=== PATIENT | female | born 1930 | race Caucasian/White ===

== ENCOUNTER 2016-03-20 09:41 | Inpatient (IN) | payer MEDICARE, MEDICAID ==
[~2016-03-20] VITALS: Ht 162.6 cm; Wt 75.7 kg
[~2016-03-20 09:41] MED LIST: GUAI600T43 PO; LEVO500T2 PO
[2016-03-20] MEDS ORDERED: NS IV 1000 ML 1,000 ML IV ONE (09:54)
[2016-03-20 10:07] LABS: BASOPHILS % (AUTO) 0 % (0-10); EOSINOPHILS % (AUTO) 0 % (0-10); LYMPHOCYTES # (AUTO) 0.6 X 10^3 (1.0-4.0); LYMPHOCYTES % (AUTO) 4 % (12-44); MEAN CORPUSCULAR HEMOGLOBIN 28 PG (25-34); MEAN CORPUSCULAR HGB CONC 32 G/DL (32-36); MEAN CORPUSCULAR VOLUME 88 FL (80-99); MEAN PLATELET VOLUME 10.9 FL (7.4-10.4); MONOCYTES % (AUTO) 6 % (0-12); NEUTROPHILS # (AUTO) 14.3 X 10^3 (1.8-7.8); NEUTROPHILS % (AUTO) 90 % (42-75); PLATELET COUNT 278 10^3/uL (130-400); RED CELL DISTRIBUTION WIDTH 15.7 % (10.0-14.5); WHITE BLOOD COUNT 15.9 10^3/uL (4.3-11.0)
[2016-03-20 10:21] LABS: ALBUMIN 3.6 G/DL (3.2-4.5); BILIRUBIN,TOTAL 0.3 MG/DL (0.1-1.0); CREATININE SERUM 2.3 MG/DL (0.60-1.30); POTASSIUM 4.4 MMOL/L (3.6-5.0); TOTAL PROTEIN 6.4 G/DL (6.4-8.2)
[2016-03-20 10:29] LABS: BAND NEUTROPHILS 16 %; EOSINOPHILS % (MANUAL) 0 %; LYMPHOCYTES % (MANUAL) 5 %; NEUTROPHILS % (MANUAL) 76 %
[2016-03-20 10:30] LABS: ANISOCYTOSIS SLIGHT; BASOPHILS % (MANUAL) 0 %; TEAR DROP CELLS SLIGHT
[2016-03-20 10:39] LABS: BILIRUBIN,URINE NEGATIVE (NEGATIVE); KETONES,URINE NEGATIVE (NEGATIVE); LEUKOCYTE ESTERASE ,URINE 1+ (NEGATIVE); NITRITE,URINE NEGATIVE (NEGATIVE); PH,URINE 5 (5-9); PROTEIN,URINE 1+ (NEGATIVE); UROBILINOGEN,URINE NORMAL (NORMAL)
[2016-03-20] MEDS ORDERED: methylPREDNISolone 125 MG (Solu-MEDROL) VIAL IVP ONE (10:45)
[2016-03-20] MEDS ORDERED: RT-ALBUTEROL/IPRATROPIUM 3 ML (DUONEB) VIAL INH ONE (10:45)
[2016-03-20] MEDS ORDERED: DEXAMETHASONE 4 MG/ML SDV (DECADRON) IH ONE (10:45)
[2016-03-20 10:47] LABS: SQUAMOUS EPITHELIAL CELL,UR 0-2 /HPF; WBC,URINE 0-2 /HPF
--- NOTE | 2016-03-20 10:54 | Diagnostic Imaging Report ---
EXAM: CHEST PA/LAT (2 VIEW) INDICATION: Dyspnea. Wheezing. COMPARISON: Chest radiograph, 03/16/2016. FINDINGS: Normal heart size and pulmonary vascularity. There is new interstitial and airspace opacity in the mid and upper right lung. Stable calcified granulomas. Calcified aorta. No definite pleural effusion or pneumothorax. Degenerative changes in the spine. IMPRESSION: New interstitial and airspace opacity in the mid and upper right lung suspicious for pneumonitis. Dictated by: Dictated on workstation # [id number]
[2016-03-20] MEDS ORDERED: LEVOFLOXACIN 750 MG/150 ML IV 150 ML IV STA (11:03)
[2016-03-20 11:45] VITALS: BP 125/64
[2016-03-20] MEDS ORDERED: VANCOMYCIN 1500 MG/NS 500 ML IVPB IV NR ×2 (12:04)
[2016-03-20] MEDS ORDERED: PIPERACILLIN SODIUM/TAZOBACTAM 4.5 GM in NORMAL SALINE (BAXTER MINI) 100 ML IV ONE (12:15)
[2016-03-20] MEDS: 1/2 NS IV SOLUTION 1,000 ML IV SCH (13:05)
[2016-03-20] MEDS ORDERED: LEVO125T PO (15:42)
[2016-03-20] MEDS ORDERED: OXYC40TA46 PO (15:42)
[2016-03-20] MEDS ORDERED: COLC0.6T53 PO (15:42)
[2016-03-20] MEDS ORDERED: MAG355OR16 PO (15:42)
[2016-03-20] MEDS ORDERED: LOPE-134 PO (15:42)
[2016-03-20] MEDS ORDERED: RANI150T15 PO (15:42)
[2016-03-20] MEDS ORDERED: MAGN400O7 PO (15:42)
[2016-03-20] MEDS ORDERED: CALC500T34 PO (15:42)
[2016-03-20] MEDS ORDERED: DICL100G18 TP (15:42)
[2016-03-20] MEDS ORDERED: L.AC1CAP6 PO (15:42)
[2016-03-20] MEDS ORDERED: NIFE90TA PO (15:42)
[2016-03-20] MEDS ORDERED: DPAS20025 PO (15:42)
[2016-03-20] MEDS ORDERED: BIMA2.5D4 OU (15:42)
[2016-03-20] MEDS ORDERED: BUTA1CAP39 PO (15:42)
[2016-03-20] MEDS ORDERED: IPRA4AER IH (15:42)
[2016-03-20] MEDS ORDERED: GABA400C PO (15:42)
[2016-03-20] MEDS ORDERED: LOVA20TA2 PO (15:42)
[2016-03-20] MEDS ORDERED: ALPR0.25 PO ×2 (15:42)
[2016-03-20] MEDS ORDERED: ONDN4T PO (15:42)
[2016-03-20] MEDS ORDERED: MULT1TAB59 PO (15:42)
[2016-03-20] MEDS ORDERED: ALLO100T PO (15:42)
[2016-03-20] MEDS ORDERED: PSYL0.5238 PO (15:42)
[2016-03-20] MEDS ORDERED: MELO-170 PO (15:42)
[2016-03-20] MEDS ORDERED: ATEN25TA PO (15:42)
[2016-03-20] MEDS ORDERED: PRAM0.252 PO (15:42)
[2016-03-20] MEDS ORDERED: DEXT15DR24 OU (15:42)
[2016-03-20] MEDS ORDERED: MENT71OI TP (15:42)
[2016-03-20] MEDS ORDERED: FURO-125 PO (15:42)
[2016-03-20] MEDS ORDERED: NF-SKEL800 PO (15:42)
[2016-03-20] MEDS ORDERED: ALBU2.5V4 NEB (15:42)
[2016-03-20] MEDS ORDERED: OXYC-197 PO (15:42)
[2016-03-20 16:00] VITALS: BP 124/73
[2016-03-20] MEDS: PIPERACILLIN SODIUM/TAZOBACTAM 4.5 GM in NORMAL SALINE (BAXTER MINI) 100 ML IV SCH (18:23)
[2016-03-20] MEDS: RT-ALBUTEROL/IPRATROPIUM 3 ML (DUONEB) VIAL INH SCH ×2 (18:51→22:55)
[2016-03-20 19:20] VITALS: BP 120/64
--- NOTE | 2016-03-20 19:51 | ED Respiratory ---
General Chief Complaint: Respiratory Problems Stated Complaint: PNEUMONIA, FAILURE OF OUTPATIENT TREATMENT Nursing Triage Note: TO ED PER EMS FROM [facility] WAS SEEN ON DISCHARGED WITH LEVAQUIN WOKE UP TODAY WITH FEVER AND NOT ANY BETTER. Source: patient, EMS History of Present Illness Time seen by provider: 09:50 Initial Comments PT ARRIVES VIA EMS FROM [facility] PT HAS KNOWN PNEUMONIA AND WAS SENT HERE TO BE ADMITTED PT WAS SEEN HERE 03/12/16 AND WAS GIVEN SOLU-MEDROL, ROCEPHIN, ZITHROMAX, AND GIVEN ZITHROMAX, PREDNISONE AND DUO NEB PT CAME BACK TO ER 03/16/16 AND DX WITH PNEUMONIA AND GIVEN LEVAQUIN AND GUIAFENESIN PT HAD RECEIVED IM INJECTIONS OF ROCEPHIN IN MID FEBRUARY FOR SIMILAR PT HAD REPORTED FEVER TODAY AND INCREASED SHORTNESS OF BREATH C/O CHEST HURTS TO BREATHE PCP: DR. HERRERA Allergies and Home Medications Allergies Coded Allergies: fentanyl (Verified Adverse Reaction, Unknown, 11/02/14) penicillin (Verified Adverse Reaction, Unknown, 11/02/14) Uncoded Allergies: TETANUS (Adverse Reaction, Unknown, 11/02/14) Home Medications Albuterol Sulfate 2.5 Mg/3 Ml Vial.neb 2.5 MG IH TID PRN PRN SHORTNESS OF BREATH (Reported) Albuterol/Ipratropium 4 Gm Aero 1 PUFF IH QID (Reported) Allopurinol 100 Mg Tablet 100 MG PO DAILY (Reported) Alprazolam 0.25 Mg Tablet 0.25 MG PO HS (Reported) Alprazolam 0.25 Mg Tablet 0.25 MG PO Q8H PRN PRN ANXIETY (Reported) Atenolol 25 Mg Tablet 12.5 MG PO DAILY (Reported) Bimatoprost 2.5 Ml Drops 1 DROP OU HS (Reported) Butalb/Acetaminophen/Caffeine 1 Each Capsule 1 EACH PO BID (Reported) Calcium Carbonate 500 Mg Tablet 1 TAB PO DAILY (Reported) Colchicine 0.6 Mg Tablet 0.6 MG PO Q4H PRN PRN GOUT PAIN (Reported) Dextran 70/Hypromellose 15 Ml Drops 1 DROP OP NEEDED PRN PRN DRY EYES ( Reported) Diclofenac Sodium 100 Gm Gel..gram. 2 GM TP Q6H PRN PRN PAIN (Reported) apply to right knee four times a day as needed for pain Dipyridamole/Aspirin 1 Ea Cap 1 CAP PO BID (Reported) Furosemide 20 Mg Tablet 10 MG PO DAILY (Reported) Gabapentin 400 Mg Capsule 400 MG PO TID (Reported) Guaifenesin 600 Mg Tab.er.12h #10 600 MG PO BID Prescribed by: HEYDI MOE on 03/16/16 1313 L.acidoph & Paracasei,B.lactis 1 Each Capsule 1 EACH PO DAILY (Reported) Levofloxacin 500 Mg Tablet #7 500 MG PO every other day Prescribed by: HEYDI MOE on 03/16/16 1317 Levothyroxine Sodium 125 Mcg Tablet 125 MCG PO DAILY (Reported) Loperamide HCl 2 Mg Tablet 4 MG PO Q6H PRN PRN DIARRHEA (Reported) Lovastatin 20 Mg Tablet 20 MG PO HS (Reported) Mag Hydrox/Al Hydrox/Simeth 770 Ml Oral.susp 30 ML PO Q4H (Reported) Magnesium Hydroxide 400 Mg/5 Ml Oral.susp 30 ML PO DAILY PRN PRN CONSTIPATION ( Reported) Meloxicam 7.5 Mg Tablet 7.5 MG PO BID (Reported) Menthol/Lanolin/Calamine/Znox 71 Gm Oint 71 GM TP Q4H PRN PRN RASH (Reported) Metaxalone 800 Mg Tablet 800 MG PO TID (Reported) Multivitamin W-Minerals/Lutein 1 Each Tablet 1 EACH PO DAILY (Reported) Nifedipine 90 Mg Tab.er.24 90 MG PO DAILY (Reported) Ondansetron HCl 4 Mg Tab 4 MG PO Q6H PRN PRN NAUSEA (Reported) Oxycodone HCl 40 Mg Tab.er.12h 40 MG PO Q12H (Reported) Oxycodone HCl/Acetaminophen 1 Each Tablet 1 EACH PO Q4H PRN PRN PAIN (Reported) Pramipexole Di-HCl 0.25 Mg Tablet 0.25 MG PO HS (Reported) Psyllium Husk 0.52 Gm Capsule 2 CAP PO TID (Reported) Ranitidine HCl 150 Mg Tablet 150 MG PO DAILY (Reported) Constitutional: see HPI fever other (LIMITED) EENTM: no symptoms reported Respiratory: see HPI cough short of breath wheezing Cardiovascular: see HPI chest pain Past Nxrbhzq-Xyxuqf-Oaljrn Hx Patient Social History Alcohol Use: Regular Use Recreational Drug Use: No Smoking Status: Former Smoker Type Used: Cigarettes Recent Foreign Travel: No Contact w/Someone Who Travel: No Recent Infectious Disease Expo: No Recent Hopitalizations: No Physical Abuse Screen: No Sexual Abuse: No Immunizations Up To Date Tetanus Booster (TDap): More than 5yrs PED Vaccines UTD: No Date of Pneumonia Vaccine: Feb 16, 2014 Date of Influenza Vaccine: Dec 18, 2015 Seasonal Allergies Seasonal Allergies: Yes Surgeries HX Surgeries: Yes (COLONOSCOPY; KNEE SURGERY) Surgeries: Appendectomy, Gallbladder, Hysterectomy, Orthopedic Respiratory Hx Respiratory Disorders: Yes Respiratory Disorders: Asthma, COPD Cardiovascular Hx Cardiac Disorders: Yes Cardiac Disorders: Chronic Edema/Swelling, High Cholesterol, Hypertension Neurological Hx Neurological Disorders: Yes (Peripheral Neuropathy, chronic weakness, RLS) Neurological Disorders: Dementia, Headaches /Migraines, Neuropathy, Stroke, TIA Reproductive System Hx Reproductive Disorders: No 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 COMPRESSION FRACTURES IN BACK) Musculoskeletal Disorders: Degenerate Disk Disease, Arthritis, Chronic Back Pain, Fractures, Gout Endocrine Hx Endocrine Disorders: Yes Endocrine Disorders: Hyperthyroidism, Hypothyroidsim HEENT HX ENT Disorders: Yes HEENT Disorders: Cataract, Glaucoma Loss of Vision: Bilateral Hearing Impairment: Hard of Hearing Cancer Hx Cancer: No Psychosocial Hx Psychiatric Problems: Yes Behavioral Health Disorders: Anxiety, Depression Integumentary HX Skin/Integumentary Disorder: No Blood Transfusions Hx Blood Disorders: No Adverse Reaction to a Blood Tr: No Family Medical History Family Medial History: Congenital heart disease 19 FATHER 19 MOTHER FH: stroke 19 FATHER 19 MOTHER G8 SISTER G8 SISTER Myocardial infarction G8 SISTER Physical Exam Vital Signs Vital Sign - Last 12Hours 03/20/16 09:41 Temp 99.8 Pulse 79 Resp 18 B/P 121/87 Pulse Ox 94 O2 Delivery Nasal Cannula O2 Flow Rate 3 Capillary Refill : Less Than 3 SecondsLess Than 3 Seconds General Appearance: WD/WN mild distress other (DYSPNEIC--TALKS IN 1-3 WORD SENTENCES. AUDIBLE WHEEZING/RHONCHI. LETHARGIC. LOOKS ILL. 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 as tested no motor/sensory deficits oriented x 3 Skin: normal color warm/dry Progress/Results/Core Measures Results/Orders Lab Results Laboratory Tests Test 03/20/16 09:40 03/20/16 10:33 Range/Units Alanine Aminotransferase (ALT/SGPT) 51 0-55 U/L Albumin 3.6 3.2-4.5 G/DL Alkaline Phosphatase 141 H 40-136 U/L Anion Gap 10 5-14 MMOL/L Anisocytosis SLIGHT Aspartate Amino Transf (AST/SGOT) 58 H 5-34 U/L B-Type Natriuretic Peptide 157.8 H <100.0 PG/ML BUN/Creatinine Ratio 14 Band Neutrophils 16 % Basophils # (Auto) 0.0 0.0-0.1 10^3/uL Basophils % (Manual) 0 % Basophils (%) (Auto) 0 0-10 % Blood Urea Nitrogen 33 H 7-18 MG/DL Calcium Level 9.0 8.5-10.1 MG/DL Carbon Dioxide Level 17 L 21-32 MMOL/L Chloride Level 111 H 98-107 MMOL/L Creatinine 2.30 H 0.60-1.30 MG/DL Eosinophils # (Auto) 0.0 0.0-0.3 10^3/uL Eosinophils % (Manual) 0 % Eosinophils (%) (Auto) 0 0-10 % Estimat Glomerular Filtration Rate 20 Glucose Level 113 H 70-105 MG/DL Hematocrit 28 L 35-52 % Hemoglobin 9.0 L 11.5-16.0 G/DL Lactic Acid Level 0.9 0.5-2.0 MMOL/L Lymphocytes # (Auto) 0.6 L 1.0-4.0 X 10^3 Lymphocytes % (Manual) 5 % Lymphocytes (%) (Auto) 4 L 12-44 % Mean Corpuscular Hemoglobin 28 25-34 PG Mean Corpuscular Hemoglobin Concent 32 32-36 G/DL Mean Corpuscular Volume 88 80-99 FL Mean Platelet Volume 10.9 H 7.4-10.4 FL Monocytes # (Auto) 1.0 0.0-1.0 X 10^3 Monocytes % (Manual) 3 % Monocytes (%) (Auto) 6 0-12 % Neutrophils # (Auto) 14.3 H 1.8-7.8 X 10^3 Neutrophils % (Manual) 76 % Neutrophils (%) (Auto) 90 H 42-75 % Platelet Count 278 130-400 10^3/uL Potassium Level 4.4 3.6-5.0 MMOL/L Red Blood Count 3.20 L 4.35-5.85 10^6/uL Red Cell Distribution Width 15.7 H 10.0-14.5 % Sodium Level 138 135-145 MMOL/L Tear Drop Cells SLIGHT Total Bilirubin 0.3 0.1-1.0 MG/DL Total Protein 6.4 6.4-8.2 G/DL Troponin I < 0.30 <0.30 NG/ML White Blood Count 15.9 H 4.3-11.0 10^3/uL Urine Bacteria NEGATIVE /HPF Urine Bilirubin NEGATIVE NEGATIVE Urine Casts NONE /LPF Urine Clarity CLEAR Urine Color YELLOW Urine Crystals NONE /LPF Urine Culture Indicated NO Urine Glucose (UA) NEGATIVE NEGATIVE Urine Ketones NEGATIVE NEGATIVE Urine Leukocyte Esterase 1+ H NEGATIVE Urine Mucus NEGATIVE /LPF Urine Nitrite NEGATIVE NEGATIVE Urine Protein 1+ H NEGATIVE Urine RBC RARE /HPF Urine RBC (Auto) NEGATIVE NEGATIVE Urine Specific [place] 1.010 L 1.016-1.022 Urine Squamous Epithelial Cells 0-2 /HPF Urine Urobilinogen NORMAL NORMAL MG/DL Urine WBC 0-2 /HPF Urine pH 5 5-9 Micro Results Microbiology 03/20/16 Influenza Types A,B Antigen (SHIRIN) - Final, Complete My Orders Orders-SWEETIE SULLIVAN DO Saline Lock/Iv-Start (03/20/16 09:54) O2 (03/20/16 09:54) Monitor-Rhythm Ecg Trace Only (03/20/16 09:54) Cbc With Automated Diff (03/20/16 09:54) Comprehensive Metabolic Panel (03/20/16 09:54) Lactic Acid Analyzer (03/20/16 09:54) Ua Culture If Indicated (03/20/16 09:54) Blood Culture (03/20/16 09:54) Influenza A And B Antigens (03/20/16 09:54) Chest Pa/Lat (2 View) (03/20/16 09:54) Saline Lock/Iv-Start (03/20/16 09:54) Ns Iv 1000 Ml (Sodium Chloride 0.9%) (03/20/16 09:54) Manual Differential (03/20/16 09:40) Albuterol/Ipra Inhalation Soln (Duoneb I (03/20/16 10:45) Dexamethasone Injection (Decadron Inject (03/20/16 10:45) Rt Request For Service (03/20/16 10:37) Svn Sm Volume Nebulizer Rt-Rfs (03/20/16 10:37) Methylprednisolone Sod Succ (Solu-Medrol (03/20/16 10:45) Ekg Tracing (03/20/16 10:54) BNP (03/20/16 10:54) Troponin I (03/20/16 10:54) Levofloxacin 750 Mg/150 Ml Iv (Levaquin (03/20/16 11:03) Medications Given in ED Current Medications Medications Dose Ordered Sig/Jamey Route Start Time Stop Time Status Last Admin Dose Admin Albuterol/ Ipratropium 3 ml ONCE ONCE INH 03/20/16 10:45 03/20/16 10:46 DC 03/20/16 11:08 3 ML Dexamethasone Sodium Phosphate 20 mg ONCE ONCE IH 03/20/16 10:45 03/20/16 10:46 DC 03/20/16 11:08 20 MG Methylprednisolone Sodium Succinate 125 mg ONCE ONCE IVP 03/20/16 10:45 03/20/16 10:46 DC 03/20/16 11:23 125 MG Vital Signs/I&O Vital Sign - Last 12Hours 03/20/16 03/20/16 03/20/16 09:41 09:41 11:08 Temp 99.8 Pulse 79 Resp 18 B/P 121/87 Pulse Ox 94 98 O2 Delivery Nasal Cannula Nasal Cannula Nasal Cannula O2 Flow Rate 3 2.5 Blood Pressure Mean: 90 Progress Note : Progress Note LUNG SOUNDS IMPROVED WITH NEBULIZER TREATMENT ECG Initial ECG Impression Time: 10:59 Initial ECG Rate: 77 Initial ECG Rhythm: Normal Sinus Initial ECG Comparisson: Unchanged Diagnostic Imaging Comments CXR--INCREASED RIGHT SIDED PNEUMONIA, PER RADIOLOGIST REPORT Reviewed: Reviewed by Me Departure Communication Progress Notes 1057--ATTEMPTING TO CONTACT DR. HAMPTON, NO ANSWER. 1107--SPOKE WITH DR. HAMPTON, ACCEPTS PT FOR ADMIT. Impression Impression: Primary Impression: PNEUMONIA UNRESPONSIVE TO OUTPATIENT THERAPY Additional Impression: COPD (chronic obstructive pulmonary disease) Disposition: ADMITTED INPATIENT Condition: Improved Decision to Admit Reason: Admit from ER (General) Decision to Admit/Date: Mar 20, 2016 Time/Decision to Admit Time: 11:00 Departure-Patient Inst. Referrals: PRO HERRERA MD (PCP) Primary Care Physician SWEETIE SULLIVAN DO Mar 20, 2016 19:51
[2016-03-20] MEDS ORDERED: RT-ALBUTEROL/IPRATROPIUM 3 ML (DUONEB) VIAL INH PRN (20:00)
[2016-03-21] VITALS (8 sets, daily range): BP systolic 123–153; BP diastolic 60–78
[2016-03-21] MEDS: 1/2 NS IV SOLUTION 1,000 ML IV SCH ×2 (01:35→12:52)
[2016-03-21] MEDS: RT-ALBUTEROL/IPRATROPIUM 3 ML (DUONEB) VIAL INH SCH ×6 (02:31→22:47)
[2016-03-21 04:43] LABS: BASOPHILS % (AUTO) 0 % (0-10); EOSINOPHILS % (AUTO) 0 % (0-10); LYMPHOCYTES # (AUTO) 1.2 X 10^3 (1.0-4.0); LYMPHOCYTES % (AUTO) 7 % (12-44); MEAN CORPUSCULAR HEMOGLOBIN 28 PG (25-34); MEAN CORPUSCULAR HGB CONC 32 G/DL (32-36); MEAN CORPUSCULAR VOLUME 88 FL (80-99); MEAN PLATELET VOLUME 10.8 FL (7.4-10.4); MONOCYTES # (AUTO) 0.9 X 10^3 (0.0-1.0); MONOCYTES % (AUTO) 5 % (0-12); NEUTROPHILS # (AUTO) 15.2 X 10^3 (1.8-7.8); NEUTROPHILS % (AUTO) 87 % (42-75); PLATELET COUNT 266 10^3/uL (130-400); RED BLOOD COUNT 2.77 10^6/uL (4.35-5.85); RED CELL DISTRIBUTION WIDTH 15.6 % (10.0-14.5); WHITE BLOOD COUNT 17.4 10^3/uL (4.3-11.0)
[2016-03-21 05:12] LABS: ALBUMIN 3.2 G/DL (3.2-4.5); BILIRUBIN,TOTAL 0.3 MG/DL (0.1-1.0); CALCIUM 8.3 MG/DL (8.5-10.1); POTASSIUM 4.1 MMOL/L (3.6-5.0); TOTAL PROTEIN 5.5 G/DL (6.4-8.2)
[2016-03-21] MEDS: PIPERACILLIN SODIUM/TAZOBACTAM 4.5 GM in NORMAL SALINE (BAXTER MINI) 100 ML IV SCH ×2 (06:14→17:35)
[2016-03-21] MEDS: UMECLIDINIUM BROMIDE (INCRUSE ELLIPTA) 7'S IH SCH (07:45)
[2016-03-21] MEDS ORDERED: TROUGH ORDER-PHARMACY XX NR (11:00)
[2016-03-21] MEDS ORDERED: PRAM0.128 PO (11:23)
[2016-03-21] MEDS ORDERED: DEXT15DR24 OU (11:23)
[2016-03-21] MEDS ORDERED: LEVO500T80 PO (11:39)
[2016-03-21] MEDS ORDERED: GUAI600T43 PO (11:45)
[2016-03-21] MEDS ORDERED: VANCOMYCIN 1 GM/NS 250 ML IVPB IV SCH ×2 (12:00)
[2016-03-21] MEDS ORDERED: RT-ALBUTEROL SULF 2.5 MG/3 ML PRE-MIX VIAL IH PRN (12:15)
[2016-03-21] MEDS ORDERED: COLCHICINE 0.6 MG (COLCRYS) TABLET PO PRN (12:15)
[2016-03-21] MEDS ORDERED: ALPRAZolam 0.25 MG (XANAX) TAB PO PRN (12:15)
[2016-03-21] MEDS ORDERED: DICLOFENAC 1% GEL 100 GM (VOLTAREN) TUBE TP PRN (12:15)
[2016-03-21] MEDS ORDERED: MILK OF MAGNESIA 400 MG/5 ML 30 ML UDC PO PRN (12:15)
[2016-03-21] MEDS ORDERED: SODIUM CHLORIDE (ADD-VANTAGE) 250 ML ONE (12:30)
[2016-03-21] MEDS ORDERED: VANCOMYCIN 1 GM ADD-VANTAGE VIAL IV ONE (12:30)
[2016-03-21] MEDS ORDERED: ARTIFICAL TEARS 0.4 ML UNIT DOSE (REFRESH PLUS) OU PRN (12:45)
[2016-03-21] MEDS: GABAPENTIN 400 MG (NEURONTIN) CAP PO SCH ×2 (12:47→23:20)
[2016-03-21] MEDS: oxyCODONE/APAP 5/325MG (PERCOCET 5) TABLET PO PRN ×2 (13:31→21:43)
--- NOTE | 2016-03-21 15:15 | History & Physical-Hospitalist ---
HPI History of Present Illness: HPI/Chief Complaint Normal. The patient is an 85-year-old white female who was admitted with a chief complaint of cough and shortness of breath. She was seen in the emergency room on 03/12 with complaints of cough and shortness of breath. Evaluation showed a normal chest x-ray, normal white count, no fever. She returned on 03/16 with similar complaints. Her white count remained normal. Her chest x-ray at most suggested atelectasis in the right base. I reviewed these films and to my view there was minimum change. She returned on 03/20 with fever, her white count was elevated at 15,700, and the chest x-ray showed a rather diffuse fluffy looking infiltrate on the right and a bit on the left. Her granddaughter reports that the patient has rather chronic back pain. She been on OxyContin 20 mg twice daily for a considerable period of time. She was recently increased to 40 mg twice daily. The granddaughter reported that she was considerably less active, did not cough or eat as well; she expressed concern about resuming the OxyContin at least at that level. Date Seen 03/21/16 Attending Physician Carlos Eduardo Serrano MD PCP Carlos Eduardo Serrano MD Referring Physician Date of Admission Mar 20, 2016 at 11:19 Home Medications & Allergies Home Medications Reviewed patient Home Medication Reconciliation Form Allergies Coded Allergies: fentanyl (Verified Adverse Reaction, Unknown, 11/02/14) penicillin (Verified Adverse Reaction, Unknown, 11/02/14) Uncoded Allergies: TETANUS (Adverse Reaction, Unknown, 11/02/14) Past Gtpenkb-Qjakde-Vyexfd Hx Patient Social History Alcohol Use: Regular Use Recreational Drug Use: No Smoking Status: Former Smoker Type Used: Cigarettes Physical Abuse Screen: No Sexual Abuse: No Recent Foreign Travel: No Contact w/other who traveled: No Recent Hopitalizations: No Recent Infectious Disease Expo: No Immunizations Up To Date Tetanus Booster (TDap): More than 5yrs Date of Pneumonia Vaccine: Feb 16, 2014 Date of Influenza Vaccine: Dec 18, 2015 Seasonal Allergies Seasonal Allergies: Yes Surgeries HX Surgeries: Yes (COLONOSCOPY; KNEE SURGERY) Surgeries: Appendectomy, Gallbladder, Hysterectomy, Orthopedic Respiratory Hx Respiratory Disorders: Yes Cardiovascular Hx Cardiovascular Disorders: Yes Cardiac Disorders: Chronic Edema/Swelling, High Cholesterol, Hypertension Neurological Hx Neurological Disorders: Yes (Peripheral Neuropathy, chronic weakness, RLS) Neurological Disorders: Dementia, Headaches /Migraines, Neuropathy, Stroke, TIA Reproductive System Hx Reproductive Disorders: No Genitourinary Hx Genitourinary Disorders: Yes (CHRONIC RENAL INSUFFICIENCY) Genitourinary Disorders: Renal Failure Gastrointestinal Hx Gastrointestinal Disorders: Yes Gastrointestinal Disorders: Gastroesophageal Reflux, Diverticulosis Musculoskeletal Hx Musculoskeletal Disorders: Yes (RLS; PT IS NON-AMBULATORY AND IS WHEELCHAIR BOUND DUE TO CHRONIC PAIN AND GENERALIZED WEAKNESS. COMPRESSION FRACTURES IN BACK) Musculoskeletal Disorders: Degenerate Disk Disease, Arthritis, Chronic Back Pain, Fractures, Gout Endocrine Hx Endocrine Disorders: Yes Endocrine Disorders: Hyperthyroidism, Hypothyroidsim HEENT HX ENT Disorders: Yes HEENT Disorders: Cataract, Glaucoma Loss of Vision: Bilateral Hearing Impairment: Hard of Hearing Cancer Hx Cancer: No Psychosocial Hx Psychiatric Problems: Yes Behavioral Health Disorders: Anxiety, Depression Integumentary HX Skin/Integumentary Disorder: No Blood Transfusions Hx Blood Disorders: No Adverse Reaction to a Blood Tr: No Family Medical History Family Hx: Congenital heart disease 19 FATHER 19 MOTHER FH: stroke 19 FATHER 19 MOTHER G8 SISTER G8 SISTER Myocardial infarction G8 SISTER Review of Systems Constitutional: see HPI EENTM: no symptoms reported Respiratory: see HPI cough dyspnea on exertion phlegm short of breath wheezing Cardiovascular: no symptoms reported Gastrointestinal: no symptoms reported Genitourinary: no symptoms reported Musculoskeletal: no symptoms reported Skin: no symptoms reported Psychiatric/Neurological: No Symptoms Reported Physical Exam Physical Exam Vital Signs Capillary Refill : Less Than 3 SecondsLess Than 3 Seconds General Appearance: Mild Distress Moderate Distress Eyes: Bilateral Eye Normal Inspection HEENT: Normal ENT Inspection Neck: Normal Inspection Respiratory: Other Cardiovascular: Regular Rate, Rhythm No Edema No Gallop No JVD No Murmur Normal Peripheral Pulses Gastrointestinal: Normal Bowel Sounds No Organomegaly No Pulsatile Mass Non Tender Soft Back: Normal Inspection No CVA Tenderness No Vertebral Tenderness Extremity: Normal Capillary Refill Normal Inspection Normal Range of Motion Non Tender No Calf Tenderness No Pedal Edema Neurologic/Psychiatric: Alert Oriented x3 No Motor/Sensory Deficits Normal Mood/Affect Skin: Normal Color Warm/Dry Lymphatic: No Adenopathy Results Results/Procedures Lab Assessment/Plan Admission Diagnosis 1.pneumonia. 2.mild dementia Clinical Quality Measures DVT/VTE Risk/Contraindication: Risk Factor Score Per Nursin RFS Level Per Nursing on Admit: 4+=Very High MARY HAMPTON MD Mar 21, 2016 15:15 Non Tender No Calf Tenderness No Pedal Edema Neurologic/Psychiatric: Alert Oriented x3 No Motor/Sensory Deficits Normal Mood/Affect Skin: Normal Color Warm/Dry Lymphatic: No Adenopathy Results Results/Procedures Lab Laboratory Tests 03/20/16 09:40 03/21/16 04:15 Assessment/Plan Admission Diagnosis 1.pneumonia. 2.mild dementia Clinical Quality Measures DVT/VTE Risk/Contraindication: Risk Factor Score Per Nursin RFS Level Per Nursing on Admit: 4+=Very High MARY HAMPTON MD Mar 21, 2016 15:15
[2016-03-21] MEDS ORDERED: oxyCODONE ER 40 MG (oxyCONTIN CR) TAB PO SCH (21:00)
[2016-03-21] MEDS: ALPRAZolam 0.25 MG (XANAX) TAB PO SCH (21:44)
[2016-03-21] MEDS: ONDANSETRON 4 MG (ZOFRAN) ORAL DISSOLVE TAB PO PRN (21:46)
[2016-03-21] MEDS: MELOXICAM 7.5 MG (MOBIC) TABLET PO SCH (23:20)
[2016-03-21] MEDS: DIPYRIDAMOLE/ASA ER CAPSULE (AGGRENOX) PO SCH (23:21)
[2016-03-21] MEDS: LATANOPROST 0.005% (XALATAN) OPHTH SOLN 2.5 ML OU SCH (23:21)
[2016-03-21] MEDS: PRAMIPEXOLE 0.125 MG (MIRAPEX) TABLET PO SCH (23:21)
[2016-03-21] MEDS: guaiFENesin (MUCINEX) 600 MG TAB PO SCH (23:21)
[2016-03-22] VITALS: BP 153/69
[2016-03-22] MEDS: oxyCODONE/APAP 5/325MG (PERCOCET 5) TABLET PO PRN ×2 (01:53→17:06)
[2016-03-22] MEDS: RT-ALBUTEROL/IPRATROPIUM 3 ML (DUONEB) VIAL INH SCH ×6 (02:01→21:53)
[2016-03-22 04:00] VITALS: BP 160/70
[2016-03-22] MEDS: PIPERACILLIN SODIUM/TAZOBACTAM 4.5 GM in NORMAL SALINE (BAXTER MINI) 100 ML IV SCH ×3 (05:25→22:04)
[2016-03-22] MEDS: UMECLIDINIUM BROMIDE (INCRUSE ELLIPTA) 7'S IH SCH (06:51)
[2016-03-22 08:00] VITALS: BP 154/73
[2016-03-22] MEDS: GABAPENTIN 400 MG (NEURONTIN) CAP PO SCH ×3 (09:21→22:03)
[2016-03-22] MEDS: FAMOTIDINE 20 MG (PEPCID) TABLET PO SCH (09:21)
[2016-03-22] MEDS: DIPYRIDAMOLE/ASA ER CAPSULE (AGGRENOX) PO SCH ×2 (09:21→22:02)
[2016-03-22] MEDS: LEVOTHYROXINE 125 MCG (LEVOTHROID) TABLET PO SCH (09:21)
[2016-03-22] MEDS: MELOXICAM 7.5 MG (MOBIC) TABLET PO SCH ×2 (09:21→22:02)
[2016-03-22] MEDS: ALLOPURINOL 100 MG (ZYLOPRIM) TAB PO SCH (09:21)
[2016-03-22] MEDS: guaiFENesin (MUCINEX) 600 MG TAB PO SCH ×2 (09:22→22:02)
[2016-03-22] MEDS: ATENOLOL 25 MG (TENORMIN) TAB PO SCH (09:22)
[2016-03-22] MEDS: 1/2 NS IV SOLUTION 1,000 ML IV SCH ×3 (09:23→22:02)
[2016-03-22] MEDS: FUROSEMIDE 20 MG (LASIX) TAB PO SCH (09:23)
[2016-03-22 09:31] LABS: BASOPHILS % (AUTO) 0 % (0-10); EOSINOPHILS # (AUTO) 0.2 10^3/uL (0.0-0.3); EOSINOPHILS % (AUTO) 1 % (0-10); LYMPHOCYTES # (AUTO) 1.3 X 10^3 (1.0-4.0); LYMPHOCYTES % (AUTO) 10 % (12-44); MEAN CORPUSCULAR HEMOGLOBIN 28 PG (25-34); MEAN CORPUSCULAR HGB CONC 31 G/DL (32-36); MEAN CORPUSCULAR VOLUME 89 FL (80-99); MEAN PLATELET VOLUME 9.9 FL (7.4-10.4); MONOCYTES # (AUTO) 0.9 X 10^3 (0.0-1.0); MONOCYTES % (AUTO) 7 % (0-12); NEUTROPHILS # (AUTO) 10.1 X 10^3 (1.8-7.8); NEUTROPHILS % (AUTO) 81 % (42-75); PLATELET COUNT 296 10^3/uL (130-400); RED BLOOD COUNT 3.38 10^6/uL (4.35-5.85); RED CELL DISTRIBUTION WIDTH 16.1 % (10.0-14.5); WHITE BLOOD COUNT 12.4 10^3/uL (4.3-11.0)
[2016-03-22 09:53] LABS: ALBUMIN 3.5 G/DL (3.2-4.5); BILIRUBIN,TOTAL 0.3 MG/DL (0.1-1.0); CALCIUM 9.1 MG/DL (8.5-10.1); CREATININE SERUM 1.7 MG/DL (0.60-1.30); TOTAL PROTEIN 6.4 G/DL (6.4-8.2)
--- NOTE | 2016-03-22 10:43 | Progress Note-Hospitalist ---
Standard Progress Note Progress Notes/Assess & Plan Date Seen 03/22/16 Diagnosis 1.pneumonia. 2.mild dementia Assess & Plan/Chief Complaint The patient reports that she feels somewhat better today. The cough is better managed. Her pain is also apparently better managed and the red eyes have disappeared. She and her daughter informed me that she vomited last night. This is actually not a new thing and has been present more than a month. It is not directly related to her current respiratory situation. I informed them that the barium studies would not be prudent given her present pulmonary status. Physical exam: She exhibits a sense of humor today. Lungs show distant breath sounds on the left and minimal rhonchi. There are rough rhonchi in the right base anterior and posterior. CV is regular. Abdomen is soft. Impression: Improvement in right-sided pneumonia. 2.history of unexplained vomiting, subacute to chronic in nature Plan: Continue IV antibiotics and pulmonary toilet. After these are cleared and likely in outpatient status I would recommend endoscopy Labs Laboratory Tests 03/21/16 04:15 03/22/16 09:23 MARY HAMPTON MD Mar 22, 2016 10:43
[2016-03-22] MEDS ORDERED: LEVOFLOXACIN 750 MG TAB (LEVAQUIN) PO SCH (11:00)
[2016-03-22 12:00] VITALS: BP 149/69
[2016-03-22 16:00] VITALS: BP 171/77
[2016-03-22 20:00] VITALS: BP 126/58
[2016-03-22] MEDS: ALPRAZolam 0.25 MG (XANAX) TAB PO SCH (22:02)
[2016-03-22] MEDS: PRAMIPEXOLE 0.125 MG (MIRAPEX) TABLET PO SCH (22:02)
[2016-03-22] MEDS: LATANOPROST 0.005% (XALATAN) OPHTH SOLN 2.5 ML OU SCH (22:04)
[2016-03-22] MEDS: ONDANSETRON 4 MG (ZOFRAN) ORAL DISSOLVE TAB PO PRN (22:07)
[2016-03-23] VITALS: BP 167/73
[2016-03-23] MEDS: RT-ALBUTEROL/IPRATROPIUM 3 ML (DUONEB) VIAL INH SCH ×3 (02:06→11:03)
[2016-03-23] MEDS: PIPERACILLIN SODIUM/TAZOBACTAM 4.5 GM in NORMAL SALINE (BAXTER MINI) 100 ML IV SCH (05:38)
[2016-03-23] MEDS: oxyCODONE/APAP 5/325MG (PERCOCET 5) TABLET PO PRN (05:38)
[2016-03-23] MEDS: UMECLIDINIUM BROMIDE (INCRUSE ELLIPTA) 7'S IH SCH (06:49)
--- NOTE | 2016-03-23 07:35 | Diagnostic Imaging Report ---
INDICATION: Wheezing Portable upright view of the chest is obtained with comparison made to study of 03/20/2016. Heart size is at the upper limits of normal. There has been overall improvement in aeration of the lungs with mild residual airspace disease throughout the right lung. Calcified granuloma seen in the left midlung. No pneumothorax is identified. IMPRESSION: Improving aeration of the lungs with mild diffuse edema and/or pneumonitis involving the right lung. Dictated by: Dictated on workstation # [id number]
--- NOTE | 2016-03-23 07:49 | Progress Note-Hospitalist ---
Progress Note HPI/CC on Admission Normal. The patient is an 85-year-old white female who was admitted with a chief complaint of cough and shortness of breath. She was seen in the emergency room on 03/12 with complaints of cough and shortness of breath. Evaluation showed a normal chest x-ray, normal white count, no fever. She returned on 03/16 with similar complaints. Her white count remained normal. Her chest x-ray at best suggested atelectasis in the right base. I reviewed these films and to my view there was minimum change. She returned on 03/20 with fever, her white count was elevated at 15,700, and the chest x-ray showed a rather diffuse fluffy looking infiltrate on the right and a bit on the left. Her granddaughter reports that the patient has rather chronic back pain. She been on OxyContin 20 mg twice daily for a considerable period of time. She was recently increased to 40 mg twice daily. The granddaughter reported that she was considerably less active, did not cough or heat as well; she expressed concern about resuming the OxyContin at least at that level. Progress Notes/Assess & Plan Date Seen 03/23/16 Diagonsis/Assessment & Plan Chart Review: Max fever yesterday afternoon 100.2 director hris: Pt has not vomited recently. Pt may have been admitted for fever. Pt is not ambulating well. Patient Interview: Pt states she is doing okay this morning. Pt was told blood work has been ordered. Pt was encouraged to ambulate today. Pt states she is not eating much. Pt was encouraged to eat more food to recover. Physical exam revealed wheezing. Pt states she just received a breathing tx. family at bedside No fever vital signs stable pleasant but poor recall Regular rate and rhythm, coarse breath sounds throughout all adkins no tachypnea but wheezing is noted No edema normal range of motion Assessment: Pneumonia but not improving consulting Dr. Jaime rechecking chest x-ray Generalized debility requiring to assist for ambulation Dementia Overall poor prognosis Chronic renal insufficiency Anemia of kidney disease Plan: Swing bed eval? Consult Dr. Jaime CXR repeat Monitor labs Palliative care consultation since I doubt I can improve much in her overall status and poor prognosis Scribed by Dominik Burden under the direct supervision of Dr. Hung. AMAURI HUNG DO Mar 23, 2016 07:49
[2016-03-23 07:50] VITALS: BP 151/66
[2016-03-23 07:57] LABS: BASOPHILS % (AUTO) 0 % (0-10); EOSINOPHILS # (AUTO) 0.2 10^3/uL (0.0-0.3); EOSINOPHILS % (AUTO) 1 % (0-10); LYMPHOCYTES # (AUTO) 1.5 X 10^3 (1.0-4.0); LYMPHOCYTES % (AUTO) 12 % (12-44); MEAN CORPUSCULAR HEMOGLOBIN 28 PG (25-34); MEAN CORPUSCULAR HGB CONC 31 G/DL (32-36); MEAN CORPUSCULAR VOLUME 89 FL (80-99); MEAN PLATELET VOLUME 10.3 FL (7.4-10.4); MONOCYTES # (AUTO) 0.9 X 10^3 (0.0-1.0); MONOCYTES % (AUTO) 7 % (0-12); NEUTROPHILS # (AUTO) 10.2 X 10^3 (1.8-7.8); NEUTROPHILS % (AUTO) 80 % (42-75); PLATELET COUNT 278 10^3/uL (130-400); RED BLOOD COUNT 2.95 10^6/uL (4.35-5.85); RED CELL DISTRIBUTION WIDTH 16.1 % (10.0-14.5); WHITE BLOOD COUNT 12.7 10^3/uL (4.3-11.0)
[2016-03-23 08:00] VITALS: BP 151/66
[2016-03-23 08:16] LABS: BILIRUBIN,TOTAL 0.4 MG/DL (0.1-1.0); CALCIUM 8.5 MG/DL (8.5-10.1); CREATININE SERUM 1.54 MG/DL (0.60-1.30); POTASSIUM 4.2 MMOL/L (3.6-5.0); TOTAL PROTEIN 5.6 G/DL (6.4-8.2)
--- NOTE | 2016-03-23 09:30 | Pulmonary Consultation ---
History of Present Illness History of Present Illness Date of Consultation 03/23/16 09:25 Date of Admission History of Present Illness 85yo presented secondary to progressive SOB and coughing. she was recently seen in ED 03/12 with same symptoms and sent home. CXR shows right lung atelectasis and infiltrate. i am consulted for pulmonary management. Allergies and Home Medications Allergies Coded Allergies: fentanyl (Verified Adverse Reaction, Unknown, 11/02/14) penicillin (Verified Adverse Reaction, Unknown, 11/02/14) Uncoded Allergies: TETANUS (Adverse Reaction, Unknown, 11/02/14) Home Medications Albuterol Sulfate 2.5 Mg/3 Ml Vial.neb 2.5 MG IH TID PRN PRN SHORTNESS OF BREATH (Reported) Albuterol/Ipratropium 4 Gm Aero 1 PUFF IH QID (Reported) Allopurinol 100 Mg Tablet 100 MG PO DAILY (Reported) Alprazolam 0.25 Mg Tablet 0.25 MG PO HS (Reported) Alprazolam 0.25 Mg Tablet 0.25 MG PO Q8H PRN PRN ANXIETY (Reported) Atenolol 25 Mg Tablet 12.5 MG PO DAILY (Reported) TAKES 1/2 (25MG) TABLET Bimatoprost 2.5 Ml Drops 1 DROP OU HS (Reported) Butalb/Acetaminophen/Caffeine 1 Each Capsule 1 TAB PO BID (Reported) Calcium Carbonate 500 Mg Tablet 1 TAB PO DAILY (Reported) Colchicine 0.6 Mg Tablet 0.6 MG PO Q4H PRN PRN GOUT PAIN (Reported) Dextran 70/Hypromellose 15 Ml Drops 1 DROP OU PRN PRN PRN DRY EYES (Reported) Dextran 70/Hypromellose 15 Ml Drops 1 DROP OU BID (Reported) Diclofenac Sodium 100 Gm Gel..gram. 2 GM TP QID PRN PRN PAIN (Reported) APPLY TO RIGHT KNEE Dipyridamole/Aspirin 1 Ea Cap 1 CAP PO BID (Reported) Furosemide 20 Mg Tablet 10 MG PO DAILY (Reported) TAKES 1/2 (20MG) TABLET Gabapentin 400 Mg Capsule 400 MG PO TID (Reported) Guaifenesin 600 Mg Tab.er.12h 5Days 600 MG PO Q12H (Reported) 5 DAY THERAPY FILLED 03-16-16 L.acidoph & Paracasei,B.lactis 1 Each Capsule 1 CAP PO DAILY (Reported) Levofloxacin 500 Mg Tablet 14Days 500 MG PO Q48H (Reported) 14 DAY THERAPY FILLED 03-16-16 Levothyroxine Sodium 125 Mcg Tablet 125 MCG PO DAILY (Reported) Loperamide HCl 2 Mg Tablet 4 MG PO Q6H PRN PRN DIARRHEA (Reported) Lovastatin 20 Mg Tablet 20 MG PO HS (Reported) Mag Hydrox/Al Hydrox/Simeth 770 Ml Oral.susp 30 ML PO UD PRN PRN ACID REFLUX ( Reported) Magnesium Hydroxide 400 Mg/5 Ml Oral.susp 30 ML PO DAILY PRN PRN CONSTIPATION ( Reported) Meloxicam 7.5 Mg Tablet 7.5 MG PO BID (Reported) Menthol/Lanolin/Calamine/Znox 71 Gm Oint TP PRN PRN PRN GAULDING/REDNESS ( Reported) Metaxalone 800 Mg Tablet 800 MG PO TID (Reported) Multivitamin W-Minerals/Lutein 1 Each Tablet 1 TAB PO DAILY (Reported) Nifedipine 90 Mg Tab.er.24 90 MG PO DAILY (Reported) Ondansetron HCl 4 Mg Tab 4 MG PO Q6H PRN PRN NAUSEA (Reported) Oxycodone HCl 40 Mg Tab.er.12h 40 MG PO Q12H (Reported) Oxycodone HCl/Acetaminophen 1 Each Tablet 1 TAB PO Q4H PRN PRN PAIN (Reported) Pramipexole Di-HCl 0.125 Mg Tablet 0.125 MG PO HS (Reported) Psyllium Husk 0.52 Gm Capsule 2 CAP PO TID (Reported) Ranitidine HCl 150 Mg Tablet 150 MG PO DAILY (Reported) Past Xbdekhb-Ygddlx-Bcetsy Hx Patient Social History Alcohol Use: Regular Use Recreational Drug Use: No Smoking Status: Former Smoker Type Used: Cigarettes Recent Foreign Travel: No Contact w/Someone Who Travel: No Recent Infectious Disease Expo: No Recent Hopitalizations: No Physical Abuse Screen: No Sexual Abuse: No Immunizations Up To Date Tetanus Booster (TDap): More than 5yrs PED Vaccines UTD: No Date of Pneumonia Vaccine: Feb 16, 2014 Date of Influenza Vaccine: Dec 18, 2015 Seasonal Allergies Seasonal Allergies: Yes Surgeries HX Surgeries: Yes (COLONOSCOPY; KNEE SURGERY) Surgeries: Appendectomy, Gallbladder, Hysterectomy, Orthopedic Respiratory Hx Respiratory Disorders: Yes Respiratory Disorders: Asthma, COPD Cardiovascular Hx Cardiac Disorders: Yes Cardiac Disorders: Chronic Edema/Swelling, High Cholesterol, Hypertension Neurological Hx Neurological Disorders: Yes (Peripheral Neuropathy, chronic weakness, RLS) Neurological Disorders: Dementia, Headaches /Migraines, Neuropathy, Stroke, TIA Reproductive System Hx Reproductive Disorders: No [employer] History: Hysterectomy, 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 COMPRESSION FRACTURES IN BACK) Musculoskeletal Disorders: Degenerate Disk Disease, Arthritis, Chronic Back Pain, Fractures, Gout Endocrine Hx Endocrine Disorders: Yes Endocrine Disorders: Hyperthyroidism, Hypothyroidsim HEENT HX ENT Disorders: Yes HEENT Disorders: Cataract, Glaucoma Loss of Vision: Bilateral Hearing Impairment: Hard of Hearing Cancer Hx Cancer: No Psychosocial Hx Psychiatric Problems: Yes Behavioral Health Disorders: Anxiety, Depression Integumentary HX Skin/Integumentary Disorder: No Blood Transfusions Hx Blood Disorders: No Adverse Reaction to a Blood Tr: No Family Medical History Family Medial History: Congenital heart disease 19 FATHER 19 MOTHER FH: stroke 19 FATHER 19 MOTHER G8 SISTER G8 SISTER Myocardial infarction G8 SISTER Exam Exam Vital Signs Date Time Temp Pulse Resp B/P Pulse Ox O2 Delivery O2 Flow Rate FiO2 03/23/16 08:00 97.4 70 16 151/66 95 Nasal Cannula 2.00 03/23/16 07:50 97.4 70 16 151/66 95 Nasal Cannula 2.00 03/23/16 07:06 97 03/23/16 06:51 97 Nasal Cannula 2.00 03/23/16 06:49 97 Nasal Cannula 2.00 03/23/16 02:06 93 Nasal Cannula 2.00 03/23/16 00:00 99.1 64 22 167/73 97 Nasal Cannula 2.00 03/22/16 21:53 92 Nasal Cannula 2.00 03/22/16 21:00 Nasal Cannula 3.00 03/22/16 20:00 99.9 69 16 126/58 95 Nasal Cannula 3.00 03/22/16 18:22 96 Nasal Cannula 2.00 03/22/16 16:00 100.2 59 22 171/77 96 Nasal Cannula 3.00 03/22/16 13:29 97 Nasal Cannula 2.00 03/22/16 12:00 97.0 58 18 149/69 97 Nasal Cannula 3.00 03/22/16 10:23 98 Nasal Cannula 2.00 I & O 03/23/16 07:00 Intake Total 2070 ml Output Total 2500 ml Balance -430 ml General Appearance: Mild Distress HEENT: Normal ENT Inspection Neck: Normal Inspection Respiratory: Other Cardiovascular: Regular Rate, Rhythm No Edema No Gallop No JVD No Murmur Normal Peripheral Pulses Capillary Refill: Less Than 3 Seconds Gastrointestinal: normal bowel sounds non tender soft Extremity: Normal Capillary Refill Normal Inspection Normal Range of Motion Non Tender No Calf Tenderness No Pedal Edema Neurologic/Psychiatric: Alert Oriented x3 No Motor/Sensory Deficits Normal Mood/Affect Skin: Normal Color Warm/Dry Lymphatic: No Adenopathy Results Lab Laboratory Tests 03/22/16 09:23 03/23/16 07:30 Assessment/Plan Assessment/Plan Pneumonia - slow to respond to Abx therapy. - continue current Abx Zosyn, Levaquin await cultures Clinical Quality Measures DVT/VTE Risk/Contraindication: Risk Factor Score Per Nursin RFS Level Per Nursing on Admit: 4+=Very High KATHRIN ALMARAZ DO Mar 23, 2016 09:30
[2016-03-23] MEDS: LEVOTHYROXINE 125 MCG (LEVOTHROID) TABLET PO SCH (09:59)
[2016-03-23] MEDS: FAMOTIDINE 20 MG (PEPCID) TABLET PO SCH (09:59)
[2016-03-23] MEDS: GABAPENTIN 400 MG (NEURONTIN) CAP PO SCH (09:59)
[2016-03-23] MEDS: guaiFENesin (MUCINEX) 600 MG TAB PO SCH (10:00)
[2016-03-23] MEDS: FUROSEMIDE 20 MG (LASIX) TAB PO SCH (10:00)
[2016-03-23] MEDS: ATENOLOL 25 MG (TENORMIN) TAB PO SCH (10:00)
[2016-03-23] MEDS: DIPYRIDAMOLE/ASA ER CAPSULE (AGGRENOX) PO SCH (10:00)
[2016-03-23] MEDS: MELOXICAM 7.5 MG (MOBIC) TABLET PO SCH (10:00)
[2016-03-23] MEDS: ALLOPURINOL 100 MG (ZYLOPRIM) TAB PO SCH (10:00)
--- NOTE | 2016-03-23 10:28 | Physical Therapy Evaluation ---
PT Evaluation-General Medical Diagnosis Admission Date Mar 20, 2016 at 11:19 Medical Diagnosis: Pneumonia/bronchitis Onset Date: Mar 20, 2016 Therapy Diagnosis Therapy Diagnosis: decreased cardiopulmonary Height/Weight Height (Feet): 5 Height (Inches): 4.00 Weight (Pounds): 167 Weight (Ounces): 0.0 Precautions Precautions/Isolations: Fall Prevention, Standard Precautions, Pressure Ulcer Referral Physician: Samy Reason for Referral: Evaluation/Treatment Medical History Pertinent Medical History: Arthritis, CVA, Dementia, HTN, Renal Insufficiency Additional Medical History lives in [facility] with assistance Current History ER visits x 2 03/12/16 and 03/16/16 for cough and SOA Reviewed History: Yes Social History Home: Assisted Living Entry Into Home: Ramp, Level Entry Prior/Core FIM Prior Level of Function Functional [place] Measure 0=Not Assessed/NA 4=Minimal Assistance 1=Total Assistance 5=Supervision or Setup 2=Maximal Assistance 6=Modified [place] 3=Moderate Assistance 7=Complete [place] Bed Mobility: 5 Transfers (B,C,W/C) (FIM): 5 Gait: 2 Locomotion: 2 Wheelchair Mobility: 2 per family, patient is in w/c for mobility PT Evaluation-Current Subjective Patient agrees to PT. Pain Numeric Pain Scale: 0-No Pain Location: No Pain Reported Objective Patient Orientation: Confused Problem Solving: Poor Attachments: Oxygen (2L), Oliveira Catheter, IV ROM/Strength ROM Lower Extremities bilateral LE WFL Strenght Lower Extremities bilateral LE 3+/5 grossly; unable to formally test due to dementia Integumentary/Posture Integumentary refer to nursing notes Bowel Incontinence: No Bladder Incontinence: Oliveira Cath Posture slightly kyphotic Neuromuscular (Tone, Coordination, Reflexes) diminished due to age and dementia Sensory Vision: Functional Hearing: Impaired Sensation Right Lower Extremit: Impaired Sensation Left Lower Extremity: Impaired Transfers Functional [place] Measure 0=Not Assessed/NA 4=Minimal Assistance 1=Total Assistance 5=Supervision or Setup 2=Maximal Assistance 6=Modified [place] 3=Moderate Assistance 7=Complete [place] Transfers (B, C, W/C) (FIM): 4 Scootin Rollin Supine to/from Sit: 5 Sit to/from Stand: 4 Gait Mode of Locomotion: Both Anticipated Mode of Locomotion: Both Gait (FIM): 2 Distance (FIM): 2=029-63 ft Distance: 125' Gait Level of Assist: 4 Gait Persons Needed: 1 Gait Assistive Device: FWW Comments/Gait Description slightly unsteady, increase SOA with minimal activity Balance Sitting Static: Normal Sitting Dynamic: Normal Standing Static: Fair Standing Dynamic: Fair Assessment/Needs 85 y.o. female, will benefit from short term skilled PT to address cardiopulmonary functional due to limitations in functional mobility and strength. Per family, patient is inactive PLOF at [facility] facility. Rehab Potential: Poor PT Senior Living Goals Senior Living Goals PT Senior Living Goals Time Frame: Mar 30, 2016 Transfers (B,C,W/C) (FIM): 4 Gait (FIM): 2 Gait distance (FIM): 0=228-90 ft Distance: 145' Gait Level of Assist: 1 Gait Assistive Device: FWW PT Plan Problem List Problem List: Activity Tolerance, Functional Strength, Safety, Balance, Gait, Transfer, Bed Mobility Treatment/Plan Treatment Plan: Continue Plan of Care Treatment Plan: Bed Mobility, Education, Functional Activity Hussein, Functional Strength, Gait, Safety, Therapeutic Exercise, Transfers Treatment Duration: Mar 30, 2016 # of days/week 6 Visits Per Week: 6 Pt/Family Agrees w/Plan: Yes Safety Risks/Education Patient Education: Transfer Techniques Teaching Recipient: Patient, Family Teaching Methods: Demonstration, Discussion Response to Teaching: Verbalize Understanding, Reinforcement Needed Time/GCodes Time In: 941 Time Out: 956 Total Billed Treatment Time: 15 Total Billed Treatment 1 visit EVM 15 min G Codes Necessary: JOSY Lara PT Mar 23, 2016 10:28
--- NOTE | 2016-03-23 11:40 | Discharge Summary-Hospitalist ---
Diagnosis/Chief Complaint Date of Admission Mar 20, 2016 at 11:19 Date of Discharge Discharge Date: Mar 23, 2016 Admission Diagnosis 1.pneumonia. 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 Pt may have been admitted for fever. Pt is not ambulating well. Patient Interview: Pt states she is doing okay this morning. Pt was told blood work has been ordered. Pt was encouraged to ambulate today. Pt states she is not eating much. Pt was encouraged to eat more food to recover. Physical exam revealed wheezing. Pt states she just received a breathing tx. family at bedside No fever vital signs stable pleasant but poor recall Regular rate and rhythm, coarse breath sounds throughout all adkins no tachypnea but wheezing is noted No edema normal range of motion Assessment: Pneumonia but not improving consulting Dr. Jaime rechecking chest x-ray Generalized debility requiring to assist for ambulation Dementia Overall poor prognosis Chronic renal insufficiency Anemia of kidney disease Plan: Swing bed eval? Consult Dr. Jaime CXR repeat Monitor labs Palliative care consultation since I doubt I can improve much in her overall status and poor prognosis Scribed by Dominik Burden under the direct supervision of Dr. Hung. Reason Hospital Visit/Course Normal. The patient is an 85-year-old white female who was admitted with a chief complaint of cough and shortness of breath. She was seen in the emergency room on 03/12 with complaints of cough and shortness of breath. Evaluation showed a normal chest x-ray, normal white count, no fever. She returned on 03/16 with similar complaints. Her white count remained normal. Her chest x-ray at best suggested atelectasis in the right base. I reviewed these films and to my view there was minimum change. She returned on 03/20 with fever, her white count was elevated at 15,700, and the chest x-ray showed a rather diffuse fluffy looking infiltrate on the right and a bit on the left. Her granddaughter reports that the patient has rather chronic back pain. She been on OxyContin 20 mg twice daily for a considerable period of time. She was recently increased to 40 mg twice daily. The granddaughter reported that she was considerably less active, did not cough or heat as well; she expressed concern about resuming the OxyContin at least at that level. 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 Pt may have been admitted for fever. Pt is not ambulating well. Patient Interview: Pt states she is doing okay this morning. Pt was told blood work has been ordered. Pt was encouraged to ambulate today. Pt states she is not eating much. Pt was encouraged to eat more food to recover. Physical exam revealed wheezing. Pt states she just received a breathing tx. family at bedside No fever vital signs stable pleasant but poor recall Regular rate and rhythm, coarse breath sounds throughout all adkins no tachypnea but wheezing is noted No edema normal range of motion Assessment: Pneumonia but not improving consulting Dr. Jaime rechecking chest x-ray Generalized debility requiring to assist for ambulation Dementia Overall poor prognosis Chronic renal insufficiency Anemia of kidney disease Plan: Swing bed eval? Consult Dr. Jaime CXR repeat Monitor labs Palliative care consultation since I doubt I can improve much in her overall status and poor prognosis Scribed by Dominik Burden under the direct supervision of Dr. Hung. Hospital course: Patient had an uneventful acute care hospital course but she was placed on empiric antibiotics for pneumonia that failed outpatient antibiotic treatment. Poor prognosis precluded anything more aggressive with Dr. Jaime was consulted to try to improve lung function overall that is oxygen dependent while at [facility]. She was in need of IV antibiotics completion and further therapy for strengthening and nebulizer treatment so she was sent to swing bed to complete therapy and discharged to [facility] at the first the week. Discharge Summary Discharge Physical Examination Allergies: Coded Allergies: fentanyl (Verified Adverse Reaction, Unknown, 11/02/14) penicillin (Verified Adverse Reaction, Unknown, 11/02/14) Uncoded Allergies: TETANUS (Adverse Reaction, Unknown, 11/02/14) Vitals & I&Os Vital Signs Date Time Temp Pulse Resp B/P Pulse Ox O2 Delivery O2 Flow Rate FiO2 03/23/16 11:03 92 Nasal Cannula 2.00 03/23/16 08:00 97.4 70 16 151/66 Hospital Course Labs (last 24 hrs) Microbiology 03/20/16 Blood Culture - Preliminary, Resulted No growth 03/20/16 Influenza Types A,B Antigen (SHIRIN) - Final, Complete Pending Labs Discharge Home Medications: Active Scripts Active Reported Mucinex (Guaifenesin) 600 Mg Tab.er.12h 600 Mg PO Q12H 5 Days 5 DAY THERAPY FILLED 03-16-16 Pramipexole Dihydrochloride (Pramipexole Di-HCl) 0.125 Mg Tablet 0.125 Mg PO HS Nature's Tears Eye Drops (Dextran 70/Hypromellose) 15 Ml Drops 1 Drop OU BID Fiber Therapy (Psyllium Husk) 0.52 Gm Capsule 2 Cap PO TID Procardia Xl (Nifedipine) 90 Mg Tab.er.24 90 Mg PO DAILY [place] (Bimatoprost) 2.5 Ml Drops 1 Drop OU HS Lovastatin 20 Mg Tablet 20 Mg PO HS Synthroid (Levothyroxine Sodium) 125 Mcg Tablet 125 Mcg PO DAILY Lasix (Furosemide) 20 Mg Tablet 10 Mg PO DAILY TAKES 1/2 (20MG) TABLET Cerovite Senior Tablet (Multivitamin W-Minerals/Lutein) 1 Each Tablet 1 Tab PO DAILY Xanax (Alprazolam) 0.25 Mg Tablet 0.25 Mg PO Q8H PRN Xanax (Alprazolam) 0.25 Mg Tablet 0.25 Mg PO HS Allopurinol 100 Mg Tablet 100 Mg PO DAILY Mobic (Meloxicam) 7.5 Mg Tablet 7.5 Mg PO BID Fioricet 50-300-40 mg Capsule (Butalb/Acetaminophen/Caffeine) 1 Each Capsule 1 Tab PO BID Atenolol 25 Mg Tablet 12.5 Mg PO DAILY TAKES 1/2 (25MG) TABLET Aggrenox 25 mg-200 mg Capsule (Dipyridamole/Aspirin) 1 Ea Cap 1 Cap PO BID Zantac (Ranitidine HCl) 150 Mg Tablet 150 Mg PO DAILY Probiotic (L.acidoph & Paracasei,B.lactis) 1 Each Capsule 1 Cap PO DAILY Oyster Shell Calcium (Calcium Carbonate) 500 Mg Tablet 1 Tab PO DAILY Oxycontin (Oxycodone HCl) 40 Mg Tab.er.12h 40 Mg PO Q12H Combivent Respimat Inhal [place] (Albuterol/Ipratropium) 4 Gm Aero 1 Puff IH QID Skelaxin (Metaxalone) 800 Mg Tablet 800 Mg PO TID Neurontin (Gabapentin) 400 Mg Capsule 400 Mg PO TID Percocet 5-325 mg Tablet (Oxycodone HCl/Acetaminophen) 1 Each Tablet 1 Tab PO Q4H PRN Zofran (Ondansetron HCl) 4 Mg Tab 4 Mg PO Q6H PRN Nature's Tears Eye Drops (Dextran 70/Hypromellose) 15 Ml Drops 1 Drop OU PRN PRN Milk of Magnesia (Magnesium Hydroxide) 400 Mg/5 Ml Oral.susp 30 Ml PO DAILY PRN Colcrys (Colchicine) 0.6 Mg Tablet 0.6 Mg PO Q4H PRN Calmoseptine Ointment (Menthol/Lanolin/Calamine/Znox) 71 Gm Oint TP PRN PRN Albuterol Sulfate 2.5 Mg/3 Ml Vial.neb 2.5 Mg IH TID PRN Voltaren (Diclofenac Sodium) 100 Gm Gel..gram. 2 Gm TP QID PRN APPLY TO RIGHT KNEE Imodium A-D (Loperamide HCl) 2 Mg Tablet 4 Mg PO Q6H PRN Maalox Advanced Suspension (Mag Hydrox/Al Hydrox/Simeth) 770 Ml Oral.susp 30 Ml PO UD PRN Instructions to patient/family Please see electonic discharge instructions given to patient. Clinical Quality Measures DVT/VTE Risk/Contraindication: Risk Factor Score Per Nursin RFS Level Per Nursing on Admit: 4+=Very High AMAURI HUNG DO Mar 23, 2016 11:40 Zofran (Ondansetron HCl) 4 Mg Tab 4 Mg PO Q6H PRN Nature's Tears Eye Drops (Dextran 70/Hypromellose) 15 Ml Drops 1 Drop OU PRN PRN Milk of Magnesia (Magnesium Hydroxide) 400 Mg/5 Ml Oral.susp 30 Ml PO DAILY PRN Colcrys (Colchicine) 0.6 Mg Tablet 0.6 Mg PO Q4H PRN Calmoseptine Ointment (Menthol/Lanolin/Calamine/Znox) 71 Gm Oint TP PRN PRN Albuterol Sulfate 2.5 Mg/3 Ml Vial.neb 2.5 Mg IH TID PRN Voltaren (Diclofenac Sodium) 100 Gm Gel..gram. 2 Gm TP QID PRN APPLY TO RIGHT KNEE Imodium A-D (Loperamide HCl) 2 Mg Tablet 4 Mg PO Q6H PRN Maalox Advanced Suspension (Mag Hydrox/Al Hydrox/Simeth) 770 Ml Oral.susp 30 Ml PO UD PRN Instructions to patient/family Please see electonic discharge instructions given to patient. Clinical Quality Measures DVT/VTE Risk/Contraindication: Risk Factor Score Per Nursin RFS Level Per Nursing on Admit: 4+=Very High AMAURI HUNG DO Mar 23, 2016 11:40
[2016-06-23] MEDS ORDERED: OXYC-471 PO (10:04)
== END 2016-03-23 11:39 | disposition swing bed (61) | DRG 190 ==
LOC: EDUNIT# 09:41 → ER 09:42 → CSD 11:19 → UNDOADMIN 11:19 → 4TH 03-21 14:29
PROVIDERS: ADMIT Internal Medicine; ATTEND Internal Medicine
DX: J44.0 Chronic obstructive pulmonary disease with (acute) lower respiratory infection (principal); J18.9 Pneumonia, unspecified organism; J45.909 Unspecified asthma, uncomplicated; I12.9 Hypertensive chronic kidney disease with stage 1 through stage 4 chronic kidney disease, or unspecified chronic kidney disease; D63.1 Anemia in chronic kidney disease; N18.9 Chronic kidney disease, unspecified; E78.00 Pure hypercholesterolemia, unspecified; E03.9 Hypothyroidism, unspecified; Z66 Do not resuscitate; G25.81 Restless legs syndrome; G62.9 Polyneuropathy, unspecified; F03.90 Unspecified dementia, unspecified severity, without behavioral disturbance, psychotic disturbance, mood disturbance, and anxiety; Z86.73 Personal history of transient ischemic attack (TIA), and cerebral infarction without residual deficits; M54.9 Dorsalgia, unspecified; F41.9 Anxiety disorder, unspecified; F32.9 Major depressive disorder, single episode, unspecified; H40.9 Unspecified glaucoma; R11.10 Vomiting, unspecified; R53.81 Other malaise; Z99.3 Dependence on wheelchair; Z87.891 Personal history of nicotine dependence
CPT/HCPCS: 36415; 71010; 71020; 80053; 80202; 81000; 83605; 83880; 84484; 85007; 85025; 85027; 87040; 87804; 93005; 93041; 94640; 94664; 94760; 96374; 96375

== ENCOUNTER 2016-03-23 08:37 | Inpatient (IN) | payer MEDICARE, MEDICAID ==
[~2016-03-23] VITALS: Ht 162.6 cm; Wt 75.8 kg
[~2016-03-23 08:37] MED LIST changes: +ALBU2.5V4 NEB; +ALLO100T PO; +ALPR0.25 PO; +ATEN25TA PO; +BIMA2.5D4 OU; +BUTA1CAP39 PO; +CALC500T34 PO; +COLC0.6T53 PO; +DEXT15DR24 OU; +DICL100G18 TP; +DPAS20025 PO; +FURO-125 PO; +GABA400C PO; +IPRA4AER IH; +L.AC1CAP6 PO; +LEVO125T PO; +LEVO500T80 PO; +LOPE-134 PO; +LOVA20TA2 PO; +MAG355OR16 PO; +MAGN400O7 PO; +MELO-170 PO; +MENT71OI TP; +MULT1TAB59 PO; +NF-SKEL800 PO; +NIFE90TA PO; +ONDN4T PO; +OXYC-197 PO; +OXYC40TA46 PO; +PRAM0.128 PO; +PRAM0.252 PO; +PSYL0.5238 PO; +RANI150T15 PO
[2016-03-23] MEDS ORDERED: LEVOFLOXACIN 750 MG TAB (LEVAQUIN) PO SCH (11:45)
[2016-03-23] MEDS ORDERED: ONDANSETRON 4 MG (ZOFRAN) ORAL DISSOLVE TAB PO PRN (11:45)
[2016-03-23] MEDS ORDERED: ARTIFICAL TEARS 0.4 ML UNIT DOSE (REFRESH PLUS) OU PRN (11:45)
[2016-03-23] MEDS ORDERED: DICLOFENAC 1% GEL 100 GM (VOLTAREN) TUBE TP PRN (11:45)
[2016-03-23] MEDS ORDERED: RT-ALBUTEROL SULF 2.5 MG/3 ML PRE-MIX VIAL IH PRN (11:45)
[2016-03-23] MEDS ORDERED: MILK OF MAGNESIA 400 MG/5 ML 30 ML UDC PO PRN (11:45)
[2016-03-23] MEDS: 1/2 NS IV SOLUTION 1,000 ML IV SCH ×2 (11:45→22:46)
[2016-03-23] MEDS ORDERED: ALPRAZolam 0.25 MG (XANAX) TAB PO PRN (11:45)
[2016-03-23] MEDS ORDERED: COLCHICINE 0.6 MG (COLCRYS) TABLET PO PRN (11:45)
[2016-03-23] MEDS: RT-ALBUTEROL/IPRATROPIUM 3 ML (DUONEB) VIAL INH SCH ×3 (14:34→22:19)
[2016-03-23] MEDS ORDERED: CATHETER FLUSH 10 ML SYR IV PRN (14:45)
--- NOTE | 2016-03-23 14:47 | Occupational Therapy Eval ---
OT Evaluation-General/PLF Medical Diagnosis Admission Date Mar 23, 2016 at 11:39 Medical Diagnosis: pneumonia Onset Date: Mar 23, 2016 Therapy Diagnosis Therapy Diagnosis: decreased self care skills Height/Weight Height (Feet): 5 Height (Inches): 4.00 Weight (Pounds): 167 Weight (Ounces): 0.0 Referral Physician: Samy Medical History Pertinent Medical History: CVA, Dementia, GERD, HTN, Neuropathy, Renal Insufficiency Additional Medical History chronic edema, high cholesterol, RLS, chronic weakness, migraines, diverticulosis, compression fracture, anxiety, depression Reviewed History: Yes Social History Home: Assisted Living Entry Into Home: Level Entry Pt lives at [facility] ADL-Prior Level of Function ADL PLOF Comments Pt states she is able to dress and complete grooming by herself. Has assist for bathing and toileting as needed. Daughter states she has required more assist for last few weeks secondary to illness. Pt uses w/c for most mobility and has been inactive. OT Current Status Subjective Pt sitting in chair with daughter present, agrees to therapy. Mental Status/Objective Patient Orientation: Person, Confused Attachments: Oliveira Catheter, IV, Oxygen Current Glasses/Contacts: Yes Hearing Aids: No Dentures/Partials: Yes Hand Dominance: Right Upper Extremity ROM Grossly WFL Upper Extremity Coordination Intact Upper Extremity Strength Generalized weakness ADL-Treatment ADL-Current Pt participated in UE assessment while seated. Pt sit to stand with minimal assistance. Pt demonstrates ability to perform transfer with minimal assistance using FWW. Pt fatigues and is short of breath with activity, but recovers with rest break. Pt sitting in chair with needs met and daughter present after session. Functional [place] Measure 0=Not Assessed/NA 4=Minimal Assistance 1=Total Assistance 5=Supervision or Setup 2=Maximal Assistance 6=Modified [place] 3=Moderate Assistance 7=Complete IndependenceIRFPAI Quality Coding Scale 6 Independent with activity with or without an assistive device 5 Patient requires set up or clean up by helper. Patient completes activity by themselves 4 Supervision or touching assist (CGA). [place] provide cues , steadying assist 3 The helper provides less than half the effort to complete the activity 2 The helper provides more than half the effort to complete the activity 1 Dependent. The helper does all the effort to complete an activity 7 Patient refused to complete or attempt activity 9 The patient did not perform the activity before the current illness or injury 88 Not attempted due to Medical conditions or safety concerns Education OT Patient Education: Rehab process Teaching Recipient: Patient Teaching Methods: Discussion Response to Teaching: Reinforcement Needed OT Short Term Goals Short Term Goals 1=Demonstrate adherence to instructed precautions during ADL tasks. 2=Patient will verbalize/demonstrate understanding of assistive devices/ modifications for ADL. 3=Patient will improve strength/tolerance for activity to enable patient to perform ADL's. OT Detention Goals Detention Goals Time Frame: Apr 06, 2016 Eating (FIM): 5 Eating (QC): 5 Oral Hygiene (QC): 5 Grooming(FIM): 5 Toileting Hygiene (QC): 4 Upper Body Dressing(FIM): 5 Lower Body Dressing(FIM): 4 Toilet/Commode Transfer(FIM): 4 (CGA) Toilet/Commode Transfer (QC): 4 Additional Goals: 1-Demonstrate ADL Tasks, 2-Verbalize Understanding, 3- ImproveStrength/Hussein 1=Demonstrate adherence to instructed precautions during ADL tasks. 2=Patient will verbalize/demonstrate understanding of assistive devices/ modifications for ADL. 3=Patient will improve strength/tolerance for activity to enable patient to perform ADL's. OT Education/Plan Problem List/Assessment Assessment: Decreased Activ Tolerance, Decreased UE Strength, Dependent Transfers, Impaired Self-Care Skills Pt demonstrates decreased mobility, strength, activity tolerance and ADL functioning. Pt to benefit from skilled OT intervention for ADL training, transfers, strengthening and safety education to maximize level of function and allow safe discharge. Discharge Recommendations Plan/Recommendations: Continue POC Treatment Plan/Plan of Care Treatment,Training & Education: Yes Patient would benefit from OT for education, treatment and training to promote independence in ADL's, mobility, safety and/or upper extremity function for ADL' s. Plan of Care: ADL Retraining, Functional Mobility, UE Funct Exercise/Act Treatment Duration: Apr 06, 2016 # of days/week 5 Visits Per Week: 5 Agreement: Yes Rehab Potential: Fair Time/GCodes Start Time: 11:38 Stop Time: 11:53 Total Time Billed (hr/min): 15 Billed Treatment Time 1 visit, EVMODC(15minutes) CARLTON ABREU OT Mar 23, 2016 14:47
--- NOTE | 2016-03-23 14:52 | Physical Therapy Evaluation ---
PT Evaluation-General Medical Diagnosis Admission Date Mar 23, 2016 at 11:39 Medical Diagnosis: pneumonia Onset Date: Mar 20, 2016 Therapy Diagnosis Therapy Diagnosis: decreased cardiopulmonary function Height/Weight Height (Feet): 5 Height (Inches): 4.00 Weight (Pounds): 167 Weight (Ounces): 0.0 Precautions Precautions/Isolations: Fall Prevention Referral Physician: Samy Reason for Referral: Evaluation/Treatment Medical History Pertinent Medical History: Arthritis, CVA, Dementia, HTN, Renal Insufficiency Additional Medical History recent ER visits in past 2 weeks secondary to increase SOA and cough Current History SWB status Reviewed History: Yes Social History Home: Assisted Living Entry Into Home: Ramp, Level Entry Prior/Core FIM Prior Level of Function Functional [place] Measure 0=Not Assessed/NA 4=Minimal Assistance 1=Total Assistance 5=Supervision or Setup 2=Maximal Assistance 6=Modified [place] 3=Moderate Assistance 7=Complete [place] Bed Mobility: 5 Transfers (B,C,W/C) (FIM): 4 Gait: 2 Locomotion: 2 Wheelchair Mobility: 2 per family, patient uses FWW for short distances and w/c for extended due to increase SOA PT Current Subjective Patient reports abdominal cramping. Family present. Pain Numeric Pain Scale: 5-Moderate Pain Location: Upper Location Body Site: Abdomen Pain Description: Cramping Comment: RN notified Mental Status Patient Orientation: Confused Attachments: Oxygen (2L), Oliveira Catheter, IV Transfers Functional [place] Measure 0=Not Assessed/NA 4=Minimal Assistance 1=Total Assistance 5=Supervision or Setup 2=Maximal Assistance 6=Modified [place] 3=Moderate Assistance 7=Complete IndependenceIRFPAI Quality Coding Scale 6 Independent with activity with or without an assistive device 5 Patient requires set up or clean up by helper. Patient completes activity by themselves 4 Supervision or touching assist (CGA). [place] provide cues , steadying assist 3 The helper provides less than half the effort to complete the activity 2 The helper provides more than half the effort to complete the activity 1 Dependent. The helper does all the effort to complete an activity 7 Patient refused to complete or attempt activity 9 The patient did not perform the activity before the current illness or injury 88 Not attempted due to Medical conditions or safety concerns Transfers (B, C, W/C) (FIM): 4 Scootin Rollin Supine to/from Sit: 5 Sit to/from Stand: 4 Bed to/from Chair: 4 Sit to Lying (QC): 5 Lying-Sitting/Side of Bed(QC): 5 Sit to Stand (QC): 4 CGA for safety Gait Training Does the Patient Walk?: Yes Gait (FIM): 1 Distance (FIM): 1=up to 49 ft Distance: 10' Walk 50 ft with 2 Turns(QC): 88 Walk 150 ft (QC): 88 Gait Level of Assist: 4 Gait Persons Needed: 1 Gait Assistive Device: FWW bathroom for shower Balance Balance Sitting Static: Normal Balance Sitting Dynamic: Normal Balance-Standing Static: Fair Balance Standing Dynamic: Fair Exercises Seated Therapy Exercises: Ankle pumps, Long arc quads Seated Reps: 15 Treatments transfer training and exercises performed to increase functional strength and mobility; MMT bilateral LE 4-/5 grossly; ROM bilateral LE WFL; posture WNL Assessment 85 y.o. female, will benefit from skilled PT to address cardiopulmonary function which limits functional mobility. Patient resides at [facility] where family works. PT Short Term Goals Short Term Goals Time Frame: Mar 30, 2016 Transfers (B,C,W/C) (FIM): 5 Gait (FIM): 2 Distance (FIM): 0=696-10 ft Gait Distance Comment: 125' Gait Level of Assist: 5 Gait Assistive Device: FWW PT Front Window Cashier Goals Retirement Goals PT Retirement Goals Time Frame: Mar 30, 2016 Transfers (B,C,W/C) (FIM): 5 Sit to Lying (QC): 5 Lying-Sitting on Side/Bed(QC): 5 Sit to Stand (QC): 5 Rollin Chair/Eha-sc-Quulw Xfer(QC): 5 Does the Patient Walk: Yes Gait (FIM): 2 Gait distance (FIM): 8=538-80 ft Distance: 125' Walk 50ft with 2 Turns (QC): 5 Gait Level of Assist: 5 Gait Assistive Device: FWW Does the Pt use WC or Scooter?: No PT Plan Problem List Problem List: Activity Tolerance, Functional Strength, Safety, Balance, Gait, Transfer, Bed Mobility Treatment/Plan Treatment Plan: Continue Plan of Care Treatment Plan: Bed Mobility, Education, Functional Activity Hussein, Functional Strength, Gait, Safety, Therapeutic Exercise, Transfers Treatment Duration: Mar 30, 2016 # of days/week 5-6 Visits Per Week: 5-6 Minutes/Day (M-F): 15-30 Minutes/Day (Sat/Cardenas): PRN Pt/Family Agrees w/Plan: Yes Safety Risks/Education Patient Education: Transfer Techniques, Safety Issues Teaching Recipient: Patient, Family Teaching Methods: Demonstration, Discussion Response to Teaching: Verbalize Understanding, Reinforcement Needed Time/GCodes Time In: 1255 Time Out: 1318 Total Billed Treatment Time: 23 Total Billed Treatment 1 visit EVM 8 min FA 15 min JOSY MANN PT Mar 23, 2016 14:52
--- NOTE | 2016-03-23 15:26 | Occupational Ther Daily Note ---
OT Current Status-Daily Note Subjective Pt sitting in chair with granddaughter present, agrees to treatment. Pt states she is feeling better this afternoon, but is tired. Mental Status/Objective Functional [place] Measure 0=Not Assessed/NA 4=Minimal Assistance 1=Total Assistance 5=Supervision or Setup 2=Maximal Assistance 6=Modified [place] 3=Moderate Assistance 7=Complete [place] Attachments: Oliveira Catheter, IV, Oxygen ADL-Treatment Pt states she had a shower earlier today. Pt demonstrated ability to doff/don slip in shoes. Sit to stand with minimal assistance. Pt performed transfer chair <-> EOB with minimal assistance using FWW. Pt performed sit to stand x5 reps to increase strength needed for transfers. Pt requires minimal assistance for safety. Pt fatigues with activity and requires rest breaks to recover. Pt sitting in chair with needs met and granddaughter present after session. Functional [place] Measure 0=Not Assessed/NA 4=Minimal Assistance 1=Total Assistance 5=Supervision or Setup 2=Maximal Assistance 6=Modified [place] 3=Moderate Assistance 7=Complete IndependenceIRFPAI Quality Coding Scale 6 Independent with activity with or without an assistive device 5 Patient requires set up or clean up by helper. Patient completes activity by themselves 4 Supervision or touching assist (CGA). [place] provide cues , steadying assist 3 The helper provides less than half the effort to complete the activity 2 The helper provides more than half the effort to complete the activity 1 Dependent. The helper does all the effort to complete an activity 7 Patient refused to complete or attempt activity 9 The patient did not perform the activity before the current illness or injury 88 Not attempted due to Medical conditions or safety concerns Transfers (B, C, W/C) (FIM): 4 OT Short Term Goals Short Term Goals Transfers (B,C,W/C) (FIM): 5 1=Demonstrate adherence to instructed precautions during ADL tasks. 2=Patient will verbalize/demonstrate understanding of assistive devices/ modifications for ADL. 3=Patient will improve strength/tolerance for activity to enable patient to perform ADL's. OT Residential Goals Residential Goals Time Frame: Apr 06, 2016 Eating (FIM): 5 Eating (QC): 5 Oral Hygiene (QC): 5 Grooming(FIM): 5 Toileting Hygiene (QC): 4 Upper Body Dressing(FIM): 5 Lower Body Dressing(FIM): 4 Toilet/Commode Transfer(FIM): 4 (CGA) Toilet/Commode Transfer (QC): 4 Additional Goals: 1-Demonstrate ADL Tasks, 2-Verbalize Understanding, 3- ImproveStrength/Hussein 1=Demonstrate adherence to instructed precautions during ADL tasks. 2=Patient will verbalize/demonstrate understanding of assistive devices/ modifications for ADL. 3=Patient will improve strength/tolerance for activity to enable patient to perform ADL's. OT Education/Plan Problem List/Assessment Pt demonstrates decreased mobility, strength, activity tolerance and ADL functioning. Pt to benefit from skilled OT intervention for ADL training, transfers, strengthening and safety education to maximize level of function and allow safe discharge. Discharge Recommendations Plan/Recommendations: Continue POC Treatment Plan/Plan of Care Patient would benefit from OT for education, treatment and training to promote independence in ADL's, mobility, safety and/or upper extremity function for ADL' s. Plan of Care: ADL Retraining, Functional Mobility, UE Funct Exercise/Act Treatment Duration: Apr 06, 2016 Visits Per Week: 5 Agreement: Yes Rehab Potential: Fair Time/GCodes Start Time: 15:00 Stop Time: 15:15 Total Time Billed (hr/min): 15 Billed Treatment Time 1 visit, FA(15minutes) CARLTON ABREU OT Mar 23, 2016 15:26
[2016-03-23 16:00] VITALS: BP 140/62
[2016-03-23] MEDS: GABAPENTIN 400 MG (NEURONTIN) CAP PO SCH ×2 (16:30→20:20)
[2016-03-23] MEDS ORDERED: NORMAL SALINE (BAXTER MINI) 100 ML IV ONE (17:15)
[2016-03-23] MEDS ORDERED: PIPERACILLIN/TAZO 4.5 GM VIAL (ZOSYN) IV ONE (17:15)
[2016-03-23] MEDS: oxyCODONE/APAP 5/325MG (PERCOCET 5) TABLET PO PRN (17:30)
[2016-03-23] MEDS: PIPERACILLIN SODIUM/TAZOBACTAM 4.5 GM in NORMAL SALINE (BAXTER MINI) 100 ML IV SCH ×2 (17:31→22:46)
[2016-03-23] MEDS: ALPRAZolam 0.25 MG (XANAX) TAB PO SCH (20:20)
[2016-03-23] MEDS: guaiFENesin (MUCINEX) 600 MG TAB PO SCH (20:20)
[2016-03-23] MEDS: PRAMIPEXOLE 0.125 MG (MIRAPEX) TABLET PO SCH (20:20)
[2016-03-23] MEDS: DIPYRIDAMOLE/ASA ER CAPSULE (AGGRENOX) PO SCH (20:21)
[2016-03-23] MEDS: MELOXICAM 7.5 MG (MOBIC) TABLET PO SCH (20:21)
[2016-03-23] MEDS: LATANOPROST 0.005% (XALATAN) OPHTH SOLN 2.5 ML OU SCH (20:22)
[2016-03-24 00:34] VITALS: BP 147/66
[2016-03-24] MEDS: RT-ALBUTEROL/IPRATROPIUM 3 ML (DUONEB) VIAL INH SCH ×6 (02:42→22:04)
[2016-03-24 06:35] VITALS: BP 163/77
[2016-03-24] MEDS: LEVOTHYROXINE 125 MCG (LEVOTHROID) TABLET PO SCH (06:39)
[2016-03-24] MEDS: PIPERACILLIN SODIUM/TAZOBACTAM 4.5 GM in NORMAL SALINE (BAXTER MINI) 100 ML IV SCH ×3 (06:40→21:24)
[2016-03-24] MEDS: UMECLIDINIUM BROMIDE (INCRUSE ELLIPTA) 7'S IH SCH (07:08)
[2016-03-24] MEDS: ATENOLOL 25 MG (TENORMIN) TAB PO SCH (08:17)
[2016-03-24] MEDS: MELOXICAM 7.5 MG (MOBIC) TABLET PO SCH ×2 (08:17→20:43)
[2016-03-24] MEDS: FUROSEMIDE 20 MG (LASIX) TAB PO SCH (08:19)
[2016-03-24] MEDS: ALLOPURINOL 100 MG (ZYLOPRIM) TAB PO SCH (08:19)
[2016-03-24] MEDS: FAMOTIDINE 20 MG (PEPCID) TABLET PO SCH (08:19)
[2016-03-24] MEDS: GABAPENTIN 400 MG (NEURONTIN) CAP PO SCH ×3 (08:19→20:43)
[2016-03-24] MEDS: DIPYRIDAMOLE/ASA ER CAPSULE (AGGRENOX) PO SCH ×2 (08:19→20:43)
[2016-03-24] MEDS: guaiFENesin (MUCINEX) 600 MG TAB PO SCH ×2 (08:19→20:43)
--- NOTE | 2016-03-24 09:53 | Physical Therapy Daily Note ---
PT Daily Note-Current Subjective Patient and family both agree to therapy. Pain Numeric Pain Scale: 0-No Pain Location: No Pain Reported Mental Status Patient Orientation: Confused Attachments: Oxygen, IV Transfers Functional [place] Measure 0=Not Assessed/NA 4=Minimal Assistance 1=Total Assistance 5=Supervision or Setup 2=Maximal Assistance 6=Modified [place] 3=Moderate Assistance 7=Complete IndependenceIRFPAI Quality Coding Scale 6 Independent with activity with or without an assistive device 5 Patient requires set up or clean up by helper. Patient completes activity by themselves 4 Supervision or touching assist (CGA). [place] provide cues , steadying assist 3 The helper provides less than half the effort to complete the activity 2 The helper provides more than half the effort to complete the activity 1 Dependent. The helper does all the effort to complete an activity 7 Patient refused to complete or attempt activity 9 The patient did not perform the activity before the current illness or injury 88 Not attempted due to Medical conditions or safety concerns Transfers (B, C, W/C) (FIM): 5 Scootin Sit to/from Stand: 5 Sit to Stand (QC): 5 Gait Training Does the Patient Walk?: Yes Gait (FIM): 2 Distance (FIM): 7=067-28 ft Distance: 125' Walk 50 ft with 2 Turns(QC): 5 Gait Level of Assist: 5 Gait Assistive Device: FWW slightly unsteady with self correct Exercises Seated Therapy Exercises: Ankle pumps, Long arc quads, Hip flexion Seated Reps: 20 x 2 sets exercises Assessment Patient up in recliner with needs met. PT to increase activity as tolerated by patient. PT Short Term Goals Short Term Goals Time Frame: Mar 30, 2016 Transfers (B,C,W/C) (FIM): 5 Gait (FIM): 2 Distance (FIM): 0=734-93 ft Gait Distance Comment: 125' Gait Level of Assist: 5 Gait Assistive Device: FWW PT Needle Loom Weaver Goals Alf Goals PT Alf Goals Time Frame: Mar 30, 2016 Transfers (B,C,W/C) (FIM): 5 Sit to Lying (QC): 5 Lying-Sitting on Side/Bed(QC): 5 Sit to Stand (QC): 5 (met 03/24/16) Rollin Chair/Juc-xe-Binlo Xfer(QC): 5 Does the Patient Walk: Yes Gait (FIM): 2 Gait distance (FIM): 6=955-09 ft Distance: 125' Walk 50ft with 2 Turns (QC): 5 (met 03/24/16) Gait Level of Assist: 5 Gait Assistive Device: FWW Does the Pt use WC or Scooter?: No PT Plan Treatment/Plan Treatment Plan: Continue Plan of Care Treatment Plan: Bed Mobility, Education, Functional Activity Hussein, Functional Strength, Gait, Safety, Therapeutic Exercise, Transfers Treatment Duration: Mar 30, 2016 Visits Per Week: 5-6 Minutes/Day (M-F): 15-30 Minutes/Day (Sat/Cardenas): PRN Time/GCodes Time In: 906 Time Out: 929 Total Billed Treatment Time: 23 Total Billed Treatment 1 visit GT 15 min EX 8 min JOSY MANN PT Mar 24, 2016 09:53
--- NOTE | 2016-03-24 10:39 | Progress Note-Hospitalist ---
Progress Note Progress Notes/Assess & Plan Date Seen 03/24/16 Diagonsis/Assessment & Plan Chart Review: Reviewed Dr. Jaime consultation. house nurse: RN states that pt's lungs sound rough. Patient Interview: Pt states that she is still coughing significantly. Pt states that she uses home O2 during day and night. Pt states that she feels comfortable for DC of catheter. Pt is receiving breathing treatments. Pt states that she is having loose BMs. Physical exam reveals course lung sounds. no fever vital signs stable, pleasant, chronically ill, frail, sitting in chair Regular rate and rhythm Coarseness noted all adkins No edema Assessment: Pneumonia with hypoxia with continued bronchospasm unresolved after aggressive treatment requiring swing bed and pulmonary consultation Dementia COPD CLD Gout Osteoarthritis Hypothyroidism Generalized debility and prognosis which is poor Plan: DC catheter PT Continue antibiotics through Sunday Nebs ICS Scribed by Earnest Bah under the direct supervision of Dr. Hung. AMAURI HUNG DO Mar 24, 2016 10:39
[2016-03-24] MEDS: LEVOFLOXACIN 750 MG TAB (LEVAQUIN) PO SCH (11:07)
--- NOTE | 2016-03-24 12:23 | Occupational Ther Daily Note ---
OT Current Status-Daily Note Subjective "I don't want to do a shower, I had one yesterday, but I could wash up alittle. " Pain Numeric Pain Scale: 0-No Pain Appearance Patient seated in recliner at bedside upon OT arrival. Agreeable to ADL this am. Mental Status/Objective Patient Orientation: Person, Place, Situation Functional [place] Measure 0=Not Assessed/NA 4=Minimal Assistance 1=Total Assistance 5=Supervision or Setup 2=Maximal Assistance 6=Modified [place] 3=Moderate Assistance 7=Complete [place] ADL-Treatment Patient agreeable to sponge bath. With set up at bedside, she could bath self independently. Stood with CGA to do trace area. She was short of breath with the activity, but reports she is the same in the nursing facility. Functional [place] Measure 0=Not Assessed/NA 4=Minimal Assistance 1=Total Assistance 5=Supervision or Setup 2=Maximal Assistance 6=Modified [place] 3=Moderate Assistance 7=Complete IndependenceIRFPAI Quality Coding Scale 6 Independent with activity with or without an assistive device 5 Patient requires set up or clean up by helper. Patient completes activity by themselves 4 Supervision or touching assist (CGA). [place] provide cues , steadying assist 3 The helper provides less than half the effort to complete the activity 2 The helper provides more than half the effort to complete the activity 1 Dependent. The helper does all the effort to complete an activity 7 Patient refused to complete or attempt activity 9 The patient did not perform the activity before the current illness or injury 88 Not attempted due to Medical conditions or safety concerns OT Short Term Goals Short Term Goals Transfers (B,C,W/C) (FIM): 5 1=Demonstrate adherence to instructed precautions during ADL tasks. 2=Patient will verbalize/demonstrate understanding of assistive devices/ modifications for ADL. 3=Patient will improve strength/tolerance for activity to enable patient to perform ADL's. OT Capsule Filler Goals Capsule Filler Goals Time Frame: Apr 06, 2016 Eating (FIM): 5 Eating (QC): 5 Oral Hygiene (QC): 5 Grooming(FIM): 5 Toileting Hygiene (QC): 4 Upper Body Dressing(FIM): 5 Lower Body Dressing(FIM): 4 Toilet/Commode Transfer(FIM): 4 (CGA) Toilet/Commode Transfer (QC): 4 Additional Goals: 1-Demonstrate ADL Tasks, 2-Verbalize Understanding, 3- ImproveStrength/Hussein 1=Demonstrate adherence to instructed precautions during ADL tasks. 2=Patient will verbalize/demonstrate understanding of assistive devices/ modifications for ADL. 3=Patient will improve strength/tolerance for activity to enable patient to perform ADL's. OT Education/Plan Problem List/Assessment Pt demonstrates decreased mobility, strength, activity tolerance and ADL functioning. Pt to benefit from skilled OT intervention for ADL training, transfers, strengthening and safety education to maximize level of function and allow safe discharge. Discharge Recommendations Plan/Recommendations: Continue POC Treatment Plan/Plan of Care Patient would benefit from OT for education, treatment and training to promote independence in ADL's, mobility, safety and/or upper extremity function for ADL' s. Plan of Care: ADL Retraining, Functional Mobility, UE Funct Exercise/Act Treatment Duration: Apr 06, 2016 Visits Per Week: 5 Agreement: Yes Rehab Potential: Fair Time/GCodes Start Time: 11:40 Stop Time: 12:05 Total Time Billed (hr/min): 25 Billed Treatment Time Visit, ADL x 2 YANI UNGER OT Mar 24, 2016 12:23
--- NOTE | 2016-03-24 12:58 | Pulmonary Progress Note ---
Subjective Subjective/Events-last exam pt sitting up in chair and has been d/c to [facility]. She denies cough, she is wearing oxygen at 2L and tolerating well. Reports wearing it continuous at [facility]. Exam Exam Vital Signs Date Time Temp Pulse Resp B/P Pulse Ox O2 Delivery O2 Flow Rate FiO2 03/24/16 11:05 95 Nasal Cannula 2.00 03/24/16 09:00 96 Nasal Cannula 2.00 03/24/16 07:11 96 Nasal Cannula 2.00 03/24/16 07:08 96 Nasal Cannula 2.00 03/24/16 06:35 98.7 70 20 163/77 97 Nasal Cannula 3.00 03/24/16 02:42 94 Nasal Cannula 2.00 03/24/16 00:34 98.4 65 16 147/66 95 Nasal Cannula 3.00 03/23/16 22:19 95 Nasal Cannula 2.00 03/23/16 20:15 Nasal Cannula 2.00 03/23/16 19:36 96 Nasal Cannula 2.00 03/23/16 16:00 97.8 64 16 140/62 95 03/23/16 14:35 92 Nasal Cannula 2.00 I & O 03/24/16 07:00 Intake Total 1480 ml Output Total 2625 ml Balance -1145 ml General Appearance: No Apparent Distress WD/WN HEENT: PERRL/EOMI Normal ENT Inspection Pharynx Normal Neck: Full Range of Motion Normal Inspection Non Tender Supple Respiratory: Chest Non Tender Decreased Breath Sounds Rales Rhonci Cardiovascular: Regular Rate, Rhythm Gastrointestinal: normal bowel sounds non tender soft Extremity: Normal Capillary Refill Normal Inspection Non Tender No Calf Tenderness Neurologic/Psychiatric: Alert Skin: Normal Color Warm/Dry Assessment/Plan Assessment/Plan PNA -continue Zosyn, Levaquin -oxygen 2L -cont SVNs q4hr COPD -continuos oxygen hypoxemia Dyspnea VIVIAN SNEED APRN Mar 24, 2016 12:58
[2016-03-24] MEDS ORDERED: PIPERACILLIN/TAZO 4.5 GM VIAL (ZOSYN) IV ONE (13:10)
[2016-03-24] MEDS ORDERED: NORMAL SALINE (BAXTER MINI) 100 ML IV ONE (13:10)
[2016-03-24] MEDS: 1/2 NS IV SOLUTION 1,000 ML IV SCH (13:20)
[2016-03-24 17:21] VITALS: BP 107/61
[2016-03-24] MEDS: ALPRAZolam 0.25 MG (XANAX) TAB PO SCH (20:43)
[2016-03-24] MEDS: LATANOPROST 0.005% (XALATAN) OPHTH SOLN 2.5 ML OU SCH (20:43)
[2016-03-24] MEDS: PRAMIPEXOLE 0.125 MG (MIRAPEX) TABLET PO SCH (20:43)
[2016-03-25] MEDS: oxyCODONE/APAP 5/325MG (PERCOCET 5) TABLET PO PRN ×3 (00:55→21:05)
[2016-03-25] MEDS: 1/2 NS IV SOLUTION 1,000 ML IV SCH ×2 (01:35→15:14)
[2016-03-25] MEDS: RT-ALBUTEROL/IPRATROPIUM 3 ML (DUONEB) VIAL INH SCH ×6 (01:57→22:17)
[2016-03-25] MEDS: LEVOTHYROXINE 125 MCG (LEVOTHROID) TABLET PO SCH (05:21)
[2016-03-25] MEDS: PIPERACILLIN SODIUM/TAZOBACTAM 4.5 GM in NORMAL SALINE (BAXTER MINI) 100 ML IV SCH ×3 (05:22→21:04)
[2016-03-25 06:00] VITALS: BP 168/70
[2016-03-25] MEDS: UMECLIDINIUM BROMIDE (INCRUSE ELLIPTA) 7'S IH SCH (06:21)
[2016-03-25] MEDS: FUROSEMIDE 20 MG (LASIX) TAB PO SCH (08:46)
[2016-03-25] MEDS: FAMOTIDINE 20 MG (PEPCID) TABLET PO SCH (08:46)
[2016-03-25] MEDS: MELOXICAM 7.5 MG (MOBIC) TABLET PO SCH ×2 (08:46→21:04)
[2016-03-25] MEDS: GABAPENTIN 400 MG (NEURONTIN) CAP PO SCH ×3 (08:47→21:04)
[2016-03-25] MEDS: ATENOLOL 25 MG (TENORMIN) TAB PO SCH (08:47)
[2016-03-25] MEDS: ALLOPURINOL 100 MG (ZYLOPRIM) TAB PO SCH (08:47)
[2016-03-25] MEDS: guaiFENesin (MUCINEX) 600 MG TAB PO SCH ×2 (08:47→21:04)
[2016-03-25] MEDS: DIPYRIDAMOLE/ASA ER CAPSULE (AGGRENOX) PO SCH ×2 (08:47→21:04)
--- NOTE | 2016-03-25 11:13 | Physical Therapy Daily Note ---
PT Daily Note-Current Subjective Patient in recliner pre tx, agrees to PT, states she does have some pain but is less than earlier because she got some pain meds. Patient is unwilling to rate her pain. Appearance Patient in recliner post tx with nurse call, phone, tray, family in the room, all needs met. Mental Status Patient Orientation: Normal For Age Attachments: Oxygen, IV 2L of O2 nasal canula Transfers Functional [place] Measure 0=Not Assessed/NA 4=Minimal Assistance 1=Total Assistance 5=Supervision or Setup 2=Maximal Assistance 6=Modified [place] 3=Moderate Assistance 7=Complete IndependenceIRFPAI Quality Coding Scale 6 Independent with activity with or without an assistive device 5 Patient requires set up or clean up by helper. Patient completes activity by themselves 4 Supervision or touching assist (CGA). [place] provide cues , steadying assist 3 The helper provides less than half the effort to complete the activity 2 The helper provides more than half the effort to complete the activity 1 Dependent. The helper does all the effort to complete an activity 7 Patient refused to complete or attempt activity 9 The patient did not perform the activity before the current illness or injury 88 Not attempted due to Medical conditions or safety concerns Transfers (B, C, W/C) (FIM): 5 Sit to/from Stand: 5 Gait Training Gait (FIM): 4 Distance: 150' Gait Level of Assist: 4 (CGA) Gait Persons Needed: 1 Gait Assistive Device: FWW Patient has very poor endurance, she needed many standing rest breaks to catch her breath. Treatments transfers, ambulation Assessment Current Status: Poor Progress very poor endurance PT Short Term Goals Short Term Goals Time Frame: Mar 30, 2016 Transfers (B,C,W/C) (FIM): 5 Gait (FIM): 2 Distance (FIM): 4=600-40 ft Gait Distance Comment: 125' Gait Level of Assist: 5 Gait Assistive Device: FWW PT Longterm Goals Stock Mover Goals PT Stock Mover Goals Time Frame: Mar 30, 2016 Transfers (B,C,W/C) (FIM): 5 Sit to Lying (QC): 5 Lying-Sitting on Side/Bed(QC): 5 Sit to Stand (QC): 5 (met 03/24/16) Rollin Chair/Izu-uh-Kddhr Xfer(QC): 5 Does the Patient Walk: Yes Gait (FIM): 2 Gait distance (FIM): 2=527-70 ft Distance: 125' Walk 50ft with 2 Turns (QC): 5 (met 03/24/16) Gait Level of Assist: 5 Gait Assistive Device: FWW Does the Pt use WC or Scooter?: No PT Plan Problem List Problem List: Activity Tolerance, Functional Strength, Safety, Balance, Gait, Transfer, Bed Mobility Treatment/Plan Treatment Plan: Continue Plan of Care Treatment Plan: Bed Mobility, Education, Functional Activity Hussein, Functional Strength, Gait, Safety, Therapeutic Exercise, Transfers Treatment Duration: Mar 30, 2016 Visits Per Week: 5-6 Minutes/Day (M-F): 15-30 Minutes/Day (Sat/Cardenas): PRN Safety Risks/Education Patient Education: Gait Training, Transfer Techniques, Safety Issues Teaching Recipient: Patient Teaching Methods: Demonstration, Discussion Response to Teaching: Reinforcement Needed Time/GCodes Time In: 1055 Time Out: 1110 Total Billed Treatment Time: 15 Total Billed Treatment 1 visit GT 15 min SETH YEE PT Mar 25, 2016 11:13
[2016-03-25] MEDS ORDERED: PIPERACILLIN/TAZO 4.5 GM VIAL (ZOSYN) IV ONE (12:52)
[2016-03-25] MEDS ORDERED: NORMAL SALINE (BAXTER MINI) 100 ML IV ONE (12:52)
[2016-03-25 18:00] VITALS: BP 115/65
[2016-03-25] MEDS: PRAMIPEXOLE 0.125 MG (MIRAPEX) TABLET PO SCH (21:04)
[2016-03-25] MEDS: ALPRAZolam 0.25 MG (XANAX) TAB PO SCH (21:05)
[2016-03-25] MEDS: LATANOPROST 0.005% (XALATAN) OPHTH SOLN 2.5 ML OU SCH (21:05)
[2016-03-26] MEDS: RT-ALBUTEROL/IPRATROPIUM 3 ML (DUONEB) VIAL INH SCH ×6 (02:16→22:10)
[2016-03-26] MEDS: 1/2 NS IV SOLUTION 1,000 ML IV SCH ×2 (04:43→19:49)
[2016-03-26 05:00] VITALS: BP 138/69
[2016-03-26] MEDS: oxyCODONE/APAP 5/325MG (PERCOCET 5) TABLET PO PRN (05:42)
[2016-03-26] MEDS: LEVOTHYROXINE 125 MCG (LEVOTHROID) TABLET PO SCH (05:42)
[2016-03-26] MEDS: PIPERACILLIN SODIUM/TAZOBACTAM 4.5 GM in NORMAL SALINE (BAXTER MINI) 100 ML IV SCH ×3 (05:42→22:47)
[2016-03-26] MEDS: UMECLIDINIUM BROMIDE (INCRUSE ELLIPTA) 7'S IH SCH (06:35)
[2016-03-26] MEDS: guaiFENesin (MUCINEX) 600 MG TAB PO SCH ×2 (09:06→22:02)
[2016-03-26] MEDS: ATENOLOL 25 MG (TENORMIN) TAB PO SCH (09:07)
[2016-03-26] MEDS: GABAPENTIN 400 MG (NEURONTIN) CAP PO SCH ×3 (09:07→22:02)
[2016-03-26] MEDS: FUROSEMIDE 20 MG (LASIX) TAB PO SCH (09:08)
[2016-03-26] MEDS: MELOXICAM 7.5 MG (MOBIC) TABLET PO SCH ×2 (09:08→22:03)
[2016-03-26] MEDS: DIPYRIDAMOLE/ASA ER CAPSULE (AGGRENOX) PO SCH ×2 (09:08→22:03)
[2016-03-26] MEDS: FAMOTIDINE 20 MG (PEPCID) TABLET PO SCH (09:08)
[2016-03-26] MEDS: ALLOPURINOL 100 MG (ZYLOPRIM) TAB PO SCH (09:08)
[2016-03-26] MEDS: LEVOFLOXACIN 750 MG TAB (LEVAQUIN) PO SCH (11:15)
[2016-03-26 18:21] VITALS: BP 189/79
[2016-03-26] MEDS: LATANOPROST 0.005% (XALATAN) OPHTH SOLN 2.5 ML OU SCH (22:02)
[2016-03-26] MEDS: PRAMIPEXOLE 0.125 MG (MIRAPEX) TABLET PO SCH (22:03)
[2016-03-26] MEDS: ALPRAZolam 0.25 MG (XANAX) TAB PO SCH (22:03)
[2016-03-27] MEDS: RT-ALBUTEROL/IPRATROPIUM 3 ML (DUONEB) VIAL INH SCH ×4 (02:05→14:03)
[2016-03-27 06:00] VITALS: BP 176/76
[2016-03-27] MEDS: LEVOTHYROXINE 125 MCG (LEVOTHROID) TABLET PO SCH (06:35)
[2016-03-27] MEDS: PIPERACILLIN SODIUM/TAZOBACTAM 4.5 GM in NORMAL SALINE (BAXTER MINI) 100 ML IV SCH ×2 (06:39→13:35)
--- NOTE | 2016-03-27 07:32 | Pulmonary Progress Note ---
Subjective Subjective/Events-last exam Pt wants to go home. Exam Exam Vital Signs Date Time Temp Pulse Resp B/P Pulse Ox O2 Delivery O2 Flow Rate FiO2 03/27/16 06:26 91 Nasal Cannula 2.00 03/27/16 06:00 97.8 67 20 176/76 99 Nasal Cannula 2.00 03/27/16 02:05 95 Nasal Cannula 2.00 03/26/16 22:10 96 Nasal Cannula 2.00 03/26/16 20:00 Nasal Cannula 2.00 03/26/16 18:25 97 Nasal Cannula 2.00 03/26/16 18:21 97.0 71 20 189/79 98 Nasal Cannula 2.00 03/26/16 14:34 98 Nasal Cannula 2.00 03/26/16 10:19 97 Nasal Cannula 2.00 03/26/16 09:00 Nasal Cannula 2.00 I & O 03/27/16 07:00 Intake Total 1250 ml Balance 1250 ml General Appearance: No Apparent Distress WD/WN HEENT: PERRL/EOMI Normal ENT Inspection Pharynx Normal Neck: Full Range of Motion Normal Inspection Non Tender Supple Respiratory: Chest Non Tender Decreased Breath Sounds Rales Rhonci Cardiovascular: Regular Rate, Rhythm Gastrointestinal: normal bowel sounds non tender soft Extremity: Normal Capillary Refill Normal Inspection Non Tender No Calf Tenderness Neurologic/Psychiatric: Alert Skin: Normal Color Warm/Dry Assessment/Plan Assessment/Plan PNA -improving - Zosyn, Levaquin - culture negative -oxygen 2L -cont SVNs q4hr -CXR slowly improving - repeat as out pt COPD -continuos oxygen hypoxemia Dyspnea Repeat CBC today. IF labs look ok pt is ok to d/c from pulm standpoint without abx. will have RT do oxygen eval. I will see her as out patient in 4-6wks. KATHRIN ALMARAZ DO Mar 27, 2016 07:31
[2016-03-27] MEDS ORDERED: FUROSEMIDE 40 MG/4 ML INJ (LASIX) IVP NR (08:30)
[2016-03-27 08:33] LABS: BASOPHILS % (AUTO) 1 % (0-10); EOSINOPHILS # (AUTO) 0.3 10^3/uL (0.0-0.3); EOSINOPHILS % (AUTO) 3 % (0-10); LYMPHOCYTES # (AUTO) 1.2 X 10^3 (1.0-4.0); LYMPHOCYTES % (AUTO) 14 % (12-44); MEAN CORPUSCULAR HEMOGLOBIN 27 PG (25-34); MEAN CORPUSCULAR HGB CONC 31 G/DL (32-36); MEAN CORPUSCULAR VOLUME 87 FL (80-99); MEAN PLATELET VOLUME 9.2 FL (7.4-10.4); MONOCYTES # (AUTO) 0.6 X 10^3 (0.0-1.0); MONOCYTES % (AUTO) 7 % (0-12); NEUTROPHILS # (AUTO) 6.4 X 10^3 (1.8-7.8); NEUTROPHILS % (AUTO) 75 % (42-75); PLATELET COUNT 340 10^3/uL (130-400); RED BLOOD COUNT 3.21 10^6/uL (4.35-5.85); RED CELL DISTRIBUTION WIDTH 15.9 % (10.0-14.5); WHITE BLOOD COUNT 8.6 10^3/uL (4.3-11.0)
[2016-03-27 08:50] LABS: CREATININE SERUM 1.62 MG/DL (0.60-1.30); POTASSIUM 3.2 MMOL/L (3.6-5.0)
[2016-03-27] MEDS: FUROSEMIDE 20 MG (LASIX) TAB PO SCH (09:00)
[2016-03-27] MEDS: ALLOPURINOL 100 MG (ZYLOPRIM) TAB PO SCH (09:06)
[2016-03-27] MEDS: guaiFENesin (MUCINEX) 600 MG TAB PO SCH (09:06)
[2016-03-27] MEDS: ATENOLOL 25 MG (TENORMIN) TAB PO SCH (09:06)
[2016-03-27] MEDS: FAMOTIDINE 20 MG (PEPCID) TABLET PO SCH (09:06)
[2016-03-27] MEDS: GABAPENTIN 400 MG (NEURONTIN) CAP PO SCH ×2 (09:06→13:35)
[2016-03-27] MEDS: DIPYRIDAMOLE/ASA ER CAPSULE (AGGRENOX) PO SCH (09:06)
[2016-03-27] MEDS: MELOXICAM 7.5 MG (MOBIC) TABLET PO SCH (09:08)
--- NOTE | 2016-03-27 10:21 | Discharge Summary-Hospitalist ---
Diagnosis/Chief Complaint Date of Admission Mar 23, 2016 at 11:39 Date of Discharge Discharge Diagnosis Assessment: Pneumonia with hypoxia with continued bronchospasm unresolved after aggressive treatment requiring swing bed and pulmonary consultation Dementia COPD CLD Gout Osteoarthritis Hypothyroidism Generalized debility and prognosis which is poor Chart Review: Reviewed Dr. Jaime consultation. 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 Patient Interview: Pt states that she is still coughing significantly. Pt states that she uses home O2 during day and night. Pt states that she feels comfortable for DC of catheter. Pt is receiving breathing treatments. Pt states that she is having loose BMs. Physical exam reveals course lung sounds. no fever vital signs stable, pleasant, chronically ill, frail, sitting in chair Regular rate and rhythm Coarseness noted all adkins No edema Plan: DC catheter PT Continue antibiotics through Sunday Nebs ICS Scribed by Earnest Bah under the direct supervision of Dr. Hung. Reason Hospital Visit/Course Notes from 03/27/2015: Patient Interview: Pt states that she would like to DC. Pt states that she is having BMs. Pt states that she uses home O2 during night and day, and uses breathing treatments. Pt is still coughing. Physical exam was stable. Pt received Lasix. Up in chair, O x ~ 2, poor recall RRR, coarse breath sounds throughout all adkins No edema Plan: DC to [facility] with home health Scribed by Earnest Bah under the direct supervision of Dr. Hung. Hospital course: Patient required swing bed for IV antibiotics and close monitoring with IV steroids and diuretics. She has chronic lung disease and now is requiring oxygen continuously instead of as needed back at [facility]. Overall her prognosis is very poor there is no way to modify her risk factors are improved first severe COPD so she was discharged back to residential on home [facility] and will monitor closely to support any way possible but end-stage pulmonary disease is the final diagnosis. Discharge Summary Discharge Physical Examination Allergies: Coded Allergies: fentanyl (Verified Adverse Reaction, Unknown, 11/02/14) penicillin (Verified Adverse Reaction, Unknown, 11/02/14) Uncoded Allergies: TETANUS (Adverse Reaction, Unknown, 11/02/14) Vitals & I&Os Vital Signs Date Time Temp Pulse Resp B/P Pulse Ox O2 Delivery O2 Flow Rate FiO2 03/27/16 09:00 91 Nasal Cannula 2.00 03/27/16 06:00 97.8 67 20 176/76 Hospital Course Labs (last 24 hrs) Laboratory Tests 03/27/16 08:25: Anion Gap 13, BUN/Creatinine Ratio 7, Basophils # (Auto) 0.0, Basophils (%) ( Auto) 1, Blood Urea Nitrogen 12, Calcium Level 9.0, Carbon Dioxide Level 20L, Chloride Level 109H, Creatinine 1.62H, Eosinophils # (Auto) 0.3, Eosinophils (% ) (Auto) 3, Estimat Glomerular Filtration Rate 30, Glucose Level 86, Hematocrit 28L, Hemoglobin 8.6L, Lymphocytes # (Auto) 1.2, Lymphocytes (%) (Auto) 14, Mean Corpuscular Hemoglobin 27, Mean Corpuscular Hemoglobin Concent 31L, Mean Corpuscular Volume 87, Mean Platelet Volume 9.2, Monocytes # (Auto) 0.6, Monocytes (%) (Auto) 7, Neutrophils # (Auto) 6.4, Neutrophils (%) (Auto) 75, Platelet Count 340, Potassium Level 3.2L, Red Blood Count 3.21L, Red Cell Distribution Width 15.9H, Sodium Level 142, White Blood Count 8.6 Pending Labs Laboratory Tests 03/27/16 08:25: Anion Gap 13, BUN/Creatinine Ratio 7, Basophils # (Auto) 0.0, Basophils (%) ( Auto) 1, Blood Urea Nitrogen 12, Calcium Level 9.0, Carbon Dioxide Level 20, Chloride Level 109, Creatinine 1.62, Eosinophils # (Auto) 0.3, Eosinophils (%) ( Auto) 3, Estimat Glomerular Filtration Rate 30, Glucose Level 86, Hematocrit 28 , Hemoglobin 8.6, Lymphocytes # (Auto) 1.2, Lymphocytes (%) (Auto) 14, Mean Corpuscular Hemoglobin 27, Mean Corpuscular Hemoglobin Concent 31, Mean Corpuscular Volume 87, Mean Platelet Volume 9.2, Monocytes # (Auto) 0.6, Monocytes (%) (Auto) 7, Neutrophils # (Auto) 6.4, Neutrophils (%) (Auto) 75, Platelet Count 340, Potassium Level 3.2, Red Blood Count 3.21, Red Cell Distribution Width 15.9, Sodium Level 142, White Blood Count 8.6 Discharge Home Medications: Active Scripts Active Reported Mucinex (Guaifenesin) 600 Mg Tab.er.12h 600 Mg PO Q12H 5 Days 5 DAY THERAPY FILLED 03-16-16 Pramipexole Dihydrochloride (Pramipexole Di-HCl) 0.125 Mg Tablet 0.125 Mg PO HS Nature's Tears Eye Drops (Dextran 70/Hypromellose) 15 Ml Drops 1 Drop OU BID Fiber Therapy (Psyllium Husk) 0.52 Gm Capsule 2 Cap PO TID Procardia Xl (Nifedipine) 90 Mg Tab.er.24 90 Mg PO DAILY Lumigan (Bimatoprost) 2.5 Ml Drops 1 Drop OU HS Lovastatin 20 Mg Tablet 20 Mg PO HS Synthroid (Levothyroxine Sodium) 125 Mcg Tablet 125 Mcg PO DAILY Lasix (Furosemide) 20 Mg Tablet 10 Mg PO DAILY TAKES 1/2 (20MG) TABLET Cerovite Senior Tablet (Multivitamin W-Minerals/Lutein) 1 Each Tablet 1 Tab PO DAILY Xanax (Alprazolam) 0.25 Mg Tablet 0.25 Mg PO Q8H PRN Xanax (Alprazolam) 0.25 Mg Tablet 0.25 Mg PO HS Allopurinol 100 Mg Tablet 100 Mg PO DAILY Mobic (Meloxicam) 7.5 Mg Tablet 7.5 Mg PO BID Fioricet 50-300-40 mg Capsule (Butalb/Acetaminophen/Caffeine) 1 Each Capsule 1 Tab PO BID Atenolol 25 Mg Tablet 12.5 Mg PO DAILY TAKES 1/2 (25MG) TABLET Aggrenox 25 mg-200 mg Capsule (Dipyridamole/Aspirin) 1 Ea Cap 1 Cap PO BID Zantac (Ranitidine HCl) 150 Mg Tablet 150 Mg PO DAILY Probiotic (L.acidoph & Paracasei,B.lactis) 1 Each Capsule 1 Cap PO DAILY Oyster Shell Calcium (Calcium Carbonate) 500 Mg Tablet 1 Tab PO DAILY Oxycontin (Oxycodone HCl) 40 Mg Tab.er.12h 40 Mg PO Q12H Combivent Respimat Inhal [place] (Albuterol/Ipratropium) 4 Gm Aero 1 Puff IH QID Skelaxin (Metaxalone) 800 Mg Tablet 800 Mg PO TID Neurontin (Gabapentin) 400 Mg Capsule 400 Mg PO TID Percocet 5-325 mg Tablet (Oxycodone HCl/Acetaminophen) 1 Each Tablet 1 Tab PO Q4H PRN Zofran (Ondansetron HCl) 4 Mg Tab 4 Mg PO Q6H PRN Nature's Tears Eye Drops (Dextran 70/Hypromellose) 15 Ml Drops 1 Drop OU PRN PRN Milk of Magnesia (Magnesium Hydroxide) 400 Mg/5 Ml Oral.susp 30 Ml PO DAILY PRN Colcrys (Colchicine) 0.6 Mg Tablet 0.6 Mg PO Q4H PRN Calmoseptine Ointment (Menthol/Lanolin/Calamine/Znox) 71 Gm Oint TP PRN PRN Albuterol Sulfate 2.5 Mg/3 Ml Vial.neb 2.5 Mg IH TID PRN Voltaren (Diclofenac Sodium) 100 Gm Gel..gram. 2 Gm TP QID PRN APPLY TO RIGHT KNEE Imodium A-D (Loperamide HCl) 2 Mg Tablet 4 Mg PO Q6H PRN Maalox Advanced Suspension (Mag Hydrox/Al Hydrox/Simeth) 770 Ml Oral.susp 30 Ml PO UD PRN Instructions to patient/family Please see electonic discharge instructions given to patient. AMAURI HUNG DO Mar 27, 2016 10:21
[2016-03-27] MEDS: UMECLIDINIUM BROMIDE (INCRUSE ELLIPTA) 7'S IH SCH (10:40)
--- NOTE | 2016-03-27 10:41 | Therapy Team Discharge Summary ---
Therapy Discharge Summary Discharge Recommendations Date of Discharge Therapy D/C Recommendations: 24 hr Supervision Physical Therapy Patient declined PT intervention on this date. Per RN, patient will dismiss to [facility] with 23/ assistance. Patient continues to require CGA with all functional mobility. Patient ambulates with FWW CGA ~125' with shuffle gait sequence. This PT recommends home health PT to improve current LOF. PT Mcc Goals Principal Trainer Goals PT Mcc Goals Time Frame: Mar 30, 2016 Transfers (B,C,W/C) (FIM): 5 Sit to Lying (QC): 5 Lying-Sitting on Side/Bed(QC): 5 Sit to Stand (QC): 5 (met 03/24/16) Rollin Chair/Phu-fs-Zkmku Xfer(QC): 5 Does the Patient Walk: Yes Gait (FIM): 2 Gait distance (FIM): 4=955-05 ft Distance: 125' Walk 50ft with 2 Turns (QC): 5 (met 03/24/16) Gait Level of Assist: 5 Gait Assistive Device: FWW Does the Pt use WC or Scooter?: No OT Mcc Goals Principal Trainer Goals Time Frame: Apr 06, 2016 Eating (FIM): 5 Eating (QC): 5 Oral Hygiene (QC): 5 Grooming(FIM): 5 Toileting Hygiene (QC): 4 Upper Body Dressing(FIM): 5 Lower Body Dressing(FIM): 4 Toilet/Commode Transfer(FIM): 4 (CGA) Toilet/Commode Transfer (QC): 4 Additional Goals: 1-Demonstrate ADL Tasks, 2-Verbalize Understanding, 3- ImproveStrength/Hussein 1=Demonstrate adherence to instructed precautions during ADL tasks. 2=Patient will verbalize/demonstrate understanding of assistive devices/ modifications for ADL. 3=Patient will improve strength/tolerance for activity to enable patient to perform ADL's. JOSY MANN PT Mar 27, 2016 10:41
--- NOTE | 2016-03-27 11:13 | Discharge Inst-Home Health ---
Discharge Inst-to Home Health Patient Instructions Patient Instructions/FollowUp: Admit to [facility] under Dr Serrano's service Obtain f/u Dr Serrano in 1 week Patient Problems: Pneumonia Severe end stage COPD Dementia VIA [place], [place] DISCHARGE ORDERS Allergies: Coded Allergies: fentanyl (Verified Adverse Reaction, Unknown, 11/02/14) penicillin (Verified Adverse Reaction, Unknown, 11/02/14) Uncoded Allergies: TETANUS (Adverse Reaction, Unknown, 11/02/14) Height (Feet): 5 Height (Inches): 4.00 Weight (Pounds): 167 Weight (Ounces): 0.0 Weight (Kilograms): 68.2 Home Health Need/Face to Face Reason Pt Homebound weakness, chronic hypoxia I Have Seen Pt [id number]: Yes Date of Face to Face: Mar 27, 2016 Discharged To: Home Diagnosis/Conditions HH Order: Med administration Chronic hypoxia monitoring Consult/Follow Up/New Order *I certify that based on my findings, the following services are medically necessary Home Health Services: Services: Nursing Services, Inductor Tester-Evaluate & Treat, Physical Therapy-Evaluate & Treat, Speech Language-Evaluate & Treat My clinical findings support the need for the above services; see Diagnosis. Dicharge Diet: No Restrictions Daily Activity as Tolerated: Yes Discharge Medications: New, Converted, or Re-newed RX: Other I certify that this patient is under my care and that I, a nurse practitioner or a physician; a pharmacist assistant working with me, had a face to face encounter that - meets the physician face to face encounter requirements with this patient as dated. AMAURI HUNG DO Mar 27, 2016 11:13
[2016-03-27] MEDS ORDERED: OXYC-197 PO (11:15)
[2016-03-27] MEDS ORDERED: OXYC40TA46 PO (11:15)
[2016-03-27] MEDS ORDERED: ALPR0.25 PO (11:15)
--- NOTE | 2016-03-27 16:30 | Therapy Team Discharge Summary ---
Therapy Discharge Summary Discharge Recommendations Date of Discharge Mar 27, 2016 at 15:50 Therapy D/C Recommendations: 24 hr Supervision Occupational Therapy Pt was seen for skilled OT after hospitalization for pneumonia. On 03-23-16 she was able do doff/don shoes herself (QC 5), transfer min assist. On she needed CGA when standing to bathe with sponge bath. Eating, grooming and toileting were not addressed during OT sessions, then pt was discharged to [facility] prior to end of tx plan. Pt would benefit from continued OT. See tx plan for goals met. DC OT PT Fpc Goals Central Office Mechanic Goals PT Fpc Goals Time Frame: Mar 30, 2016 Transfers (B,C,W/C) (FIM): 5 Sit to Lying (QC): 5 Lying-Sitting on Side/Bed(QC): 5 Sit to Stand (QC): 5 (met 03/24/16) Rollin Chair/Iug-zu-Cdupp Xfer(QC): 5 Does the Patient Walk: Yes Gait (FIM): 2 Gait distance (FIM): 3=832-96 ft Distance: 125' Walk 50ft with 2 Turns (QC): 5 (met 03/24/16) Gait Level of Assist: 5 Gait Assistive Device: FWW Does the Pt use WC or Scooter?: No OT Central Office Mechanic Goals Central Office Mechanic Goals Time Frame: Apr 06, 2016 Eating (FIM): 5 (not met) Eating (QC): 5 (not met) Oral Hygiene (QC): 5 (not met) Grooming(FIM): 5 (not met) Toileting Hygiene (QC): 4 (not met) Upper Body Dressing(FIM): 5 (not met) Lower Body Dressing(FIM): 4 (not met) Toilet/Commode Transfer(FIM): 4 (CGAnot met) Toilet/Commode Transfer (QC): 4 (not met) Additional Goals: 1-Demonstrate ADL Tasks, 2-Verbalize Understanding, 3- ImproveStrength/Hussein 1=Demonstrate adherence to instructed precautions during ADL tasks. 2=Patient will verbalize/demonstrate understanding of assistive devices/ modifications for ADL. 3=Patient will improve strength/tolerance for activity to enable patient to perform ADL's. CAM AGUILAR OT Mar 27, 2016 16:30
[2016-06-23] MEDS ORDERED: OXYC-471 PO (10:04)
== END 2016-03-27 15:50 | disposition home health service (06) | DRG 190 ==
LOC: 4TH 11:39
PROVIDERS: ADMIT Internal Medicine; ATTEND Internal Medicine
DX: J44.0 Chronic obstructive pulmonary disease with (acute) lower respiratory infection (principal); J18.9 Pneumonia, unspecified organism; J45.909 Unspecified asthma, uncomplicated; I12.9 Hypertensive chronic kidney disease with stage 1 through stage 4 chronic kidney disease, or unspecified chronic kidney disease; D63.1 Anemia in chronic kidney disease; N18.9 Chronic kidney disease, unspecified; E78.00 Pure hypercholesterolemia, unspecified; E03.9 Hypothyroidism, unspecified; Z66 Do not resuscitate; G25.81 Restless legs syndrome; G62.9 Polyneuropathy, unspecified; F03.90 Unspecified dementia, unspecified severity, without behavioral disturbance, psychotic disturbance, mood disturbance, and anxiety; Z86.73 Personal history of transient ischemic attack (TIA), and cerebral infarction without residual deficits; M54.9 Dorsalgia, unspecified; F41.9 Anxiety disorder, unspecified; F32.9 Major depressive disorder, single episode, unspecified; H40.9 Unspecified glaucoma; R11.10 Vomiting, unspecified; R53.81 Other malaise; Z99.3 Dependence on wheelchair; Z87.891 Personal history of nicotine dependence
CPT/HCPCS: 36415; 80048; 85025; 94640; 94760; 94761

== ENCOUNTER 2016-06-22 00:50 | Inpatient (IN) | payer MEDICARE, MEDICAID ==
[2016-06-22] VITALS (18 sets, daily range): BP systolic 118–149; BP diastolic 55–84
[~2016-06-22] VITALS: Ht 162.6 cm; Wt 76.7 kg
[2016-06-22] MEDS ORDERED: ASPIRIN 81 MG CHEW (CHILDREN'S ASA) PO ONE (01:00)
[2016-06-22 01:15] LABS: BASOPHILS % (AUTO) 0 % (0-10); EOSINOPHILS # (AUTO) 0.3 10^3/uL (0.0-0.3); EOSINOPHILS % (AUTO) 4 % (0-10); LYMPHOCYTES # (AUTO) 2.3 X 10^3 (1.0-4.0); LYMPHOCYTES % (AUTO) 27 % (12-44); MEAN CORPUSCULAR HEMOGLOBIN 25 PG (25-34); MEAN CORPUSCULAR HGB CONC 29 G/DL (32-36); MEAN CORPUSCULAR VOLUME 86 FL (80-99); MEAN PLATELET VOLUME 10.7 FL (7.4-10.4); MONOCYTES # (AUTO) 1.1 X 10^3 (0.0-1.0); MONOCYTES % (AUTO) 13 % (0-12); NEUTROPHILS # (AUTO) 4.9 X 10^3 (1.8-7.8); NEUTROPHILS % (AUTO) 56 % (42-75); PLATELET COUNT 297 10^3/uL (130-400); RED BLOOD COUNT 2.42 10^6/uL (4.35-5.85); RED CELL DISTRIBUTION WIDTH 17.3 % (10.0-14.5); WHITE BLOOD COUNT 8.7 10^3/uL (4.3-11.0)
[2016-06-22 01:28] LABS: INR 1.1 (0.8-1.4); PROTHROMBIN TIME PATIENT 13.7 SEC (12.2-14.7)
[2016-06-22] MEDS ORDERED: NS IV 1000 ML 1,000 ML IV ONE (01:35)
[2016-06-22 01:36] LABS: ALANINE AMINOTRANSFERASE 10 U/L (0-55); ALBUMIN 3.5 G/DL (3.2-4.5); AMYLASE 154 U/L (25-125); ANION GAP 7 MMOL/L (5-14); ASPARTATE AMINO TRANSFERASE 17 U/L (5-34); BILIRUBIN,TOTAL 0.2 MG/DL (0.1-1.0); BLOOD UREA NITROGEN 43 MG/DL (7-18); BUN/CREATININE RATIO 18; CALCIUM 8.5 MG/DL (8.5-10.1); CARBON DIOXIDE 17 MMOL/L (21-32); CHLORIDE 118 MMOL/L (98-107); CREATINE KINASE 90 U/L (29-168); CREATININE SERUM 2.34 MG/DL (0.60-1.30); GFR ESTIMATED 20; GLUCOSE 93 MG/DL (70-105); LIPASE 53 U/L (8-78); POTASSIUM 4.8 MMOL/L (3.6-5.0); SODIUM 142 MMOL/L (135-145); TOTAL PROTEIN 5.9 G/DL (6.4-8.2)
[2016-06-22] MEDS ORDERED: morphine INJ 10 MG/ML 1ML (SYR OR VIAL) IVP STA (01:38)
[2016-06-22 01:43] LABS: TROPONIN I < 0.30 NG/ML (<0.30)
[2016-06-22] MEDS ORDERED: PANTOPRAZOLE 40 MG/10 ML (PROTONIX) VIAL IV ONE (01:45)
[2016-06-22] MEDS ORDERED: NS IV 500 ML 500 ML ONE (02:17)
--- NOTE | 2016-06-22 03:58 | ED Chest Pain ---
General Chief Complaint: Chest Pain Stated Complaint: CHEST PAIN,ANEMIA;RENAL INSUFFICIENCY Nursing Triage Note: PT TO ED 8 PER EMS FROM [facility] FOR C/O CHEST PAIN/SOB ONSET 1899. PER EMS, PT COMPLAINED TO STAFF OF CP/SOB, INCREASED HER O2 ET WENT TO BED. EMS REPORTS THEY WERE TOLD PT NOTIFIED STAFF AT 2300 THAT PAIN WAS NO BETTER ET RADIATING INTO LT ARM. PT SMILING, AWAKE, ALERT AT THIS TIME. 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 Screen: No Definite Risk Source: patient History of Present Illness Time seen by provider: 00:58 Initial Comments PT ARRIVES VIA EMS FROM [facility] C/O LEFT SIDED CHEST PAIN RADIATING DOWN LEFT ARM SINCE 1899 TONIGHT C/O SHORTNESS OF BREATH NO SWEATS NO NAUSEA/VOMITING NO PALPITATIONS HAS HAD A MILD COUGH, NO FEVER STATES PAIN WAS 10/10 EARLIER, NOW RATES 7/10 EMS GAVE NTG X 1 WITH SOME IMPROVEMENT OF PAIN , BUT BP DROPPED TO 90'S SYSTOLIC EMS ALSO GAVE 324 MG ASA PT STATES SHE HAS HAD SIMILAR PAIN IN THE PAST, BUT NO DX OF CARDIAC DISEASE, ACCORDING TO PT PT DOES TAKE AGGRENOX FOR DX OF TIA PCP: DR. HERRERA/COLE VASQUEZ Allergies and Home Medications Allergies Coded Allergies: fentanyl (Verified Adverse Reaction, Unknown, 11/02/14) penicillin (Verified Adverse Reaction, Unknown, 11/02/14) Uncoded Allergies: TETANUS (Adverse Reaction, Unknown, 11/02/14) Home Medications Albuterol Sulfate 2.5 Mg/3 Ml Vial.neb, 2.5 MG IH TID PRN for SHORTNESS OF BREATH, (Reported) Albuterol/Ipratropium 4 Gm Aero, 1 PUFF IH QID, (Reported) Allopurinol 100 Mg Tablet, 100 MG PO DAILY, (Reported) Alprazolam 0.25 Mg Tablet, 0.25 MG PO HS, #30 Prescribed by: AMAURI HUNG on 03/27/16 1115 Atenolol 25 Mg Tablet, 12.5 MG PO DAILY, (Reported) TAKES 1/2 (25MG) TABLET Bimatoprost 2.5 Ml Drops, 1 DROP OU HS, (Reported) Butalb/Acetaminophen/Caffeine 1 Each Capsule, 1 TAB PO BID, (Reported) Calcium Carbonate 500 Mg Tablet, 1 TAB PO DAILY, (Reported) Colchicine 0.6 Mg Tablet, 0.6 MG PO Q4H PRN for GOUT PAIN, (Reported) Dextran 70/Hypromellose 15 Ml Drops, 1 DROP OU PRN PRN for DRY EYES, (Reported) Dextran 70/Hypromellose 15 Ml Drops, 1 DROP OU BID, (Reported) Diclofenac Sodium 100 Gm Gel..gram., 2 GM TP QID PRN for PAIN, (Reported) APPLY TO RIGHT KNEE Dipyridamole/Aspirin 1 Ea Cap, 1 CAP PO BID, (Reported) Furosemide 20 Mg Tablet, 10 MG PO DAILY, (Reported) TAKES 1/2 (20MG) TABLET Gabapentin 400 Mg Capsule, 400 MG PO TID, (Reported) Guaifenesin 600 Mg Tab.er.12h, 600 MG PO Q12H for 5 Days, (Reported) 5 DAY THERAPY FILLED 03-16-16 L.acidoph & Paracasei,B.lactis 1 Each Capsule, 1 CAP PO DAILY, (Reported) Levothyroxine Sodium 125 Mcg Tablet, 125 MCG PO DAILY, (Reported) Loperamide HCl 2 Mg Tablet, 4 MG PO Q6H PRN for DIARRHEA, (Reported) Lovastatin 20 Mg Tablet, 20 MG PO HS, (Reported) Mag Hydrox/Al Hydrox/Simeth 770 Ml Oral.susp, 30 ML PO UD PRN for ACID REFLUX, ( Reported) Magnesium Hydroxide 400 Mg/5 Ml Oral.susp, 30 ML PO DAILY PRN for CONSTIPATION, (Reported) Meloxicam 7.5 Mg Tablet, 7.5 MG PO BID, (Reported) Menthol/Lanolin/Calamine/Znox 71 Gm Oint, TP PRN PRN for GAULDING/REDNESS, ( Reported) Metaxalone 800 Mg Tablet, 800 MG PO TID, (Reported) Multivitamin W-Minerals/Lutein 1 Each Tablet, 1 TAB PO DAILY, (Reported) Nifedipine 90 Mg Tab.er.24, 90 MG PO DAILY, (Reported) Ondansetron HCl 4 Mg Tab, 4 MG PO Q6H PRN for NAUSEA, (Reported) Oxycodone HCl 40 Mg Tab.er.12h, 40 MG PO Q12H, #60 Prescribed by: AMAURI HUNG on 03/27/16 1115 Oxycodone HCl/Acetaminophen 1 Each Tablet, 1 TAB PO Q4H PRN for PAIN, #30 Prescribed by: AMAURI HUNG on 03/27/16 1115 Pramipexole Di-HCl 0.125 Mg Tablet, 0.125 MG PO HS, (Reported) Psyllium Husk 0.52 Gm Capsule, 2 CAP PO TID, (Reported) Ranitidine HCl 150 Mg Tablet, 150 MG PO DAILY, (Reported) Review of Systems Constitutional: no symptoms reported Respiratory: See HPI, Cough, Shortness of Air Cardiovascular: See HPI, Chest Pain, Denies Edema, Denies Lightheadedness, Denies Palpitations, Denies Syncope Gastrointestinal: No Symptoms Reported Genitourinary: No Symptoms Reported Musculoskeletal: see HPI (PAIN RADIATES DOWN LEFT ARM) Skin: no symptoms reported Psychiatric/Neurological: No Symptoms Reported Endocrine: No Symptoms Reported Hematologic/Lymphatic: No Symptoms Reported Past Txsixvk-Xmxaay-Nzfvvn Hx Patient Social History Alcohol Use: Denies Use Recreational Drug Use: No Smoking Status: Former Smoker Type Used: Cigarettes Recent Foreign Travel: No Contact w/Someone Who Travel: No Recent Infectious Disease Expo: No Recent Hopitalizations: No Immunizations Up To Date Tetanus Booster (TDap): More than 5yrs PED Vaccines UTD: No Date of Pneumonia Vaccine: Feb 16, 2014 Date of Influenza Vaccine: Dec 18, 2015 Seasonal Allergies Seasonal Allergies: Yes Surgeries HX Surgeries: Yes (COLONOSCOPY; KNEE SURGERY) Surgeries: Appendectomy, Gallbladder, Hysterectomy, Orthopedic Respiratory Hx Respiratory Disorders: Yes Respiratory Disorders: Asthma, COPD Cardiovascular Hx Cardiac Disorders: Yes Cardiac Disorders: Chronic Edema/Swelling, High Cholesterol, Hypertension Neurological Hx Neurological Disorders: Yes (Peripheral Neuropathy, chronic weakness, RLS) Neurological Disorders: Dementia, Headaches /Migraines, Neuropathy, Stroke, TIA Reproductive System Hx 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, 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 Genitourinary Hx Genitourinary Disorders: Yes (CHRONIC RENAL INSUFFICIENCY) Genitourinary Disorders: Renal Failure Gastrointestinal Hx Gastrointestinal Disorders: Yes Gastrointestinal Disorders: Gastroesophageal Reflux, Diverticulosis Musculoskeletal Hx Musculoskeletal Disorders: Yes (CHRONIC PAIN ) Musculoskeletal Disorders: Degenerate Disk Disease, Arthritis, Chronic Back Pain, Fractures, Gout Endocrine Hx Endocrine Disorders: Yes Endocrine Disorders: Hyperthyroidism, Hypothyroidsim HEENT HX ENT Disorders: Yes HEENT Disorders: Cataract, Glaucoma Loss of Vision: Bilateral Hearing Impairment: Hard of Hearing Cancer Hx Cancer: No Psychosocial Hx Psychiatric Problems: Yes Behavioral Health Disorders: Anxiety, Depression Integumentary HX Skin/Integumentary Disorder: No Blood Transfusions Hx Blood Disorders: Yes Adverse Reaction to a Blood Tr: No Family Medical History Family Medial History: Congenital heart disease 19 FATHER 19 MOTHER FH: stroke 19 FATHER 19 MOTHER G8 SISTER G8 SISTER Myocardial infarction G8 SISTER Physical Exam Vital Signs Vital Sign - Last 12Hours 06/22/16 00:59 Temp 98.1 Pulse 69 Resp 20 B/P (MAP) 96/52 Pulse Ox 98 O2 Delivery Nasal Cannula O2 Flow Rate 4.0 Capillary Refill : Less Than 3 Seconds General Appearance: No Apparent Distress, WD/WN HEENT: PERRL/EOMI, Pale Conjunctivae (L), Pale Conjunctivae (R) Neck: Full Range of Motion, Normal Inspection, Non Tender, Supple Respiratory: Normal Breath Sounds, No Accessory Muscle Use, No Respiratory Distress, Other (DIFFUSE CHEST WALL TENDERNESS) Cardiovascular: Regular Rate, Rhythm, No Edema, No JVD, Systolic Murmur (2/6), Other (PULSES FAINT IN FEET) Gastrointestinal: Non Tender, Soft Extremity: Normal Range of Motion, Non Tender, No Calf Tenderness, No Pedal Edema, Slow Capillary Refill Neurologic/Psychiatric: Alert, Oriented x3, No Motor/Sensory Deficits, Normal 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, 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 as 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 Skin: Warm/Dry, Pallor Progress/Results/Core Measures Results/Orders Lab Results Laboratory Tests Test 06/22/16 00:56 Range/Units White Blood Count 8.7 4.3-11.0 10^3/uL Red Blood Count 2.42 L 4.35-5.85 10^6/uL Hemoglobin 6.0 *L 11.5-16.0 G/DL Hematocrit 21 L 35-52 % Mean Corpuscular Volume 86 80-99 FL Mean Corpuscular Hemoglobin 25 25-34 PG Mean Corpuscular Hemoglobin Concent 29 L 32-36 G/DL Red Cell Distribution Width 17.3 H 10.0-14.5 % Platelet Count 297 130-400 10^3/uL Mean Platelet Volume 10.7 H 7.4-10.4 FL Neutrophils (%) (Auto) 56 42-75 % Lymphocytes (%) (Auto) 27 12-44 % Monocytes (%) (Auto) 13 H 0-12 % Eosinophils (%) (Auto) 4 0-10 % Basophils (%) (Auto) 0 0-10 % Neutrophils # (Auto) 4.9 1.8-7.8 X 10^3 Lymphocytes # (Auto) 2.3 1.0-4.0 X 10^3 Monocytes # (Auto) 1.1 H 0.0-1.0 X 10^3 Eosinophils # (Auto) 0.3 0.0-0.3 10^3/uL Basophils # (Auto) 0.0 0.0-0.1 10^3/uL Prothrombin Time 13.7 12.2-14.7 SEC INR Comment 1.1 0.8-1.4 Activated Partial Thromboplast Time 23 L 24-35 SEC Sodium Level 142 135-145 MMOL/L Potassium Level 4.8 3.6-5.0 MMOL/L Chloride Level 118 H 98-107 MMOL/L Carbon Dioxide Level 17 L 21-32 MMOL/L Anion Gap 7 5-14 MMOL/L Blood Urea Nitrogen 43 H 7-18 MG/DL Creatinine 2.34 H 0.60-1.30 MG/DL Estimat Glomerular Filtration Rate 20 BUN/Creatinine Ratio 18 Glucose Level 93 70-105 MG/DL Calcium Level 8.5 8.5-10.1 MG/DL Total Bilirubin 0.2 0.1-1.0 MG/DL Aspartate Amino Transf (AST/SGOT) 17 5-34 U/L Alanine Aminotransferase (ALT/SGPT) 10 0-55 U/L Alkaline Phosphatase 84 40-136 U/L Total Creatine Kinase 90 29-168 U/L Creatine Kinase MB 2.6 <6.6 NG/ML Troponin I < 0.30 <0.30 NG/ML B-Type Natriuretic Peptide 208.0 H <100.0 PG/ML Total Protein 5.9 L 6.4-8.2 G/DL Albumin 3.5 3.2-4.5 G/DL Amylase Level 154 H 25-125 U/L Lipase 53 8-78 U/L My Orders Orders - SWEETIE SULLIVAN DO Amylase (06/22/16 00:57) Cbc With Automated Diff (06/22/16 00:57) Comprehensive Metabolic Panel (06/22/16 00:57) Creatine Kinase (06/22/16 00:57) Creatine Kinase Mb (06/22/16 00:57) Lipase (06/22/16 00:57) Partial Thromboplastin Time (06/22/16 00:57) Protime With Inr (06/22/16 00:57) Troponin I (06/22/16 00:57) Chest 1 View, Ap/Pa Only (06/22/16 00:57) O2 (06/22/16 00:57) Ekg Tracing (06/22/16 00:57) Aspirin Chewable Tablet (Baby Aspirin Ch (06/22/16 01:00) BNP (06/22/16 00:57) Monitor-Rhythm Ecg Trace Only (06/22/16 00:57) Red Cells Leukocytes Reduced (06/22/16 01:34) Saline Lock/Iv-Start (06/22/16 01:35) Ns Iv 1000 Ml (Sodium Chloride 0.9%) (06/22/16 01:35) Type And Screen (06/22/16 01:34) Pantoprazole Injection (Protonix Injecti (06/22/16 01:45) Morphine Injection (Morphine Injection (06/22/16 01:38) Medications Given in ED Current Medications Medications Dose Ordered Sig/Jamey Route Start Time Stop Time Status Last Admin Dose Admin Pantoprazole 40 mg ONCE ONCE IV 06/22/16 01:45 06/22/16 01:46 DC 06/22/16 01:48 40 MG Sodium Chloride 1,000 ml @ 0 mls/hr Q0M ONCE IV 06/22/16 01:35 06/22/16 01:36 DC 06/22/16 01:48 1,000 MLS/HR Vital Signs/I&O Vital Sign - Last 12Hours 06/22/16 06/22/16 00:59 00:59 Temp 98.1 Pulse 69 Resp 20 B/P (MAP) 96/52 Pulse Ox 98 O2 Delivery Nasal Cannula Nasal Cannula O2 Flow Rate 4.0 Blood Pressure Mean: 67 Progress Note : Progress Note SOME RELIEF OF PAIN WITH MORPHINE. NO DETERIORATION IN PT'S CONDITION DURING ER STAY ECG Initial ECG Impression Time: 01:06 Initial ECG Rate: 60 Initial ECG Rhythm: Normal Sinus Initial ECG Comparisson: No Previous ECG Available Diagnostic Imaging Comments CXR--NO ACUTE PROCESS, CHRONIC CHANGES, PENDING RADIOLOGIST REVIEW Reviewed: Reviewed by Me Departure Communication Progress Notes 2244--CALLED DR. HUNG, ACCEPTS PT FOR ADMIT Impression Impression: Primary Impression: Chest pain Additional Impressions: Anemia Chronic renal insufficiency Disposition: 09 ADMITTED INPATIENT Condition: Improved Decision to Admit Reason: Admit from ER (General) Decision to Admit/Date: Jun 22, 2016 Time/Decision to Admit Time: 02:00 Departure-Patient Inst. Referrals: PRO HERRERA MD (PCP) Primary Care Physician Patient Instructions: Chest Pain SWEETIE SULLIVAN DO Jun 22, 2016 03:57
[2016-06-22] MEDS ORDERED: morphine INJ 4 MG/ML 1 ML (VIAL/SYRINGE) ONE (06:56)
[2016-06-22] MEDS ORDERED: morphine INJ 4 MG/ML 1 ML (VIAL/SYRINGE) IV PRN (07:00)
[2016-06-22] MEDS: NS IV 1000 ML 1,000 ML IV SCH ×2 (07:06→20:14)
--- NOTE | 2016-06-22 07:07 | Diagnostic Imaging Report ---
CLINICAL INDICATION: Evaluate chest. EXAM: Portable chest x-ray upright view. COMPARISONS: Chest x-ray dated 03/23/2016. FINDINGS: There is interval improved aeration of both lungs with minimal bilateral lung atelectasis versus infiltrate. Stable elevation of the right hemidiaphragm. There is no pleural effusion or pneumothorax. Cardiac silhouette is within normal limits for portable projection. There is no significant pulmonary vascular congestion. IMPRESSION: 1: Interval improved aeration of both lungs with residual mild bilateral lung atelectasis versus infiltrate. 2: Stable elevation of the right hemidiaphragm. Dictated by: Dictated on workstation # [id number]
[2016-06-22 07:22] LABS: BASOPHILS % (AUTO) 0 % (0-10); EOSINOPHILS # (AUTO) 0.3 10^3/uL (0.0-0.3); EOSINOPHILS % (AUTO) 4 % (0-10); LYMPHOCYTES % (AUTO) 29 % (12-44); MEAN CORPUSCULAR HEMOGLOBIN 26 PG (25-34); MEAN CORPUSCULAR HGB CONC 30 G/DL (32-36); MEAN CORPUSCULAR VOLUME 86 FL (80-99); MEAN PLATELET VOLUME 10.2 FL (7.4-10.4); MONOCYTES # (AUTO) 0.7 X 10^3 (0.0-1.0); MONOCYTES % (AUTO) 10 % (0-12); NEUTROPHILS # (AUTO) 3.9 X 10^3 (1.8-7.8); NEUTROPHILS % (AUTO) 56 % (42-75); PLATELET COUNT 285 10^3/uL (130-400); RED BLOOD COUNT 2.91 10^6/uL (4.35-5.85); RED CELL DISTRIBUTION WIDTH 16.8 % (10.0-14.5); WHITE BLOOD COUNT 6.9 10^3/uL (4.3-11.0)
[2016-06-22 07:37] LABS: ALBUMIN 3.5 G/DL (3.2-4.5); BILIRUBIN,TOTAL 0.4 MG/DL (0.1-1.0); CALCIUM 8.2 MG/DL (8.5-10.1); CREATININE SERUM 2.11 MG/DL (0.60-1.30); POTASSIUM 5.5 MMOL/L (3.6-5.0); TOTAL PROTEIN 5.9 G/DL (6.4-8.2)
[2016-06-22 07:43] LABS: MYOGLOBIN SERUM 111.3 NG/ML (10.0-92.0)
[2016-06-22] MEDS ORDERED: ALPR0.254 PO (08:46)
[2016-06-22] MEDS ORDERED: FLUT1DIS26 INH (08:46)
[2016-06-22] MEDS ORDERED: OXYC-471 PO (08:46)
--- NOTE | 2016-06-22 10:18 | History & Physical-Hospitalist ---
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 Duenas and Oncology/Hematology have been consulted. Pt has not had a stool to check for blood. Pt PCP is Dr. Serrano. Pt is alert and oriented. Pt Hgb has increased to 7.5 after one unit of blood. Patient Interview: Pt states she is doing so-so currently. Pt was told about her low Hgb and causing chest pain. Pt states she has never required blood before. Pt denies pain currently. Pt denies having a colonoscopy in the past. Pt states her PCP is Dr. Serrano. Physical exam was stable. Pt was informed that Hematology will visit pt soon. Scribed by Dominik Burden under the direct supervision of Dr. Hung. Source: patient Exam Limitations: other (dementia and ANIAK) Date Seen 06/22/16 Attending Physician Carlos Eduardo Serrano MD PCP Carlos Eduardo Serrano MD Referring Physician Date of Admission Jun 22, 2016 at 02:00 Home Medications & Allergies Home Medications Reviewed patient Home Medication Reconciliation Form Allergies Allergies Coded Allergies fentanyl (Verified Adverse Reaction, Unknown, 11/02/14) penicillin (Verified Adverse Reaction, Unknown, 11/02/14) Uncoded Allergies TETANUS ( Adverse Reaction, Unknown, 11/02/14) Past Lgzhybv-Zloeyh-Ftoijo Hx Patient Social History Marrital Status: Employed/Student: retired Alcohol Use: Denies Use Recreational Drug Use: No Smoking Status: Former Smoker Type Used: Cigarettes Physical Abuse Screen: No Sexual Abuse: No Recent Foreign Travel: No Contact w/other who traveled: No Recent Hopitalizations: No Recent Infectious Disease Expo: No Immunizations Up To Date Tetanus Booster (TDap): More than 5yrs Date of Pneumonia Vaccine: Feb 16, 2014 Date of Influenza Vaccine: Dec 18, 2015 Seasonal Allergies Seasonal Allergies: Yes Surgeries HX Surgeries: Yes (COLONOSCOPY; KNEE SURGERY) Surgeries: Appendectomy, Gallbladder, Hysterectomy, Orthopedic Respiratory Hx Respiratory Disorders: Yes Respiratory Disorders: COPD Cardiovascular Hx Cardiovascular Disorders: Yes Cardiac Disorders: Chronic Edema/Swelling, High Cholesterol, Hypertension Neurological Hx Neurological Disorders: Yes (Peripheral Neuropathy, chronic weakness, RLS) Neurological Disorders: Dementia, Headaches /Migraines, Neuropathy, Stroke, TIA Reproductive System Hx Reproductive Disorders: No Genitourinary Hx Genitourinary Disorders: Yes (CHRONIC RENAL INSUFFICIENCY) Genitourinary Disorders: Renal Failure Gastrointestinal Hx Gastrointestinal Disorders: Yes Gastrointestinal Disorders: Gastroesophageal Reflux, Diverticulosis Musculoskeletal Hx Musculoskeletal Disorders: Yes (CHRONIC PAIN ) Musculoskeletal Disorders: Degenerate Disk Disease, Arthritis, Chronic Back Pain, Fractures, Gout Endocrine Hx Endocrine Disorders: Yes Endocrine Disorders: Hyperthyroidism, Hypothyroidsim HEENT HX ENT Disorders: Yes HEENT Disorders: Cataract, Glaucoma Loss of Vision: Bilateral Hearing Impairment: Hard of Hearing Cancer Hx Cancer: No Psychosocial Hx Psychiatric Problems: Yes Behavioral Health Disorders: Anxiety, Depression Integumentary HX Skin/Integumentary Disorder: No Blood Transfusions Hx Blood Disorders: Yes Adverse Reaction to a Blood Tr: No Family Medical History Family Hx: Congenital heart disease 19 FATHER 19 MOTHER FH: stroke 19 FATHER 19 MOTHER G8 SISTER G8 SISTER Myocardial infarction G8 SISTER Review of Systems Constitutional: see HPI, dizziness, malaise, weakness EENTM: no symptoms reported Respiratory: dyspnea on exertion Cardiovascular: chest pain Gastrointestinal: no symptoms reported Genitourinary: no symptoms reported Musculoskeletal: back pain Skin: no symptoms reported Psychiatric/Neurological: Depressed All Other Systems Reviewed Negative Unless Noted: Yes Physical Exam Physical Exam Vital Signs Vital Sign - Last 12Hours 06/22/16 00:59 Temp 98.1 Pulse 69 Resp 20 B/P (MAP) 96/52 Pulse Ox 98 O2 Delivery Nasal Cannula O2 Flow Rate 4.0 Capillary Refill : Less Than 3 Seconds General Appearance: No Apparent Distress, WD/WN, Chronically ill, Obese, Other (pale) Eyes: Bilateral Eye Normal Inspection, Bilateral Eye PERRL HEENT: PERRL/EOMI, Normal ENT Inspection, Pharynx Normal Neck: Full Range of Motion, Normal Inspection, Non Tender, Supple Respiratory: Chest Non Tender, Lungs Clear, Normal Breath Sounds, No Accessory Muscle Use, No Respiratory Distress Cardiovascular: Regular Rate, Rhythm, No Edema, No Gallop, No JVD, Normal Peripheral Pulses, Systolic Murmur Gastrointestinal: Normal Bowel Sounds, No Organomegaly, No Pulsatile Mass, Non Tender, Soft Back: Normal Inspection, No CVA Tenderness, No Vertebral Tenderness Extremity: Normal Capillary Refill, Normal Inspection, Normal Range of Motion, Non Tender, No Calf Tenderness, No Pedal Edema Neurologic/Psychiatric: Alert, Oriented x3, No Motor/Sensory Deficits, Depressed Affect, Other (poor recall) Skin: Normal Color, Warm/Dry Lymphatic: No Adenopathy Results Results/Procedures Lab Laboratory Tests 06/22/16 00:56 06/22/16 07:10 Assessment/Plan Admission Diagnosis Assessment: Chest pain likely due to severe anemia with hemoglobin of 6.0 status post 2 units of packed red blood cells without evidence of sores loss Chronic renal insufficiency usual creatinine is 2.2 Congestive heart failure history with elevated BNP Hypertension Dementia Hyperlipidemia UTIs Assessment and Plan Plan: Appreciate cardiology input Transfuse 2 units of blood and will confer with hematology but likely anemia of chronic kidney disease and illness is much of the source of the anemia Reconcile all home meds Oxygen Out of bed Clinical Quality Measures AMI/AHF: ASA po Prior to arrival: Yes (PER EMS) DVT/VTE Risk/Contraindication: Risk Factor Score Per Nursin RFS Level Per Nursing on Admit: 4+=Very High AMAURI HUNG DO Jun 22, 2016 10:17
[2016-06-22] MEDS ORDERED: RT-ALBUTEROL SULF 2.5 MG/3 ML PRE-MIX VIAL IH PRN (10:56)
[2016-06-22] MEDS ORDERED: MENTHOL/ZINC OXIDE (CALMOSEPTINE) 113 GM TUBE TP PRN (11:00)
[2016-06-22] MEDS ORDERED: [UNRECOGNIZED DRUG - OTHER] OU PRN (11:00)
[2016-06-22] MEDS ORDERED: DICLOFENAC 1% GEL 100 GM (VOLTAREN) TUBE TP PRN (11:00)
[2016-06-22] MEDS ORDERED: LOPERAMIDE 2 MG (IMODIUM) CAP PO PRN (11:00)
[2016-06-22] MEDS ORDERED: COLCHICINE 0.6 MG (COLCRYS) TABLET PO PRN (11:00)
[2016-06-22] MEDS ORDERED: MILK OF MAGNESIA 400 MG/5 ML 30 ML UDC PO PRN (11:00)
[2016-06-22] MEDS ORDERED: HYPROMELLOSE OU PRN (11:00)
[2016-06-22] MEDS ORDERED: DEXTRAN 70 OU PRN (11:00)
[2016-06-22] MEDS ORDERED: oxyCODONE/APAP 5/325MG (PERCOCET 5) TABLET PO PRN (11:00)
[2016-06-22] MEDS ORDERED: ONDANSETRON 4 MG (ZOFRAN) ORAL DISSOLVE TAB PO PRN (11:30)
--- NOTE | 2016-06-22 11:48 | Consultation ---
History of Present Illness History of Present Illness Patient Consulted On(yesenia/time) 06/22/16 11:42 Date of Admission 06/22/16 History of Present Illness This is a 85-year-old female who was admitted via the emergency department with complaints of chest pain 1 day. Patient has known history of hypertension, arthritis, previous CVA, on home oxygen by patient report. In the emergency room patient found to have hemoglobin of 6.0. She denies having recent bloody stools, denies black stools, denies hematemesis, hematuria, hemoptysis, or epistaxis. She reports having previous transfusion 3 years ago, requiring 6 units when she was admitted at [facility]. Those records are not available at the time of evaluation. Allergies and Home Medications Allergies Coded Allergies: fentanyl (Verified Adverse Reaction, Unknown, 11/02/14) penicillin (Verified Adverse Reaction, Unknown, 11/02/14) Uncoded Allergies: TETANUS (Adverse Reaction, Unknown, 11/02/14) Home Medications Albuterol Sulfate 2.5 Mg/3 Ml Vial.neb, 2.5 MG NEB TID PRN for SHORTNESS OF BREATH, (Reported) Albuterol/Ipratropium 4 Gm Aero, 1 PUFF IH QID, (Reported) Allopurinol 100 Mg Tablet, 100 MG PO DAILY, (Reported) Alprazolam 0.25 Mg Tablet, 0.25 MG PO HS, (Reported) Atenolol 25 Mg Tablet, 12.5 MG PO DAILY, (Reported) TAKES 1/2 (25MG) TABLET Bimatoprost 2.5 Ml Drops, 1 DROP OU HS, (Reported) Butalb/Acetaminophen/Caffeine 1 Each Capsule, 1 TAB PO BID, (Reported) Calcium Carbonate 500 Mg Tablet, 1 TAB PO DAILY, (Reported) Colchicine 0.6 Mg Tablet, 0.6 MG PO Q4H PRN for GOUT PAIN, (Reported) Dextran 70/Hypromellose 15 Ml Drops, 1 DROP OU PRN PRN for DRY EYES, (Reported) Dextran 70/Hypromellose 15 Ml Drops, 1 DROP OU BID, (Reported) Diclofenac Sodium 100 Gm Gel..gram., 2 GM TP TID PRN for PAIN, (Reported) APPLY TO RIGHT KNEE Dipyridamole/Aspirin 1 Ea Cap, 1 CAP PO BID, (Reported) Fluticasone/Salmeterol 1 Each Blst.w.dev, 1 PUFF INH BID, (Reported) Furosemide 20 Mg Tablet, 10 MG PO DAILY, (Reported) TAKES 1/2 (20MG) TABLET Gabapentin 400 Mg Capsule, 400 MG PO TID, (Reported) Guaifenesin 600 Mg Tab.er.12h, 600 MG PO BID, (Reported) L.acidoph & Paracasei,B.lactis 1 Each Capsule, 1 CAP PO DAILY, (Reported) Levothyroxine Sodium 125 Mcg Tablet, 125 MCG PO DAILY, (Reported) Loperamide HCl 2 Mg Tablet, 4 MG PO Q6H PRN for DIARRHEA, (Reported) Lovastatin 20 Mg Tablet, 20 MG PO HS, (Reported) Mag Hydrox/Al Hydrox/Simeth 770 Ml Oral.susp, 30 ML PO UD PRN for ACID REFLUX, ( Reported) Magnesium Hydroxide 400 Mg/5 Ml Oral.susp, 30 ML PO DAILY PRN for CONSTIPATION, (Reported) Meloxicam 7.5 Mg Tablet, 7.5 MG PO BID, (Reported) Menthol/Lanolin/Calamine/Znox 71 Gm Oint, TP PRN PRN for GAULDING/REDNESS, ( Reported) Metaxalone 800 Mg Tablet, 800 MG PO TID, (Reported) Multivitamin W-Minerals/Lutein 1 Each Tablet, 1 TAB PO DAILY, (Reported) Nifedipine 90 Mg Tab.er.24, 90 MG PO DAILY, (Reported) Ondansetron HCl 4 Mg Tab, 4 MG PO Q6H PRN for NAUSEA, (Reported) Oxycodone HCl/Acetaminophen 1 Each Tablet, 1 TAB PO Q4H PRN for PAIN, (Reported) Pramipexole Di-HCl 0.125 Mg Tablet, 0.125 MG PO HS, (Reported) Psyllium Husk 0.52 Gm Capsule, 2 CAP PO TID, (Reported) Ranitidine HCl 150 Mg Tablet, 150 MG PO DAILY, (Reported) Past [id number] Hx Patient Social History Alcohol Use: Denies Use Recreational Drug Use: No Smoking Status: Former Smoker Type Used: Cigarettes Recent Foreign Travel: No Contact w/Someone Who Travel: No Recent Infectious Disease Expo: No Recent Hopitalizations: No Physical Abuse Screen: No Sexual Abuse: No Immunizations Up To Date Tetanus Booster (TDap): More than 5yrs PED Vaccines UTD: No Date of Pneumonia Vaccine: Feb 16, 2014 Date of Influenza Vaccine: Dec 18, 2015 Seasonal Allergies Seasonal Allergies: Yes Surgeries HX Surgeries: Yes (COLONOSCOPY; KNEE SURGERY) Surgeries: Appendectomy, Gallbladder, Hysterectomy, Orthopedic Respiratory Hx Respiratory Disorders: Yes Respiratory Disorders: Asthma, COPD Cardiovascular Hx Cardiac Disorders: Yes Cardiac Disorders: Chronic Edema/Swelling, High Cholesterol, Hypertension Neurological Hx Neurological Disorders: Yes (Peripheral Neuropathy, chronic weakness, RLS) Neurological Disorders: Dementia, Headaches /Migraines, Neuropathy, Stroke, TIA Reproductive System Hx Reproductive Disorders: 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, 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 Genitourinary Hx Genitourinary Disorders: Yes (CHRONIC RENAL INSUFFICIENCY) Genitourinary Disorders: Renal Failure Gastrointestinal Hx Gastrointestinal Disorders: Yes Gastrointestinal Disorders: Gastroesophageal Reflux, Diverticulosis Musculoskeletal Hx Musculoskeletal Disorders: Yes (CHRONIC PAIN ) Musculoskeletal Disorders: Degenerate Disk Disease, Arthritis, Chronic Back Pain, Fractures, Gout Endocrine Hx Endocrine Disorders: Yes Endocrine Disorders: Hyperthyroidism, Hypothyroidsim HEENT HX ENT Disorders: Yes HEENT Disorders: Cataract, Glaucoma Loss of Vision: Bilateral Hearing Impairment: Hard of Hearing Cancer Hx Cancer: No Psychosocial Hx Psychiatric Problems: Yes Behavioral Health Disorders: Anxiety, Depression Integumentary HX Skin/Integumentary Disorder: No Blood Transfusions Hx Blood Disorders: Yes Adverse Reaction to a Blood Tr: No Family Medical History Family Medial History: Congenital heart disease 19 FATHER 19 MOTHER FH: stroke 19 FATHER 19 MOTHER G8 SISTER G8 SISTER Myocardial infarction G8 SISTER Review of Systems-General Constitutional: see HPI Cardiovascular: see HPI, chest pain Gastrointestinal: No constipation, No hematemesis, No melena Genitourinary: No hematuria Musculoskeletal: back pain, joint pain Physical Exam-General Problems Physical Exam Vital Signs Vital Sign - Last 12Hours 06/22/16 00:59 Temp 98.1 Pulse 69 Resp 20 B/P (MAP) 96/52 Pulse Ox 98 O2 Delivery Nasal Cannula O2 Flow Rate 4.0 Capillary Refill : Less Than 3 Seconds General Appearance: WD/WN, no apparent distress HEENT: PERRL/EOMI, normal ENT inspection, TMs normal, pharynx normal Neck: non-tender, full range of motion Respiratory: lungs clear, no respiratory distress, no accessory muscle use Cardiovascular: regular rate, rhythm, no edema, no gallop, no JVD Gastrointestinal: normal bowel sounds, non tender, soft, no organomegaly Rectal: deferred Back: normal inspection, no CVA tenderness, no vertebral tenderness Extremities: no pedal edema, no calf tenderness Neurologic/Psychiatric: mechanical technologist II-XII nml as tested, no motor/sensory deficits, alert Comments Laboratory Tests 06/22/16 00:56: Red Blood Count 2.42L, Hemoglobin 6.0*L, Hematocrit 21L, Mean Corpuscular Hemoglobin Concent 29L, Red Cell Distribution Width 17.3H, Mean Platelet Volume 10.7H, Monocytes (%) (Auto) 13H, Monocytes # (Auto) 1.1H, Activated Partial Thromboplast Time 23L, Chloride Level 118H, Carbon Dioxide Level 17L, Blood Urea Nitrogen 43H, Creatinine 2.34H, B-Type Natriuretic Peptide 208.0H, Total Protein 5.9L, Amylase Level 154H 06/22/16 07:10: Red Blood Count 2.91L, Hemoglobin 7.5#L, Hematocrit 25L, Mean Corpuscular Hemoglobin Concent 30L, Red Cell Distribution Width 16.8H, Chloride Level 118H, Carbon Dioxide Level 16L, Blood Urea Nitrogen 39H, Creatinine 2.11H, Total Protein 5.9L, Potassium Level 5.5H, Calcium Level 8.2L, Myoglobin 111.3H Laboratory Tests 06/22/16 00:56 06/22/16 07:10 Assessment/Plan Assessment/Plan Admission Diagnosis/Plan 1.Symptomatic anemia likely arising from multifactorial processes. Patient has widened RDW with normal MCV. a. Obtain iron studies, vitamin B-12 and folate levels. b. We will review peripheral smear, noting patient has already been transfused. c. Stool for occult blood; patient has been on meloxicam which is known to be a frequent cause of GI bleeding. d. General surgery consult for GI evaluation if iron studies are consistent with iron deficiency; can be obtained after cardiac evaluation; e. Patient gives history of having received multiple transfusions 3 years ago at [facility]--obtain old records; 2. Chronic renal failure--creatinine noted to be 2.2 in February 2016. 3. History of prior CVA 4. Hypertension 5. History of CHF, now with elevated BNP 6. Hypothyroid on levothyroxine; 7. Hyperlipidemia 8. Mild dementia Clinical Quality Measures AMI/AHF: ASA po Prior to arrival: Yes (PER EMS) DVT/VTE Risk/Contraindication: Risk Factor Score Per Nursin RFS Level Per Nursing on Admit: 4+=Very High YARELY GREENBERG MD Jun 22, 2016 11:48
[2016-06-22 12:01] LABS: RED BLOOD COUNT 2.91 10^6/uL (4.35-5.85); RETICULOCYTE % 2.01 % (0.50-2.40)
[2016-06-22] MEDS: PANTOPRAZOLE 40 MG/10 ML (PROTONIX) VIAL IV SCH (12:22)
[2016-06-22] MEDS: GABAPENTIN 400 MG (NEURONTIN) CAP PO SCH ×2 (12:23→21:07)
[2016-06-22] MEDS: RT-ALBUTEROL/IPRATROPIUM 3 ML (DUONEB) VIAL IH SCH ×3 (13:40→18:39)
--- NOTE | 2016-06-22 14:24 | Consultation-Cardiology ---
HPI-Cardiology Cardiology Consultation Date of Consultation 06/22/16 Date of Admission Indication: Chest pain HPI Patient is a very pleasant 85 year old female who presented to the ER with complaints of CP and left arm pain. Associated SOB over the past week. Workup in the ER revealed no acute ST changes on EKG, cardiac enzymes negative. Was found to be severely anemic with Hgb 6.0. She is currently s/p blood transfusion with improvement of hgb to 8.7. Complaining of some mild chest discomfort at this time, rated 2/10. Denies any dizziness, lightheadedness or syncope. Denies any history of CAD. Mrs. Cohn is an 85-year-old lady with history of hypertension, arthritis, multiple strokes in the past. Patient started having chest pain described it as dull in nature left sided not radiating associated with shortness of breath. Admitted for severe anemia, workup is in progress. Reporting improvement in her chest pain at this point. Denied any palpitation, syncope or near syncopal episodes. Home Medications & Allergies Allergies: Coded Allergies: fentanyl (Verified Adverse Reaction, Unknown, 11/02/14) penicillin (Verified Adverse Reaction, Unknown, 11/02/14) Uncoded Allergies: TETANUS (Adverse Reaction, Unknown, 11/02/14) Home Medication List Reviewed: Yes [id number] Hx Patient Social History Marital Status: Employed/Student: retired Alcohol Use: Denies Use Recreational Drug Use: No Smoking Status: Former Smoker Type Used: Cigarettes Recent Foreign Travel: No Recent Infectious Disease Expo: No Recent Hopitalizations: No Physical Abuse Screen: No Sexual Abuse: No Immunizations Up To Date Tetanus Booster (TDap): More than 5yrs Date of Pneumonia Vaccine: Feb 16, 2014 Date of Influenza Vaccine: Dec 18, 2015 Past Medical History COPD, HTN, HLP, CRI, Hyopthyroidism, Chronic back pain CVA Family Medical History Family History: Congenital heart disease 19 FATHER 19 MOTHER FH: stroke 19 FATHER 19 MOTHER G8 SISTER G8 SISTER Myocardial infarction G8 SISTER Constitutional: No diaphoresis, No dizziness, No fever, malaise, weakness EENTM: No blurred vision, No double vision, No vision loss Respiratory: No cough, dyspnea on exertion, short of breath Cardiovascular: chest pain, No edema, No Hx of Intervention, No palpitations Gastrointestinal: No abdominal pain, heartburn Genitourinary: No dysuria, No frequency, No hematuria Musculoskeletal: back pain, No joint pain Skin: No lesions, No rash Psychiatric/Neurological: Denies Anxiety, Denies Depressed Reviewed Test Results Reviewed Test Results Lab Laboratory Tests 06/22/16 00:56: White Blood Count 8.7, Red Blood Count 2.42L, Hemoglobin 6.0*L, Hematocrit 21L, Mean Corpuscular Volume 86, Mean Corpuscular Hemoglobin 25, Mean Corpuscular Hemoglobin Concent 29L, Red Cell Distribution Width 17.3H, Platelet Count 297, Mean Platelet Volume 10.7H, Neutrophils (%) (Auto) 56, Lymphocytes (%) (Auto) 27 , Monocytes (%) (Auto) 13H, Eosinophils (%) (Auto) 4, Basophils (%) (Auto) 0, Neutrophils # (Auto) 4.9, Lymphocytes # (Auto) 2.3, Monocytes # (Auto) 1.1H, Eosinophils # (Auto) 0.3, Basophils # (Auto) 0.0, Prothrombin Time 13.7, INR Comment 1.1, Activated Partial Thromboplast Time 23L, Sodium Level 142, Potassium Level 4.8, Chloride Level 118H, Carbon Dioxide Level 17L, Anion Gap 7 , Blood Urea Nitrogen 43H, Creatinine 2.34H, Estimat Glomerular Filtration Rate 20, BUN/Creatinine Ratio 18, Glucose Level 93, Calcium Level 8.5, Total Bilirubin 0.2, Aspartate Amino Transf (AST/SGOT) 17, Alanine Aminotransferase ( ALT/SGPT) 10, Alkaline Phosphatase 84, Total Creatine Kinase 90, Creatine Kinase MB 2.6, Troponin I < 0.30, B-Type Natriuretic Peptide 208.0H, Total Protein 5.9L, Albumin 3.5, Amylase Level 154H, Lipase 53 06/22/16 07:10: White Blood Count 6.9, Red Blood Count 2.91L, Hemoglobin 7.5#L, Hematocrit 25L, Mean Corpuscular Volume 86, Mean Corpuscular Hemoglobin 26, Mean Corpuscular Hemoglobin Concent 30L, Red Cell Distribution Width 16.8H, Platelet Count 285, Mean Platelet Volume 10.2, Neutrophils (%) (Auto) 56, Lymphocytes (%) (Auto) 29 , Monocytes (%) (Auto) 10, Eosinophils (%) (Auto) 4, Basophils (%) (Auto) 0, Neutrophils # (Auto) 3.9, Lymphocytes # (Auto) 2.0, Monocytes # (Auto) 0.7, Eosinophils # (Auto) 0.3, Basophils # (Auto) 0.0, Sodium Level 142, Potassium Level 5.5H, Chloride Level 118H, Carbon Dioxide Level 16L, Anion Gap 8, Blood Urea Nitrogen 39H, Creatinine 2.11H, Estimat Glomerular Filtration Rate 22, BUN/ Creatinine Ratio 18, Glucose Level 77, Calcium Level 8.2L, Total Bilirubin 0.4, Aspartate Amino Transf (AST/SGOT) 18, Alanine Aminotransferase (ALT/SGPT) 10, Alkaline Phosphatase 86, Troponin I < 0.30, Total Protein 5.9L, Albumin 3.5, Absolute Reticulocyte Count 59, Percent Reticulocyte Count 2.01, Myoglobin 111.3H 06/22/16 13:27: Hemoglobin 8.7L, Hematocrit 29L ECG Impression ECG Initial ECG Rhythm: Normal Sinus Physical Exam Vital Signs Vital Sign - Last 12Hours 06/22/16 00:59 Temp 98.1 Pulse 69 Resp 20 B/P (MAP) 96/52 Pulse Ox 98 O2 Delivery Nasal Cannula O2 Flow Rate 4.0 Capillary Refill : Less Than 3 Seconds General Appearance: No Apparent Distress, WD/WN HEENT: PERRL/EOMI, TMs Normal Neck: Full Range of Motion, Normal Inspection, Non Tender, Supple Respiratory: Chest Non Tender, Lungs Clear, Normal Breath Sounds, No Accessory Muscle Use, No Respiratory Distress Cardiovascular: Regular Rate, Rhythm, No Edema, No JVD, No Murmur, Normal Peripheral Pulses, Gallop/S3 Gastrointestinal: Non Tender, Soft Rectal: Deferred Back: No CVA Tenderness Neurologic/Psychiatric: Alert, Oriented x3, objects conservator II-XII Norm as Tested A/P-Cardiology Admission Diagnosis CP Anemia HTN HLP Assessment/Plan Chest pain, nonspecific etiology, EKG reveals no acute ST changes. Cardiac enzymes negative. Patient was found to be severely anemic upon admission which could be a cause for her symptoms. She does, however, have multiple risk factors for underlying CAD. Continue to complain of some chest discomfort. I will further evaluate with 2D Echo. continue to monitor cardiac enzymes, planning to evaluate stress test. Anemia- Hgb 6.0 upon admission. S/p blood transfusion with improvement of Hgb to 8.7. Continue to monitor H/H closely. Hold ASA, Aggrenox, Mobic. HTN-resume home blood pressure medications and continue to monitor. HLP- maintained on statin therapy. Continue to monitor. Acute on chronic renal insufficiency- continue to monitor renal function Elevated BNP- denies previous history of CHF. Further evaluation with 2D Echo Hyperkalemia- continue to monitor K+ Hypothyroidism- managed by PCP Hx of TIA, multiple CVA in the past- had been maintained on Aggrenox as outpatient. Chronic back pain Thank you for allowing us to participate in the management of Ms. Cohn. This is Shania Stinson PA-C as a scribe for Dr. Duenas. This is Dr. Duenas, I have seen and evaluated the patient with Shania, I agree with the current scribe, interviewed the patient and perform physical examination. She is an 85-year-old lady with history of multiple CVA in the past. Admitted with chest pain noted to be severely anemic. Workup is in progress, receiving blood transfusion, I am planning to proceed with stress test if her cardiac enzymes continue to be negative. On examination lungs were clear to auscultation bilaterally, heart is regular rate and rhythm, I reviewed the current note and agree with the current scribe, I made a few modification using Italic Font Clinical Quality Measures AMI/AHF: ASA po Prior to arrival: Yes (PER EMS) DVT/VTE Risk/Contraindication: Risk Factor Score Per Nursin RFS Level Per Nursing on Admit: 4+=Very High SHANIA DIEGO Jun 22, 2016 14:23 KRUNAL DUENAS MD Jun 22, 2016 15:30
[2016-06-22 14:25] LABS: %SAT TOTAL IRON BINDING CAPIC 14 % (15-50); TIBC 418 ug/dL (280-380)
[2016-06-22] MEDS ORDERED: ANTACID SUSP 30 ML UDC (MYLANTA) PO PRN (15:15)
[2016-06-22] MEDS: RT-ADVAIR HFA 115/21 MCG PER PUFF IH SCH (18:39)
[2016-06-22] MEDS ORDERED: SOD POLYSTERENE 15 GM/60 ML (KAYEXALATE) UNIT DOSE PO NR (19:30)
--- NOTE | 2016-06-22 19:53 | Consultation ---
History of Present Illness History of Present Illness Patient Consulted On(yesenia/time) 06/22/16 19:48 Date of Admission Reason for Visit: Chest pain History of Present Illness Surgery is asked to consult regarding profound anemia. Unknown source. HPI: Patient is a very pleasant 85 year old female who presented to the ER with complaints of CP and left arm pain. Associated SOB over the past week. Workup in the ER revealed no acute ST changes on EKG, cardiac enzymes negative. Was found to be severely anemic with Hgb 6.0. She received blood transfusion with improvement of hgb to 8.7. Pt still complaining of some mild chest discomfort at this time, rated 2/10. Denies any dizziness, lightheadedness or syncope. Denies any history of CAD. Pt does have history of multiple strokes in the past and possibly some dementia. Pt denies any hematochezia or melena, no hematemesis. According to family she had colonoscopy "years ago"; with supposed findings of Diverticula, which may have caused "problems before, maybe even bleeding". Pt states "my blood has never been this low before". Allergies and Home Medications Allergies Coded Allergies: fentanyl (Verified Adverse Reaction, Unknown, 11/02/14) penicillin (Verified Adverse Reaction, Unknown, 11/02/14) Uncoded Allergies: TETANUS (Adverse Reaction, Unknown, 11/02/14) Home Medications Albuterol Sulfate 2.5 Mg/3 Ml Vial.neb, 2.5 MG NEB TID PRN for SHORTNESS OF BREATH, (Reported) Albuterol/Ipratropium 4 Gm Aero, 1 PUFF IH QID, (Reported) Allopurinol 100 Mg Tablet, 100 MG PO DAILY, (Reported) Alprazolam 0.25 Mg Tablet, 0.25 MG PO HS, (Reported) Atenolol 25 Mg Tablet, 12.5 MG PO DAILY, (Reported) TAKES 1/2 (25MG) TABLET Bimatoprost 2.5 Ml Drops, 1 DROP OU HS, (Reported) Butalb/Acetaminophen/Caffeine 1 Each Capsule, 1 TAB PO BID, (Reported) Calcium Carbonate 500 Mg Tablet, 1 TAB PO DAILY, (Reported) Colchicine 0.6 Mg Tablet, 0.6 MG PO Q4H PRN for GOUT PAIN, (Reported) Dextran 70/Hypromellose 15 Ml Drops, 1 DROP OU PRN PRN for DRY EYES, (Reported) Dextran 70/Hypromellose 15 Ml Drops, 1 DROP OU BID, (Reported) Diclofenac Sodium 100 Gm Gel..gram., 2 GM TP TID PRN for PAIN, (Reported) APPLY TO RIGHT KNEE Dipyridamole/Aspirin 1 Ea Cap, 1 CAP PO BID, (Reported) Fluticasone/Salmeterol 1 Each Blst.w.dev, 1 PUFF INH BID, (Reported) Furosemide 20 Mg Tablet, 10 MG PO DAILY, (Reported) TAKES 1/2 (20MG) TABLET Gabapentin 400 Mg Capsule, 400 MG PO TID, (Reported) Guaifenesin 600 Mg Tab.er.12h, 600 MG PO BID, (Reported) L.acidoph & Paracasei,B.lactis 1 Each Capsule, 1 CAP PO DAILY, (Reported) Levothyroxine Sodium 125 Mcg Tablet, 125 MCG PO DAILY, (Reported) Loperamide HCl 2 Mg Tablet, 4 MG PO Q6H PRN for DIARRHEA, (Reported) Lovastatin 20 Mg Tablet, 20 MG PO HS, (Reported) Mag Hydrox/Al Hydrox/Simeth 770 Ml Oral.susp, 30 ML PO UD PRN for ACID REFLUX, ( Reported) Magnesium Hydroxide 400 Mg/5 Ml Oral.susp, 30 ML PO DAILY PRN for CONSTIPATION, (Reported) Meloxicam 7.5 Mg Tablet, 7.5 MG PO BID, (Reported) Menthol/Lanolin/Calamine/Znox 71 Gm Oint, TP PRN PRN for GAULDING/REDNESS, ( Reported) Metaxalone 800 Mg Tablet, 800 MG PO TID, (Reported) Multivitamin W-Minerals/Lutein 1 Each Tablet, 1 TAB PO DAILY, (Reported) Nifedipine 90 Mg Tab.er.24, 90 MG PO DAILY, (Reported) Ondansetron HCl 4 Mg Tab, 4 MG PO Q6H PRN for NAUSEA, (Reported) Oxycodone HCl/Acetaminophen 1 Each Tablet, 1 TAB PO Q4H PRN for PAIN, (Reported) Pramipexole Di-HCl 0.125 Mg Tablet, 0.125 MG PO HS, (Reported) Psyllium Husk 0.52 Gm Capsule, 2 CAP PO TID, (Reported) Ranitidine HCl 150 Mg Tablet, 150 MG PO DAILY, (Reported) Past Grwuuea-Zveijh-Pjvjmt Hx Patient Social History Alcohol Use: Denies Use Recreational Drug Use: No Smoking Status: Former Smoker Type Used: Cigarettes Recent Foreign Travel: No Contact w/Someone Who Travel: No Recent Infectious Disease Expo: No Recent Hopitalizations: No Physical Abuse Screen: No Sexual Abuse: No Immunizations Up To Date Tetanus Booster (TDap): More than 5yrs PED Vaccines UTD: No Date of Pneumonia Vaccine: Feb 16, 2014 Date of Influenza Vaccine: Dec 18, 2015 Seasonal Allergies Seasonal Allergies: Yes Surgeries HX Surgeries: Yes (COLONOSCOPY; KNEE SURGERY) Surgeries: Appendectomy, Gallbladder, Hysterectomy, Orthopedic Respiratory Hx Respiratory Disorders: Yes Respiratory Disorders: Asthma, COPD Cardiovascular Hx Cardiac Disorders: Yes Cardiac Disorders: Chronic Edema/Swelling, High Cholesterol, Hypertension Neurological Hx Neurological Disorders: Yes (Peripheral Neuropathy, chronic weakness, RLS) Neurological Disorders: Dementia, Headaches /Migraines, Neuropathy, Stroke, TIA Reproductive System Hx Reproductive Disorders: No 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, Menopausal Genitourinary Hx Genitourinary Disorders: Yes (CHRONIC RENAL INSUFFICIENCY) Genitourinary Disorders: Renal Failure Gastrointestinal Hx Gastrointestinal Disorders: Yes Gastrointestinal Disorders: Gastroesophageal Reflux, Diverticulosis Musculoskeletal Hx Musculoskeletal Disorders: Yes (CHRONIC PAIN ) Musculoskeletal Disorders: Degenerate Disk Disease, Arthritis, Chronic Back Pain, Fractures, Gout Endocrine Hx Endocrine Disorders: Yes Endocrine Disorders: Hyperthyroidism, Hypothyroidsim HEENT HX ENT Disorders: Yes HEENT Disorders: Cataract, Glaucoma Loss of Vision: Bilateral Hearing Impairment: Hard of Hearing Cancer Hx Cancer: No Psychosocial Hx Psychiatric Problems: Yes Behavioral Health Disorders: Anxiety, Depression Integumentary HX Skin/Integumentary Disorder: No Blood Transfusions Hx Blood Disorders: Yes Adverse Reaction to a Blood Tr: No Family Medical History Significant Family History: Stroke (mother, sister, father) Family Medial History: Congenital heart disease 19 FATHER 19 MOTHER FH: stroke 19 FATHER 19 MOTHER G8 SISTER G8 SISTER Myocardial infarction G8 SISTER Review of Systems-General Constitutional: No chills, No diaphoresis, No dizziness EENTM: No blurred vision, No double vision, No epistaxis, No throat swelling Respiratory: No cough, No dyspnea on exertion, No hemoptysis Cardiovascular: see HPI, chest pain Gastrointestinal: No abdominal pain, No constipation, No diarrhea, No dysphagia , No hematemesis Musculoskeletal: back pain, joint pain, muscle stiffness, muscle cramps, muscle weakness Physical Exam-General Problems Physical Exam Vital Signs Vital Sign - Last 12Hours 06/22/16 00:59 Temp 98.1 Pulse 69 Resp 20 B/P (MAP) 96/52 Pulse Ox 98 O2 Delivery Nasal Cannula O2 Flow Rate 4.0 Capillary Refill : Less Than 3 Seconds General Appearance: WD/WN, no apparent distress, other (pt does appear pale) Eyes: Bilateral Eye EOMI, Bilateral Eye PERRL HEENT: PERRL/EOMI, pharynx normal, pale conjunctivae (R), pale conjunctivae (L) Neck: non-tender, supple Respiratory: lungs clear, normal breath sounds, no respiratory distress, no accessory muscle use Cardiovascular: regular rate, rhythm, no edema, no murmur Gastrointestinal: non tender, soft, no organomegaly, no pulsatile mass Rectal: deferred Extremities: no pedal edema, no calf tenderness Neurologic/Psychiatric: alert, oriented x 3 Lymphatic: no adenopathy (neck, supraclavicular or axilla) Data Review Labs Laboratory Tests 06/22/16 00:56: White Blood Count 8.7, Red Blood Count 2.42L, Hemoglobin 6.0*L, Hematocrit 21L, Mean Corpuscular Volume 86, Mean Corpuscular Hemoglobin 25, Mean Corpuscular Hemoglobin Concent 29L, Red Cell Distribution Width 17.3H, Platelet Count 297, Mean Platelet Volume 10.7H, Neutrophils (%) (Auto) 56, Lymphocytes (%) (Auto) 27 , Monocytes (%) (Auto) 13H, Eosinophils (%) (Auto) 4, Basophils (%) (Auto) 0, Neutrophils # (Auto) 4.9, Lymphocytes # (Auto) 2.3, Monocytes # (Auto) 1.1H, Eosinophils # (Auto) 0.3, Basophils # (Auto) 0.0, Prothrombin Time 13.7, INR Comment 1.1, Activated Partial Thromboplast Time 23L, Sodium Level 142, Potassium Level 4.8, Chloride Level 118H, Carbon Dioxide Level 17L, Anion Gap 7 , Blood Urea Nitrogen 43H, Creatinine 2.34H, Estimat Glomerular Filtration Rate 20, BUN/Creatinine Ratio 18, Glucose Level 93, Calcium Level 8.5, Total Bilirubin 0.2, Aspartate Amino Transf (AST/SGOT) 17, Alanine Aminotransferase ( ALT/SGPT) 10, Alkaline Phosphatase 84, Total Creatine Kinase 90, Creatine Kinase MB 2.6, Troponin I < 0.30, B-Type Natriuretic Peptide 208.0H, Total Protein 5.9L, Albumin 3.5, Amylase Level 154H, Lipase 53 06/22/16 07:10: White Blood Count 6.9, Red Blood Count 2.91L, Hemoglobin 7.5#L, Hematocrit 25L, Mean Corpuscular Volume 86, Mean Corpuscular Hemoglobin 26, Mean Corpuscular Hemoglobin Concent 30L, Red Cell Distribution Width 16.8H, Platelet Count 285, Mean Platelet Volume 10.2, Neutrophils (%) (Auto) 56, Lymphocytes (%) (Auto) 29 , Monocytes (%) (Auto) 10, Eosinophils (%) (Auto) 4, Basophils (%) (Auto) 0, Neutrophils # (Auto) 3.9, Lymphocytes # (Auto) 2.0, Monocytes # (Auto) 0.7, Eosinophils # (Auto) 0.3, Basophils # (Auto) 0.0, Sodium Level 142, Potassium Level 5.5H, Chloride Level 118H, Carbon Dioxide Level 16L, Anion Gap 8, Blood Urea Nitrogen 39H, Creatinine 2.11H, Estimat Glomerular Filtration Rate 22, BUN/ Creatinine Ratio 18, Glucose Level 77, Calcium Level 8.2L, Total Bilirubin 0.4, Aspartate Amino Transf (AST/SGOT) 18, Alanine Aminotransferase (ALT/SGPT) 10, Alkaline Phosphatase 86, Troponin I < 0.30, Total Protein 5.9L, Albumin 3.5, Absolute Reticulocyte Count 59, Percent Reticulocyte Count 2.01, Myoglobin 111.3H 06/22/16 13:27: Hemoglobin 8.7L, Hematocrit 29L 06/22/16 15:09: Potassium Level 5.8H Assessment/Plan Assessment/Plan Assessment/Plan 1. Anemia probably arising from multifactorial processes. a. Hematolgy consulted and is obtaining iron studies, vitamin B-12 and folate levels. b. Patient has already been transfused. c. Stool for occult blood; patient has been on NSAIDS which are a frequent cause of GI bleeding. d. Patient gives history of having received multiple transfusions 3 years ago at [facility]--obtain old records; 2. Chronic renal failure--creatinine noted to be 2.2 in February 2016. 3. History of prior CVA 4. Hypertension 5. History of CHF, now with elevated BNP 6. Hypothyroid on levothyroxine; 7. Hyperlipidemia 8. Mild dementia Max medical management. I asked the patient about major surgery; if we did an EGD or colonoscopy and found something. She said she thinks she would have it done, but is not sure how well she would bounce back after surgery; wants to talk with her children about surgery. I had a long discussion with her; because she is right she probably would not bounce back as quickly from a major surgery and it even has the possibility of . At this time I believe we need to wait; all of these procedures could be done as an outpatient. I do not want to do anything at this time that may cause her to have a heart attack. I believe she needs all of her systems; cardiac, pulmonary etc to be at their maximum and best, before we proceed with any procedures. Even the minor procedures like EGD and colonoscopy have their own morbidity and mortality which are increased in an 86-year-old patient. Clinical Quality Measures AMI/AHF: ASA po Prior to arrival: Yes (PER EMS) DVT/VTE Risk/Contraindication: Risk Factor Score Per Nursin RFS Level Per Nursing on Admit: 4+=Very High JACOBO REESE DO Jun 22, 2016 19:53
[2016-06-22] MEDS: guaiFENesin (MUCINEX) 600 MG TAB PO SCH (20:13)
[2016-06-22] MEDS: ARTIFICAL TEARS 0.4 ML UNIT DOSE (REFRESH PLUS) OU SCH (20:13)
[2016-06-22] MEDS ORDERED: MELOXICAM 7.5 MG (MOBIC) TABLET PO SCH (21:00)
[2016-06-22] MEDS ORDERED: LATANOPROST 0.005% (XALATAN) OPHTH SOLN 2.5 ML OU SCH (21:00)
[2016-06-22] MEDS ORDERED: ALPRAZolam 0.25 MG (XANAX) TAB PO SCH (21:00)
[2016-06-22] MEDS ORDERED: SIMvastatin 10 MG (ZOCOR) TAB PO SCH (21:00)
[2016-06-22] MEDS ORDERED: PRAMIPEXOLE 0.125 MG (MIRAPEX) TABLET PO SCH (21:00)
[2016-06-22] MEDS ORDERED: DIPYRIDAMOLE/ASA ER CAPSULE (AGGRENOX) PO SCH (21:00)
[2016-06-22] MEDS: ACET/BUTAL/CAFF (FIORICET) TAB PO SCH (21:07)
[2016-06-23 00:25] VITALS: BP 132/66
[2016-06-23 01:44] LABS: CALCIUM 8.3 MG/DL (8.5-10.1); CREATININE SERUM 1.81 MG/DL (0.60-1.30); POTASSIUM 5.3 MMOL/L (3.6-5.0)
[2016-06-23 04:05] VITALS: BP 123/58
[2016-06-23 05:57] LABS: MEAN PLATELET VOLUME 10.8 FL (7.4-10.4); RED BLOOD COUNT 3.2 10^6/uL (4.35-5.85); RED CELL DISTRIBUTION WIDTH 16.9 % (10.0-14.5); WHITE BLOOD COUNT 6.5 10^3/uL (4.3-11.0)
[2016-06-23] MEDS: NS IV 1000 ML 1,000 ML IV SCH (05:58)
[2016-06-23 06:17] LABS: ANION GAP 8 MMOL/L (5-14); BLOOD UREA NITROGEN 32 MG/DL (7-18); BUN/CREATININE RATIO 18; CALCIUM 8.3 MG/DL (8.5-10.1); CARBON DIOXIDE 17 MMOL/L (21-32); CHLORIDE 117 MMOL/L (98-107); CREATININE SERUM 1.77 MG/DL (0.60-1.30); GFR ESTIMATED 27; GLUCOSE 83 MG/DL (70-105); POTASSIUM 5.3 MMOL/L (3.6-5.0); SODIUM 142 MMOL/L (135-145)
[2016-06-23 06:20] LABS: CHOLESTEROL 146 MG/DL (< 200); DIRECT LDL 75 MG/DL (1-129); TRIGLYCERIDES 91 MG/DL (<150); VLDL CHOLESTEROL 18 MG/DL (5-40)
[2016-06-23 06:26] LABS: TROPONIN I < 0.30 NG/ML (<0.30)
[2016-06-23] MEDS ORDERED: LEVOTHYROXINE 125 MCG (LEVOTHROID) TABLET PO SCH (06:30)
[2016-06-23] MEDS ORDERED: MULTIVIT W/MINERALS TAB (THERAGRAN M) PO SCH (07:00)
[2016-06-23] MEDS: RT-ADVAIR HFA 115/21 MCG PER PUFF IH SCH (07:08)
[2016-06-23] MEDS: RT-ALBUTEROL/IPRATROPIUM 3 ML (DUONEB) VIAL IH SCH ×2 (07:08→10:56)
--- NOTE | 2016-06-23 07:34 | ECHOCARDIOGRAPHY REPORT ---
PROCEDURE PHYSICIAN: KRUNAL BUENROSTRO DATE OF PROCEDURE: 06/22/2016 TWO DIMENSIONAL ECHOCARDIOGRAM REPORT PRIMARY PHYSICIAN: OTHER PHYSICIAN: REFERRING PHYSICIAN: Dr. Serrano and Dr. Tamar Pablo ORDERING PHYSICIAN: INDICATION FOR THE PROCEDURE: Chest pain MEASUREMENTS DERIVED VALUES LV DIAMETER (LAX) NORMALS NORMALS Diastolic 4.8 (3.6-5.2) Eject. Fract. 50% (60%+/-6%) Systolic (2.3-3.9) Diastolic Vol. % Shortening (0.22-0.42) Systolic Vol. Aortic Root IVS THICKNESS Diastolic 1.2 (0.6-1.1) LVPW THICKNESS Diastolic 1.2 (0.6-1.1) LA DIAMETER Systolic 3. (2.1-3.7) FINDINGS: 1. Technical quality is good. 2. The left ventricle is normal in size with mild left ventricular hypertrophy noted diffusely. Systolic function appeared to be preserved. Estimated ejection fraction 50%. Diastolic dysfunction is suggested by Doppler. 3. The left atrium is normal in size. No clot or thrombus were seen within the left atrium. 4. The right atrium and right ventricle are normal in size. No clot or thrombus were seen within the right side. 5. Mitral valve is normal in morphology with mild mitral regurgitation noted by color Doppler flow. No mitral valve prolapse. No mitral valve stenosis. Doppler across the mitral valve showed equalization of E:A. 6. Aortic valve is calcified trileaflet with normal opening and closing pattern. No significant aortic stenosis or regurgitation was seen. 7. Tricuspid valve is normal in morphology with mild tricuspid regurgitation noted by color Doppler flow. Doppler across tricuspid valve estimated pulmonary artery pressure of 31+ right atrial pressure. 8. Pulmonic valve is functioning normally. 9. No pericardial effusion. CONCLUSION: 1. Mild left ventricular hypertrophy. Systolic function is preserved. Estimated ejection fraction 50%. Diastolic dysfunction is suggested by Doppler. 2. Aortic valve sclerosis. No aortic stenosis. 3. Mild mitral and tricuspid regurgitation. 4. Estimated pulmonary artery pressure of 40 mmHg. Job ID: [id number] Dictated Date: 06/22/2016 16:24:51 Insurance Verify Rep Date: 06/23/2016 07:30:42 / jeferson
[2016-06-23 08:00] VITALS: BP 131/63
[2016-06-23 08:20] LABS: FOLIC ACID >24.0 ng/mL (1.5-24.0); UIBC 360 ug/dL (55-450)
--- NOTE | 2016-06-23 08:27 | Progress Note ---
Subjective Subjective/Events-last exam Pt seen and examined, ambulating to bathroom. Pt states she still has a "light chest pain". Tolerating diet, had BM last night (according to nurse looked green). Pt denies abd pain. Review of Systems General: No Chills, No Night Sweats HEENT: No Head Aches Pulmonary: No Cough, No Pleuritic Chest Pain Cardiovascular: Chest Pain, No: Palpitations Gastrointestinal: No: Abdominal Pain, Nausea, Vomiting Objective Exam Vital Signs Date Time Temp Pulse Resp B/P (MAP) Pulse Ox O2 Delivery O2 Flow Rate FiO2 06/23/16 07:17 2.00 06/23/16 07:08 99 4.00 06/23/16 04:28 2.00 06/23/16 04:05 97.5 65 20 123/58 100 Nasal Cannula 4.00 06/23/16 01:00 61 06/23/16 00:25 96.9 63 20 132/66 100 Nasal Cannula 4.00 06/23/16 00:24 2.00 06/22/16 20:15 2.00 06/22/16 20:15 Nasal Cannula 2.00 06/22/16 19:55 97.5 70 19 146/71 99 Nasal Cannula 4.00 06/22/16 19:00 73 06/22/16 18:45 2.00 06/22/16 18:39 99 2.00 06/22/16 16:25 97.3 66 20 132/66 99 Nasal Cannula 4.00 06/22/16 16:00 100 2.00 06/22/16 14:02 99 2.00 06/22/16 13:00 56 06/22/16 12:00 100 2.00 06/22/16 12:00 97.4 70 18 127/61 97 Nasal Cannula 4.00 06/22/16 10:00 97.1 66 18 142/84 100 2.00 06/22/16 09:00 99 Nasal Cannula 2.00 06/22/16 08:51 97.0 59 16 146/83 100 Nasal Cannula 4.00 I & O 06/23/16 07:00 Intake Total 2500 ml Output Total 1126 ml Balance 1374 ml Capillary Refill : Less Than 3 Seconds General Appearance: No Apparent Distress, WD/WN, Other (pt is slightly pale) HEENT: PERRL/EOMI, Pharynx Normal, Pale Conjunctivae (L), Pale Conjunctivae (R) Respiratory: Chest Non Tender, Lungs Clear, Normal Breath Sounds, No Accessory Muscle Use, No Respiratory Distress Cardiovascular: Regular Rate, Rhythm, No Edema, No JVD, No Murmur, Normal Peripheral Pulses, Gallop/S3 Gastrointestinal: non tender, soft, no organomegaly, no pulsatile mass Extremity: Normal Capillary Refill, No Calf Tenderness, No Pedal Edema Neurologic/Psychiatric: Alert, Oriented x3, 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 Norm as Tested Skin: Normal Color, Warm/Dry Lymphatic: No Adenopathy Results Lab Laboratory Tests 06/22/16 13:27: Hemoglobin 8.7L, Hematocrit 29L 06/22/16 15:09: Potassium Level 5.8H 06/23/16 01:15: Potassium Level 5.3H, Sodium Level 141, Chloride Level 117H, Carbon Dioxide Level 17L, Anion Gap 7, Blood Urea Nitrogen 34H, Creatinine 1.81H, Estimat Glomerular Filtration Rate 26, BUN/Creatinine Ratio 19, Glucose Level 89, Calcium Level 8.3L 06/23/16 02:00: Stool Occult Blood Immunoassay NEGATIVE 06/23/16 03:25: Stool Occult Blood Immunoassay NEGATIVE 06/23/16 05:15: White Blood Count 6.5, Red Blood Count 3.20L, Hemoglobin 8.3L, Hematocrit 28L, Mean Corpuscular Volume 86, Mean Corpuscular Hemoglobin 26, Mean Corpuscular Hemoglobin Concent 30L, Red Cell Distribution Width 16.9H, Platelet Count 274, Mean Platelet Volume 10.8H, Sodium Level 142, Potassium Level 5.3H, Chloride Level 117H, Carbon Dioxide Level 17L, Anion Gap 8, Blood Urea Nitrogen 32H, Creatinine 1.77H, Estimat Glomerular Filtration Rate 27, BUN/Creatinine Ratio 18 , Glucose Level 83, Calcium Level 8.3L, Troponin I < 0.30, Triglycerides Level 91, Cholesterol Level 146, LDL Cholesterol Direct 75, VLDL Cholesterol 18, HDL Cholesterol 45 Assessment/Plan Assessment/Plan Assessment/Plan 1. Anemia probably arising from multifactorial processes. a. Hematolgy consulted and is obtaining iron studies, vitamin B-12 and folate levels. b. Patient has already been transfused. Hemoglobin 8.3 today was 8.7 after 2 units yesterday c. Stool for occult blood; patient has been on NSAIDS which are a frequent cause of GI bleeding. Stop ASA d. Patient gives history of having received multiple transfusions 3 years ago at [facility]--obtain old records; 2. Chronic renal failure--creatinine noted to be 2.2 in February 2016. 3. History of prior CVA 4. Hypertension 5. History of CHF, now with elevated BNP 6. Hypothyroid on levothyroxine; 7. Hyperlipidemia 8. Mild dementia Max medical management. I asked the patient about major surgery; if we did an EGD or colonoscopy and found something. She said she thinks she would have it done, but is not sure how well she would bounce back after surgery; wants to talk with her children about surgery. I had a long discussion with her; because she is right she probably would not bounce back as quickly from a major surgery and it even has the possibility of . At this time I believe we need to wait; all of these procedures could be done as an outpatient. I do not want to do anything at this time that may cause her to have a heart attack. I believe she needs all of her systems; cardiac, pulmonary etc to be at their maximum and best, before we proceed with any procedures. Even the minor procedures like EGD and colonoscopy have their own morbidity and mortality which are increased in an 86-year-old patient. Will sign out to Dr. Connor, who can do EGD once all labs are back. Will feed pt this am. Clinical Quality Measures AMI/AHF: ASA po Prior to arrival: Yes (PER EMS) DVT/VTE Risk/Contraindication: Risk Factor Score Per Nursin RFS Level Per Nursing on Admit: 4+=Very High JACOBO REESE DO Jun 23, 2016 08:27
[2016-06-23] MEDS ORDERED: NIFEdipine ER 60 MG (PROCARDIA XL) TAB PO SCH (09:00)
[2016-06-23] MEDS ORDERED: FUROSEMIDE 20 MG (LASIX) TAB PO SCH (09:00)
[2016-06-23] MEDS ORDERED: FAMOTIDINE 20 MG (PEPCID) TABLET PO SCH (09:00)
[2016-06-23] MEDS ORDERED: ALLOPURINOL 100 MG (ZYLOPRIM) TAB PO SCH (09:00)
[2016-06-23] MEDS ORDERED: PSYLLIUM POWDER (METAMUCIL) 5.8 GM PACKET PO SCH (09:00)
[2016-06-23] MEDS ORDERED: LACTOBACILLUS Acidoph/Bulgar (LACTINEX/FLORANEX) TAB PO SCH (09:00)
[2016-06-23] MEDS ORDERED: NIFEdipine ER 30 MG (PROCARDIA XL) TAB PO SCH (09:00)
[2016-06-23] MEDS ORDERED: ATENOLOL 25 MG (TENORMIN) TAB PO SCH (09:00)
[2016-06-23] MEDS ORDERED: ASPIRIN E.C. 325 MG (ECOTRIN) TABLET PO SCH (09:00)
[2016-06-23] MEDS ORDERED: CALCIUM CARBONATE 600 MG (CALCARB) TAB PO SCH (09:00)
[2016-06-23] MEDS: guaiFENesin (MUCINEX) 600 MG TAB PO SCH (09:00)
[2016-06-23] MEDS: PANTOPRAZOLE 40 MG/10 ML (PROTONIX) VIAL IV SCH (09:06)
[2016-06-23] MEDS: GABAPENTIN 400 MG (NEURONTIN) CAP PO SCH (09:07)
[2016-06-23] MEDS: ARTIFICAL TEARS 0.4 ML UNIT DOSE (REFRESH PLUS) OU SCH (09:07)
[2016-06-23] MEDS: ACET/BUTAL/CAFF (FIORICET) TAB PO SCH (09:09)
--- NOTE | 2016-06-23 10:01 | Cardiology Progress Note ---
Subjective Subjective/Events-last exam patient is sitting up in a chair, feeling better, no new complaint. Review of Systems General: No Chills, No Night Sweats, No Fatigue, No Malaise, No Appetite, No Other HEENT: No Head Aches, No Visual Changes, No Eye Pain, No Ear Pain, No Dysphasia , No Sinus Congestion, No Post Nasal Drip, No Sore Throat, No Other Pulmonary: No Dyspnea, No Cough, No Pleuritic Chest Pain, No Other Cardiovascular: No: Chest Pain, Edema, Lt Headedness, Orthopnea, Other, Palpitations, Paroxysmal Noc. Dyspnea Objective-Cardiology Exam Last Set of Vital Signs Vital Signs 06/23/16 06/23/16 08:00 08:08 Temp 97.7 Pulse 71 Resp 16 B/P (MAP) 131/63 Pulse Ox 100 O2 Delivery Nasal Cannula O2 Flow Rate 1.00 Capillary Refill : Less Than 3 Seconds I&O Bad tableGeneral: Alert, Oriented X3, Cooperative HEENT: Atraumatic, PERRLA Neck: Supple, No JVD, No Thyromegaly Lungs: Clear to Auscultation, Normal Air Movement Heart: Regular Rate, Normal S1, Normal S2, No Murmurs Abdomen: Normal Bowel Sounds, Soft, No Tenderness, No Hepatosplenomegaly, No Masses Extremities: No Clubbing, No Cyanosis, No Edema, Normal Pulses, No Tenderness/ Swelling Skin: No Rashes, No Breakdown, No Significant Lesion Neuro: Normal Gait, Normal Speech, Normal Tone, Sensation Intact Psych/Mental Status: Mental Status NL, Mood NL Results Lab Laboratory Tests 06/22/16 13:27 06/22/16 15:09 06/23/16 01:15 06/23/16 05:15 A/P-Cardiology Admission Diagnosis CP Anemia HTN HLP Assessment/Plan Chest pain, nonspecific etiology, EKG reveals no acute ST changes. Cardiac enzymes negative. Patient was found to be severely anemic upon admission which could be a cause for her symptoms. She does, however, have multiple risk factors for underlying CAD, reporting improvement today continue to monitor cardiac enzymes, planning to evaluate stress test once clinically stable as an outpatient Anemia- Hgb 6.0 upon admission. S/p blood transfusion with improvement of Hgb to 8.7managed by Dr. Keke Espinosa and Dr. Sanches HTN-resume home blood pressure medications and continue to monitor. HLP- maintained on statin therapy. Continue to monitor. Acute on chronic renal insufficiency- continue to monitor renal function Elevated BNP- denies previous history of CHF. echo showed normal LV systolic function with ejection fraction 50 percent, mild diastolic dysfunction, no signs of congestive heart failure. Patient does not have heart failure, her elevated BNP probably due to her age and renal function. Hypothyroidism- managed by PCP Hx of TIA, multiple CVA in the past- had been maintained on Aggrenox as outpatient. Chronic back pain Clinical Quality Measures AMI/AHF: ASA po Prior to arrival: Yes (PER EMS) DVT/VTE Risk/Contraindication: Risk Factor Score Per Nursin RFS Level Per Nursing on Admit: 4+=Very High KRUNAL BUENROSTRO MD Jun 23, 2016 10:01
[2016-06-23] MEDS ORDERED: OXYC-471 PO (10:04)
--- NOTE | 2016-06-23 10:05 | Discharge Instructions ---
Discharge Instructions Discharge Medications New, Converted or Re-Newed RX: Transmitted to Pharmacy Continued Medications: Albuterol Sulfate (Albuterol Sulfate) 2.5 Mg/3 Ml Vial.neb 2.5 MG NEB TID PRN for SHORTNESS OF BREATH, EA Albuterol/Ipratropium (Combivent Respimat Inhal Barry) 4 Gm Aero 1 PUFF IH QID, INH Allopurinol (Allopurinol) 100 Mg Tablet 100 MG PO DAILY, TAB Alprazolam (Alprazolam) 0.25 Mg Tablet 0.25 MG PO HS, TAB Atenolol (Atenolol) 25 Mg Tablet 12.5 MG PO DAILY, TAB TAKES 1/2 (25MG) TABLET Bimatoprost (Lumigan) 2.5 Ml Drops 1 DROP OU HS, DROPS Butalb/Acetaminophen/Caffeine (Fioricet 50-300-40 mg Capsule) 1 Each Capsule 1 TAB PO BID, CAP Calcium Carbonate (Oyster Shell Calcium) 500 Mg Tablet 1 TAB PO DAILY, TAB Colchicine (Colcrys) 0.6 Mg Tablet 0.6 MG PO Q4H PRN for GOUT PAIN, TAB Dextran 70/Hypromellose (Nature's Tears Eye Drops) 15 Ml Drops 1 DROP OU PRN PRN for DRY EYES, DROPS Dextran 70/Hypromellose (Nature's Tears Eye Drops) 15 Ml Drops 1 DROP OU BID, DROPS Diclofenac Sodium (Voltaren) 100 Gm Gel..gram. 2 GM TP TID PRN for PAIN, TUBE APPLY TO RIGHT KNEE Dipyridamole/Aspirin (Aggrenox 25 mg-200 mg Capsule) 1 Ea Cap 1 CAP PO BID, CAP Fluticasone/Salmeterol (Advair 250-50 Diskus) 1 Each Blst.w.dev 1 PUFF INH BID, EA Furosemide (Lasix) 20 Mg Tablet 10 MG PO DAILY, TAB TAKES 1/2 (20MG) TABLET Gabapentin (Neurontin) 400 Mg Capsule 400 MG PO TID, CAP Guaifenesin (Mucinex) 600 Mg Tab.er.12h 600 MG PO BID, TAB L.acidoph & Paracasei,B.lactis (Probiotic) 1 Each Capsule 1 CAP PO DAILY, CAP Levothyroxine Sodium (Synthroid) 125 Mcg Tablet 125 MCG PO DAILY, TAB Loperamide HCl (Imodium A-D) 2 Mg Tablet 4 MG PO Q6H PRN for DIARRHEA, TAB Lovastatin (Lovastatin) 20 Mg Tablet 20 MG PO HS, TAB Mag Hydrox/Al Hydrox/Simeth (Maalox Advanced Suspension) 770 Ml Oral.susp 30 ML PO UD PRN for ACID REFLUX, EA Magnesium Hydroxide (Milk of Magnesia) 400 Mg/5 Ml Oral.susp 30 ML PO DAILY PRN for CONSTIPATION, ML Menthol/Lanolin/Calamine/Znox (Calmoseptine Ointment) 71 Gm Oint TP PRN PRN for GAULDING/REDNESS, TUBE Metaxalone (Skelaxin) 800 Mg Tablet 800 MG PO TID, TAB Multivitamin W-Minerals/Lutein (Cerovite Senior Tablet) 1 Each Tablet 1 TAB PO DAILY, TAB Nifedipine (Procardia Xl) 90 Mg Tab.er.24 90 MG PO DAILY, TAB Ondansetron HCl (Zofran) 4 Mg Tab 4 MG PO Q6H PRN for NAUSEA, TAB Oxycodone HCl/Acetaminophen (Oxycodone-Acetaminophen 5-325) 1 Each Tablet 1 TAB PO Q4H PRN for PAIN, #10 TAB (This prescription has been renewed) Pramipexole Di-HCl (Pramipexole Dihydrochloride) 0.125 Mg Tablet 0.125 MG PO HS Psyllium Husk (Fiber Therapy) 0.52 Gm Capsule 2 CAP PO TID, CAP Ranitidine HCl (Zantac) 150 Mg Tablet 150 MG PO DAILY, TAB Discontinued Medications: Meloxicam (Mobic) 7.5 Mg Tablet 7.5 MG PO BID, TAB Patient Instructions Goal/Follow Up Appt: Dr Serrano in [address] Espinosa [facility] in 2 weeks Patient Instructions: Stop Mobic Activity & Diet Discharge Diet: No Restrictions Activity as Tolerated: Yes AMAURI HUNG DO Jun 23, 2016 10:05
--- NOTE | 2016-06-23 10:11 | Discharge Summary-Hospitalist ---
Diagnosis/Chief Complaint Date of Admission Jun 22, 2016 at 02:00 Date of Discharge Discharge Date: Jun 23, 2016 Admission Diagnosis Assessment: Chest pain likely due to severe anemia with hemoglobin of 6.0 status post 2 units of packed red blood cells without evidence of sores loss Chronic renal insufficiency usual creatinine is 2.2 Congestive heart failure history with elevated BNP Hypertension Dementia Hyperlipidemia UTIs Discharge Diagnosis Assessment: Chest pain likely due to severe anemia with hemoglobin of 6.0 status post 2 units of packed red blood cells without evidence of sores loss Chronic renal insufficiency usual creatinine is 2.2 Congestive heart failure history with elevated BNP Hypertension Dementia Hyperlipidemia UTIs Plan: Appreciate cardiology input Transfuse 2 units of blood and will confer with hematology but likely anemia of chronic kidney disease and illness is much of the source of the anemia Reconcile all home meds Oxygen Out of bed Reason Hospital Visit/Course CC: Chest pain and Hgb of 6 Chart Review: CXR was negative except ATX, WBC 8.7, Hgb 6, CMP normal except Creat 2.1 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 Duenas and Oncology/Hematology have been consulted. Pt has not had a stool to check for blood. Pt PCP is Dr. Serrano. Pt is alert and oriented. Pt Hgb has increased to 7.5 after one unit of blood. Patient Interview: Pt states she is doing so-so currently. Pt was told about her low Hgb and causing chest pain. Pt states she has never required blood before. Pt denies pain currently. Pt denies having a colonoscopy in the past. Pt states her PCP is Dr. Serrano. Physical exam was stable. Pt was informed that Hematology will visit pt soon. Scribed by Dominik Burden under the direct supervision of Dr. Hung. Note from 06/23/2016 Chart Review: Hgb 8.3 after 2 units of blood, CMP improved K+ still 5.3, Hemoccult negative, Dr. Sanches consolation, Appreciate Dr. Lundberg input, Consolation from Dr. 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 Will shut off IVF. Review: Will go home today with outpatient follow up. Patient Interview: Pt states she is ready to be DC today. Pt will eat breakfast soon and see if she will be able to be DC. Physical exam was stable. AFVSS, Pleasant, chronically ill, O x 3 poor recall RRR, CTAB no edema Plan: Hep-lock IVF Scribed by Dominik Burden under the direct supervision of Dr. Hung. Hospital course: Patient had an uneventful hospital course. She was admitted due to CP and hgb 6.0. Pt was given 2 units of blood in an uncomplicated fashion and cardiology was consulted to assess stability. Dr. Espinosa saw patient for hematology purposes and studies were ordered but pending results at time of discharge but likely this is a gastrointestinal source of loss even though Hemoccults were negative I did go ahead and stop the motivate to possibly help with the renal insufficiency but anemia of chronic disease and kidney disease and possibly myelodysplastic process causing the severe anemia and will have close follow-up with Dr. Serrano and I did speak with Patience Cobian the day of discharge and she will see her in close follow-up. Discharge Summary Discharge Physical Examination Allergies: Coded Allergies: fentanyl (Verified Adverse Reaction, Unknown, 11/02/14) penicillin (Verified Adverse Reaction, Unknown, 11/02/14) Uncoded Allergies: TETANUS (Adverse Reaction, Unknown, 11/02/14) Vitals & I&Os Vital Signs Date Time Temp Pulse Resp B/P (MAP) Pulse Ox O2 Delivery O2 Flow Rate FiO2 06/23/16 08:08 Nasal Cannula 1.00 06/23/16 08:00 97.7 71 16 131/63 100 Hospital Course Labs (last 24 hrs) Laboratory Tests 06/22/16 13:27: Hemoglobin 8.7L, Hematocrit 29L 06/22/16 15:09: Potassium Level 5.8H 06/23/16 01:15: Potassium Level 5.3H, Sodium Level 141, Chloride Level 117H, Carbon Dioxide Level 17L, Anion Gap 7, Blood Urea Nitrogen 34H, Creatinine 1.81H, Estimat Glomerular Filtration Rate 26, BUN/Creatinine Ratio 19, Glucose Level 89, Calcium Level 8.3L 06/23/16 02:00: Stool Occult Blood Immunoassay NEGATIVE 06/23/16 03:25: Stool Occult Blood Immunoassay NEGATIVE 06/23/16 05:15: White Blood Count 6.5, Red Blood Count 3.20L, Hemoglobin 8.3L, Hematocrit 28L, Mean Corpuscular Volume 86, Mean Corpuscular Hemoglobin 26, Mean Corpuscular Hemoglobin Concent 30L, Red Cell Distribution Width 16.9H, Platelet Count 274, Mean Platelet Volume 10.8H, Sodium Level 142, Potassium Level 5.3H, Chloride Level 117H, Carbon Dioxide Level 17L, Anion Gap 8, Blood Urea Nitrogen 32H, Creatinine 1.77H, Estimat Glomerular Filtration Rate 27, BUN/Creatinine Ratio 18 , Glucose Level 83, Calcium Level 8.3L, Troponin I < 0.30, Triglycerides Level 91, Cholesterol Level 146, LDL Cholesterol Direct 75, VLDL Cholesterol 18, HDL Cholesterol 45 Pending Labs Laboratory Tests 06/23/16 03:25: Stool Occult Blood Immunoassay NEGATIVE 06/23/16 05:15: White Blood Count 6.5, Red Blood Count 3.20, Hemoglobin 8.3, Hematocrit 28, Mean Corpuscular Volume 86, Mean Corpuscular Hemoglobin 26, Mean Corpuscular Hemoglobin Concent 30, Red Cell Distribution Width 16.9, Platelet Count 274, Mean Platelet Volume 10.8, Sodium Level 142, Potassium Level 5.3, Chloride Level 117, Carbon Dioxide Level 17, Anion Gap 8, Blood Urea Nitrogen 32, Creatinine 1.77, Estimat Glomerular Filtration Rate 27, BUN/Creatinine Ratio 18 , Glucose Level 83, Calcium Level 8.3, Troponin I < 0.30, Triglycerides Level 91 , Cholesterol Level 146, LDL Cholesterol Direct 75, VLDL Cholesterol 18, HDL Cholesterol 45 Discharge Home Medications: Active Scripts Active Oxycodone-Acetaminophen 5-325 (Oxycodone HCl/Acetaminophen) 1 Each Tablet 1 Tab PO Q4H PRN Reported Advair 250-50 Diskus (Fluticasone/Salmeterol) 1 Each Blst.w.dev 1 Puff INH BID Mucinex (Guaifenesin) 600 Mg Tab.er.12h 600 Mg PO BID Pramipexole Dihydrochloride (Pramipexole Di-HCl) 0.125 Mg Tablet 0.125 Mg PO HS Nature's Tears Eye Drops (Dextran 70/Hypromellose) 15 Ml Drops 1 Drop OU BID Fiber Therapy (Psyllium Husk) 0.52 Gm Capsule 2 Cap PO TID Procardia Xl (Nifedipine) 90 Mg Tab.er.24 90 Mg PO DAILY Lumigan (Bimatoprost) 2.5 Ml Drops 1 Drop OU HS Lovastatin 20 Mg Tablet 20 Mg PO HS Synthroid (Levothyroxine Sodium) 125 Mcg Tablet 125 Mcg PO DAILY Lasix (Furosemide) 20 Mg Tablet 10 Mg PO DAILY TAKES 1/2 (20MG) TABLET Cerovite Senior Tablet (Multivitamin W-Minerals/Lutein) 1 Each Tablet 1 Tab PO DAILY Allopurinol 100 Mg Tablet 100 Mg PO DAILY Fioricet 50-300-40 mg Capsule (Butalb/Acetaminophen/Caffeine) 1 Each Capsule 1 Tab PO BID Atenolol 25 Mg Tablet 12.5 Mg PO DAILY TAKES 1/2 (25MG) TABLET Aggrenox 25 mg-200 mg Capsule (Dipyridamole/Aspirin) 1 Ea Cap 1 Cap PO BID Zantac (Ranitidine HCl) 150 Mg Tablet 150 Mg PO DAILY Probiotic (L.acidoph & Paracasei,B.lactis) 1 Each Capsule 1 Cap PO DAILY Oyster Shell Calcium (Calcium Carbonate) 500 Mg Tablet 1 Tab PO DAILY Combivent Respimat Inhal [place] (Albuterol/Ipratropium) 4 Gm Aero 1 Puff IH QID Skelaxin (Metaxalone) 800 Mg Tablet 800 Mg PO TID Neurontin (Gabapentin) 400 Mg Capsule 400 Mg PO TID Zofran (Ondansetron HCl) 4 Mg Tab 4 Mg PO Q6H PRN Nature's Tears Eye Drops (Dextran 70/Hypromellose) 15 Ml Drops 1 Drop OU PRN PRN Milk of Magnesia (Magnesium Hydroxide) 400 Mg/5 Ml Oral.susp 30 Ml PO DAILY PRN Colcrys (Colchicine) 0.6 Mg Tablet 0.6 Mg PO Q4H PRN Calmoseptine Ointment (Menthol/Lanolin/Calamine/Znox) 71 Gm Oint TP PRN PRN Albuterol Sulfate 2.5 Mg/3 Ml Vial.neb 2.5 Mg NEB TID PRN Voltaren (Diclofenac Sodium) 100 Gm Gel..gram. 2 Gm TP TID PRN APPLY TO RIGHT KNEE Imodium A-D (Loperamide HCl) 2 Mg Tablet 4 Mg PO Q6H PRN Maalox Advanced Suspension (Mag Hydrox/Al Hydrox/Simeth) 770 Ml Oral.susp 30 Ml PO UD PRN Instructions to patient/family Please see electonic discharge instructions given to patient. Clinical Quality Measures AMI/AHF: ASA po Prior to arrival: Yes (PER EMS) DVT/VTE Risk/Contraindication: Risk Factor Score Per Nursin RFS Level Per Nursing on Admit: 4+=Very High AMAURI HUNG DO Jun 23, 2016 10:11
--- NOTE | 2016-06-23 10:17 | Progress Note (SOAP) ---
Subjective Subjective/Events-last exam No current complaints of pain. She will be returning to the long-term today and will complete her evaluation as an outpatient. Objective Exam Vital Signs Date Time Temp Pulse Resp B/P (MAP) Pulse Ox O2 Delivery O2 Flow Rate FiO2 06/23/16 08:08 Nasal Cannula 1.00 06/23/16 08:00 97.7 71 16 131/63 100 Nasal Cannula 4.00 06/23/16 07:17 2.00 06/23/16 07:08 99 4.00 06/23/16 06:59 59 06/23/16 04:28 2.00 06/23/16 04:05 97.5 65 20 123/58 100 Nasal Cannula 4.00 06/23/16 01:00 61 06/23/16 00:25 96.9 63 20 132/66 100 Nasal Cannula 4.00 06/23/16 00:24 2.00 06/22/16 20:15 2.00 06/22/16 20:15 Nasal Cannula 2.00 06/22/16 19:55 97.5 70 19 146/71 99 Nasal Cannula 4.00 06/22/16 19:00 73 06/22/16 18:45 2.00 06/22/16 18:39 99 2.00 06/22/16 16:25 97.3 66 20 132/66 99 Nasal Cannula 4.00 06/22/16 16:00 100 2.00 06/22/16 14:02 99 2.00 06/22/16 13:00 56 06/22/16 12:00 100 2.00 06/22/16 12:00 97.4 70 18 127/61 97 Nasal Cannula 4.00 I & O 06/23/16 07:00 Intake Total 2500 ml Output Total 1126 ml Balance 1374 ml Capillary Refill : Less Than 3 Seconds General Appearance: No Apparent Distress HEENT: PERRL/EOMI Neck: Full Range of Motion, Non Tender, Supple Respiratory: Other (Few basilar crackles;) Cardiovascular: Regular Rate, Rhythm, No Edema, No Gallop, No JVD Gastrointestinal: normal bowel sounds, non tender, soft Extremity: Non Tender, No Calf Tenderness Neurologic/Psychiatric: Alert, Oriented x3, No Motor/Sensory Deficits Results Lab Laboratory Tests 06/22/16 00:56 06/22/16 07:10 06/22/16 13:27 06/22/16 15:09 06/23/16 01:15 06/23/16 05:15 Laboratory Tests 06/22/16 13:27: Hemoglobin 8.7L, Hematocrit 29L 06/22/16 15:09: Potassium Level 5.8H 06/23/16 01:15: Potassium Level 5.3H, Sodium Level 141, Chloride Level 117H, Carbon Dioxide Level 17L, Anion Gap 7, Blood Urea Nitrogen 34H, Creatinine 1.81H, Estimat Glomerular Filtration Rate 26, BUN/Creatinine Ratio 19, Glucose Level 89, Calcium Level 8.3L 06/23/16 02:00: Stool Occult Blood Immunoassay NEGATIVE 06/23/16 03:25: Stool Occult Blood Immunoassay NEGATIVE 06/23/16 05:15: White Blood Count 6.5, Red Blood Count 3.20L, Hemoglobin 8.3L, Hematocrit 28L, Mean Corpuscular Volume 86, Mean Corpuscular Hemoglobin 26, Mean Corpuscular Hemoglobin Concent 30L, Red Cell Distribution Width 16.9H, Platelet Count 274, Mean Platelet Volume 10.8H, Sodium Level 142, Potassium Level 5.3H, Chloride Level 117H, Carbon Dioxide Level 17L, Anion Gap 8, Blood Urea Nitrogen 32H, Creatinine 1.77H, Estimat Glomerular Filtration Rate 27, BUN/Creatinine Ratio 18 , Glucose Level 83, Calcium Level 8.3L, Troponin I < 0.30, Triglycerides Level 91, Cholesterol Level 146, LDL Cholesterol Direct 75, VLDL Cholesterol 18, HDL Cholesterol 45 Assessment/Plan Assessment/Plan Assess & Plan/Chief Complaint 1. Iron Deficiency Anemia--Symptomatic anemi aarising from multifactorial processes. Patient has widened RDW with normal MCV. a. iron studies are diagnostic of iron deficiency anemia; she will therefore need a EGD and colonoscopy which may be done as an outpatient. b. Vitamin B-12 and folate levels are both normal. c. Patient gives history of having received multiple transfusions 3 years ago at [facility]--obtain old records; 2. Chronic renal failure--creatinine noted to be 2.2 in February 2016. It is currently improved and is down to 1.7. 3. History of prior CVA 4. Hypertension 5. History of CHF, now with elevated BNP 6. Hypothyroid on levothyroxine; 7. Hyperlipidemia 8. Mild dementia 9. Give Follow-up appointment with general surgery for scheduling of EGD and colonoscopy 10. Give follow-up appointment with Dr. Espinosa since GI evaluation is still pending and iron replacement has not been provided. Clinical Quality Measures AMI/AHF: ASA po Prior to arrival: Yes (PER EMS) DVT/VTE Risk/Contraindication: Risk Factor Score Per Nursin RFS Level Per Nursing on Admit: 4+=Very High YARELY ESPINOSA MD Jun 23, 2016 10:17
[2016-06-23] MEDS: CATHETER FLUSH 10 ML SYR IV PRN ×2 (11:07→11:36)
[2016-06-23] MEDS ORDERED: CATHETER FLUSH 10 ML SYR IV PRN (11:15)
[2016-06-23] MEDS ORDERED: REGADENOSON 0.4 MG/5 ML SYR (LEXISCAN) IV ONE ×2 (11:19→11:30)
[2016-06-23 11:38] VITALS: BP 119/56
[2016-06-23 12:00] VITALS: BP 112/50
--- NOTE | 2016-06-23 13:52 | STRESS TEST ---
PROCEDURE PHYSICIAN: KRUNAL BUENROSTRO DATE OF PROCEDURE: 06/23/2016 LEXISCAN MYOVIEW STRESS TEST REPORT: REFERRING PHYSICIAN: Dr. Carlos Eduardo Serrano BASELINE HEART RATE: 59 BASELINE BLOOD PRESSURE: 117/51 BASELINE EKG: Sinus rhythm with no ischemic changes. IN SUMMARY: The patient was injected with 10.92 mCi of technetium 99 Myoview and the resting images were obtained. Then the patient received 0.4 mg of Lexiscan followed by 32.4 mCi of technetium 99 Myoview. Throughout the test, there were no EKG changes. The resting and stress images were reviewed and compared in the short axis, horizontal long axis, and vertical long axis views. Review of the images showed good radiotracer uptake with no significant ischemia or infarction. SSS is 0. TID value 1.11. On the gated images, the left ventricle appeared to be normal size with normal contractility. Calculated ejection fraction 66%. IN CONCLUSION: 1. The patient tolerated Lexiscan well. 2. No ischemia or infarction on SPECT images. 3. Normal left ventricular size with normal contractility. Calculated ejection fraction 66%. Job ID: [id number] Dictated Date: 06/23/2016 12:37:13 Psychology Professor Date: 06/23/2016 13:49:42 / maurice
--- OUTSIDE RECORDS SUMMARY | 2016-07-23 18:43 | XMS REPORT ---
Author Author [facility] Medical Staff Organization [facility] Address [address] [place], [place] [id number] Phone [phone] Care Team Providers Care Quality Assurance Supervisor Trim Name Role Phone ROMAN VALDIVIA DO PP [phone] Summary purpose TRANSITION OF CARE AUTO GENERATION Chief Complaint and Reason for Visit No authorized Reason for Visit (Admitting Diagnosis) is available for this visit. Problem list No authorized problems tracked for continuity of care are available for this visit. Encounters No authorized problems tracked for encounter diagnoses are available for this visit. Medications No home medications recorded for this patient visit Allergies, adverse reactions, alerts Allergen Category Ingredient Status Reaction Severity Onset Codeine Drug Allergy Codeine Confirmed or Verified Tetanus Toxoid,Adsorbed Drug Allergy Tetanus Toxoid,Adsorbed Confirmed or Verified Fentanyl Drug Allergy Fentanyl Confirmed or Verified Penicillins Drug Allergy Penicillins Confirmed or Verified Rash wheat Drug Allergy wheat Confirmed or Verified egg Food Allergy EGG Confirmed or Verified egg Drug Allergy egg Confirmed or Verified milk Food Allergy MILK Confirmed or Verified Nausea milk Drug Allergy milk Confirmed or Verified Nausea Immunizations No immunizations recorded for this patient visit Relevant diagnostic tests and/or laboratory data RESULTS Radiology Results [id number] CAROTID DUPLEX PACs Image DATE OF EXAM: Apr 16 2014 [id number] CAROTID DUPLEX SONO : RADIOLOGY REPORT DATE OF SERVICE: 04/16/14 HISTORY: CVA CAROTID AND VERTEBRAL ARTERY DOPPLER 1110 HOURS The carotid and vertebral arteries were evaluated with high resolution real time imaging, pulsed and color flow Doppler. The right carotid artery shows mild intimal-medial thickening without significant plaque. Normal flow speed and spectral analysis is present on the right with ICA/CCA ratio of 0.83 and peak right ICA speed of 69 cm/sec. There is minimal plaque in the left carotid bulb with normal flow speed. Left-sided ICA/CCA ratio of 0.91 with peak left internal carotid artery flow speed of 69 cm/sec. There is antegrade vertebral artery flow bilaterally. IMPRESSION: Minimal left carotid bulb plaque with less than 40% stenosis. Negative right carotid evaluation. Antegrade vertebral artery flow bilaterally. MD DENNIS Torres/ma04/16/2014 11:49:00 / 04/16/2014 11:52:54 cc:Dr. Roman Valdivia This document has been electronically Signed by: On: DATE OF EXAM: Apr 16 2014 [id number] CAROTID DUPLEX SONO : RADIOLOGY REPORT DATE OF SERVICE: 04/16/14 HISTORY: CVA CAROTID AND VERTEBRAL ARTERY DOPPLER 1110 HOURS The carotid and vertebral arteries were evaluated with high resolution real time imaging, pulsed and color flow Doppler. The right carotid artery shows mild intimal-medial thickening without significant plaque. Normal flow speed and spectral analysis is present on the right with ICA/CCA ratio of 0.83 and peak right ICA speed of 69 cm/sec. There is minimal plaque in the left carotid bulb with normal flow speed. Left-sided ICA/CCA ratio of 0.91 with peak left internal carotid artery flow speed of 69 cm/sec. There is antegrade vertebral artery flow bilaterally. IMPRESSION: Minimal left carotid bulb plaque with less than 40% stenosis. Negative right carotid evaluation. Antegrade vertebral artery flow bilaterally. MD DENNIS Torres/ma04/16/2014 11:49:00 / 04/16/2014 11:52:54 cc:Dr. Roman Valdivia This document has been electronically Signed by: HUBER CHAVEZ On: Apr 16 20141:[id number] Result Amended on 2014-04-16 at 13:16:22. Previous status was GA. History of procedures No procedures recorded for this patient visit. Functional status No functional or cognitive status observations are available for this visit. Vital signs No authorized vital signs are available for this visit. Social history No Social History or smoking status observations were recorded for this visit. ( Unknown if ever smoked.) Treatment Plan No treatment plan text is available for this visit. Hospital discharge instructions No discharge instruction text is available for this visit.
--- OUTSIDE RECORDS SUMMARY | 2016-07-23 18:46 | XMS REPORT ---
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 Encounters The following conditions tracked for encounter diagnoses were recorded for this visit: Finding or Diagnosis Status Certainty Chronicity Onset *DIARRHEA Active *NAUSEA AND VOMITING Active Medications Home Medications Medication Directions Started Status Source levothyroxine 125 mcg tablet 1 tablet oral 1 Daily Current Doctor's office hydrocodone 7.5 mg-acetaminophen 325 mg tablet 1 tablet oral PRN 4 Times A Day for pain Current Doctor's office Mirapex 0.125 mg tablet 1 tablet oral At Bed Time Current Doctor's office Daliresp 500 mcg tablet 1 tablet oral 1 Daily Discont Doctor's office allopurinol 100 mg tablet 1 tablet oral 1 Daily Current Doctor's office Imodium A-D 2 mg tablet 2 tablet oral PRN Every 6 Hours Up to 4 per day Current Doctor's office Fioricet 50 mg-325 mg-40 mg tablet 1 tablet oral PRN 2 Times A Day Current Doctor's office omeprazole 20 mg capsule,delayed release 1 tablet oral At Bed Time Current Doctor's office lovastatin 20 mg tablet 1 tablet oral At Bed Time Current Doctor's office spironolactone 25 mg tablet .5 tablet oral Sunday, Sunday, Sunday Discont Doctor's office Combivent 18 mcg-103 mcg/actuation aerosol inhaler 1 puff inhl 4 Times Daily Current Doctor's office Reglan 10 mg tablet 1 tablet oral 2 Times Daily Discont Doctor's office Aggrenox 200 mg-25 mg capsule, extended release 1 tablet oral 2 Times Daily Current Doctor's office furosemide 20 mg tablet .5 tablet oral 1 Daily Current Doctor's office methyldopa 500 mg tablet .5 tablet oral 2 Times Daily [facility] nifedipine ER 90 mg tablet,extended release 24 hr 1 tablet oral 1 Daily Current Doctor's office atenolol 25 mg tablet .5 tablet oral 1 Daily Current Doctor's office tramadol 50 mg tablet .5 tablet oral PRN Every 6 Hours Current Doctor' s office Colcrys 0.6 mg tablet 1 tablet oral PRN Every 4 Hours Current Doctor's office Maalox oral 30 ml oral As Needed Current Patient medication list Milk of Magnesia 400 mg/5 mL oral suspension 30 ml oral As Needed Current Patient medication list acetaminophen 325 mg tablet 2 tablet oral PRN Every 4 Hours Current Patient medication list Zofran ODT 4 mg disintegrating tablet 1 tablet oral PRN Every 6 Hours Current Patient medication list Phenergan 25 mg rectal suppository 1 tablet rect PRN Every 6 Hours Current Patient medication list Allergies, adverse reactions, alerts Allergen Category Ingredient [...] Relevant diagnostic tests and/or laboratory data RESULTS [id number]:31:00 Discharge Summary DISCHARGE SUMMARY ADMISSION DIAGNOSIS: 1. Nausea, vomiting, and diarrhea, possibly due to food allergen. 2. Mild renal insufficiency. DISCHARGE DIAGNOSIS: 1. Diverticulitis. 2. Persistent nausea, vomiting, and diarrhea. 3. Allergy to eggs, wheat, and milk. 4. Mild renal insufficiency. CONSULTATIONS: None. PROCEDURES: None. HISTORY OF CHIEF COMPLAINT:Gail Guadalupe is an 83-year-old female who presents for evaluation of the above. Onset of symptoms three days ago, believed after some eggs.The patient does have some food allergies and eggs thought to be one of them. The patient did have multiple diarrhea stools subsequent. She has also had some vomiting to include especially yesterday. Attempt at placement of IV for hydration at [facility] was not successful. She was noted to be persistently weak and unable to maintain weight.In view of concern of dehydration and further compromise, transfer to the Emergency Department was deemed appropriate. She was seen in the Emergency Department, where the patient was noted to be in some minimal distress. Her vital signs were stable, and her examination suggested some lower abdominal discomfort. Her laboratory was fairly unremarkable, though her BUN and creatinine were elevated at 28 and 1.83.She did have a couple of loose stools in the Emergency Department.In view of some dehydration with acute renal insufficiency, placement in observation for some hydration was deemed appropriate. HOSPITAL COURSE:The patient was admitted to hospital. She was started on intravenous hydration. She had a very slow hospital course recovering with persistent symptoms. Her white count was normal while in the hospital. She did have some persistent mild renal failure with her creatinine being between 1.4 and 1.8 while here, which did improve some with IV hydration. Her stool cultures were positive for leukocytes, negative for C. Difficile. She was put on Cipro as well as intravenous steroids. This slowly began to improve her symptoms. Shortly before discharge she was transition from IV medication to oral medication, which she continued to do well. On the day of her discharge her labs were all back to normal. She had gone 2 days without any symptoms. She was feeling good and stable and physical exam was normal, and she was ready for discharge back to [facility]. DISPOSITION: The patient is being discharged to [place], which is where she lives. DISCHARGE MEDICATIONS: Cipro 250 mg orally 2 times daily for 10 days. Prednisone 20 mg 1 tablet twice a day for 3 days, then 1 tablet once a day for 3 days, 1/2 tablet daily for 3 days. Tylenol 325 mg every 4 hours as needed. Aggrenox 1 tablet twice a day. Allopurinol 100 mg daily. Atenolol 25 mg 1/2 tablet daily. Colcrys 0.6 mg every 4 hours as needed. Combivent 1 puff 4 times daily. Fioricet 1 tablet twice a day. Lasix 20 mg 1/2 tablet daily. Hydrocodone 7.5/325 mg 4 times daily as needed for pain. Imodium 2 tablets every 6 hours as needed. Synthroid 125 mcg daily. Lovastatin 20 mg at night. Milk of magnesia 30 mL as needed for constipation. Mirapex 0.125 mg at night. Nifedipine ER 90 mg daily. Omeprazole 20 mg daily. Phenergan 25 mg rectal suppository as needed every 6 hours. Tramadol 50 mg 1/2 tablet every 6 hours as needed. Zofran 4 mg ODT every 6 hours as needed. DISCHARGE INSTRUCTIONS: 1. The patient have monthly weights and routine vitals. 2. Activity will be as tolerated. 3. The patient will be on a gluten-free diet. 4. Have her follow up with Dr. Valdivia in 1 to 2 weeks in the office. TIME SPENT ON DISCHARGE: 35 minutes. MD MEGHAN Dean/gc 12/07/2013 10:31:18/12/07/2013 16:10:26 Clinic Code: cc: [facility] [address] [place] [address] <END HEADER> Routine Urinalysis [id number]:30:00 Result Normal Range Units Color YELLOW Clarity Clear Specific [place] 1.010 1.003-1.035 pH 5.5 4.5-8.0 Glucose NEGATIVE Bilirubin NEGATIVE Ketones NEGATIVE Protein NEGATIVE Urobilinogen 0.2 0-0.2 E.U./dL Nitrites NEGATIVE Blood NEGATIVE Leukocytes NEGATIVE WBCs 5-10 WBC'S IN CLUMP RBCs 0-5 Squamous Epithelial Few Chemistry [id number]:55:00 Result Normal Range Units Sodium 143 134-145 mEq/l Potassium 4.2 3.5-5.1 mEq/l Chloride H 112 98-107 mEq/l CO2 L 18.7 22-28 mEq/l Glucose 97 70-105 mg/dl BUN H 23 7-18 mg/dl Creatinine H 1.36 0.6-1.0 mg/dl Calcium 8.8 8.4-10.2 mg/dl TP - Total Protein 6.0 6.0-8.3 g/dl Albumin L 2.8 3.5-5 g/dl Bilirubin - Total 0.3 0.1-1.0 mg/dl AST 24 10-42 IU/L ALT 33 12-65 IU/L ALP H 104 25-72 IU/L Osmolality 288.6 280-300 mOsm/L Albumin/Globulin Ratio 0.9 0-8 Anion GAP 12.3 8-16 BUN/Creatinine Ratio 16.9 10-20 Estimated GFR L 37 >=60 mL/min/1.7 86-07-901824:15:00 Result Normal Range Units Sodium 140 134-145 mEq/l Potassium 5.0 3.5-5.1 mEq/l Chloride H 109 98-107 mEq/l CO2 L 18.5 22-28 mEq/l Glucose H 132 70-105 mg/dl BUN 14 7-18 mg/dl Creatinine H 1.54 0.6-1.0 mg/dl Calcium 9.0 8.4-10.2 mg/dl Osmolality 281.7 280-300 mOsm/L Anion GAP 12.5 8-16 BUN/Creatinine Ratio L 9.1 10-20 Estimated GFR L 32 >=60 mL/min/1.7 [id number]:00:00 Result Normal Range Units Sodium 140 134-145 mEq/l Potassium H 5.7 3.5-5.1 mEq/l Chloride H 110 98-107 mEq/l CO2 L 18.0 22-28 mEq/l Glucose 100 70-105 mg/dl BUN 11 7-18 mg/dl Creatinine H 1.67 0.6-1.0 mg/dl Calcium 9.0 8.4-10.2 mg/dl Osmolality L 278.9 280-300 mOsm/L Anion GAP 12.0 8-16 BUN/Creatinine Ratio L 6.6 10-20 Estimated GFR L 29 >=60 mL/min/1.7 [id number]:58:00 Result Normal Range Units Sodium 140 134-145 mEq/l Potassium H 5.5 3.5-5.1 mEq/l Chloride H 111 98-107 mEq/l CO2 L 19.9 22-28 mEq/l Glucose 87 70-105 mg/dl BUN L 6 7-18 mg/dl Creatinine H 1.49 0.6-1.0 mg/dl Calcium 9.3 8.4-10.2 mg/dl Osmolality L 276.4 280-300 mOsm/L Anion GAP 9.1 8-16 BUN/Creatinine Ratio L 4.0 10-20 Estimated GFR L 33 >=60 mL/min/1.7 [id number]:32:00 Result Normal Range Units Sodium 142 134-145 mEq/l Potassium 5.1 3.5-5.1 mEq/l Chloride H 112 98-107 mEq/l CO2 24.6 22-28 mEq/l Glucose 95 70-105 mg/dl BUN 9 7-18 mg/dl Creatinine H 1.44 0.6-1.0 mg/dl Calcium 8.9 8.4-10.2 mg/dl Osmolality 281.6 280-300 mOsm/L Anion GAP L 5.4 8-16 BUN/Creatinine Ratio L 6.2 10-20 Estimated GFR L 35 >=60 mL/min/1.7 [id number]:18:00 Result Normal Range Units Sodium 143 134-145 mEq/l Potassium 5.1 3.5-5.1 mEq/l Chloride H 112 98-107 mEq/l CO2 22.7 22-28 mEq/l Glucose H 113 70-105 mg/dl BUN 12 7-18 mg/dl Creatinine H 1.43 0.6-1.0 mg/dl Calcium 9.1 8.4-10.2 mg/dl Osmolality 285.5 280-300 mOsm/L Anion GAP 8.3 8-16 BUN/Creatinine Ratio L 8.4 10-20 Estimated GFR L 35 >=60 mL/min/1.7 [id number]:45:00 Result Normal Range Units Sodium 143 134-145 mEq/l Potassium 4.5 3.5-5.1 mEq/l Chloride H 109 98-107 mEq/l CO2 25.4 22-28 mEq/l Glucose H 108 70-105 mg/dl BUN H 21 7-18 mg/dl Creatinine H 1.73 0.6-1.0 mg/dl Calcium 8.9 8.4-10.2 mg/dl Osmolality 288.5 280-300 mOsm/L Anion GAP 8.6 8-16 BUN/Creatinine Ratio 12.1 10-20 Estimated GFR L 28 >=60 mL/min/1.7 [id number]:05:00 Result Normal Range Units Sodium 135 134-145 mEq/l Potassium 4.6 3.5-5.1 mEq/l Chloride 103 98-107 mEq/l CO2 25.0 22-28 mEq/l Glucose 91 70-105 mg/dl BUN H 28 7-18 mg/dl Creatinine H 1.83 0.6-1.0 mg/dl Calcium 9.0 8.4-10.2 mg/dl TP - Total Protein 7.5 6.0-8.3 g/dl Albumin 3.7 3.5-5 g/dl Bilirubin - Total 0.4 0.1-1.0 mg/dl AST 16 10-42 IU/L ALT 14 12-65 IU/L ALP H 124 25-72 IU/L Osmolality L 275.2 280-300 mOsm/L Albumin/Globulin Ratio 1.0 0-8 Anion GAP L 7.0 8-16 BUN/Creatinine Ratio 15.3 10-20 Estimated GFR L 26 >=60 mL/min/1.7 Hematology [id number]:55:00 Result Normal Range Units WBC 8.6 4.8-10.8 103/uL RBC L 3.2 4.2-5.4 106/uL HGB L 10.2 12.0-16.0 g/dl HCT L 32.3 36.9-47.0 % MCV H 100.3 81-99 FL MCH H 31.7 27-31 pg MCHC L 31.6 33-37 g/dl RDW 14.9 11.5-15.5 % PLT 232 130-400 103/uL MPV H 11.0 7.3-10.4 FL Segs H 75.0 40-70 % Lymphs L 17.0 20-40 % [place] 7.0 0-10 % Atypical Lymphs 1.0 0-5 % [id number]:15:00 Result Normal Range Units WBC 8.4 4.8-10.8 103/uL RBC L 3.3 4.2-5.4 106/uL HGB L 10.5 12.0-16.0 g/dl HCT L 32.5 36.9-47.0 % MCV 97.3 81-99 FL MCH H 31.4 27-31 pg MCHC L 32.3 33-37 g/dl RDW 14.4 11.5-15.5 % PLT 215 130-400 103/uL MPV H 10.6 7.3-10.4 FL Segs H 86.0 40-70 % Lymphs L 12.0 20-40 % [place] 2.0 0-10 % :00:00 Result Normal Range Units HGB L 11.0 12.0-16.0 g/dl HCT L 34.5 36.9-47.0 % :58:00 Result Normal Range Units WBC 6.8 4.8-10.8 103/uL RBC L 3.7 4.2-5.4 106/uL HGB L 11.4 12.0-16.0 g/dl HCT 37.4 36.9-47.0 % MCV H 101.6 81-99 FL MCH 31.0 27-31 pg MCHC L 30.5 33-37 g/dl RDW 15.0 11.5-15.5 % PLT 219 130-400 103/uL MPV H 11.1 7.3-10.4 FL Neutro % 62.2 40-70 % Lymph % 21.8 20-40 % [place] % H 11.3 0-10.0 % Eos % 4.6 0-7.0 % Baso % 0.1 0-2 % Neutro # 4.2 1.5-7.5 103/uL Lymph # 1.5 0.9-4.0 103/uL [place] # 0.8 0-0.8 103/uL Eos # 0.3 0-0.6 103/uL Baso # 0.0 0-0.1 103/uL [id number]:32:00 Result Normal Range Units WBC 5.9 4.8-10.8 103/uL RBC L 3.3 4.2-5.4 106/uL HGB L 10.4 12.0-16.0 g/dl HCT L 33.6 36.9-47.0 % MCV H 101.2 81-99 FL MCH H 31.3 27-31 pg MCHC L 31.0 33-37 g/dl RDW 15.1 11.5-15.5 % PLT 201 130-400 103/uL MPV H 10.7 7.3-10.4 FL [id number]:18:00 Result Normal Range Units HGB L 10.4 12.0-16.0 g/dl HCT L 33.5 36.9-47.0 % [id number]:45:00 Result Normal Range Units WBC 5.4 4.8-10.8 103/uL RBC L 3.4 4.2-5.4 106/uL HGB L 10.7 12.0-16.0 g/dl HCT L 33.8 36.9-47.0 % MCV 98.5 81-99 FL MCH H 31.2 27-31 pg MCHC L 31.7 33-37 g/dl RDW 14.6 11.5-15.5 % PLT 204 130-400 103/uL MPV H 10.8 7.3-10.4 FL Neutro % 56.4 40-70 % Lymph % 28.0 20-40 % [place] % H 11.7 0-10.0 % Eos % 3.7 0-7.0 % Baso % 0.2 0-2 % Neutro # 3.0 1.5-7.5 103/uL Lymph # 1.5 0.9-4.0 103/uL [place] # 0.6 0-0.8 103/uL Eos # 0.2 0-0.6 103/uL Baso # 0.0 0-0.1 103/uL [id number]:05:00 Result Normal Range Units WBC 7.1 4.8-10.8 103/uL RBC L 3.9 4.2-5.4 106/uL HGB 12.2 12.0-16.0 g/dl HCT 37.4 36.9-47.0 % MCV 96.6 81-99 FL MCH H 31.5 27-31 pg MCHC L 32.6 33-37 g/dl RDW 14.5 11.5-15.5 % PLT 258 130-400 103/uL MPV 10.4 7.3-10.4 FL Neutro % 60.3 40-70 % Lymph % 27.9 20-40 % [place] % 9.2 0-10.0 % Eos % 2.3 0-7.0 % Baso % 0.3 0-2 % Neutro # 4.3 1.5-7.5 103/uL Lymph # 2.0 0.9-4.0 103/uL [place] # 0.7 0-0.8 103/uL Eos # 0.2 0-0.6 103/uL Baso # 0.0 0-0.1 103/uL Microbiology [id number]:46:00 C. Dificile Toxin Negative for C. diff toxin A and/or B Stool for Leukocytes AB Positive Negative [id number]:00:00 Result Normal Range Units MRSA Screen See Comments Plate Date and Time 11/29/2013 12:59 Source[facility]SE CULTURE REPORT Negative - No MRSA Colonization Day 1 Release Date/Time: 11/30/2013 07:12 CULTURE REPORT Negative - No MRSA Colonization Day 2 Release Date/Time: 12/01/2013 07:38 Reference Lab (Sendout) [id number]:46:00 Result Normal Range Units Trichrome SEE NOTE OVA AND PARASITES, STOOL CONC AND PERM SMEAR MICRO NUMBER:[id number] TEST STATUS: FINAL SPECIMEN SOURCE: STOOL SPECIMEN QUALITY:ADEQUATE CONCENTRATION 1: No ova or parasites seen TRICHROME 1: No ova or parasites seen One negative sample does not necessarily rule out the presence of a parasitic infection. Routine Ova and Parasite exam may not detect some parasites that occasionally cause diarrheal illness. Test code(s) 54712Y (Cryptosporidium Ag., DFA) and/or 64989A (Cyclospora and Isospora Exam) may be ordered to detect these parasites. TEST PERFORMED AT: [facility] [address] SHARRON THOMAS MD Body Fluid [id number]:30:00 Result Normal Range Units pH 5.5 4.5-8.0 Radiology Results [id number]:55:00 Result Normal Range Units MPV H 11.0 7.3-10.4 FL [id number]:30:00 CT ABD/PELV WO CON PACs Image DATE OF EXAM: Dec 04 2013 [id number] ABD/PELV WO CONTRAST : RADIOLOGY REPORT DATE OF SERVICE: 12/04/13 HISTORY: Patient has persistent lower abdominal and pelvic pain with diarrhea. CT ABDOMEN AND PELVIS WITHOUT CONTRAST 1040 HOURS Images were obtained from diaphragms to symphysis pubis. No intravenous contrast could be utilized due to decreased renal function. Dilute oral Gastrografin was given to opacify bowel. There is normal liver. Gallbladder has been removed. No biliary ductal dilatation is seen. The spleen is unremarkable. Moderate hiatal hernia is seen. Pancreas is normal. Accessory spleen is seen medial to the spleen. This is unchanged from 05/08/2011. Adrenal glands are normal. Tortuosity of aorta is prominent, but there is no aneurysm. There is atherosclerotic calcification. Both kidneys fail to show any calculi or hydronephrosis. Benign cyst is seen in mid right kidney. Bowel appears unremarkable with diverticulosis of the sigmoid colon. No evidence of diverticulitis is seen. There is no mesenteric mass or ascites. Hysterectomy has been performed as well as appendectomy. There is no hernia evident. IMPRESSION: Diverticulosis. No evidence of diverticulitis. Benign right renal cyst. Hiatal hernia. Atherosclerotic tortuosity of the aorta. Celestino Garza DO /wy 12/04/2013 10:57:00 / 12/04/2013 12:42:05 cc:Dr. Roman Valdivia This document has been electronically Signed by: On: DATE OF EXAM: Dec 04 2013 [id number] ABD/PELV WO CONTRAST : RADIOLOGY REPORT DATE OF SERVICE: 12/04/13 HISTORY: Patient has persistent lower abdominal and pelvic pain with diarrhea. CT ABDOMEN AND PELVIS WITHOUT CONTRAST 1040 HOURS Images were obtained from diaphragms to symphysis pubis. No intravenous contrast could be utilized due to decreased renal function. Dilute oral Gastrografin was given to opacify bowel. There is normal liver. Gallbladder has been removed. No biliary ductal dilatation is seen. The spleen is unremarkable. Moderate hiatal hernia is seen. Pancreas is normal. Accessory spleen is seen medial to the spleen. This is unchanged from 05/08/2011. Adrenal glands are normal. Tortuosity of aorta is prominent, but there is no aneurysm. There is atherosclerotic calcification. Both kidneys fail to show any calculi or hydronephrosis. Benign cyst is seen in mid right kidney. Bowel appears unremarkable with diverticulosis of the sigmoid colon. No evidence of diverticulitis is seen. There is no mesenteric mass or ascites. Hysterectomy has been performed as well as appendectomy. There is no hernia evident. IMPRESSION: Diverticulosis. No evidence of diverticulitis. Benign right renal cyst. Hiatal hernia. Atherosclerotic tortuosity of the aorta. DO EH Gutierres/wy 12/04/2013 10:57:00 / 12/04/2013 12:42:05 cc:Dr. Roman Valdivia This document has been electronically Signed by: On: DATE OF EXAM: Dec 04 2013 [id number] ABD/PELV WO CONTRAST : RADIOLOGY REPORT DATE OF SERVICE: 12/04/13 HISTORY: Patient has persistent lower abdominal and pelvic pain with diarrhea. CT ABDOMEN AND PELVIS WITHOUT CONTRAST 1040 HOURS Images were obtained from diaphragms to symphysis pubis. No intravenous contrast could be utilized due to decreased renal function. Dilute oral Gastrografin was given to opacify bowel. There is normal liver. Gallbladder has been removed. No biliary ductal dilatation is seen. The spleen is unremarkable. Moderate hiatal hernia is seen. Pancreas is normal. Accessory spleen is seen medial to the spleen. This is unchanged from 05/08/2011. Adrenal glands are normal. Tortuosity of aorta is prominent, but there is no aneurysm. There is atherosclerotic calcification. Both kidneys fail to show any calculi or hydronephrosis. Benign cyst is seen in mid right kidney. Bowel appears unremarkable with diverticulosis of the sigmoid colon. No evidence of diverticulitis is seen. There is no mesenteric mass or ascites. Hysterectomy has been performed as well as appendectomy. There is no hernia evident. IMPRESSION: Diverticulosis. No evidence of diverticulitis. Benign right renal cyst. Hiatal hernia. Atherosclerotic tortuosity of the aorta. DO EH Gutierres/silvia 12/04/2013 10:57:00 / 12/04/2013 12:42:05 cc:Dr. Roman Valdivia This document has been electronically Signed by: CELESTINO GARZA DO On: Dec 05 20131:30P GASTROENTERITIS DEHYDRATION IN NAUSEA AND VOMITING Result Amended on 2013-12-04 at 15:32:42. Previous status was NE. GASTROENTERITIS DEHYDRATION IN NAUSEA AND VOMITING Result Amended on 2013-12-05 at 13:30:46. Previous status was NE. GASTROENTERITIS DEHYDRATION IN NAUSEA AND VOMITING [id number]:15:00 Result Normal Range Units MPV H 10.6 7.3-10.4 FL [id number]:58:00 Result Normal Range Units MPV H 11.1 7.3-10.4 FL [id number]:32:00 Result Normal Range Units MPV H 10.7 7.3-10.4 FL [id number]:53:00 Abdomen 2 View PACs Image DATE OF EXAM: Nov 28 2013 RAD 0037-ABDOMEN 2 VIEW : RADIOLOGY REPORT DATE OF SERVICE:11/28/13 HISTORY:Nausea, vomiting, diarrhea. ABDOMEN 2 VIEWS 1517 HOURS Comparison is made with 09/10/13. The bowel gas pattern is nonspecific. There is no definite obstruction. Mild gaseous prominence of the colon and mid abdominal bowel loops is noted. There is no free air. Surgical clips are noted in the right upper quadrant. IMPRESSION:Nonspecific bowel pattern. MD DENNIS Torres/candelaria11/28/2013 15:20:00 / 11/28/2013 18:10:58 cc:Dr. Roman Valdivia This document has been electronically Signed by: On: DATE OF EXAM: Nov 28 2013 RAD 0037-ABDOMEN 2 VIEW : RADIOLOGY REPORT DATE OF SERVICE:11/28/13 HISTORY:Nausea, vomiting, diarrhea. ABDOMEN 2 VIEWS 1517 HOURS Comparison is made with 09/10/13. The bowel gas pattern is nonspecific. There is no definite obstruction. Mild gaseous prominence of the colon and mid abdominal bowel loops is noted. There is no free air. Surgical clips are noted in the right upper quadrant. IMPRESSION:Nonspecific bowel pattern. MD DENNIS Torres/11/28/2013 15:20:00 / 11/28/2013 18:10:58 cc:Dr. Roman Valdivia This document has been electronically Signed by: On: DATE OF EXAM: Nov 28 2013 RAD 0037-ABDOMEN 2 VIEW : RADIOLOGY REPORT DATE OF SERVICE:11/28/13 HISTORY:Nausea, vomiting, diarrhea. ABDOMEN 2 VIEWS 1517 HOURS Comparison is made with 09/10/13. The bowel gas pattern is nonspecific. There is no definite obstruction. Mild gaseous prominence of the colon and mid abdominal bowel loops is noted. There is no free air. Surgical clips are noted in the right upper quadrant. IMPRESSION:Nonspecific bowel pattern. MD DENNIS Torres/11/28/2013 15:20: / 11/28/2013 18:10:58 cc:Dr. Roman Valdivia This document has been electronically Signed by: HUBER CHAVEZ On: Nov 30 04315:53A DIAHREA/REGULO Result Amended on 2013-11-29 at 08:30:33. Previous status was NE. DIAHREA/REGULO Result Amended on 2013-11-30 at 07:53:24. Previous status was NE. GASTROENTERITIS DEHYDRATION IN NAUSEA AND VOMITING [id number]:45:00 Result Normal Range Units MPV H 10.8 7.3-10.4 FL 12-67-875400:05:00 Result Normal Range Units MPV 10.4 7.3-10.4 FL Reference Lab (Sendout) [id number]:46:00 Result Normal Range Units Campylobacter Culture SEE NOTE CAMPYLOBACTER, CULTURE MICRO NUMBER:[id number] TEST STATUS: FINAL SPECIMEN SOURCE: STOOL SPECIMEN QUALITY:ADEQUATE RESULT:No enteric Campylobacter isolated TEST PERFORMED AT: [address] [address] SHARRON THOMAS MD Stool Culture SEE NOTE SALMONELLA AND SHIGELLA, CULTURE MICRO NUMBER:[id number] TEST STATUS: FINAL SPECIMEN SOURCE: STOOL SPECIMEN QUALITY:ADEQUATE RESULT:No Salmonella or Shigella isolated TEST PERFORMED AT: [address] [address] SHARRON THOMAS MD Shigatoxins SEE NOTE SHIGA TOXINS, EIA W/RFL TO E.COLI O157 CULTURE MICRO NUMBER:[id number] TEST STATUS: FINAL SPECIMEN SOURCE: STOOL SPECIMEN QUALITY:ADEQUATE RESULT:Not Detected TEST PERFORMED AT: [address] [address] SHARRON THOMAS MD History of procedures Procedure Code Code Type Description Date Performed Performing Physician [id number] CPT-4 COMPLETE CBC W/AUTO DIFF WBC 11-28-2013 ROMAN VALDIVIA 74540 CPT-4 COMPREHEN METABOLIC PANEL 11-28-2013 ROMAN VALDIVIA 75477 CPT-4 URINALYSIS, AUTO W/SCOPE 11-28-2013 ROMAN VALDIVIA 32779 CPT-4 X-RAY EXAM OF ABDOMEN 11-28-2013 ROMAN VALDIVIA A9270 CPT-4 NON-COVERED ITEM OR SERVICE 11-28-2013 ROMAN VALDIVIA A9270 CPT-4 NON-COVERED ITEM OR SERVICE 11-28-2013 ROMAN VALDIVIA A9270 CPT-4 NON-COVERED ITEM OR SERVICE 11-28-2013 ROMAN VALDIVIA A9270 CPT-4 NON-COVERED ITEM OR SERVICE 11-28-2013 ROMAN VALDIVIA J7030 CPT-4 NORMAL SALINE SOLUTION INFUS 11-28-2013 ROMAN VALDIVIA J2405 CPT-4 ONDANSETRON HCL INJECTION 11-28-2013 ROMAN VALDIVIA Functional status Functional Status Finding Observation Time Hearing Prob Loc bilateral 44-61-721132:23 Vision Problems yes 17-70-660138:23 Vision Correct Dev glasses 84-60-306862:23 Ambulation Asst Dev walker 88-21-770953:23 Range of Motion full :40 Muscle Strength RUE 5 ROM full resist 44-12-414725:40 Muscle Strength RLE 5 ROM full resist 28-68-842339:40 Muscle Strength LUE 5 ROM full resist 67-93-753188:40 Muscle Strength LLE 5 ROM full resist 97-15-726464:40 Transfers assist x 1 70-46-444413:40 Ambulation in room 34-88-713527:40 Balance unsteady 77-43-243241:40 Bathing Assistance none 45-97-454026:23 Eating Assistance minimal :47 Dressing Assistance none :23 Toileting Assistance none :23 Transfer Assistance none :23 Decline Slf Care/Mob yes (consult PT) 50-80-031440:23 Phys Cond Stable yes :23 Cognitive Status Finding Observation Time Oriented To Date 5 Yes 20-99-826023: Oriented To Place 5 Yes :23 Name 3 Objects 3 Yes : Name Object in Rm 2 Yes : Recall 3 Objects 3 Yes :23 Repeats a Phrase 1 Yes : Follows Verbal Direc 3 Yes : Follows Written Dire 1 Yes : Write a Sentance 1 Yes : Draw an Object 1 Yes 59-77-872582:23 Mini Mental Total 25 points 85-00-138109:23 Less than 20 Phys not applicable 80-62-514866:23 Learning Ability comprehends well : Neurological no :00 Psychological no :00 Physical no :00 Hearing yes :00 Underwear Hemmer Needed no :00 Sign Language no :00 Emotional no :00 Vision yes :00 [place]uage no :00 Financial no :00 Vital signs Type Value Date Respiration Rate 18breaths per minute :49 Pulse 46beats per minute :49 Oxygen Saturation 98% :49 BP Systolic 138mmHg :49 BP Diastolic 61mmHg :49 Temperature 98.0F :49 Height 63inches 65-72-994302:12 Weight 147.1LB 17-33-081264:22 Social history Type Value Smoking Status FORMER SMOKER Treatment Plan No treatment plan text is available for this visit. Hospital discharge instructions Discharge Date/Time 12-07-13 1400 Accompanied By [facility] staff Relationship other (explain) Comment: [facility] staff Dismissal Condition good Disposition on [place] detention Valuables no Diet Explained yes Follow up appt other (specify) Comment: Dr. Valdivia in 1-2 weeks
--- OUTSIDE RECORDS SUMMARY | 2016-07-23 18:52 | XMS REPORT ---
Author Author [facility] Medical Staff Organization [facility] Address [address], [place] [address] Phone [phone] Care Team Providers Care Neuro Urologist Name Role Phone ROMAN VALDIVIA DO PP [phone] Summary purpose TRANSITION OF CARE AUTO GENERATION Chief Complaint and Reason for Visit Admit Diagnosis 1 MUSCSKEL SYMPT LIMB NEC Problem list No authorized problems tracked for [...] Relevant diagnostic tests and/or laboratory data RESULTS Routine Urinalysis 73-57-191022:25:00 Result Normal Range Units Color YELLOW Clarity Clear Specific [place] 1.004 pH 6.0 4.5-8.0 Glucose NEGATIVE Bilirubin NEGATIVE Ketones NEGATIVE Protein NEGATIVE Urobilinogen 0.2 0-0.2 E.U./dL Nitrites NEGATIVE Blood NEGATIVE Leukocytes NEGATIVE WBCs No WBC's Seen RBCs No RBC's Seen. Squamous Epithelial Few Coagulation 64-15-620116:15:00 Result Normal Range Units PT 9.9 9.1-12.0 Seconds INR 1.0 0.8-1.2 Chemistry 00-14-353240:15:00 Result Normal Range Units Sodium 144 134-145 mEq/l Potassium 3.8 3.5-5.1 mEq/l Chloride 106 98-107 mEq/l CO2 26.5 22-28 mEq/l Glucose H 107 70-105 mg/dl BUN 16 7-18 mg/dl Creatinine H 1.57 0.6-1.0 mg/dl Calcium 9.8 8.4-10.2 mg/dl TP - Total Protein 7.2 6.0-8.3 g/dl Albumin 3.5 3.5-5 g/dl Bilirubin - Total 0.2 0.1-1.0 mg/dl AST 15 10-42 IU/L ALT 19 12-65 IU/L ALP H 102 25-72 IU/L Osmolality 288.5 280-300 mOsm/L Albumin/Globulin Ratio 0.9 0-8 Anion GAP 11.5 8-16 BUN/Creatinine Ratio 10.2 10-20 Estimated GFR L 31 >=60 mL/min/1.7 Hematology 49-79-805885:15:00 Result Normal Range Units WBC 7.8 4.8-10.8 103/uL RBC L 4.1 4.2-5.4 106/uL HGB 12.3 12.0-16.0 g/dl HCT 37.6 36.9-47.0 % MCV 92.8 81-99 FL MCH 30.4 27-31 pg MCHC L 32.7 33-37 g/dl RDW H 17.2 11.5-15.5 % PLT 218 130-400 103/uL MPV H 10.8 7.3-10.4 FL Neutro % 59.6 40-70 % Lymph % 26.3 20-40 % [place] % H 10.7 0-10.0 % Eos % 3.0 0-7.0 % Baso % 0.4 0-2 % Neutro # 4.6 1.5-7.5 103/uL Lymph # 2.1 0.9-4.0 103/uL [place] # 0.8 0-0.8 103/uL Eos # 0.2 0-0.6 103/uL Baso # 0.0 0-0.1 103/uL Body Fluid 27-71-459658:25:00 Result Normal Range Units pH 6.0 4.5-8.0 Radiology Results 12-40-044302:55:00 CT HEAD W/O CONT PACs Image DATE OF EXAM: Apr 09 2014 [id number] HEAD WO CONTRAST : RADIOLOGY REPORT DATE OF SERVICE: 04/09/14 HISTORY: Patient has left side weakness since one day earlier. CT HEAD WITHOUT CONTRAST 0830 HOURS Axial images were obtained from base of skull to vertex. There are chronic infarcts in the right basal ganglia unchanged from 03/05/2012. No cortical infarct is appreciated. There is some generalized atrophy and there is decreased density scattered in white matter about the lateral ventricles consistent with chronic small vessel ischemia. No hemorrhage is seen. The visualized sinuses, orbits, and bony structures are normal. IMPRESSION: Chronic infarcts in right basal ganglia. Atrophy. No acute process compared to 03/05/2012. Celestino Garza DO /pr 04/09/2014 09:43:00 / 04/09/2014 11:00:04 cc:Dr. Roman Valdivia This document has been electronically Signed by: On: DATE OF EXAM: Apr 09 2014 [id number] HEAD WO CONTRAST : RADIOLOGY REPORT DATE OF SERVICE: 04/09/14 HISTORY: Patient has left side weakness since one day earlier. CT HEAD WITHOUT CONTRAST 0830 HOURS Axial images were obtained from base of skull to vertex. There are chronic infarcts in the right basal ganglia unchanged from 03/05/2012. No cortical infarct is appreciated. There is some generalized atrophy and there is decreased density scattered in white matter about the lateral ventricles consistent with chronic small vessel ischemia. No hemorrhage is seen. The visualized sinuses, orbits, and bony structures are normal. IMPRESSION: Chronic infarcts in right basal ganglia. Atrophy. No acute process compared to 03/05/2012. Celestino Garza DO /pr 04/09/2014 09:43:00 / 04/09/2014 11:00:04 cc:Dr. Roman Valdivia This document has been electronically Signed by: CELESTINO GARZA DO On: Apr 09 20142:55P Result Amended on 2014-04-09 at 14:55:58. Previous status was [place]. 06-22-944879:15:00 Result Normal Range Units MPV H 10.8 7.3-10.4 FL History of procedures Procedure Code Code Type Description Date Performed Performing Physician 08237 CPT-4 CT HEAD/BRAIN W/O DYE 04-09-2014 GIRISH COLÓN 67443 CPT-4 COMPLETE CBC W/AUTO DIFF WBC 04-09-2014 GIRISH COLÓN 23652 CPT-4 COMPREHEN METABOLIC PANEL 04-09-2014 GIRISH COLÓN 47120 CPT-4 PROTHROMBIN TIME 04-09-2014 GIRISH COLÓN 62501 CPT-4 URINALYSIS, AUTO W/SCOPE 04-09-2014 GIRISH COLÓN 55155 CPT-4 ELECTROCARDIOGRAM, TRACING 04-09-2014 GIRISH COLÓN 43868 CPT-4 ROUTINE VENIPUNCTURE 04-09-2014 GIRISH COLÓN 75223 CPT-4 ELECTROCARDIOGRAM REPORT 04-09-2014 GIRISH COLÓN 27134 CPT-4 EMERGENCY DEPT VISIT 04-09-2014 GIRISH COLÓN 06549 CPT-4 EMERGENCY DEPT VISIT 04-09-2014 GIRISH COLÓN Functional status Functional Status Finding Observation Time Abdomen Appearance round 82-73-790124:15 Abdomen non-tender 13-76-188195:15 Oliveira no 23-82-665759:15 Urination normal 36-15-198315:15 Quality sym/unlabored 98-76-342736:15 Cough non-productive 72-23-384364:15 Secretions no 97-77-372700:15 Breath Sounds RUL clear 09-53-370091:15 Breath Sounds RML clear 97-09-371469:15 Breath Sounds RLL clear 06-63-659997:15 Breath Sounds KAMALJIT clear 07-07-362432:15 Breath Sounds LLL clear 03-27-268670:15 Airway natural 36-18-510388:15 Chest Tube no :15 Oxygen no 20-32-110066:30 Temp >100.4 no :15 Temp <96.8 no :15 Chills with rigors no :15 HR > 90bpm no 55-10-093389:15 Respirations > 20 no 47-58-331104:15 Systolic <90 no 59-71-077205:15 headache stiff neck no :15 Rapid Resp no 02-28-966396:15 IV Site Location Left FA 37-21-969542:30 IV Type peripheral :30 IV Site Information discontinued 16-45-671765:30 IV Site Start Attmpt 2 times 43-47-343316:10 IV Site Javi 20 41-46-912284:10 IV Site Appearance WNL 40-95-424379:10 IV Site Color clear 17-28-479545:10 IV Site Patent yes :10 Dressing Type occlusive :10 Nursing Note Saline lock removed with catheter intact. Vs obtained. Pt denies pain. Pt discharged at this time, but will continue to monitor until [place] staff arrive. :30 Vital signs Type Value Date Respiration Rate 20breaths per minute :30 Pulse 60beats per minute :30 Oxygen Saturation 98% :30 BP Systolic 104mmHg :30 BP Diastolic 58mmHg :30 Temperature 97.9F :30 Social history Type Value Smoking Status FORMER SMOKER Treatment Plan No treatment plan text is available for this visit. Hospital discharge instructions Dismissal Condition fair Disposition on CT half-way Comment: [facility], Report given to Loretta DIAZ. CT Inst/Educ Give yes Med/Side Effects Rev yes
--- OUTSIDE RECORDS SUMMARY | 2016-07-23 18:52 | XMS REPORT ---
Author Author SERGE CASEY Organization [employer] Address Unknown Phone Unavailable Care Team Providers Care Supervisor Customer Complaint Service Name Role Phone SERGE CASEY CP Unavailable Allergies No Known Allergies Problems Problem Type Condition Code Onset Dates Condition Status Assessment Encounter for dental examination Z01.20 Active Medications No Known Medications Procedures Procedure Coding System Code Date Dental no charge CPT-4 D0099 Jan 04, 2016 Results No Known Results Summary Purpose [employer] Submission
--- OUTSIDE RECORDS SUMMARY | 2016-07-23 18:53 | XMS REPORT ---
Author Author [facility] Medical Staff Organization [facility] Address [address], [place] [address] Phone [phone] Care Team Providers Care Waterworks Chief Engineer Name Role Phone ROMAN VALDIVIA DO PP [phone] Summary purpose TRANSITION OF CARE AUTO GENERATION [...] tests and/or laboratory data RESULTS Routine Urinalysis 67-97-043438:25:00 Result Normal Range Units Color YELLOW Clarity Clear Specific [place] 1.004 pH 6.0 4.5-8.0 Glucose NEGATIVE Bilirubin NEGATIVE Ketones NEGATIVE Protein NEGATIVE Urobilinogen 0.2 0-0.2 E.U./dL Nitrites NEGATIVE Blood NEGATIVE Leukocytes NEGATIVE WBCs No WBC's Seen RBCs No RBC's Seen. Squamous Epithelial Few Coagulation 69-91-784211:15:00 Result Normal Range Units PT 9.9 9.1-12.0 Seconds INR 1.0 0.8-1.2 Chemistry 55-25-786401:15:00 Result Normal Range Units Sodium 144 134-145 [...] Estimated GFR L 31 >=60 mL/min/1.7 Hematology 51-45-958004:15:00 Result Normal Range Units WBC 7.8 4.8-10.8 103/uL RBC L 4.1 4.2-5.4 106/uL HGB 12.3 12.0-16.0 g/dl HCT 37.6 36.9-47.0 % MCV 92.8 81-99 FL MCH 30.4 27-31 pg MCHC L 32.7 33-37 g/dl RDW H 17.2 11.5-15.5 % PLT 218 130-400 103/uL MPV H 10.8 7.3-10.4 FL Neutro % 59.6 40-70 % Lymph % 26.3 20-40 % [place] % H 10.7 0-10.0 % Eos % 3.0 0-7.0 % Baso % 0.4 0-2 % Neutro # 4.6 1.5-7.5 103/uL Lymph # 2.1 0.9-4.0 103/uL [place] # 0.8 0-0.8 103/uL Eos # 0.2 0-0.6 103/uL Baso # 0.0 0-0.1 103/uL Body Fluid 04-00-070579:25:00 Result Normal Range Units pH 6.0 4.5-8.0 Radiology Results 44-45-999217:55:00 CT HEAD W/O CONT PACs Image DATE OF EXAM: Apr 09 2014 [id number] HEAD WO CONTRAST : RADIOLOGY REPORT DATE [...] process compared to 03/05/2012. Celestino Garza DO /nc 04/09/2014 09:43:00 / 04/09/2014 11:00:04 cc:Dr. Roman Valdivia This document has been electronically Signed by: On: DATE OF EXAM: Apr 09 2014 [id number] HEAD WO CONTRAST : RADIOLOGY REPORT DATE [...] process compared to 03/05/2012. Celestino Garza DO /nc 04/09/2014 09:43:00 / 04/09/2014 11:00:04 cc:Dr. Roman Valdivia This document has been electronically Signed by: CELESTINO GARZA DO On: Apr 09 20142:55P Result Amended on 2014-04-09 at 14:55:58. Previous status was [place]. :15:00 Result Normal Range Units MPV H 10.8 7.3-10.4 FL History of procedures No procedures recorded for this patient visit. Functional status Functional Status Finding Observation Time Abdomen Appearance round 65-26-835859:15 Abdomen non-tender 55-42-218506:15 Oliveira no 58-71-621831:15 Urination normal 63-91-283144:15 Quality sym/unlabored :15 Cough non-productive 53-25-956643:15 Secretions no :15 Breath Sounds RUL clear :15 Breath Sounds RML clear :15 Breath Sounds RLL clear : Breath Sounds KAMALJIT clear :15 Breath Sounds LLL clear :15 Airway natural : Chest Tube no : Oxygen no : Temp >100.4 no : Temp <96.8 no : Chills with rigors no : HR > 90bpm no : Respirations > 20 no : Systolic <90 no : headache stiff neck no : Rapid Resp no :15 IV Site Location Left FA 91-11-009889:30 IV Type peripheral :30 IV Site Information discontinued : IV Site Start Attmpt 2 times 83-68-414334:10 IV Site Javi 20 :10 IV Site Appearance WNL :10 IV Site Color clear :10 IV Site Patent yes :10 Dressing Type occlusive :10 Nursing Note Saline lock removed with catheter intact. Vs obtained. Pt denies pain. Pt discharged at this time, but will continue to monitor until [place] staff arrive. :30 Vital signs Type Value Date Respiration Rate 20breaths per minute :30 Pulse 60beats per minute :30 Oxygen Saturation 98% :30 BP Systolic 104mmHg : BP Diastolic 58mmHg :30 Temperature 97.9F :30 Social history Type Value Smoking Status FORMER SMOKER Treatment Plan No treatment plan text is available for this visit. Hospital discharge instructions Dismissal Condition fair Disposition on [place] group home Comment: [facility], Report given to Loretta DIAZ. [place] Inst/Educ Give yes Med/Side Effects Rev yes
--- OUTSIDE RECORDS SUMMARY | 2016-07-23 19:10 | XMS REPORT | Continuity of Care Document ---
Author Author [facility] Address Unknown Phone Unavailable Allergies Active Description Code Type Severity Reaction Onset Reported/Identified Relationship to Patient Clinical Status Yes Codeine 1550 Drug Allergy N/A N/A Yes egg EGG Food Allergy N/A N/A Confirmed or Verified Yes Fentanyl 3571 Drug Allergy N/A N/A Yes milk MILK Food Allergy N/A N/A Confirmed or Verified Yes milk MILK Food Allergy N/A Nausea Yes Penicillins 476 Drug Allergy N/A Rash Yes Tetanus Toxoid,Adsorbed 3073 Drug Allergy N/A N/A Yes wheat 92658 Drug Allergy N/A N/A Yes fentanyl [id number] Drug Allergy Unknown N/A 11/02/2014 Yes penicillin [id number] Drug Allergy Unknown N/A 11/02/2014 Yes TETANUS TETANUS Unknown N/A 11/02/2014 Medications Problems Date Dx Coded Attending Type Code Diagnosis Diagnosed By 08/11/2014 OLIVIA VASQUEZ APRN Ot 724.02 08/11/2014 OLIVIA VASQUEZ APRN Ot 733.13 09/08/2014 OLIVIA VASQUEZ APRN Ot 724.02 09/08/2014 LOIVIA VASQUEZ APRN Ot 733.13 09/10/2014 OLIVIA VASQUEZ APRN Ot 724.02 09/10/2014 OLIVIA VASQUEZ APRN Ot 733.13 09/11/2014 CATA CHAN MD Ot 719.45 09/15/2014 CATA CHAN MD Ot 719.45 11/02/2014 OLIVIA VASQUEZ APRN Ot 724.02 11/02/2014 OLIVIA VASQUEZ APRN Ot 733.13 11/02/2014 CATA CHAN MD Ot 719.45 11/02/2014 Ot 244.9 HYPOTHYROIDISM NOS 11/02/2014 Ot 496 CHR AIRWAY OBSTRUCT NEC 11/02/2014 Ot 530.81 ESOPHAGEAL REFLUX 11/02/2014 Ot 847.0 SPRAIN OF NECK 11/02/2014 Ot 920 CONTUSION FACE/SCALP/NCK 11/02/2014 Ot 923.00 CONTUSION SHOULDER REG 11/02/2014 Ot 923.10 CONTUSION OF FOREARM 11/02/2014 Ot 924.01 CONTUSION OF HIP 11/02/2014 Ot E000.8 OTHER EXTERNAL CAUSE STATUS 11/02/2014 Ot E849.0 ACCIDENT IN HOME 11/02/2014 Ot E888.9 FALL NOS 11/02/2014 Ot V12.54 PERSONAL HX OF TIA, CEREBRAL INFARCTION 11/02/2014 Ot V15.82 HISTORY OF TOBACCO USE 02/15/2015 CATA CHAN MD Ot M47.816 SPONDYLOSIS W/O MYELOPATHY OR RADICULOPA 02/15/2015 CATA CHAN MD, Ot M51.16 INTERVERTEBRAL DISC DISORDERS W RADICULO 03/26/2015 CATA CHAN MD, Ot M47.816 SPONDYLOSIS W/O MYELOPATHY OR RADICULOPA 03/26/2015 CATA CHAN MD Ot Z79.899 OTHER [facility]DC (CURRENT) DRUG THERAPY 04/23/2015 CATA CHAN MD, Ot M47.816 SPONDYLOSIS W/O MYELOPATHY OR RADICULOPA 04/23/2015 CATA CHAN MD, Ot M51.16 INTERVERTEBRAL DISC DISORDERS W RADICULO 04/23/2015 CATA CHAN MD Ot Z79.899 OTHER [facility]DC (CURRENT) DRUG THERAPY 06/07/2015 CATA CHAN MD, Ot M47.816 SPONDYLOSIS W/O MYELOPATHY OR RADICULOPA 06/07/2015 CATA CHAN MD Ot M51.16 INTERVERTEBRAL DISC DISORDERS W RADICULO 06/07/2015 CATA CHAN MD Ot Z79.899 OTHER [facility] (CURRENT) DRUG THERAPY 06/14/2015 CATA CHAN MD, Ot M47.816 06/14/2015 CATA CHAN MD, Ot M51.16 06/14/2015 CATA CHAN MD, Ot Z79.899 06/14/2015 CATA CHAN MD, Ot M47.816 SPONDYLOSIS W/O MYELOPATHY OR RADICULOPA 06/14/2015 CATA CHAN MD, Ot M51.16 INTERVERTEBRAL DISC DISORDERS W RADICULO 06/14/2015 CATA CHAN MD Ot Z79.899 OTHER PIT SUPERVISOR (CURRENT) DRUG THERAPY 06/22/2015 CATA CHAN MD Ot M47.816 06/22/2015 CATA CHAN MD Ot M51.16 06/22/2015 CATA CHAN MD, Ot Z79.899 02/22/2016 OLIVIA VASQUEZ BACKPACKERS MANAGER Ot 724.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, LUMBAR REG, W/OUT NEURO 02/22/2016 OLIVIA VASQUEZ BACKPACKERS MANAGER Ot 733.13 PATHOLOGIC FRACTURE, VERTEBRAE 02/22/2016 CATA CHAN MD Ot 719.45 JOINT PAIN-PELVIS 03/07/2016 OLIVIA VASQUEZ BACKPACKERS MANAGER Ot E87.1 HYPO-OSMOLALITY AND HYPONATREMIA 03/07/2016 OLIVIA VASQUEZ BACKPACKERS MANAGER Ot E87.1 HYPO-OSMOLALITY AND HYPONATREMIA 03/09/2016 OLIVIA VASQUEZ BACKPACKERS MANAGER Ot E87.1 HYPO-OSMOLALITY AND HYPONATREMIA 03/12/2016 CELESTINO VELAZCO MD Ot E03.9 HYPOTHYROIDISM, UNSPECIFIED 03/12/2016 CELESTINO VELAZCO MD Ot I10 ESSENTIAL (PRIMARY) HYPERTENSION 03/12/2016 CELESTINO VELAZCO MD Ot J40 BRONCHITIS, NOT SPECIFIED ACUTE OR CH 03/12/2016 CELESTINO VELAZCO MD Ot J44.9 CHRONIC OBSTRUCTIVE PULMONARY DISEASE, U 03/12/2016 CELESTINO VELAZCO MD Ot K21.9 GASTRO-ESOPHAGEAL REFLUX DISEASE WITHOUT 03/12/2016 CELESTINO VELAZCO MD Ot R07.9 CHEST PAIN, UNSPECIFIED 03/12/2016 CELESTINO VELAZCO MD Ot Z79.899 OTHER PIT SUPERVISOR (CURRENT) DRUG THERAPY 03/14/2016 CELESTINO VELAZCO MD Ot E03.9 HYPOTHYROIDISM, UNSPECIFIED 03/14/2016 CELESTINO VELAZCO MD Ot I10 ESSENTIAL (PRIMARY) HYPERTENSION 03/14/2016 CELESTINO VELAZCO MD Ot J40 BRONCHITIS, NOT SPECIFIED ACUTE OR CH 03/14/2016 CELESTINO VELAZCO MD Ot J44.9 CHRONIC OBSTRUCTIVE PULMONARY DISEASE, U 03/14/2016 CELESTINO VELAZCO MD Ot K21.9 GASTRO-ESOPHAGEAL REFLUX DISEASE WITHOUT 03/14/2016 CELESTINO VELAZCO MD Ot R07.9 CHEST PAIN, UNSPECIFIED 03/14/2016 CELESTINO VELAZCO MD, Ot Z79.899 OTHER PIT SUPERVISOR (CURRENT) DRUG THERAPY 03/16/2016 PAYALHEYDI SUMMER CAMP COUNSELOR Ot J18.9 PNEUMONIA, UNSPECIFIED ORGANISM 03/16/2016 PAYAL, HEYDI SUMMER CAMP COUNSELOR Ot J44.9 CHRONIC OBSTRUCTIVE PULMONARY DISEASE, U 03/16/2016 PAYAL, HEYDI SUMMER CAMP COUNSELOR Ot R05 COUGH 03/16/2016 PAYAL, HEYDI SUMMER CAMP COUNSELOR Ot Z87.891 PERSONAL HISTORY OF NICOTINE DEPENDENCE 03/17/2016 CELESTINO VELAZCO MD Ot E03.9 HYPOTHYROIDISM, UNSPECIFIED 03/17/2016 CELESTINO VELAZCO MD Ot I10 ESSENTIAL (PRIMARY) HYPERTENSION 03/17/2016 CELESTINO VELAZCO MD Ot J40 BRONCHITIS, NOT SPECIFIED ACUTE OR CH 03/17/2016 CELESTINO VELAZCO MD Ot J44.9 CHRONIC OBSTRUCTIVE PULMONARY DISEASE, U 03/17/2016 CELESTINO VELAZCO MD Ot K21.9 GASTRO-ESOPHAGEAL REFLUX DISEASE WITHOUT 03/17/2016 CELESTINO VELAZCO MD Ot R07.9 CHEST PAIN, UNSPECIFIED 03/17/2016 CELESTINO VELAZCO MD Ot Z79.899 OTHER PIT SUPERVISOR (CURRENT) DRUG THERAPY 03/17/2016 PAYAL HEYDI SUMMER CAMP COUNSELOR Ot J18.9 PNEUMONIA, UNSPECIFIED ORGANISM 03/17/2016 PAYAL, HEYDI SUMMER CAMP COUNSELOR Ot J44.9 CHRONIC OBSTRUCTIVE PULMONARY DISEASE, U 03/17/2016 PAYAL, HEYDI SUMMER CAMP COUNSELOR Ot R05 COUGH 03/17/2016 HEYDI MOE SUMMER CAMP COUNSELOR Ot Z87.891 PERSONAL HISTORY OF NICOTINE DEPENDENCE 03/18/2016 CELESTINO VELAZCO MD Ot E03.9 HYPOTHYROIDISM, UNSPECIFIED 03/18/2016 CELESTINO VELAZCO MD Ot I10 ESSENTIAL (PRIMARY) HYPERTENSION 03/18/2016 CELESTINO VELAZCO MD Ot J40 BRONCHITIS, NOT SPECIFIED ACUTE OR CH 03/18/2016 CELESTINO VELAZCO MD Ot J44.9 CHRONIC OBSTRUCTIVE PULMONARY DISEASE, U 03/18/2016 CELESTINO VELAZCO MD Ot K21.9 GASTRO-ESOPHAGEAL REFLUX DISEASE WITHOUT 03/18/2016 CELESTINO VELAZCO MD Ot R07.9 CHEST PAIN, UNSPECIFIED 03/18/2016 CELESTINO VELAZCO MD Ot Z79.899 OTHER PIT SUPERVISOR (CURRENT) DRUG THERAPY 03/23/2016 PRO HERRERA MD, Ot E03.9 HYPOTHYROIDISM, UNSPECIFIED 03/23/2016 PRO HERRERA MD, Ot E78.00 PURE HYPERCHOLESTEROLEMIA, UNSPECIFIED 03/23/2016 PRO HERRERA MD, Ot F03.90 UNSPECIFIED DEMENTIA WITHOUT BEHAVIORAL 03/23/2016 PRO HERRERA MD, Ot F32.9 MAJOR DEPRESSIVE DISORDER, SINGLE EPISOD 03/23/2016 PRO HERRERA MD, Ot F41.9 ANXIETY DISORDER, UNSPECIFIED 03/23/2016 PRO HERRERA MD, Ot G25.81 RESTLESS LEGS SYNDROME 03/23/2016 PRO HERRERA MD, Ot G62.9 POLYNEUROPATHY, UNSPECIFIED 03/23/2016 PRO HERRERA MD, Ot H40.9 UNSPECIFIED GLAUCOMA 03/23/2016 PRO HERRERA MD, Ot I12.9 HYPERTENSIVE CHRONIC KIDNEY DISEASE W ST 03/23/2016 PRO HERRERA MD, Ot J18.9 PNEUMONIA, UNSPECIFIED ORGANISM 03/23/2016 PRO HERRERA MD, Ot J44.0 CHRONIC OBSTRUCTIVE PULMON DISEASE W ACU 03/23/2016 PRO HERRERA MD, Ot J45.909 UNSPECIFIED ASTHMA, UNCOMPLICATED 03/23/2016 PRO HERRERA MD, Ot M54.9 DORSALGIA, UNSPECIFIED 03/23/2016 PRO HERRERA MD, Ot N18.9 CHRONIC KIDNEY DISEASE, UNSPECIFIED 03/23/2016 PRO HERRERA MD, Ot R11.10 VOMITING, UNSPECIFIED 03/23/2016 PRO HERRERA MD Ot Z66 DO NOT RESUSCITATE 03/23/2016 PRO HERRERA MD, Ot Z86.73 PRSNL HX OF TIA (TIA), AND CEREB INFRC W 03/23/2016 PRO HERRERA MD, Ot Z87.891 PERSONAL HISTORY OF NICOTINE DEPENDENCE 03/23/2016 PRO HERRERA MD Ot Z99.3 DEPENDENCE ON WHEELCHAIR 03/23/2016 PRO HERRERA MD, Ot D63.1 ANEMIA IN CHRONIC KIDNEY DISEASE 03/23/2016 PRO HERRERA MD, Ot E03.9 HYPOTHYROIDISM, UNSPECIFIED 03/23/2016 PRO HERRERA MD, Ot E78.00 PURE HYPERCHOLESTEROLEMIA, UNSPECIFIED 03/23/2016 PRO HERRERA MD, Ot F03.90 UNSPECIFIED DEMENTIA WITHOUT BEHAVIORAL 03/23/2016 PRO HERRERA MD, Ot F32.9 MAJOR DEPRESSIVE DISORDER, SINGLE EPISOD 03/23/2016 PRO HERRERA MD, Ot F41.9 ANXIETY DISORDER, UNSPECIFIED 03/23/2016 PRO HERRERA MD Ot G25.81 RESTLESS LEGS SYNDROME 03/23/2016 PRO HERRERA MD, Ot G62.9 POLYNEUROPATHY, UNSPECIFIED 03/23/2016 PRO HERRERA MD, Ot H40.9 UNSPECIFIED GLAUCOMA 03/23/2016 PRO HERRERA MD Ot I12.9 HYPERTENSIVE CHRONIC KIDNEY DISEASE W ST 03/23/2016 PRO HERRERA MD Ot J18.9 PNEUMONIA, UNSPECIFIED ORGANISM 03/23/2016 PRO HERRERA MD Ot J44.0 CHRONIC OBSTRUCTIVE PULMON DISEASE W ACU 03/23/2016 PRO HERRERA MD, Ot J45.909 UNSPECIFIED ASTHMA, UNCOMPLICATED 03/23/2016 PRO HERRERA MD, Ot M54.9 DORSALGIA, UNSPECIFIED 03/23/2016 PRO HERRERA MD, Ot N18.9 CHRONIC KIDNEY DISEASE, UNSPECIFIED 03/23/2016 PRO HERRERA MD Ot R11.10 VOMITING, UNSPECIFIED 03/23/2016 PRO HERRERA MD Ot R53.81 OTHER MALAISE 03/23/2016 PRO HERRERA MD Ot Z66 DO NOT RESUSCITATE 03/23/2016 PRO HERRERA MD Ot Z86.73 PRSNL HX OF TIA (TIA), AND CEREB INFRC W 03/23/2016 PRO HERRERA MD Ot Z87.891 PERSONAL HISTORY OF NICOTINE DEPENDENCE 03/23/2016 PRO HERRERA MD Ot Z99.3 DEPENDENCE ON WHEELCHAIR 03/27/2016 ANABELL MANN AMAURI Ot D63.1 ANEMIA IN CHRONIC KIDNEY DISEASE 03/27/2016 ANABELL MANN AMAURI Ot E03.9 HYPOTHYROIDISM, UNSPECIFIED 03/27/2016 ANABELL MANN AMAURI Ot E78.00 PURE HYPERCHOLESTEROLEMIA, UNSPECIFIED 03/27/2016 HUNGDARIUS MANN AMAURI Ot F03.90 UNSPECIFIED DEMENTIA WITHOUT BEHAVIORAL 03/27/2016 ANABELL MANN AMAURI Ot F32.9 MAJOR DEPRESSIVE DISORDER, SINGLE EPISOD 03/27/2016 ANABELL MANN AMAURI Ot F41.9 ANXIETY DISORDER, UNSPECIFIED 03/27/2016 ANABELL MANN AMAURI Ot G25.81 RESTLESS LEGS SYNDROME 03/27/2016 ANABELL MANN AMAURI Ot G62.9 POLYNEUROPATHY, UNSPECIFIED 03/27/2016 ANABELL MANN AMAURI Ot H40.9 UNSPECIFIED GLAUCOMA 03/27/2016 PAVEL HUNG DOI Ot I12.9 HYPERTENSIVE CHRONIC KIDNEY DISEASE W ST 03/27/2016 PAVEL HUNG DOI Ot J18.9 PNEUMONIA, UNSPECIFIED ORGANISM 03/27/2016 PAVEL HUNG DOI Ot J44.0 CHRONIC OBSTRUCTIVE PULMON DISEASE W ACU 03/27/2016 PAVEL HUNG DOI Ot J45.909 UNSPECIFIED ASTHMA, UNCOMPLICATED 03/27/2016 PAVEL HUNG DOI Ot M54.9 DORSALGIA, UNSPECIFIED 03/27/2016 ANABELL MANN AMAURI Ot N18.9 CHRONIC KIDNEY DISEASE, UNSPECIFIED 03/27/2016 PAVEL HUNG DOI Ot R11.10 VOMITING, UNSPECIFIED 03/27/2016 PAVEL HUNG DOI Ot R53.81 OTHER MALAISE 03/27/2016 ANABELL MANN AMAURI Ot Z66 DO NOT RESUSCITATE 03/27/2016 PAVEL HUNG DOI Ot Z86.73 PRSNL HX OF TIA (TIA), AND CEREB INFRC W 03/27/2016 PAVEL HUNG DOI Ot Z87.891 PERSONAL HISTORY OF NICOTINE DEPENDENCE 03/27/2016 ANABELL MANN AMAURI Ot Z99.3 DEPENDENCE ON WHEELCHAIR 03/31/2016 OLIVIA VASQUEZ BACKPACKERS MANAGER Ot E87.1 HYPO-OSMOLALITY AND HYPONATREMIA 04/05/2016 OLIVIA VASQUEZ APRN Ot E87.1 HYPO-OSMOLALITY AND HYPONATREMIA 06/22/2016 PRO HERRERA MD Ot D64.9 ANEMIA, UNSPECIFIED 06/22/2016 PRO HERRERA MD Ot E03.9 HYPOTHYROIDISM, UNSPECIFIED 06/22/2016 PRO HERRERA MD Ot E78.00 PURE HYPERCHOLESTEROLEMIA, UNSPECIFIED 06/22/2016 PRO HERRERA MD Ot F03.90 UNSPECIFIED DEMENTIA WITHOUT BEHAVIORAL 06/22/2016 PRO HERRERA MD Ot F32.9 MAJOR DEPRESSIVE DISORDER, SINGLE EPISOD 06/22/2016 PRO HERRERA MD, Ot F41.9 ANXIETY DISORDER, UNSPECIFIED 06/22/2016 PRO HERRERA MD, Ot G25.81 RESTLESS LEGS SYNDROME 06/22/2016 PRO HERRERA MD, Ot G43.909 MIGRAINE, UNSP, NOT INTRACTABLE, WITHOUT 06/22/2016 PRO HERRERA MD, Ot G62.9 POLYNEUROPATHY, UNSPECIFIED 06/22/2016 PRO HERRERA MD, Ot H40.9 UNSPECIFIED GLAUCOMA 06/22/2016 PRO HERRERA MD, Ot H91.90 UNSPECIFIED HEARING LOSS, UNSPECIFIED EA 06/22/2016 PRO HERRERA MD, Ot I12.9 HYPERTENSIVE CHRONIC KIDNEY DISEASE W ST 06/22/2016 PRO HERRERA MD, Ot J44.9 CHRONIC OBSTRUCTIVE PULMONARY DISEASE, U 06/22/2016 PRO HERRERA MD, Ot J45.909 UNSPECIFIED ASTHMA, UNCOMPLICATED 06/22/2016 PRO HERRERA MD, Ot K21.9 GASTRO-ESOPHAGEAL REFLUX DISEASE WITHOUT 06/22/2016 PRO HERRERA MD, Ot K57.90 DVRTCLOS OF INTEST, PART UNSP, W/O PERF 06/22/2016 PRO HERRERA MD, Ot M10.9 GOUT, UNSPECIFIED 06/22/2016 PRO HERRERA MD, Ot M19.91 PRIMARY OSTEOARTHRITIS, UNSPECIFIED SITE 06/22/2016 PRO HERRERA MD, Ot M54.9 DORSALGIA, UNSPECIFIED 06/22/2016 PRO HERRERA MD, Ot N18.9 CHRONIC KIDNEY DISEASE, UNSPECIFIED 06/22/2016 PRO HERRERA MD, Ot R07.9 CHEST PAIN, UNSPECIFIED 06/22/2016 PRO HERRERA MD Ot Z66 DO NOT RESUSCITATE 06/22/2016 PRO HERRERA MD, Ot Z86.73 PRSNL HX OF TIA (TIA), AND CEREB INFRC W 06/22/2016 PRO HERRERA MD, Ot Z87.891 PERSONAL HISTORY OF NICOTINE DEPENDENCE 06/22/2016 PRO HERRERA MD, Ot D64.9 ANEMIA, UNSPECIFIED 06/22/2016 PRO HERRERA MD, Ot E03.9 HYPOTHYROIDISM, UNSPECIFIED 06/22/2016 PRO HERRERA MD, Ot E78.00 PURE HYPERCHOLESTEROLEMIA, UNSPECIFIED 06/22/2016 PRO HERRERA MD, Ot F03.90 UNSPECIFIED DEMENTIA WITHOUT BEHAVIORAL 06/22/2016 PRO HERRERA MD, Ot F32.9 MAJOR DEPRESSIVE DISORDER, SINGLE EPISOD 06/22/2016 PRO HERRERA MD, Ot F41.9 ANXIETY DISORDER, UNSPECIFIED 06/22/2016 PRO HERRERA MD, Ot G25.81 RESTLESS LEGS SYNDROME 06/22/2016 PRO HERRERA MD, Ot G43.909 MIGRAINE, UNSP, NOT INTRACTABLE, WITHOUT 06/22/2016 PRO HERRERA MD, Ot G62.9 POLYNEUROPATHY, UNSPECIFIED 06/22/2016 PRO HERRERA MD, Ot H40.9 UNSPECIFIED GLAUCOMA 06/22/2016 PRO HERRERA MD, Ot H91.90 UNSPECIFIED HEARING LOSS, UNSPECIFIED EA 06/22/2016 PRO HERRERA MD, Ot I12.9 HYPERTENSIVE CHRONIC KIDNEY DISEASE W ST 06/22/2016 PRO HERRERA MD, Ot J44.9 CHRONIC OBSTRUCTIVE PULMONARY DISEASE, U 06/22/2016 PRO HERRERA MD, Ot J45.909 UNSPECIFIED ASTHMA, UNCOMPLICATED 06/22/2016 PRO HERRERA MD, Ot K21.9 GASTRO-ESOPHAGEAL REFLUX DISEASE WITHOUT 06/22/2016 PRO HERRERA MD, Ot K57.90 DVRTCLOS OF INTEST, PART UNSP, W/O PERF 06/22/2016 PRO HERRERA MD, Ot M10.9 GOUT, UNSPECIFIED 06/22/2016 PRO HERRERA MD, Ot M19.91 PRIMARY OSTEOARTHRITIS, UNSPECIFIED SITE 06/22/2016 PRO HERRERA MD, Ot M54.9 DORSALGIA, UNSPECIFIED 06/22/2016 PRO HERRERA MD, Ot N18.9 CHRONIC KIDNEY DISEASE, UNSPECIFIED 06/22/2016 PRO HERRERA MD, Ot R07.9 CHEST PAIN, UNSPECIFIED 06/22/2016 PRO HERRERA MD Ot Z66 DO NOT RESUSCITATE 06/22/2016 PRO HERRERA MD, Ot Z86.73 PRSNL HX OF TIA (TIA), AND CEREB INFRC W 06/22/2016 PRO HERRERA MD, Ot Z87.891 PERSONAL HISTORY OF NICOTINE DEPENDENCE 06/23/2016 PRO HERRERA MD, Ot D64.9 ANEMIA, UNSPECIFIED 06/23/2016 PRO HERRERA MD, Ot E03.9 HYPOTHYROIDISM, UNSPECIFIED 06/23/2016 PRO HERRERA MD, Ot E78.00 PURE HYPERCHOLESTEROLEMIA, UNSPECIFIED 06/23/2016 PRO HERRERA MD Ot F03.90 UNSPECIFIED DEMENTIA WITHOUT BEHAVIORAL 06/23/2016 PRO HERRERA MD, Ot F32.9 MAJOR DEPRESSIVE DISORDER, SINGLE EPISOD 06/23/2016 PRO HERRERA MD, Ot F41.9 ANXIETY DISORDER, UNSPECIFIED 06/23/2016 PRO HERRERA MD, Ot G25.81 RESTLESS LEGS SYNDROME 06/23/2016 PRO HERRERA MD, Ot G43.909 MIGRAINE, UNSP, NOT INTRACTABLE, WITHOUT 06/23/2016 PRO HERRERA MD, Ot G62.9 POLYNEUROPATHY, UNSPECIFIED 06/23/2016 PRO HERRERA MD, Ot H40.9 UNSPECIFIED GLAUCOMA 06/23/2016 PRO HERRERA MD, Ot H91.90 UNSPECIFIED HEARING LOSS, UNSPECIFIED EA 06/23/2016 PRO HERRERA MD, Ot I12.9 HYPERTENSIVE CHRONIC KIDNEY DISEASE W ST 06/23/2016 PRO HERRERA MD, Ot J44.9 CHRONIC OBSTRUCTIVE PULMONARY DISEASE, U 06/23/2016 PRO HERRERA MD, Ot J45.909 UNSPECIFIED ASTHMA, UNCOMPLICATED 06/23/2016 PRO HERRERA MD, Ot K21.9 GASTRO-ESOPHAGEAL REFLUX DISEASE WITHOUT 06/23/2016 PRO HERRERA MD, Ot K57.90 DVRTCLOS OF INTEST, PART UNSP, W/O PERF 06/23/2016 PRO HERRERA MD, Ot M10.9 GOUT, UNSPECIFIED 06/23/2016 PRO HERRERA MD, Ot M19.91 PRIMARY OSTEOARTHRITIS, UNSPECIFIED SITE 06/23/2016 PRO HERRERA MD, Ot M54.9 DORSALGIA, UNSPECIFIED 06/23/2016 PRO HERRERA MD, Ot N18.9 CHRONIC KIDNEY DISEASE, UNSPECIFIED 06/23/2016 PRO HERRERA MD, Ot R07.9 CHEST PAIN, UNSPECIFIED 06/23/2016 PRO HERRERA MD Ot Z66 DO NOT RESUSCITATE 06/23/2016 PRO HERRERA MD, Ot Z86.73 PRSNL HX OF TIA (TIA), AND CEREB INFRC W 06/23/2016 POR HERRERA MD, Ot Z87.891 PERSONAL HISTORY OF NICOTINE DEPENDENCE 06/23/2016 PRO HERRERA MD, Ot D64.9 ANEMIA, UNSPECIFIED 06/23/2016 PRO HERRERA MD, Ot E03.9 HYPOTHYROIDISM, UNSPECIFIED 06/23/2016 PRO HERRERA MD, Ot E78.00 PURE HYPERCHOLESTEROLEMIA, UNSPECIFIED 06/23/2016 PRO HERRERA MD, Ot F03.90 UNSPECIFIED DEMENTIA WITHOUT BEHAVIORAL 06/23/2016 PRO HERRERA MD, Ot F32.9 MAJOR DEPRESSIVE DISORDER, SINGLE EPISOD 06/23/2016 PRO HERRERA MD, Ot F41.9 ANXIETY DISORDER, UNSPECIFIED 06/23/2016 PRO HERRERA MD, Ot G25.81 RESTLESS LEGS SYNDROME 06/23/2016 PRO HERRERA MD, Ot G43.909 MIGRAINE, UNSP, NOT INTRACTABLE, WITHOUT 06/23/2016 PRO HERRERA MD, Ot G62.9 POLYNEUROPATHY, UNSPECIFIED 06/23/2016 PRO HERRERA MD, Ot H40.9 UNSPECIFIED GLAUCOMA 06/23/2016 PRO HERRERA MD, Ot H91.90 UNSPECIFIED HEARING LOSS, UNSPECIFIED EA 06/23/2016 PRO HERRERA MD, Ot I12.9 HYPERTENSIVE CHRONIC KIDNEY DISEASE W ST 06/23/2016 PRO HERRERA MD, Ot J44.9 CHRONIC OBSTRUCTIVE PULMONARY DISEASE, U 06/23/2016 PRO HERRERA MD, Ot J45.909 UNSPECIFIED ASTHMA, UNCOMPLICATED 06/23/2016 PRO HERRERA MD, Ot K21.9 GASTRO-ESOPHAGEAL REFLUX DISEASE WITHOUT 06/23/2016 PRO HERRERA MD, Ot K57.90 DVRTCLOS OF INTEST, PART UNSP, W/O PERF 06/23/2016 PRO HERRERA MD, Ot M10.9 GOUT, UNSPECIFIED 06/23/2016 PRO HERRERA MD, Ot M19.91 PRIMARY OSTEOARTHRITIS, UNSPECIFIED SITE 06/23/2016 PRO HERRERA MD, Ot M54.9 DORSALGIA, UNSPECIFIED 06/23/2016 PRO HERRERA MD, Ot N18.9 CHRONIC KIDNEY DISEASE, UNSPECIFIED 06/23/2016 PRO HERRERA MD, Ot R07.9 CHEST PAIN, UNSPECIFIED 06/23/2016 PRO HERRERA MD, Ot Z66 DO NOT RESUSCITATE 06/23/2016 PRO HERRERA MD, Ot Z86.73 PRSNL HX OF TIA (TIA), AND CEREB INFRC W 06/23/2016 PRO HERRERA MD, Ot Z87.891 PERSONAL HISTORY OF NICOTINE DEPENDENCE 06/23/2016 PRO HERRERA MD, Ot D50.9 IRON DEFICIENCY ANEMIA, UNSPECIFIED 06/23/2016 PRO HERRERA MD, Ot D63.1 ANEMIA IN CHRONIC KIDNEY DISEASE 06/23/2016 PRO HERRERA MD, Ot E03.9 HYPOTHYROIDISM, UNSPECIFIED 06/23/2016 PRO HERRERA MD, Ot E78.5 HYPERLIPIDEMIA, UNSPECIFIED 06/23/2016 PRO HERRERA MD, Ot E87.5 HYPERKALEMIA 06/23/2016 POR HERRERA MD, Ot F03.90 UNSPECIFIED DEMENTIA WITHOUT BEHAVIORAL 06/23/2016 PRO HERRERA MD, Ot F32.9 MAJOR DEPRESSIVE DISORDER, SINGLE EPISOD 06/23/2016 PRO HERRERA MD, Ot F41.9 ANXIETY DISORDER, UNSPECIFIED 06/23/2016 PRO HERRERA MD, Ot G25.81 RESTLESS LEGS SYNDROME 06/23/2016 PRO HERRERA MD, Ot G43.909 MIGRAINE, UNSP, NOT INTRACTABLE, WITHOUT 06/23/2016 PRO HERRERA MD, Ot G62.9 POLYNEUROPATHY, UNSPECIFIED 06/23/2016 PRO HERRERA MD, Ot H40.9 UNSPECIFIED GLAUCOMA 06/23/2016 PRO HERRERA MD, Ot H91.90 UNSPECIFIED HEARING LOSS, UNSPECIFIED EA 06/23/2016 PRO HERRERA MD, Ot I13.0 HYP HRT CHR KDNY DIS W HRT FAIL AND ST 06/23/2016 PRO HERRERA MD, Ot I50.9 HEART FAILURE, UNSPECIFIED 06/23/2016 PRO HERRERA MD, Ot J44.9 CHRONIC OBSTRUCTIVE PULMONARY DISEASE, U 06/23/2016 PRO HERRERA MD, Ot J45.909 UNSPECIFIED ASTHMA, UNCOMPLICATED 06/23/2016 PRO HERRERA MD, Ot K21.9 GASTRO-ESOPHAGEAL REFLUX DISEASE WITHOUT 06/23/2016 PRO HERRERA MD, Ot K57.90 DVRTCLOS OF INTEST, PART UNSP, W/O PERF 06/23/2016 PRO HERRERA MD, Ot M10.9 GOUT, UNSPECIFIED 06/23/2016 PRO HERRERA MD, Ot M19.91 PRIMARY OSTEOARTHRITIS, UNSPECIFIED SITE 06/23/2016 PRO HERRERA MD, Ot M54.9 DORSALGIA, UNSPECIFIED 06/23/2016 PRO HERRERA MD, Ot N18.9 CHRONIC KIDNEY DISEASE, UNSPECIFIED 06/23/2016 PRO HERRERA MD, Ot R07.9 CHEST PAIN, UNSPECIFIED 06/23/2016 PRO HERRERA MD Ot Z66 DO NOT RESUSCITATE 06/23/2016 PRO HERRERA MD, Ot Z86.73 PRSNL HX OF TIA (TIA), AND CEREB INFRC W 06/23/2016 PRO HERRERA MD, Ot Z87.440 PERSONAL HISTORY OF URINARY (TRACT) INFE 06/23/2016 PRO HERRERA MD, Ot Z87.891 PERSONAL HISTORY OF NICOTINE DEPENDENCE 06/23/2016 PRO HERRERA MD, Ot Z99.81 DEPENDENCE ON SUPPLEMENTAL OXYGEN Procedures Encounters ACCT No. Visit Date/Time Discharge Status Pt. Type Provider Facility Loc./Unit Complaint [id number] 02/26/2014 11:44:00 02/26/2014 23: 59:59 CLS Outpatient PHILIPPE GRAYSON MD [id number] 01/29/2014 09:30:00 01/29/2014 23: 59:59 CLS Outpatient PHILIPPE GRAYSON MD
--- OUTSIDE RECORDS SUMMARY | 2016-07-23 19:18 | XMS REPORT ---
Author Author [facility] Medical Staff Organization [facility] Address [address] [id number] Phone [phone] Care Team Providers Care Biomass Plant Technician Name Role Phone KAELA MANN LANCE PP [phone] LANCE SHERWOOD DO, PP [phone] Summary purpose TRANSITION OF CARE AUTO GENERATION [...] visit Relevant diagnostic tests and/or laboratory data No authorized results are available for this patient visit History of procedures No procedures recorded for [...]
--- OUTSIDE RECORDS SUMMARY | 2016-07-23 19:20 | XMS REPORT ---
Author Author [facility] Medical Staff Organization [facility] Address [address] [id number] Phone [phone] Care Team Providers Care Ip Architect Name Role Phone KAELA MANN LANCE PP [phone] LANCE SHERWOOD DO, PP [phone] Summary purpose TRANSITION OF CARE AUTO GENERATION [...]
--- OUTSIDE RECORDS SUMMARY | 2016-07-23 19:23 | XMS REPORT ---
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 MD DENNIS Torres/id04/16/2014 11:49:00 / 04/16/2014 11:52:54 cc:Dr. Roman Valdivia This document has been electronically Signed by: On: DATE OF EXAM: Apr 16 2014 [id number] CAROTID DUPLEX SONO : RADIOLOGY REPORT DATE [...] Antegrade vertebral artery flow bilaterally. MD DENNIS Torres/id04/16/2014 11:49:00 / 04/16/2014 11:52:54 cc:Dr. Roman Valdivia This document has been electronically Signed by: HUBER CHAVEZ On: Apr 16 20141:16P Result Amended on 2014-04-16 at 13:16:22. Previous status was CA. History of procedures Procedure Code Code Type Description Date Performed Performing Physician 20118 CPT-4 TTE W/DOPPLER, COMPLETE 04-16-2014 ROMAN VALDIVIA [id number] CPT-4 EXTRACRANIAL STUDY 04-16-2014 ROMAN VALDIVIA Functional status No functional or cognitive status [...]
--- OUTSIDE RECORDS SUMMARY | 2016-07-23 19:51 | XMS REPORT | Continuity of Care Document ---
Author Author Count Includes [facility] of [facility] Address Unknown Phone Unavailable Allergies Active Description [...] 3073 Drug Allergy N/A N/A Yes wheat 43188 Drug Allergy N/A N/A Yes fentanyl [id number] Drug Allergy Unknown N/A 11/02/2014 Yes penicillin [id number] Drug Allergy Unknown N/A 11/02/2014 Yes TETANUS TETANUS Unknown N/A 11/02/2014 Medications Problems Date Dx Coded Attending Type Code Diagnosis Diagnosed By 08/11/2014 OLIVIA VASQUEZ APRN Ot 724.02 08/11/2014 OLIVIA VASQUEZ APRN Ot 733.13 09/08/2014 OLIVIA VASQUEZ APRN Ot 724.02 09/08/2014 OLIVIA VASQUEZ APRN Ot 733.13 09/10/2014 OLIVIA VASQUEZ [...] 03/26/2015 CATA CHAN MD Ot Z79.899 OTHER NURSING HOME (CURRENT) DRUG THERAPY 04/23/2015 CATA CHAN MD, Ot M47.816 SPONDYLOSIS W/O MYELOPATHY OR RADICULOPA 04/23/2015 CATA CHAN MD, Ot M51.16 INTERVERTEBRAL DISC DISORDERS W RADICULO 04/23/2015 CATA CHAN MD Ot Z79.899 OTHER NURSING HOME (CURRENT) DRUG THERAPY 06/07/2015 CATA CHAN MD, Ot M47.816 SPONDYLOSIS W/O MYELOPATHY OR RADICULOPA 06/07/2015 CATA CHAN MD Ot M51.16 INTERVERTEBRAL DISC DISORDERS W RADICULO 06/07/2015 CATA CHAN MD Ot Z79.899 OTHER NURSING HOME (CURRENT) DRUG THERAPY 06/14/2015 CATA CHAN MD, Ot M47.816 06/14/2015 CATA CHAN MD, Ot M51.16 06/14/2015 CATA CHAN MD, Ot Z79.899 06/14/2015 CATA CHAN MD, Ot M47.816 SPONDYLOSIS W/O MYELOPATHY OR RADICULOPA 06/14/2015 CATA CHAN MD, Ot M51.16 INTERVERTEBRAL DISC DISORDERS W RADICULO 06/14/2015 CATA CHAN MD Ot 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 06/22/2015 CATA CHAN MD Ot M47.816 06/22/2015 CATA CHAN MD Ot M51.16 06/22/2015 CATA CHAN MD, Ot Z79.899 02/22/2016 OLIVIA VASQUEZ MECHANIC WELDER TRUCK DRIVER Ot 724.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, LUMBAR REG, W/OUT NEURO 02/22/2016 OLIVIA VASQUEZ MECHANIC WELDER TRUCK DRIVER Ot 733.13 PATHOLOGIC FRACTURE, VERTEBRAE 02/22/2016 CATA CHAN MD Ot 719.45 JOINT PAIN-PELVIS 03/07/2016 OLIVIA VASQUEZ MECHANIC WELDER TRUCK DRIVER Ot E87.1 HYPO-OSMOLALITY AND HYPONATREMIA 03/07/2016 OLIVIA VASQUEZ MECHANIC WELDER TRUCK DRIVER Ot E87.1 HYPO-OSMOLALITY AND HYPONATREMIA 03/09/2016 OLIVIA VASQUEZ MECHANIC WELDER TRUCK DRIVER Ot E87.1 HYPO-OSMOLALITY AND HYPONATREMIA 03/12/2016 CELESTINO [...] 03/12/2016 CELESTINO VELAZCO MD Ot 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 03/14/2016 CELESTINO VELAZCO MD [...] 03/14/2016 CELESTINO VELAZCO MD, Ot 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 03/16/2016 PAYALHEYDI RADIOLOGY RN Ot J18.9 PNEUMONIA, UNSPECIFIED ORGANISM 03/16/2016 PAYAL, HEYDI RADIOLOGY RN Ot J44.9 CHRONIC OBSTRUCTIVE PULMONARY DISEASE, U 03/16/2016 PAYAL, HEYDI RADIOLOGY RN Ot R05 COUGH 03/16/2016 PAYAL, HEYDI RADIOLOGY RN Ot Z87.891 PERSONAL HISTORY OF NICOTINE DEPENDENCE [...] 03/17/2016 CELESTINO VELAZCO MD Ot 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 03/17/2016 PAYAL HEYDI RADIOLOGY RN Ot J18.9 PNEUMONIA, UNSPECIFIED ORGANISM 03/17/2016 PAYAL, HEYDI RADIOLOGY RN Ot J44.9 CHRONIC OBSTRUCTIVE PULMONARY DISEASE, U 03/17/2016 PAYAL, HEYDI RADIOLOGY RN Ot R05 COUGH 03/17/2016 HEYDI MOE RADIOLOGY RN Ot Z87.891 PERSONAL HISTORY OF NICOTINE DEPENDENCE [...] 03/18/2016 CELESTINO VELAZCO MD Ot 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 03/23/2016 PRO HERRERA MD, [...] Z99.3 DEPENDENCE ON WHEELCHAIR 03/31/2016 OLIVIA VASQUEZ MECHANIC WELDER TRUCK DRIVER Ot E87.1 HYPO-OSMOLALITY AND HYPONATREMIA 04/05/2016 OLIVIA VASQUEZ APRN Ot E87.1 HYPO-OSMOLALITY AND HYPONATREMIA 06/22/2016 PRO HERRERA MD Ot D64.9 ANEMIA, UNSPECIFIED 06/22/2016 PRO HERRERA MD Ot E03.9 HYPOTHYROIDISM, UNSPECIFIED 06/22/2016 PRO HERRERA MD Ot E78.00 PURE HYPERCHOLESTEROLEMIA, UNSPECIFIED 06/22/2016 PRO HERRERA MD Ot F03.90 UNSPECIFIED DEMENTIA WITHOUT BEHAVIORAL 06/22/2016 PRO HERRREA MD Ot F32.9 MAJOR DEPRESSIVE DISORDER, SINGLE [...] OF INTEST, PART UNSP, W/O PERF 06/22/2016 RPO HERRERA MD, Ot M10.9 GOUT, UNSPECIFIED 06/22/2016 [...] Ot N18.9 CHRONIC KIDNEY DISEASE, UNSPECIFIED 06/22/2016 RPO HERRERA MD, Ot R07.9 CHEST PAIN, UNSPECIFIED [...] PRO HERRERA MD, Ot E87.5 HYPERKALEMIA 06/23/2016 PRO HERRERA MD, Ot F03.90 UNSPECIFIED [...] Status Pt. Type Provider Facility Loc./Unit Complaint [id number] 02/26/2014 11:44:00 02/26/2014 23: 59:59 CLS Outpatient PHILIPPE GRAYSON MD [id number] 01/29/2014 09:30:00 01/29/2014 23: 59:59 CLS Outpatient PHILIPPE GRAYSON MD
== END 2016-06-23 13:25 | DRG 812 ==
LOC: EDUNIT# 00:50 → ER 00:51 → CSD 02:00 → 4TH 11:30
PROVIDERS: ADMIT Internal Medicine; ATTEND Internal Medicine
DX: D50.9 Iron deficiency anemia, unspecified (principal); D63.1 Anemia in chronic kidney disease; I13.0 Hypertensive heart and chronic kidney disease with heart failure and stage 1 through stage 4 chronic kidney disease, or unspecified chronic kidney disease; N18.9 Chronic kidney disease, unspecified; I50.9 Heart failure, unspecified; J44.9 Chronic obstructive pulmonary disease, unspecified; R07.9 Chest pain, unspecified; J45.909 Unspecified asthma, uncomplicated; Z66 Do not resuscitate; G62.9 Polyneuropathy, unspecified; G25.81 Restless legs syndrome; M10.9 Gout, unspecified; K21.9 Gastro-esophageal reflux disease without esophagitis; M54.9 Dorsalgia, unspecified; E03.9 Hypothyroidism, unspecified; H40.9 Unspecified glaucoma; F41.9 Anxiety disorder, unspecified; F32.9 Major depressive disorder, single episode, unspecified; M19.91 Primary osteoarthritis, unspecified site; E78.5 Hyperlipidemia, unspecified; E87.5 Hyperkalemia; K57.90 Diverticulosis of intestine, part unspecified, without perforation or abscess without bleeding; F03.90 Unspecified dementia, unspecified severity, without behavioral disturbance, psychotic disturbance, mood disturbance, and anxiety; G43.909 Migraine, unspecified, not intractable, without status migrainosus; Z87.891 Personal history of nicotine dependence; Z86.73 Personal history of transient ischemic attack (TIA), and cerebral infarction without residual deficits; Z99.81 Dependence on supplemental oxygen; Z87.440 Personal history of urinary (tract) infections
CPT/HCPCS: 36415; 71010; 78452; 80048; 80053; 80061; 82150; 82274; 82550; 82553; 82607; 82728; 82746; 83540; 83690; 83874; 83880; 84132; 84484; 85014; 85018; 85025; 85027; 85045; 85610; 85730; 86850; 86900; 86901; 86920; 93005; 93017; 93306; 94640; 94760; 96361; 96374; 96375

== ENCOUNTER 2016-06-29 14:07 | Outpatient (RCR) | payer MEDICARE, MEDICAID ==
[~2016-06-29 14:07] MED LIST changes: +ALPR0.254 PO; +FLUT1DIS26 INH; +OXYC-471 PO
[2016-06-29 15:34] LABS: MEAN CORPUSCULAR HEMOGLOBIN 26 PG (25-34); MEAN CORPUSCULAR HGB CONC 30 G/DL (32-36); MEAN CORPUSCULAR VOLUME 87 FL (80-99); MEAN PLATELET VOLUME 10.2 FL (7.4-10.4); NEUTROPHILS % (AUTO) 56 % (42-75); PLATELET COUNT 265 10^3/uL (130-400); RED BLOOD COUNT 3.48 10^6/uL (4.35-5.85); RED CELL DISTRIBUTION WIDTH 17.4 % (10.0-14.5); WHITE BLOOD COUNT 6.6 10^3/uL (4.3-11.0)
[2016-06-29 15:35] LABS: BASOPHILS % (AUTO) 1 % (0-10); EOSINOPHILS # (AUTO) 0.4 10^3/uL (0.0-0.3); EOSINOPHILS % (AUTO) 6 % (0-10); LYMPHOCYTES # (AUTO) 1.7 X 10^3 (1.0-4.0); LYMPHOCYTES % (AUTO) 26 % (12-44); MONOCYTES # (AUTO) 0.7 X 10^3 (0.0-1.0); MONOCYTES % (AUTO) 11 % (0-12); NEUTROPHILS # (AUTO) 3.7 X 10^3 (1.8-7.8)
[2016-06-29 15:55] LABS: BILIRUBIN,TOTAL 0.2 MG/DL (0.1-1.0); CALCIUM 9.9 MG/DL (8.5-10.1); CREATININE SERUM 2.24 MG/DL (0.60-1.30); POTASSIUM 4.8 MMOL/L (3.6-5.0); TOTAL PROTEIN 6.7 G/DL (6.4-8.2)
[2016-08-10] MEDS ORDERED: MORP20SY PO (12:01)
[2016-08-10] MEDS ORDERED: OXYC-197 PO (12:01)
[2016-08-10] MEDS ORDERED: ALPR0.25 PO (12:01)
[2016-08-10] MEDS ORDERED: FERR-74 PO (12:01)
[2016-08-10] MEDS ORDERED: LEVO750T9 PO (12:01)
[2016-08-13] MEDS ORDERED: PRD20T PO (11:47)
[2016-08-13] MEDS ORDERED: LEVO500T80 PO (11:53)
[2016-08-13] MEDS ORDERED: CEFD300C3 PO (11:53)
== END 2016-09-27 | disposition home or self-care (01) ==
LOC: ONC 14:07
PROVIDERS: ATTEND Internal Medicine Hematology & Oncology
DX: D50.9 Iron deficiency anemia, unspecified (principal); D63.1 Anemia in chronic kidney disease; I13.0 Hypertensive heart and chronic kidney disease with heart failure and stage 1 through stage 4 chronic kidney disease, or unspecified chronic kidney disease; N18.9 Chronic kidney disease, unspecified; I50.9 Heart failure, unspecified; J44.9 Chronic obstructive pulmonary disease, unspecified; E03.9 Hypothyroidism, unspecified; E78.5 Hyperlipidemia, unspecified; Z79.899 Other long term (current) drug therapy
CPT/HCPCS: 36415; 80053; 85025; 99213

== ENCOUNTER 2016-08-10 10:37 | Inpatient (IN) | payer MEDICARE, MEDICAID ==
[~2016-08-10] VITALS: Ht 165.1 cm; Wt 78.0 kg
[2016-08-10] MEDS ORDERED: ALPRAZolam 0.25 MG (XANAX) TAB PO PRN (10:45)
[2016-08-10] MEDS ORDERED: ACETAMINOPHEN 500 MG TAB (TYLENOL) PO PRN (10:45)
[2016-08-10] MEDS ORDERED: ONDANSETRON 4 MG/2 ML (SDV) Z0FRAN IVP PRN (10:45)
[2016-08-10] MEDS ORDERED: morphine INJ 4 MG/ML 1 ML (VIAL/SYRINGE) IVP PRN (10:45)
[2016-08-10] MEDS ORDERED: guaiFENesin/CODEINE (ROBITUSSIN AC) 10ML UDC PO PRN (10:45)
[2016-08-10 11:10] VITALS: BP 103/62
--- NOTE | 2016-08-10 11:30 | History & Physical-Hospitalist ---
HPI History of Present Illness: HPI/Chief Complaint CC: Shortness of breath HPI: This is an 86yoWF NH at [facility] of [facility] that is known to the Hospitalist Service from recent hospital stay that has been managed by Jonathan CALDWELL for the past 6 days on Levaquin 750mg PO every other day to treat presumed pneumonia but she had become worse with fever of 102.4 and requiring more O2 supplementation so I accepted the patient as a direct admit for presumed pneumonia and acute on chronic renal failure. Patient is very acutely ill from wheezing the shortness of breath and appears to be at the end stage of her life. I have asked Dr Jaime to join us for pulmonary consultation while maintaining the DNR order along with Palliative Care consultation. Source: patient Exam Limitations: clinical condition (severe dyspnea and wheezing) Date Seen 08/10/16 1120 Attending Physician Tamar Hung DO PCP Carlos Eduardo Serrano MD Referring Physician Date of Admission Home Medications & Allergies Home Medications Reviewed patient Home Medication Reconciliation Form Allergies Allergies Coded Allergies fentanyl (Verified Adverse Reaction, Unknown, 11/02/14) penicillin (Verified Adverse Reaction, Unknown, 11/02/14) Uncoded Allergies TETANUS ( Adverse Reaction, Unknown, 11/02/14) Past Qbdtbcu-Wharsv-Fmazsm Hx Patient Social History Marrital Status: Employed/Student: retired Smoking Status: Unknown if Ever Smoked Type Used: Cigarettes Recent Hopitalizations: No Immunizations Up To Date Tetanus Booster (TDap): More than 5yrs Date of Pneumonia Vaccine: Feb 16, 2014 Date of Influenza Vaccine: Dec 18, 2015 Seasonal Allergies Seasonal Allergies: Yes Surgeries HX Surgeries: Yes (COLONOSCOPY; KNEE SURGERY) Surgeries: Appendectomy, Gallbladder, Hysterectomy, Orthopedic Respiratory Hx Respiratory Disorders: Yes Respiratory Disorders: COPD Cardiovascular Hx Cardiovascular Disorders: Yes Cardiac Disorders: Chronic Edema/Swelling, High Cholesterol, Hypertension Neurological Hx Neurological Disorders: Yes (Peripheral Neuropathy, chronic weakness, RLS) Neurological Disorders: Dementia, Headaches /Migraines, Neuropathy, Stroke, TIA Reproductive System Hx Reproductive Disorders: No Genitourinary Hx Genitourinary Disorders: Yes (CHRONIC RENAL INSUFFICIENCY) Genitourinary Disorders: Renal Failure Gastrointestinal Hx Gastrointestinal Disorders: Yes Gastrointestinal Disorders: Gastroesophageal Reflux, Diverticulosis Musculoskeletal Hx Musculoskeletal Disorders: Yes (CHRONIC PAIN ) Musculoskeletal Disorders: Degenerate Disk Disease, Arthritis, Chronic Back Pain, Fractures, Gout Endocrine Hx Endocrine Disorders: Yes Endocrine Disorders: Hyperthyroidism, Hypothyroidsim HEENT HX ENT Disorders: Yes HEENT Disorders: Cataract, Glaucoma Loss of Vision: Bilateral Hearing Impairment: Hard of Hearing Cancer Hx Cancer: No Psychosocial Hx Psychiatric Problems: Yes Behavioral Health Disorders: Anxiety, Depression Integumentary HX Skin/Integumentary Disorder: No Blood Transfusions Hx Blood Disorders: Yes Adverse Reaction to a Blood Tr: No Family Medical History Significant Family History: Stroke Family Hx: Congenital heart disease 19 FATHER 19 MOTHER FH: stroke 19 FATHER 19 MOTHER G8 SISTER G8 SISTER Myocardial infarction G8 SISTER Review of Systems Constitutional: see HPI, malaise, weakness EENTM: no symptoms reported Respiratory: dyspnea on exertion, short of breath, wheezing Gastrointestinal: no symptoms reported Genitourinary: no symptoms reported Musculoskeletal: no symptoms reported Skin: no symptoms reported Psychiatric/Neurological: No Symptoms Reported All Other Systems Reviewed Negative Unless Noted: Yes Physical Exam Physical Exam Vital Signs Vital Sign - Last 12Hours 08/10/16 11:10 Temp 99.2 Pulse 75 Resp 28 B/P (MAP) 103/62 Pulse Ox 94 O2 Flow Rate 4.50 Capillary Refill : General Appearance: No Apparent Distress, WD/WN, Chronically ill, Moderate Distress, Obese Eyes: Bilateral Eye Normal Inspection, Bilateral Eye PERRL HEENT: PERRL/EOMI, Normal ENT Inspection, Pharynx Normal Neck: Full Range of Motion, Normal Inspection, Non Tender, Supple, Carotid Bruit Respiratory: Chest Non Tender, No Accessory Muscle Use, No Respiratory Distress , Decreased Breath Sounds, Rales, Wheezing Cardiovascular: Regular Rate, Rhythm, No Edema, No Gallop, No JVD, No Murmur, Normal Peripheral Pulses Gastrointestinal: Normal Bowel Sounds, No Organomegaly, No Pulsatile Mass, Non Tender, Soft Back: Normal Inspection, No CVA Tenderness, No Vertebral Tenderness Extremity: Normal Capillary Refill, Normal Inspection, Normal Range of Motion, Non Tender, No Calf Tenderness, No Pedal Edema Neurologic/Psychiatric: Alert, No Motor/Sensory Deficits, Depressed Affect, Disoriented x3 Skin: Normal Color, Warm/Dry Lymphatic: No Adenopathy Results Results/Procedures Lab Laboratory Tests 08/10/16 11:25 Assessment/Plan Admission Diagnosis Assessment: Respiratory insufficiency presumed recurrent pneumonia failed Levaquin for 6 days Acute renal failure Dementia HTN HLP Assessment and Plan Plan: Pulmonary consultation DNR Palliative Care consultation Very poor prognosis TAMAR HUNG DO August 10, 2016 11:30
[2016-08-10] MEDS ORDERED: RT-ALBUTEROL/IPRATROPIUM 3 ML (DUONEB) VIAL INH PRN (11:45)
[2016-08-10 11:49] LABS: BASOPHILS % (AUTO) 0 % (0-10); EOSINOPHILS % (AUTO) 0 % (0-10); LYMPHOCYTES # (AUTO) 0.7 X 10^3 (1.0-4.0); LYMPHOCYTES % (AUTO) 4 % (12-44); MEAN CORPUSCULAR HEMOGLOBIN 30 PG (25-34); MEAN CORPUSCULAR HGB CONC 32 G/DL (32-36); MEAN CORPUSCULAR VOLUME 94 FL (80-99); MEAN PLATELET VOLUME 10.6 FL (7.4-10.4); MONOCYTES # (AUTO) 1.1 X 10^3 (0.0-1.0); MONOCYTES % (AUTO) 7 % (0-12); NEUTROPHILS # (AUTO) 13.9 X 10^3 (1.8-7.8); NEUTROPHILS % (AUTO) 88 % (42-75); PLATELET COUNT 231 10^3/uL (130-400); RED BLOOD COUNT 3.44 10^6/uL (4.35-5.85); RED CELL DISTRIBUTION WIDTH 22.1 % (10.0-14.5); WHITE BLOOD COUNT 15.8 10^3/uL (4.3-11.0)
[2016-08-10] MEDS ORDERED: FERR-74 PO (12:01)
[2016-08-10] MEDS ORDERED: MORP20SY PO (12:01)
[2016-08-10] MEDS ORDERED: LEVO750T9 PO (12:01)
[2016-08-10] MEDS ORDERED: ALPR0.25 PO (12:01)
[2016-08-10] MEDS ORDERED: OXYC-197 PO (12:01)
[2016-08-10 12:04] LABS: CALCIUM 9.3 MG/DL (8.5-10.1); CREATININE SERUM 2.6 MG/DL (0.60-1.30); POTASSIUM 4.7 MMOL/L (3.6-5.0)
[2016-08-10 12:27] LABS: ANISOCYTOSIS MODERATE; BAND NEUTROPHILS 11 %; BASOPHILS % (MANUAL) 1 %; LYMPHOCYTES % (MANUAL) 8 %; MICROCYTOSIS SLIGHT; NEUTROPHILS % (MANUAL) 75 %; POIKILOCYTOSIS SLIGHT; TEAR DROP CELLS SLIGHT
[2016-08-10] MEDS ORDERED: LEVOFLOXACIN 750 MG/150 ML IV 150 ML IV SCH (12:30)
[2016-08-10] MEDS: CEFEPIME INJECTION 2,000 MG in NS (IVPB) 50 ML IV SCH (13:28)
--- NOTE | 2016-08-10 13:34 | Diagnostic Imaging Report ---
EXAMINATION: PA and lateral views of the chest. INDICATION: Shortness of breath. FINDINGS: A prominent right perihilar infiltrate is seen, likely related to pneumonia. The heart size is mildly enlarged. There is minimal prominence of the interstitial markings, similar to 06/22/2016. Calcified granulomas in the left perihilar region are seen. There is suggestion of a moderate hiatal hernia. Background COPD changes are noted. There is a compression fracture of the L1 vertebral body, probably old. IMPRESSION: Right perihilar pneumonia. Dictated by: Dictated on workstation # [id number]
[2016-08-10] MEDS: HYDROcodone/APAP 5 MG/325 MG (LORTAB) TAB PO PRN ×2 (13:37→17:40)
--- NOTE | 2016-08-10 15:16 | Pulmonary Consultation ---
History of Present Illness History of Present Illness Date of Consultation 08/10/16 15:14 Date of Admission History of Present Illness 86yo directly admitted from [facility] had rencent hospital stay. Pt was recently treated with Levaquin x 6 days for pneumonia. However pneumonia and symptoms ( fever, wheezing, SOB) continued to worsen. Pt is requiring supplemental oxygen. Pt is a DNR and hospice has been consulted for education. I am consulted for pulmonary management. Allergies and Home Medications Allergies Coded Allergies: fentanyl (Verified Adverse Reaction, Unknown, 11/02/14) penicillin (Verified Adverse Reaction, Unknown, 11/02/14) Uncoded Allergies: TETANUS (Adverse Reaction, Unknown, 11/02/14) Home Medications Albuterol Sulfate 2.5 Mg/3 Ml Vial.neb, 2.5 MG NEB TID, (Reported) Albuterol/Ipratropium 4 Gm Aero, 1 PUFF IH QID, (Reported) Allopurinol 100 Mg Tablet, 100 MG PO DAILY, (Reported) Alprazolam 0.25 Mg Tablet, 0.25 MG PO HS, (Reported) Alprazolam 0.25 Mg Tablet, 0.25 MG PO PRN PRN for ANXIETY, (Reported) Atenolol 25 Mg Tablet, 12.5 MG PO DAILY, (Reported) TAKES 1/2 (25MG) TABLET Bimatoprost 2.5 Ml Drops, 1 DROP OU HS, (Reported) Butalb/Acetaminophen/Caffeine 1 Each Capsule, 1 TAB PO BID, (Reported) Calcium Carbonate 500 Mg Tablet, 1 TAB PO DAILY, (Reported) Colchicine 0.6 Mg Tablet, 0.6 MG PO Q4H PRN for GOUT PAIN, (Reported) Dextran 70/Hypromellose 15 Ml Drops, 1 DROP OU PRN PRN for DRY EYES, (Reported) Dextran 70/Hypromellose 15 Ml Drops, 1 DROP OU BID, (Reported) Diclofenac Sodium 100 Gm Gel..gram., 2 GM TP TID, (Reported) APPLY TO RIGHT KNEE Dipyridamole/Aspirin 1 Ea Cap, 1 CAP PO BID, (Reported) Ferrous Sulfate 325 Mg Tablet, 325 MG PO BID, (Reported) Fluticasone/Salmeterol 1 Each Blst.w.dev, 1 PUFF INH BID, (Reported) Furosemide 20 Mg Tablet, 10 MG PO DAILY, (Reported) TAKES 1/2 (20MG) TABLET Gabapentin 400 Mg Capsule, 400 MG PO TID, (Reported) Guaifenesin 600 Mg Tab.er.12h, 600 MG PO BID, (Reported) L.acidoph & Paracasei,B.lactis 1 Each Capsule, 1 CAP PO DAILY, (Reported) Levofloxacin 750 Mg Tablet, 750 MG PO Q48H, (Reported) STARTED 08/04/16 FOR A 14 DAY THERAPY Levothyroxine Sodium 125 Mcg Tablet, 125 MCG PO DAILY@0700, (Reported) Loperamide HCl 2 Mg Tablet, 4 MG PO Q6H PRN for DIARRHEA, (Reported) Lovastatin 20 Mg Tablet, 20 MG PO HS, (Reported) Mag Hydrox/Al Hydrox/Simeth 770 Ml Oral.susp, 30 ML PO UD PRN for ACID REFLUX, ( Reported) Magnesium Hydroxide 400 Mg/5 Ml Oral.susp, 30 ML PO DAILY PRN for CONSTIPATION, (Reported) Menthol/Lanolin/Calamine/Znox 71 Gm Oint, TP PRN PRN for GAULDING/REDNESS, ( Reported) Metaxalone 800 Mg Tablet, 800 MG PO TID, (Reported) Morphine Sulfate 20 Mg/1 Ml Syringe, 0.25 ML PO Q4H PRN for AIR HUNGER, ( Reported) Multivitamin W-Minerals/Lutein 1 Each Tablet, 1 TAB PO DAILY, (Reported) Nifedipine 90 Mg Tab.er.24, 90 MG PO DAILY, (Reported) Oxycodone HCl/Acetaminophen 1 Each Tablet, 1 TAB PO Q4H PRN for PAIN-MODERATE, ( Reported) Pramipexole Di-HCl 0.125 Mg Tablet, 0.125 MG PO HS, (Reported) Psyllium Husk 0.52 Gm Capsule, 2 CAP PO TID, (Reported) Ranitidine HCl 150 Mg Tablet, 150 MG PO DAILY, (Reported) Past Miikmge-Vijezz-Gaklxo Hx Patient Social History Smoking Status: Former Smoker Type Used: Cigarettes Recent Foreign Travel: No Contact w/Someone Who Travel: No Recent Infectious Disease Expo: No Recent Hopitalizations: No Immunizations Up To Date Tetanus Booster (TDap): More than 5yrs PED Vaccines UTD: No Date of Pneumonia Vaccine: Feb 16, 2014 Date of Influenza Vaccine: Dec 18, 2015 Seasonal Allergies Seasonal Allergies: Yes Surgeries HX Surgeries: Yes (COLONOSCOPY; KNEE SURGERY) Surgeries: Appendectomy, Gallbladder, Hysterectomy, Orthopedic Respiratory Hx Respiratory Disorders: Yes Respiratory Disorders: Asthma, COPD Cardiovascular Hx Cardiac Disorders: Yes Cardiac Disorders: Chronic Edema/Swelling, High Cholesterol, Hypertension Neurological Hx Neurological Disorders: Yes (Peripheral Neuropathy, chronic weakness, RLS) Neurological Disorders: Dementia, Headaches /Migraines, Neuropathy, Stroke, TIA Reproductive System Hx Reproductive Disorders: 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, 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 Genitourinary Hx Genitourinary Disorders: Yes (CHRONIC RENAL INSUFFICIENCY) Genitourinary Disorders: Renal Failure Gastrointestinal Hx Gastrointestinal Disorders: Yes Gastrointestinal Disorders: Gastroesophageal Reflux, Diverticulosis Musculoskeletal Hx Musculoskeletal Disorders: Yes (CHRONIC PAIN ) Musculoskeletal Disorders: Degenerate Disk Disease, Arthritis, Chronic Back Pain, Fractures, Gout Endocrine Hx Endocrine Disorders: Yes Endocrine Disorders: Hyperthyroidism, Hypothyroidsim HEENT HX ENT Disorders: Yes HEENT Disorders: Cataract, Glaucoma Loss of Vision: Bilateral Hearing Impairment: Hard of Hearing Cancer Hx Cancer: No Psychosocial Hx Psychiatric Problems: Yes Behavioral Health Disorders: Anxiety, Depression Integumentary HX Skin/Integumentary Disorder: No Blood Transfusions Hx Blood Disorders: Yes Adverse Reaction to a Blood Tr: No Family Medical History Significant Family History: Stroke Family Medial History: Congenital heart disease 19 FATHER 19 MOTHER FH: stroke 19 FATHER 19 MOTHER G8 SISTER G8 SISTER Myocardial infarction G8 SISTER Review of Systems Constitutional: Chills, Fever, Malaise, Sweats, Weakness Eyes: No: Conjunctivae inflammation, Eyelid inflammation, Other, Pain, Redness , Vision change ENT: Nose congestion, Nose discharge, No: Ear discharge, Ear pain, Mouth pain, Mouth swelling, Nose pain, Other, Throat pain, Throat swelling Respiratory: Cough, SOB with excertion, Shortness of breath, Sputum, Wheezing Cardiovascular: Paroxysmal Noc. Dyspnea, No: Chest Pain, Edema, Lt Headedness, Orthopnea, Other, Palpitations Gastrointestinal: No: Abdominal Pain, Constipation, Diarrhea, Hematochezia, Melena, Nausea, Other, Vomiting Genitourinary: No Dysuria, No Frequency, No Incontinence, No Hematuria, No Retention, No Other Neurological: Confusion, Weakness Exam Exam Vital Signs Date Time Temp Pulse Resp B/P (MAP) Pulse Ox O2 Delivery O2 Flow Rate FiO2 08/10/16 11:46 94 4.00 08/10/16 11:42 94 08/10/16 11:10 99.2 75 28 103/62 94 4.50 General Appearance: No Apparent Distress, Chronically ill HEENT: PERRL/EOMI Respiratory: Chest Non Tender, No Accessory Muscle Use, No Respiratory Distress , Decreased Breath Sounds, Rales Cardiovascular: Regular Rate, Rhythm, No Gallop, No Murmur, Normal Peripheral Pulses Peripheral Pulses: 2+ Carotid (R), 2+ Carotid (L), 2+ Radial Pulses (R), 2+ Radial Pulses (L) Gastrointestinal: normal bowel sounds, non tender, soft, no organomegaly Extremity: Normal Capillary Refill, Normal Inspection Neurologic/Psychiatric: Alert, Oriented x3 Skin: Normal Color, Warm/Dry Lymphatic: No Adenopathy Results Lab Laboratory Tests 08/10/16 11:25 Assessment/Plan Assessment/Plan -Pneumonia -continue Levaquin and cefepime -check cultures Hypoxia with hx of COPD -SVNS, start steroids - oxygen 254 Clinical Quality Measures DVT/VTE Risk/Contraindication: Risk Factor Score Per Nursin RFS Level Per Nursing on Admit: 2=Moderate KATHRIN ALMARAZ DO August 10, 2016 15:16
[2016-08-10] MEDS: RT-ALBUTEROL/IPRATROPIUM 3 ML (DUONEB) VIAL INH SCH ×3 (15:18→21:42)
[2016-08-10 15:33] VITALS: BP 94/56
[2016-08-10] MEDS: methylPREDNISolone 40 MG/ML (Solu-MEDROL) VIAL IV SCH ×2 (17:41→23:05)
[2016-08-10 19:30] VITALS: BP 100/64
[2016-08-11 00:40] VITALS: BP_SYST 110; BP_SYST 128; BP_DIAS 56; BP_DIAS 73
[2016-08-11] MEDS: RT-ALBUTEROL/IPRATROPIUM 3 ML (DUONEB) VIAL INH SCH ×3 (02:21→10:13)
[2016-08-11 04:10] VITALS: BP 121/58
[2016-08-11] MEDS: HYDROcodone/APAP 5 MG/325 MG (LORTAB) TAB PO PRN (04:15)
[2016-08-11] MEDS: methylPREDNISolone 40 MG/ML (Solu-MEDROL) VIAL IV SCH ×4 (04:15→20:47)
--- NOTE | 2016-08-11 07:09 | Pulmonary Progress Note ---
Subjective Subjective/Events-last exam Pt feels improved. Strong loose nonproductive cough. Exam Exam Vital Signs Date Time Temp Pulse Resp B/P (MAP) Pulse Ox O2 Delivery O2 Flow Rate FiO2 08/11/16 06:30 94 4.50 08/11/16 04:10 97.3 79 24 121/58 92 4.00 08/11/16 02:21 93 4.50 08/11/16 00:40 96.5 60 24 110/56 97 4.00 08/10/16 21:42 90 4.50 08/10/16 19:30 4.00 08/10/16 19:30 99.2 77 30 100/64 90 4.50 08/10/16 19:02 90 4.00 08/10/16 15:33 98.5 70 32 94/56 92 4.50 08/10/16 15:19 95 4.00 08/10/16 11:46 94 4.00 08/10/16 11:42 94 08/10/16 11:10 99.2 75 28 103/62 94 4.50 I & O 08/11/16 07:00 Intake Total 950 ml Output Total 1075 ml Balance -125 ml General Appearance: No Apparent Distress, Chronically ill HEENT: PERRL/EOMI Neck: Full Range of Motion, Normal Inspection, Non Tender, Supple, Carotid Bruit Respiratory: Chest Non Tender, No Accessory Muscle Use, No Respiratory Distress , Decreased Breath Sounds, Rales Cardiovascular: Regular Rate, Rhythm, No Gallop, No Murmur, Normal Peripheral Pulses Peripheral Pulses: 2+ Carotid (R), 2+ Carotid (L), 2+ Radial Pulses (R), 2+ Radial Pulses (L) Gastrointestinal: normal bowel sounds, non tender, soft, no organomegaly Extremity: Normal Capillary Refill, Normal Inspection Neurologic/Psychiatric: Alert, Oriented x3 Skin: Normal Color, Warm/Dry Lymphatic: No Adenopathy Results Lab Laboratory Tests 08/10/16 11:25 Assessment/Plan Assessment/Plan Pneumonia - continued cefepime add vanco pt has had at least 7 days of Levaquin now - - will D/C Levaquin -- pt is allergic to PCN -bello cultures pending Hypoxia with hx of COPD -SVNS, start steroids - oxygen Acute on chronic renal failure with dehydration -start IVF NS at 100 cc/hr - will order daily labs Anemia monitor 233 Clinical Quality Measures DVT/VTE Risk/Contraindication: Risk Factor Score Per Nursin RFS Level Per Nursing on Admit: 2=Moderate KATHRIN ALMARAZ DO August 11, 2016 07:09
[2016-08-11] MEDS ORDERED: PHARMACY TO DOSE IV SCH (07:15)
[2016-08-11] MEDS ORDERED: VANCOMYCIN 1250 MG/NS 250 ML IVPB IV NR ×2 (07:24)
[2016-08-11 08:09] VITALS: BP 127/60
[2016-08-11] MEDS: NS IV 1000 ML 1,000 ML IV SCH ×2 (08:26→20:34)
[2016-08-11] MEDS: CEFEPIME INJECTION 2,000 MG in NS (IVPB) 50 ML IV SCH (10:03)
[2016-08-11] MEDS ORDERED: COLCHICINE 0.6 MG (COLCRYS) TABLET PO PRN (11:15)
[2016-08-11] MEDS ORDERED: ALPRAZolam 0.25 MG (XANAX) TAB PO PRN (11:15)
[2016-08-11] MEDS ORDERED: MILK OF MAGNESIA 400 MG/5 ML 30 ML UDC PO PRN (11:15)
[2016-08-11] MEDS ORDERED: MENTHOL/ZINC OXIDE (CALMOSEPTINE) 113 GM TUBE TP PRN (11:15)
--- NOTE | 2016-08-11 11:16 | Progress Note-Hospitalist ---
Progress Note HPI/CC on Admission CC: Shortness of breath HPI: This is an 86yoWF NH at [facility] of [facility] that is known to the Hospitalist Service from recent hospital stay that has been managed by Jonathan CALDWELL for the past 6 days on Levaquin 750mg PO every other day to treat presumed pneumonia but she had become worse with fever of 102.4 and requiring more O2 supplementation so I accepted the patient as a direct admit for presumed pneumonia and acute on chronic renal failure. Patient is very acutely ill from wheezing the shortness of breath and appears to be at the end stage of her life. I have asked Dr Jaime to join us for pulmonary consultation while maintaining the DNR order along with Palliative Care consultation. Progress Notes/Assess & Plan Date Seen 08/11/16 Admission Dx/Process Assessment: Respiratory insufficiency presumed recurrent pneumonia failed Levaquin for 6 days Acute renal failure Dementia HTN HLP Diagonsis/Assessment & Plan Patient feels better and overall breathing better but still having difficulty Dr. Jaime started gentle IV fluids for the patient to help with renal failure She denies pain except for sometimes in the back so I did reconcile all of her home meds and restarted pain medicine Patient is very end-stage and is hospitalized about every month for the same recurrent type and pneumonia certainly need to evaluate hospice and end-of-life care AFVSS, pleasant, O x ~ 2, poor recall, improved status overall wheezing noted all adkins, no tachypnea which is improved No edema Laboratory Tests 08/10/16 11:25 Assessment: Respiratory insufficiency Recurrent pneumonia failed Levaquin for 6 days now on broad spectrum Acute renal failure Dementia HTN HLP Plan: Pulmonary consultation DNR Palliative Care consultation Very poor prognosis Check labs in am AMAURI HUNG DO August 11, 2016 11:16
[2016-08-11 12:00] VITALS: BP 127/55
[2016-08-11] MEDS ORDERED: LOPERAMIDE 2 MG (IMODIUM) CAP PO PRN (12:00)
[2016-08-11] MEDS ORDERED: morphine (ROXINOL) 10 MG/0.5 ML oral conc 0.5 ML PO PRN (12:00)
[2016-08-11] MEDS ORDERED: ANTACID SUSP 30 ML UDC (MYLANTA) PO PRN (12:00)
[2016-08-11] MEDS ORDERED: ARTIFICAL TEARS 0.4 ML UNIT DOSE (REFRESH PLUS) OU PRN (12:00)
[2016-08-11] MEDS: LACTOBACILLUS Acidoph/Bulgar (LACTINEX/FLORANEX) TAB PO SCH (12:51)
[2016-08-11] MEDS: GABAPENTIN 400 MG (NEURONTIN) CAP PO SCH ×2 (12:51→20:43)
[2016-08-11] MEDS: BRIMONIDINE 0.2% (ALPHAGAN) OPHTH SOLN 5 ML BTL OU SCH ×2 (12:51→20:49)
[2016-08-11] MEDS: DICLOFENAC 1% GEL 100 GM (VOLTAREN) TUBE TP SCH ×2 (12:52→20:47)
[2016-08-11] MEDS: oxyCODONE/APAP 5/325MG (PERCOCET 5) TABLET PO PRN (12:54)
[2016-08-11] MEDS: RT-ALBUTEROL SULF 2.5 MG/3 ML PRE-MIX VIAL INH SCH ×2 (14:21→18:39)
[2016-08-11] MEDS ORDERED: RT-ALBUTEROL/IPRATROPIUM 3 ML (DUONEB) VIAL IH SCH (15:00)
[2016-08-11 16:37] VITALS: BP 106/61
[2016-08-11] MEDS: RT-ADVAIR HFA 115/21 MCG PER PUFF IH SCH (18:39)
[2016-08-11 20:00] VITALS: BP 136/60
[2016-08-11] MEDS: DIPYRIDAMOLE/ASA ER CAPSULE (AGGRENOX) PO SCH (20:45)
[2016-08-11] MEDS: ALPRAZolam 0.25 MG (XANAX) TAB PO SCH (20:45)
[2016-08-11] MEDS: SIMvastatin 10 MG (ZOCOR) TAB PO SCH (20:45)
[2016-08-11] MEDS: PRAMIPEXOLE 0.125 MG (MIRAPEX) TABLET PO SCH (20:46)
[2016-08-11] MEDS: FERROUS SULF 325 MG (IRON) TAB PO SCH (20:46)
[2016-08-11] MEDS: ARTIFICAL TEARS 0.4 ML UNIT DOSE (REFRESH PLUS) OU SCH (20:48)
[2016-08-11] MEDS: ACET/BUTAL/CAFF (FIORICET) TAB PO SCH (20:49)
[2016-08-11] MEDS: guaiFENesin (MUCINEX) 600 MG TAB PO SCH (20:51)
[2016-08-12] VITALS (7 sets, daily range): BP systolic 120–134; BP diastolic 58–92
[2016-08-12] MEDS: methylPREDNISolone 40 MG/ML (Solu-MEDROL) VIAL IV SCH ×4 (02:28→20:53)
[2016-08-12 04:51] LABS: BASOPHILS % (AUTO) 0 % (0-10); EOSINOPHILS % (AUTO) 0 % (0-10); LYMPHOCYTES # (AUTO) 0.7 X 10^3 (1.0-4.0); LYMPHOCYTES % (AUTO) 6 % (12-44); MEAN CORPUSCULAR HEMOGLOBIN 30 PG (25-34); MEAN CORPUSCULAR HGB CONC 32 G/DL (32-36); MEAN CORPUSCULAR VOLUME 94 FL (80-99); MEAN PLATELET VOLUME 10.5 FL (7.4-10.4); MONOCYTES # (AUTO) 0.4 X 10^3 (0.0-1.0); MONOCYTES % (AUTO) 3 % (0-12); NEUTROPHILS # (AUTO) 10.9 X 10^3 (1.8-7.8); NEUTROPHILS % (AUTO) 90 % (42-75); PLATELET COUNT 235 10^3/uL (130-400); RED BLOOD COUNT 3.22 10^6/uL (4.35-5.85); RED CELL DISTRIBUTION WIDTH 21.3 % (10.0-14.5); WHITE BLOOD COUNT 12.1 10^3/uL (4.3-11.0)
[2016-08-12 05:23] LABS: CALCIUM 9.3 MG/DL (8.5-10.1); CREATININE SERUM 1.88 MG/DL (0.60-1.30); MAGNESIUM 2.3 MG/DL (1.8-2.4); POTASSIUM 4.4 MMOL/L (3.6-5.0)
[2016-08-12] MEDS: LEVOTHYROXINE 125 MCG (LEVOTHROID) TABLET PO SCH (06:47)
[2016-08-12] MEDS: MULTIVIT W/MINERALS TAB (THERAGRAN M) PO SCH (06:47)
[2016-08-12] MEDS: NS IV 1000 ML 1,000 ML IV SCH (06:47)
[2016-08-12] MEDS: oxyCODONE/APAP 5/325MG (PERCOCET 5) TABLET PO PRN ×2 (06:52→13:53)
[2016-08-12] MEDS ORDERED: TROUGH ORDER-PHARMACY XX NR (07:00)
[2016-08-12] MEDS: RT-ADVAIR HFA 115/21 MCG PER PUFF IH SCH ×2 (07:34→19:35)
[2016-08-12] MEDS: RT-ALBUTEROL SULF 2.5 MG/3 ML PRE-MIX VIAL INH SCH ×3 (07:34→19:35)
[2016-08-12] MEDS: CEFEPIME INJECTION 2,000 MG in NS (IVPB) 50 ML IV SCH (09:16)
[2016-08-12] MEDS: NIFEdipine ER 30 MG (PROCARDIA XL) TAB PO SCH (09:18)
[2016-08-12] MEDS: guaiFENesin (MUCINEX) 600 MG TAB PO SCH ×2 (09:18→20:52)
[2016-08-12] MEDS: FAMOTIDINE 20 MG (PEPCID) TABLET PO SCH (09:19)
[2016-08-12] MEDS: ATENOLOL 25 MG (TENORMIN) TAB PO SCH (09:19)
[2016-08-12] MEDS: GABAPENTIN 400 MG (NEURONTIN) CAP PO SCH ×2 (09:19→20:52)
[2016-08-12] MEDS: FERROUS SULF 325 MG (IRON) TAB PO SCH ×2 (09:19→20:52)
[2016-08-12] MEDS: ALLOPURINOL 100 MG (ZYLOPRIM) TAB PO SCH (09:19)
[2016-08-12] MEDS: LACTOBACILLUS Acidoph/Bulgar (LACTINEX/FLORANEX) TAB PO SCH (09:19)
[2016-08-12] MEDS: PSYLLIUM POWDER (METAMUCIL) 5.8 GM PACKET PO SCH ×3 (09:20→20:54)
[2016-08-12] MEDS: BRIMONIDINE 0.2% (ALPHAGAN) OPHTH SOLN 5 ML BTL OU SCH ×3 (09:20→20:55)
[2016-08-12] MEDS: ARTIFICAL TEARS 0.4 ML UNIT DOSE (REFRESH PLUS) OU SCH ×2 (09:20→21:06)
[2016-08-12] MEDS: DICLOFENAC 1% GEL 100 GM (VOLTAREN) TUBE TP SCH ×3 (09:20→20:54)
[2016-08-12] MEDS: FUROSEMIDE 20 MG (LASIX) TAB PO SCH (09:20)
--- NOTE | 2016-08-12 09:30 | Progress Note-Hospitalist ---
Subjective HPI/CC On Admission CC: Shortness of breath HPI: This is an 86yoWF NH at [facility] of Dr Maggie's was on 6 days of Levaquin 750mg PO every other day to treat presumed pneumonia but she had become worse with fever of 102.4 and requiring more O2 supplementation so admitted as a direct admit for presumed pneumonia and acute on chronic renal failure. Dr Jaime consulted while maintaining the DNR order along with Palliative Care consultation. Date Seen 08/12/16 Subjective/Events-last exam Pt reports feeling worse then yesterday due to abd pain. She has not had a BM in 2-3 days and is having some abd pain. She is passing flatus. She denies any worsening respiratory symptoms. She states she is eating well but that it precipitates her RUQ pain. Objective Exam Vital Signs Vital Sign - Last 12Hours 08/10/16 11:10 Temp 99.2 Pulse 75 Resp 28 B/P (MAP) 103/62 Pulse Ox 94 O2 Flow Rate 4.50 Capillary Refill : General Appearance: WD/WN, Chronically ill, Mild Distress HEENT: No Scleral Icterus (L), No Scleral Icterus (R) Respiratory: Chest Non Tender, No Pleural Rub, Wheezing (expiratory) Cardiovascular: Regular Rate, Rhythm, No JVD Gastrointestinal: Normal Bowel Sounds, Non Tender, Soft, Distended, No Guarding , No Rebound Extremity: Normal Capillary Refill, No Calf Tenderness, No Pedal Edema Neurologic/Psychiatric: Alert, Oriented x3 Results/Procedures Lab Laboratory Tests 08/12/16 04:39 Assessment/Plan Assessment and Plan Assess & Plan/Chief Complaint HCAP - WBC improving, afebrile - Continue Levaquin and Cefepime (pcn allergy) - Was on Vanc was DC'd yesterday, monitor fever curve - No growth on blood cx - Continue supportive measures (breathing treatments, steroids, IS) - Continue on oxygen, titrate down as able Abd pain - Likely do to constipation, no signs of acute abd - Will start stool softener as she declined laxative or enema - If worsens will get KUB YOGESH on CKD - Improving, near her apparent baseline - Will DC IVF due to hyperchloremic acidosis on +fluid balance - Monitor director weights and measures in AM Anemia - Near baseline - Labs in AM Dispo: Continue admission for IV abx. Labs in AM. 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 Palliative care consulted. MD KIARA Bone KATELYN M MD August 12, 2016 09:30
[2016-08-12] MEDS: DIPYRIDAMOLE/ASA ER CAPSULE (AGGRENOX) PO SCH ×2 (09:53→21:06)
[2016-08-12] MEDS: CALCIUM CARBONATE 500 MG (TUMS) TAB.CHEW PO SCH (09:53)
[2016-08-12] MEDS: ACET/BUTAL/CAFF (FIORICET) TAB PO SCH ×2 (09:53→20:52)
[2016-08-12] MEDS: VANCOMYCIN 1 GM/NS 250 ML IVPB IV SCH ×2 (09:53)
--- NOTE | 2016-08-12 11:26 | Diagnostic Imaging Report ---
INDICATION: Pneumonia. Frontal chest obtained at 4:33 a.m. is compared to 08/10/2016. Heart is borderline in size. There is no change in the right perihilar infiltrate compared to the prior study. Calcified granuloma in the left midlung is again noted. There is no pneumothorax or pleural fluid. IMPRESSION: No significant change in right perihilar infiltrate compatible with pneumonia compared with 08/10/2016. There is no new finding. Dictated by: Dictated on workstation # [id number]
[2016-08-12] MEDS: PRAMIPEXOLE 0.125 MG (MIRAPEX) TABLET PO SCH (20:52)
[2016-08-12] MEDS: SIMvastatin 10 MG (ZOCOR) TAB PO SCH (20:52)
[2016-08-12] MEDS: DOCUSATE SODIUM 100 MG (COLACE) CAP PO SCH (20:53)
[2016-08-12] MEDS: ALPRAZolam 0.25 MG (XANAX) TAB PO SCH (20:53)
[2016-08-13] VITALS: BP 128/81
[2016-08-13 04:00] VITALS: BP 129/65
[2016-08-13] MEDS: methylPREDNISolone 40 MG/ML (Solu-MEDROL) VIAL IV SCH ×3 (04:01→15:26)
[2016-08-13] MEDS: LEVOTHYROXINE 125 MCG (LEVOTHROID) TABLET PO SCH (06:20)
[2016-08-13] MEDS: MULTIVIT W/MINERALS TAB (THERAGRAN M) PO SCH (06:20)
[2016-08-13 06:54] LABS: BASOPHILS % (AUTO) 0 % (0-10); EOSINOPHILS % (AUTO) 0 % (0-10); LYMPHOCYTES # (AUTO) 1.2 X 10^3 (1.0-4.0); LYMPHOCYTES % (AUTO) 9 % (12-44); MEAN CORPUSCULAR HEMOGLOBIN 30 PG (25-34); MEAN CORPUSCULAR HGB CONC 31 G/DL (32-36); MEAN CORPUSCULAR VOLUME 94 FL (80-99); MEAN PLATELET VOLUME 10.4 FL (7.4-10.4); MONOCYTES # (AUTO) 0.5 X 10^3 (0.0-1.0); MONOCYTES % (AUTO) 4 % (0-12); NEUTROPHILS # (AUTO) 11.3 X 10^3 (1.8-7.8); NEUTROPHILS % (AUTO) 87 % (42-75); PLATELET COUNT 255 10^3/uL (130-400); RED BLOOD COUNT 3.18 10^6/uL (4.35-5.85); RED CELL DISTRIBUTION WIDTH 21.7 % (10.0-14.5)
[2016-08-13 07:15] LABS: CALCIUM 9.2 MG/DL (8.5-10.1); CREATININE SERUM 1.96 MG/DL (0.60-1.30); MAGNESIUM 2.3 MG/DL (1.8-2.4); POTASSIUM 4.5 MMOL/L (3.6-5.0)
[2016-08-13] MEDS: RT-ALBUTEROL SULF 2.5 MG/3 ML PRE-MIX VIAL INH SCH ×2 (07:51→15:12)
[2016-08-13] MEDS: RT-ADVAIR HFA 115/21 MCG PER PUFF IH SCH (07:51)
[2016-08-13 08:00] VITALS: BP 148/69
[2016-08-13] MEDS: VANCOMYCIN 1 GM/NS 250 ML IVPB IV SCH ×2 (08:13)
[2016-08-13] MEDS: FUROSEMIDE 20 MG (LASIX) TAB PO SCH (08:14)
[2016-08-13] MEDS: ARTIFICAL TEARS 0.4 ML UNIT DOSE (REFRESH PLUS) OU SCH (08:14)
[2016-08-13] MEDS: FERROUS SULF 325 MG (IRON) TAB PO SCH (08:14)
[2016-08-13] MEDS: ACET/BUTAL/CAFF (FIORICET) TAB PO SCH (08:14)
[2016-08-13] MEDS: GABAPENTIN 400 MG (NEURONTIN) CAP PO SCH (08:14)
[2016-08-13] MEDS: PSYLLIUM POWDER (METAMUCIL) 5.8 GM PACKET PO SCH ×2 (08:14→13:24)
[2016-08-13] MEDS: guaiFENesin (MUCINEX) 600 MG TAB PO SCH (08:15)
[2016-08-13] MEDS: FAMOTIDINE 20 MG (PEPCID) TABLET PO SCH (08:15)
[2016-08-13] MEDS: ATENOLOL 25 MG (TENORMIN) TAB PO SCH (08:15)
[2016-08-13] MEDS: DOCUSATE SODIUM 100 MG (COLACE) CAP PO SCH (08:15)
[2016-08-13] MEDS: CALCIUM CARBONATE 500 MG (TUMS) TAB.CHEW PO SCH (08:15)
[2016-08-13] MEDS: NIFEdipine ER 30 MG (PROCARDIA XL) TAB PO SCH (08:15)
[2016-08-13] MEDS: ALLOPURINOL 100 MG (ZYLOPRIM) TAB PO SCH (08:15)
[2016-08-13] MEDS: DIPYRIDAMOLE/ASA ER CAPSULE (AGGRENOX) PO SCH (08:15)
[2016-08-13] MEDS: LACTOBACILLUS Acidoph/Bulgar (LACTINEX/FLORANEX) TAB PO SCH (08:15)
[2016-08-13] MEDS: BRIMONIDINE 0.2% (ALPHAGAN) OPHTH SOLN 5 ML BTL OU SCH ×2 (08:16→13:19)
[2016-08-13] MEDS: DICLOFENAC 1% GEL 100 GM (VOLTAREN) TUBE TP SCH ×2 (08:16→13:19)
[2016-08-13] MEDS ORDERED: CEFEPIME INJECTION 1,000 MG in NS (IVPB) 50 ML IV SCH (09:00)
--- NOTE | 2016-08-13 09:44 | Diagnostic Imaging Report ---
INDICATION: Followup pneumonia. COMPARISON: 08/12/2016 FINDINGS: Improving but persistent right midlung zone heterogeneous opacities. Calcified pulmonary granulomas are similar. No pleural effusion or pneumothorax. Stable borderline cardiomegaly. Atherosclerotic aorta. IMPRESSION: 1. Improving but persistent right midlung zone pneumonia. Dictated by: Dictated on workstation # [id number]
[2016-08-13] MEDS ORDERED: PRD20T PO (11:47)
--- NOTE | 2016-08-13 11:48 | Discharge Instructions ---
Discharge Instructions Discharge Medications New, Converted or Re-Newed RX: Call to Patients Pharmacy Patient Instructions Patient Instructions Please continue to take your medicines as prescribed. Should your symptoms return or worsen please call your doctor or return to the ER for further evaluation. Goal/Follow Up Appt: Follow up with your PCP in 1 week. Activity & Diet Discharge Diet: No Restrictions Activity as Tolerated: Yes ADA CRAIG MD August 13, 2016 11:48
[2016-08-13] MEDS ORDERED: CEFD300C3 PO (11:53)
[2016-08-13] MEDS ORDERED: LEVO500T80 PO (11:53)
--- NOTE | 2016-08-13 11:57 | Discharge Summary-Hospitalist ---
Diagnosis/Chief Complaint Date of Admission August 10, 2016 at 12:10 Date of Discharge 08/13/16 Discharge Date: August 13, 2016 Admission Diagnosis Assessment: Respiratory insufficiency presumed recurrent pneumonia failed Levaquin for 6 days Acute renal failure Dementia HTN HLP Discharge Diagnosis HCAP - Continue Levaquin and switch to Cefdinir as outpatient for 10 more days - Steroid taper as outpatient - No growth on blood cx - Continue on oxygen, titrate down as able to her baseline fo 2lpm CKD - Near baseline - renally dose meds as CrCl <20 Anemia - Near baseline Dispo: DC home today. Ada Jiménez MD Reason Hospital Visit/Course CC: Shortness of breath HPI: This is an 86yoWF NH at [facility] of Dr Serrano's was on 6 days of Levaquin 750mg PO every other day to treat presumed pneumonia but she had become worse with fever of 102.4 and requiring more O2 supplementation so admitted as a direct admit for presumed pneumonia and acute on chronic renal failure. Dr Jaime consulted while maintaining the DNR order along with Palliative Care consultation. Discharge Summary Consultations Pulmonology Discharge Physical Examination Allergies: Coded Allergies: fentanyl (Verified Adverse Reaction, Unknown, 11/02/14) penicillin (Verified Adverse Reaction, Unknown, 11/02/14) Uncoded Allergies: TETANUS (Adverse Reaction, Unknown, 11/02/14) Vitals & I&Os Vital Signs Date Time Temp Pulse Resp B/P (MAP) Pulse Ox O2 Delivery O2 Flow Rate FiO2 08/13/16 09:00 98 4.00 08/13/16 08:00 97.4 59 20 148/69 Hospital Course Pt was admitted for HCAP after failing outpatient treatment. Was started on empiric coverage and deescalated to levaquin and cefepime with good response. She was near her baseline functional status and home oxygen requirement at discharge. Discharged on steroid taper. Labs (last 24 hrs) Laboratory Tests 08/13/16 05:12: White Blood Count 13.0H, Red Blood Count 3.18L, Hemoglobin 9.4L, Hematocrit 30L , Mean Corpuscular Volume 94, Mean Corpuscular Hemoglobin 30, Mean Corpuscular Hemoglobin Concent 31L, Red Cell Distribution Width 21.7H, Platelet Count 255, Mean Platelet Volume 10.4, Neutrophils (%) (Auto) 87H, Lymphocytes (%) (Auto) 9L , Monocytes (%) (Auto) 4, Eosinophils (%) (Auto) 0, Basophils (%) (Auto) 0, Neutrophils # (Auto) 11.3H, Lymphocytes # (Auto) 1.2, Monocytes # (Auto) 0.5, Eosinophils # (Auto) 0.0, Basophils # (Auto) 0.0, Sodium Level 138, Potassium Level 4.5, Chloride Level 111H, Carbon Dioxide Level 18L, Anion Gap 9, Blood Urea Nitrogen 55H, Creatinine 1.96H, Estimat Glomerular Filtration Rate 24, BUN/ Creatinine Ratio 28, Glucose Level 132H, Calcium Level 9.2, Phosphorus Level 3.1 , Magnesium Level 2.3 Microbiology 08/10/16 Blood Culture - Preliminary, Resulted No growth Pending Labs Laboratory Tests 08/13/16 05:12: White Blood Count 13.0, Red Blood Count 3.18, Hemoglobin 9.4, Hematocrit 30, Mean Corpuscular Volume 94, Mean Corpuscular Hemoglobin 30, Mean Corpuscular Hemoglobin Concent 31, Red Cell Distribution Width 21.7, Platelet Count 255, Mean Platelet Volume 10.4, Neutrophils (%) (Auto) 87, Lymphocytes (%) (Auto) 9, Monocytes (%) (Auto) 4, Eosinophils (%) (Auto) 0, Basophils (%) (Auto) 0, Neutrophils # (Auto) 11.3, Lymphocytes # (Auto) 1.2, Monocytes # (Auto) 0.5, Eosinophils # (Auto) 0.0, Basophils # (Auto) 0.0, Sodium Level 138, Potassium Level 4.5, Chloride Level 111, Carbon Dioxide Level 18, Anion Gap 9, Blood Urea Nitrogen 55, Creatinine 1.96, Estimat Glomerular Filtration Rate 24, BUN/ Creatinine Ratio 28, Glucose Level 132, Calcium Level 9.2, Phosphorus Level 3.1 , Magnesium Level 2.3 Other pending tests Final report on blood culture Discussion & Recommendations Advised to monitor oxygen levels and if worsening symptoms, recurrent fever, or felt worse to return to the hospital. Discharge Home Medications: Active Scripts Active Prednisone 20 Mg Tab 20 Mg PO DAILY Take 3 tabs(60mg)daily,decrease by 1/2 tab(10mg)every other day. Reported Percocet 5-325 mg Tablet (Oxycodone HCl/Acetaminophen) 1 Each Tablet 1 Tab PO Q4H PRN Ferrous Sulfate 325 Mg Tablet 325 Mg PO BID Xanax (Alprazolam) 0.25 Mg Tablet 0.25 Mg PO PRN PRN Morphine Sulfate 20 Mg/1 Ml Syringe 0.25 Ml PO Q4H PRN Levaquin (Levofloxacin) 750 Mg Tablet 750 Mg PO Q48H STARTED 08/04/16 FOR A 14 DAY THERAPY Advair 250-50 Diskus (Fluticasone/Salmeterol) 1 Each Blst.w.dev 1 Puff INH BID Alprazolam 0.25 Mg Tablet 0.25 Mg PO HS Mucinex (Guaifenesin) 600 Mg Tab.er.12h 600 Mg PO BID Pramipexole Dihydrochloride (Pramipexole Di-HCl) 0.125 Mg Tablet 0.125 Mg PO HS Nature's Tears Eye Drops (Dextran 70/Hypromellose) 15 Ml Drops 1 Drop OU BID Fiber Therapy (Psyllium Husk) 0.52 Gm Capsule 2 Cap PO TID Procardia Xl (Nifedipine) 90 Mg Tab.er.24 90 Mg PO DAILY Lumigan (Bimatoprost) 2.5 Ml Drops 1 Drop OU HS Lovastatin 20 Mg Tablet 20 Mg PO HS Synthroid (Levothyroxine Sodium) 125 Mcg Tablet 125 Mcg PO DAILY@0700 Lasix (Furosemide) 20 Mg Tablet 10 Mg PO DAILY TAKES 1/2 (20MG) TABLET Cerovite Senior Tablet (Multivitamin W-Minerals/Lutein) 1 Each Tablet 1 Tab PO DAILY Allopurinol 100 Mg Tablet 100 Mg PO DAILY Fioricet 50-300-40 mg Capsule (Butalb/Acetaminophen/Caffeine) 1 Each Capsule 1 Tab PO BID Atenolol 25 Mg Tablet 12.5 Mg PO DAILY TAKES 1/2 (25MG) TABLET Aggrenox 25 mg-200 mg Capsule (Dipyridamole/Aspirin) 1 Ea Cap 1 Cap PO BID Zantac (Ranitidine HCl) 150 Mg Tablet 150 Mg PO DAILY Probiotic (L.acidoph & Paracasei,B.lactis) 1 Each Capsule 1 Cap PO DAILY Oyster Shell Calcium (Calcium Carbonate) 500 Mg Tablet 1 Tab PO DAILY Combivent Respimat Inhal [place] (Albuterol/Ipratropium) 4 Gm Aero 1 Puff IH QID Skelaxin (Metaxalone) 800 Mg Tablet 800 Mg PO TID Neurontin (Gabapentin) 400 Mg Capsule 400 Mg PO TID Nature's Tears Eye Drops (Dextran 70/Hypromellose) 15 Ml Drops 1 Drop OU PRN PRN Milk of Magnesia (Magnesium Hydroxide) 400 Mg/5 Ml Oral.susp 30 Ml PO DAILY PRN Colcrys (Colchicine) 0.6 Mg Tablet 0.6 Mg PO Q4H PRN Calmoseptine Ointment (Menthol/Lanolin/Calamine/Znox) 71 Gm Oint TP PRN PRN Albuterol Sulfate 2.5 Mg/3 Ml Vial.neb 2.5 Mg NEB TID Voltaren (Diclofenac Sodium) 100 Gm Gel..gram. 2 Gm TP TID APPLY TO RIGHT KNEE Imodium A-D (Loperamide HCl) 2 Mg Tablet 4 Mg PO Q6H PRN Maalox Advanced Suspension (Mag Hydrox/Al Hydrox/Simeth) 770 Ml Oral.susp 30 Ml PO UD PRN Condition at discharge Stable, improved Instructions to patient/family Please see electonic discharge instructions given to patient. Clinical Quality Measures DVT/VTE Risk/Contraindication: Risk Factor Score Per Nursin RFS Level Per Nursing on Admit: 2=Moderate ADA JIMÉNEZ MD August 13, 2016 11:57
[2016-08-13 12:00] VITALS: BP 87/57
[2016-08-13 12:46] VITALS: BP 135/63
[2016-08-13 15:38] VITALS: BP 135/63
[2016-08-14] MEDS ORDERED: TROUGH ORDER-PHARMACY XX NR (08:00)
== END 2016-08-13 15:38 | disposition home health service (06) | DRG 194 ==
LOC: 4TH 12:10
PROVIDERS: ADMIT Internal Medicine; ATTEND Internal Medicine
DX: J18.9 Pneumonia, unspecified organism (principal); N17.9 Acute kidney failure, unspecified; R09.02 Hypoxemia; F03.90 Unspecified dementia, unspecified severity, without behavioral disturbance, psychotic disturbance, mood disturbance, and anxiety; I12.9 Hypertensive chronic kidney disease with stage 1 through stage 4 chronic kidney disease, or unspecified chronic kidney disease; E78.5 Hyperlipidemia, unspecified; Z66 Do not resuscitate; E05.90 Thyrotoxicosis, unspecified without thyrotoxic crisis or storm; E03.9 Hypothyroidism, unspecified; K21.9 Gastro-esophageal reflux disease without esophagitis; M19.90 Unspecified osteoarthritis, unspecified site; F32.9 Major depressive disorder, single episode, unspecified; F41.9 Anxiety disorder, unspecified; Z86.73 Personal history of transient ischemic attack (TIA), and cerebral infarction without residual deficits; E78.00 Pure hypercholesterolemia, unspecified; J44.9 Chronic obstructive pulmonary disease, unspecified; Z87.891 Personal history of nicotine dependence; J45.909 Unspecified asthma, uncomplicated; H91.90 Unspecified hearing loss, unspecified ear; N18.9 Chronic kidney disease, unspecified; D64.9 Anemia, unspecified; E86.0 Dehydration
CPT/HCPCS: 36415; 71010; 71020; 80048; 80202; 83605; 83735; 83880; 84100; 85007; 85025; 85027; 87040; 94640; 94664; 94760

== ENCOUNTER → 2016-10-25 | Outpatient (CLI) | payer MEDICARE, MEDICAID ==
[~2016-10-25] MED LIST changes: +CEFD300C3 PO; +FERR-74 PO; +LEVO750T9 PO; +MORP20SY PO; +PRD20T PO; +RT-ALBUTEROL SULF 2.5 MG/3 ML PRE-MIX VIAL IH ONE; +RT-ALBUTEROL SULF 2.5 MG/3 ML PRE-MIX VIAL ONE
== END ==
LOC: RT 12:08
PROVIDERS: ATTEND Nurse Practitioner Family
DX: J45.909 Unspecified asthma, uncomplicated (principal); J44.9 Chronic obstructive pulmonary disease, unspecified; R09.02 Hypoxemia
CPT/HCPCS: 94060; 94640

== ENCOUNTER → 2016-10-25 | Outpatient (CLI) | payer MEDICARE, MEDICAID ==
[~2016-10-25] MED LIST changes: -RT-ALBUTEROL SULF 2.5 MG/3 ML PRE-MIX VIAL IH ONE; -RT-ALBUTEROL SULF 2.5 MG/3 ML PRE-MIX VIAL ONE
--- NOTE | 2016-10-25 16:48 | Diagnostic Imaging Report ---
PROCEDURE: CT chest without contrast. TECHNIQUE: Multiple contiguous axial images were obtained through the chest without the use of intravenous contrast. INDICATION: Three months' history of pneumonia. COMPARISON: Exam interpreted in correlation with chest radiograph of 08/13/2016 and 08/10/2016. FINDINGS: When differing modalities taken into account, there has been marked favorable change from previous referenced plain film radiographs. Within the right middle and lower lobes and to a lesser extent the caudal aspect of the right upper lobe, there is some very mild hazy groundglass opacity which could reflect some mild residual pneumonitis or scarring from previous much more dense consolidating pneumonia. There has been no adverse development. No air bronchograms. The lung volumes are within normal limits. There is a moderate-sized retrocardiac gastric hernia, chronic. Some benign calcified granulomatous residua noted. No effusion or pneumothorax. No acute soft tissue or osseous chest wall pathology. The visualized upper abdomen showed no acute feature. IMPRESSION: Some very slight groundglass opacity in the right lung is present at the site of previous dense consolidating pneumonias. This may reflect some residual inflammatory change and pneumonitis versus some mild scarring from the prior episode. No adverse development or consolidating pneumonia. No abscess or effusion. Chronic hernia and atherosclerotic calcifications. Dictated by: Dictated on workstation # [id number]
== END ==
LOC: RAD 12:04
PROVIDERS: ATTEND Nurse Practitioner Family
DX: J18.9 Pneumonia, unspecified organism (principal); J44.9 Chronic obstructive pulmonary disease, unspecified; J45.909 Unspecified asthma, uncomplicated; R06.02 Shortness of breath
CPT/HCPCS: 71250

== ENCOUNTER → 2016-11-28 | Outpatient (CLI) | payer MEDICARE, MEDICAID ==
--- NOTE | 2016-11-28 16:21 | Diagnostic Imaging Report ---
PA and lateral views of the chest. INDICATION: Wheezing. COPD. FINDINGS: Calcified granulomas are seen in the lungs. There is mild chronic-appearing interstitial thickening. No focal airspace consolidation. The heart size is normal. There is suggestion of moderate-sized hiatal hernia. There is no effusion or pneumothorax. There is a severely compressed fracture which appears to involve the L1 level. This is similar to 08/10/2016. IMPRESSION: Moderate-sized hiatal hernia. No acute cardiopulmonary process. Dictated by: Dictated on workstation # [id number]
== END ==
LOC: RAD 12:28
PROVIDERS: ATTEND Nurse Practitioner Family
DX: K44.9 Diaphragmatic hernia without obstruction or gangrene (principal); R06.2 Wheezing
CPT/HCPCS: 71020

== ENCOUNTER → 2017-01-10 | Outpatient (CLI) | payer MEDICARE, MEDICAID | LOC: RT 11:51 | PROVIDERS: ATTEND Nurse Practitioner Family | DX: R09.02 Hypoxemia (principal); R44.9 Unspecified symptoms and signs involving general sensations and perceptions; G47.34 Idiopathic sleep related nonobstructive alveolar hypoventilation | CPT/HCPCS: 94761 ==

== ENCOUNTER 2017-02-23 13:39 | Emergency (ER) | payer MEDICARE, MEDICAID ==
[~2017-02-23] VITALS: Ht 165.1 cm; Wt 77.1 kg
[2017-02-23] MEDS ORDERED: morphine INJ 10 MG/ML 1ML (SYR OR VIAL) IVP STA ×2 (13:51→15:13)
--- NOTE | 2017-02-23 13:56 | ED Fall/Injury ---
General Chief Complaint: Lower Extremity Stated Complaint: FALL Nursing Triage Note: Pt to ED 9 via [facility] from [facility]. Facility reports pt fell around 0500 this morning and now c/o R hip pain. Pt reports she was coming back from the restroom and tried to sit in the chair and slid out of the chair. Pt denies any other injuries. Pt reports increased pain w/ movement of R lower extremity. Facility also requests patient have upper respiratory status checked while in ER due to concerns for upper respiratory infection. Source: patient Exam Limitations: no limitations History of Present Illness Time seen by provider: 13:48 Initial Comments 86-year-old female patient presents to the emergency department via [facility] from [facility] with reports of falling around 0500 this a.m. Patient now complaining of right hip pain and right thigh pain. Denies hitting her head or loss of consciousness. Patient states she did not fall and only slid off the edge of the chair onto the floor. Denies hitting her head. Denies neck or back pain. Facility also reported to EMS that she has had an upper respiratory infection last couple of days and would like her evaluated for this today. Patient reports chronic shortness of air and cough. She was seen by Jonathan Stinson APRN at the facility today. Patient has orders for morphine, percocet, and neurontin at the facility for pain. Occurred: this morning (0500 this AM) Injuries/Pain Location: lower extremity (rt hip) Context: other (slipped off the edge of the recliner) Loss of Consciousness: no loss of consciousness Modifying Factors: Improves With Immobilization, Worse With Movement Allergies and Home Medications Allergies Coded Allergies: fentanyl (Verified Adverse Reaction, Unknown, 11/02/14) morphine (Verified Adverse Reaction, Unknown, 02/23/17) penicillin (Verified Adverse Reaction, Unknown, 11/02/14) Uncoded Allergies: TETANUS (Adverse Reaction, Unknown, 11/02/14) Home Medications Albuterol Sulfate 2.5 Mg/3 Ml Vial.neb, 2.5 MG NEB TID, (Reported) Albuterol/Ipratropium 4 Gm Aero, 1 PUFF IH QID, (Reported) Allopurinol 100 Mg Tablet, 100 MG PO DAILY, (Reported) Alprazolam 0.25 Mg Tablet, 0.25 MG PO HS, (Reported) Alprazolam 0.25 Mg Tablet, 0.25 MG PO PRN PRN for ANXIETY, (Reported) Atenolol 25 Mg Tablet, 12.5 MG PO DAILY, (Reported) TAKES 1/2 (25MG) TABLET Bimatoprost 2.5 Ml Drops, 1 DROP OU HS, (Reported) Butalb/Acetaminophen/Caffeine 1 Each Capsule, 1 TAB PO BID, (Reported) Calcium Carbonate 500 Mg Tablet, 1 TAB PO DAILY, (Reported) Cefdinir 300 Mg Capsule, 300 MG PO DAILY for 10 Days Prescribed by: ADA CRAIG on 08/13/16 1153 Colchicine 0.6 Mg Tablet, 0.6 MG PO Q4H PRN for GOUT PAIN, (Reported) Dextran 70/Hypromellose 15 Ml Drops, 1 DROP OU PRN PRN for DRY EYES, (Reported) Dextran 70/Hypromellose 15 Ml Drops, 1 DROP OU BID, (Reported) Diclofenac Sodium 100 Gm Gel..gram., 2 GM TP TID, (Reported) APPLY TO RIGHT KNEE Dipyridamole/Aspirin 1 Ea Cap, 1 CAP PO BID, (Reported) Ferrous Sulfate 325 Mg Tablet, 325 MG PO BID, (Reported) Fluticasone/Salmeterol 1 Each Blst.w.dev, 1 PUFF INH BID, (Reported) Furosemide 20 Mg Tablet, 10 MG PO DAILY, (Reported) TAKES 1/2 (20MG) TABLET Gabapentin 400 Mg Capsule, 400 MG PO TID, (Reported) Guaifenesin 600 Mg Tab.er.12h, 600 MG PO BID, (Reported) L.acidoph & Paracasei,B.lactis 1 Each Capsule, 1 CAP PO DAILY, (Reported) Levofloxacin 500 Mg Tablet, 500 MG PO Q48H for 10 Days Prescribed by: ADA CARIG on 08/13/16 1153 Levothyroxine Sodium 125 Mcg Tablet, 125 MCG PO DAILY@0700, (Reported) Loperamide HCl 2 Mg Tablet, 4 MG PO Q6H PRN for DIARRHEA, (Reported) Lovastatin 20 Mg Tablet, 20 MG PO HS, (Reported) Mag Hydrox/Al Hydrox/Simeth 770 Ml Oral.susp, 30 ML PO UD PRN for ACID REFLUX, ( Reported) Magnesium Hydroxide 400 Mg/5 Ml Oral.susp, 30 ML PO DAILY PRN for CONSTIPATION, (Reported) Menthol/Lanolin/Calamine/Znox 71 Gm Oint, TP PRN PRN for GAULDING/REDNESS, ( Reported) Metaxalone 800 Mg Tablet, 800 MG PO TID, (Reported) Morphine Sulfate 20 Mg/1 Ml Syringe, 0.25 ML PO Q4H PRN for AIR HUNGER, ( Reported) Multivitamin W-Minerals/Lutein 1 Each Tablet, 1 TAB PO DAILY, (Reported) Nifedipine 90 Mg Tab.er.24, 90 MG PO DAILY, (Reported) Oxycodone HCl/Acetaminophen 1 Each Tablet, 1 TAB PO Q4H PRN for PAIN-MODERATE, ( Reported) Potassium Chloride 10 Meq Tab.er.prt, 10 MEQ PO DAILY, #3 Ref 0 Prescribed by: KALPESH SCHNEIDER on 02/23/17 1536 Pramipexole Di-HCl 0.125 Mg Tablet, 0.125 MG PO HS, (Reported) Prednisone 20 Mg Tab, 20 MG PO DAILY, #22 Take 3 tabs(60mg)daily,decrease by 1/2 tab(10mg)every other day. Prescribed by: ADA CRAIG on 08/13/16 1147 Prednisone 20 Mg Tab, 40 MG PO DAILY, #8 Ref 0 Prescribed by: KALPESH SCHNEIDER on 02/23/17 1536 Psyllium Husk 0.52 Gm Capsule, 2 CAP PO TID, (Reported) Ranitidine HCl 150 Mg Tablet, 150 MG PO DAILY, (Reported) Constitutional: No chills, No diaphoresis, No dizziness, No fever, malaise Eyes: No Symptoms Reported Ears, Nose, Mouth, Throat: no symptoms reported Respiratory: see HPI, cough (patient reports chronic cough), No orthopnea, phlegm, short of breath (patient reports chronic SOA), wheezing Cardiovascular: No chest pain, No palpitations, No syncope Gastrointestinal: No abdominal pain, No constipation, No diarrhea, No nausea, No vomiting Genitourinary: no symptoms reported Musculoskeletal: No back pain, joint pain, No joint swelling, No neck pain Skin: no symptoms reported Psychiatric/Neurological: Denies Headache, Denies Numbness, Denies Paresthesia , Denies Seizure, Denies Tingling, Denies Weakness All Other Systems Reviewed Negative Unless Noted: Yes (Negative excepted noted.) Past Fvpugcl-Iynvel-Gixllm Hx Patient Social History Alcohol Use: Denies Use Number of Drinks Today: GG Alcohol Beverage of Choice: Whiskey Recreational Drug Use: No Smoking Status: Former Smoker Type Used: Cigarettes Former Smoker, Quit: Feb 19, 2011 Recent Foreign Travel: No Contact w/Someone Who Travel: No Recent Infectious Disease Expo: No Recent Hopitalizations: No Immunizations Up To Date Tetanus Booster (TDap): Unknown PED Vaccines UTD: No Date of Pneumonia Vaccine: Feb 16, 2014 Date of Influenza Vaccine: Dec 18, 2015 Seasonal Allergies Seasonal Allergies: No Surgeries History of Surgeries: Yes (COLONOSCOPY; KNEE SURGERY) Surgeries: Appendectomy, Gallbladder, Hysterectomy, Orthopedic Respiratory History of Respiratory Disorde: Yes Respiratory Disorders: Asthma, COPD Currently Using CPAP: No Currently Using BIPAP: No Cardiovascular History of Cardiac Disorders: Yes Cardiac Disorders: Chronic Edema/Swelling, High Cholesterol, Hypertension Neurological History of Neurological Disord: Yes (Peripheral Neuropathy, chronic weakness, RLS) Neurological Disorders: Dementia, Headaches /Migraines, Neuropathy, Stroke, TIA Reproductive System Hx Reproductive Disorders: No 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, 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 Genitourinary History of Genitourinary Disor: Yes Genitourinary Disorders: Renal Failure Gastrointestinal History of Gastrointestinal Di: Yes Gastrointestinal Disorders: Gastroesophageal Reflux, Diverticulosis Musculoskeletal History of Musculoskeletal Dis: Yes (CHRONIC PAIN ) Musculoskeletal Disorders: Degenerate Disk Disease, Arthritis, Chronic Back Pain, Fractures, Gout Endocrine History of Endocrine Disorders: Yes Endocrine Disorders: Hyperthyroidism, Hypothyroidsim HEENT History of HEENT Disorders: Yes HEENT Disorders: Cataract, Glaucoma Loss of Vision: Bilateral Hearing Impairment: Hard of Hearing Cancer History of Cancer: No Psychosocial History of Psychiatric Problem: Yes Behavioral Health Disorders: Anxiety, Depression Integumentary History of Skin or Integumenta: No Blood Transfusions History of Blood Disorders: Yes Adverse Reaction to a Blood Tr: No Family Medical History Significant Family History: Stroke Family Medial History: Congenital heart disease 19 FATHER 19 MOTHER FH: stroke 19 FATHER 19 MOTHER G8 SISTER G8 SISTER Myocardial infarction G8 SISTER Physical Exam Vital Signs Vital Sign - Last 12Hours 02/23/17 02/23/17 13:45 13:54 Temp 98.5 Pulse 76 Resp 24 B/P (MAP) 148/82 (104) Pulse Ox 92 O2 Delivery Room Air O2 Flow Rate 2.00 Capillary Refill : Less Than 3 Seconds General Appearance: WD/WN, no apparent distress HEENT: PERRL/EOMI, normal ENT inspection, TMs normal, pharynx normal Neck: non-tender, full range of motion, supple, normal inspection Cardiovascular: normal peripheral pulses, regular rate, rhythm, no murmur Respiratory: chest non-tender, no respiratory distress, no accessory muscle use , decreased breath sounds, wheezing, expiration Gastrointestinal: normal bowel sounds, non tender, soft, no organomegaly Back: normal inspection, no vertebral tenderness Extremities: normal capillary refill, pelvis stable, other (right buttock, lateral rt hip, and rt lateral mid thigh TTP without swelling, ecchymosis, or deformity. 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, no motor/sensory deficits, alert, normal mood/affect, oriented x 3 Skin: normal color, warm/dry, No ecchymosis Yaima Coma Score Best Eye Response: (4) Open Spontaneously Best Verbal Response: (5) Oriented Best Motor Response: (6) Obeys Commands Yaima Total: 15 Progress/Results/Core Measures Results/Orders Lab Results Laboratory Tests Test 02/23/17 14:02 Range/Units White Blood Count 11.1 H 4.3-11.0 10^3/uL Red Blood Count 3.57 L 4.35-5.85 10^6/uL Hemoglobin 12.3 11.5-16.0 G/DL Hematocrit 38 35-52 % Mean Corpuscular Volume 105 H 80-99 FL Mean Corpuscular Hemoglobin 35 H 25-34 PG Mean Corpuscular Hemoglobin Concent 33 32-36 G/DL Red Cell Distribution Width 14.1 10.0-14.5 % Platelet Count 207 130-400 10^3/uL Mean Platelet Volume 10.7 H 7.4-10.4 FL Neutrophils (%) (Auto) 66 42-75 % Lymphocytes (%) (Auto) 21 12-44 % Monocytes (%) (Auto) 9 0-12 % Eosinophils (%) (Auto) 4 0-10 % Basophils (%) (Auto) 0 0-10 % Neutrophils # (Auto) 7.4 1.8-7.8 X 10^3 Lymphocytes # (Auto) 2.4 1.0-4.0 X 10^3 Monocytes # (Auto) 1.0 0.0-1.0 X 10^3 Eosinophils # (Auto) 0.4 H 0.0-0.3 10^3/uL Basophils # (Auto) 0.0 0.0-0.1 10^3/uL Sodium Level 143 135-145 MMOL/L Potassium Level 3.9 3.6-5.0 MMOL/L Chloride Level 108 H 98-107 MMOL/L Carbon Dioxide Level 25 21-32 MMOL/L Anion Gap 10 5-14 MMOL/L Blood Urea Nitrogen 22 H 7-18 MG/DL Creatinine 1.79 H 0.60-1.30 MG/DL Estimat Glomerular Filtration Rate 27 BUN/Creatinine Ratio 12 Glucose Level 82 70-105 MG/DL Calcium Level 10.3 H 8.5-10.1 MG/DL Total Bilirubin 0.3 0.1-1.0 MG/DL Aspartate Amino Transf (AST/SGOT) 21 5-34 U/L Alanine Aminotransferase (ALT/SGPT) 20 0-55 U/L Alkaline Phosphatase 109 40-136 U/L Total Protein 7.5 6.4-8.2 GM/DL Albumin 4.1 3.2-4.5 GM/DL My Orders Orders - KALPESH SCHNEIDER PA Cbc With Automated Diff (02/23/17 13:51) Comprehensive Metabolic Panel (02/23/17 13:51) Saline Lock/Iv-Start (02/23/17 13:51) O2 (02/23/17 13:51) Ct Head Wo (02/23/17 13:51) Chest 1 View, Ap/Pa Only (02/23/17 13:51) Pelvis With Right Hip 2-3views (02/23/17 13:51) Albuterol/Ipra Inhalation Soln (Duoneb I (02/23/17 14:00) Morphine Injection (Morphine Injection (02/23/17 13:51) Svn Sm Volume Nebulizer Rt-Rfs (02/23/17 13:51) Femur, Right, 2 Views (02/23/17 13:59) Morphine Injection (Morphine Injection (02/23/17 15:13) Medications Given in ED Current Medications Medications Dose Ordered Sig/Jamey Route Start Time Stop Time Status Last Admin Dose Admin Albuterol/ Ipratropium 3 ml ONCE ONCE INH 02/23/17 14:00 02/23/17 14:01 DC 02/23/17 14:37 3 ML Vital Signs/I&O Vital Sign - Last 12Hours 02/23/17 02/23/17 02/23/17 02/23/17 13:45 13:54 14:38 15:41 Temp 98.5 98.5 Pulse 76 76 Resp 24 24 B/P (MAP) 148/82 (104) Pulse Ox 92 92 94 94 O2 Delivery Room Air Nasal Cannula Nasal Cannula Nasal Cannula O2 Flow Rate 2.00 1.00 1.00 Blood Pressure Mean: 104 Diagnostic Imaging Diagonstic Imaging: Xray Plain Films/CT/US/NM/MRI: chest Comments IMPRESSION: 1. Cardiomegaly with suggestion of mild pulmonary venous congestion when compared with previous exam. 2. No evidence of fractures, pneumothorax or pleural effusion. Dictated by: Dictated on workstation # [id number] Reviewed: Reviewed by Me (radiology report reviewed by me) Diagonstic Imaging: Xray Plain Films/CT/US/NM/MRI: pelvis, hip Comments IMPRESSION: 1. No acute bony abnormalities. 2. Finding consistent with constipation with some ileus noted. Dictated by: Dictated on workstation # [id number] Reviewed: Reviewed by Me (radiology report reviewed by me) Diagonstic Imaging: CT Plain Films/CT/US/NM/MRI: head Comments IMPRESSION: 1. Diffuse cortical atrophy with white matter changes consistent with chronic small vessel disease. No acute changes have occurred. Dictated by: Dictated on workstation # [id number] Reviewed: Reviewed by Me (radiology report reviewed by me) Diagonstic Imaging: Xray Plain Films/CT/US/NM/MRI: femur Comments IMPRESSION: Arthroplasty of the right knee noted with no acute changes demonstrated. Dictated by: Dictated on workstation # [id number] Reviewed: Reviewed by Me (radiology report reviewed by me) Departure Communication (Admissions) Progress Notes Daughter at bedside and reporting patient's normal SaO2 ranges between 88-92% on home O2. Patient denies improvement in pain with morphine 4 mg IV. Will repeat 4 mg IV morphine x1 dose. Patient is A/Ox3. NAD. Lungs improved aeration and BS bilaterally, expiratory crackles noted without wheezing, rhonchi , or rales. CV RRR. Patient reports feeling better with the second dose of morphine and with the duoneb treatment. Daughter states patient has a Julienne green party to go to at [facility] at 1700. Plan for dsch to comfort care with f/u next week with Jonathan Stinson APRN. Patient to return immediately to the ED for worsened symptoms or any other concerns. Impression Impression: Primary Impression: Contusion of right hip Qualified Codes: S70.01XA - Contusion of right hip, initial encounter Additional Impression: COPD with exacerbation Disposition: 03 XFER SNF Condition: Stable Departure-Patient Inst. Decision time for Depature: 15:15 Referrals: PRO HERRERA MD (PCP/Family) Primary Care Physician Patient Instructions: Contusion (DC), Exacerbation of COPD (DC) Add. Discharge Instructions: All discharge instructions reviewed with patient and/or family. Voiced understanding. Increase Percocet 5/325 mg to 1-2 tablets by mouth every 4 hours as needed for pain x5 days, then resume usual dosing. Increase lasix to 20 mg daily x3 days then resume usual dosing. Potassium chloride 20 meq daily x3days. Continue all other usual home medications. Ice pack for 20 minute intervals as needed for pain for 2-3 days, then use a heating pad or pack if needed. Activity as tolerated. Follow-up with your primary care provider as outpatient next week for recheck. Return to the emergency department for worsened pain, numbness, weakness, shortness of air, chest pain, fever, or any other concerns. Scripts Potassium Chloride (Potassium Chloride) 10 Meq Tab.er.prt 10 MEQ PO DAILY, #3 TAB 0 Refills Prov: KALPESH SCHNEIDER 02/23/17 Prednisone (Prednisone) 20 Mg Tab 40 MG PO DAILY, #8 TAB 0 Refills Prov: KALPESH SCHNEIDER 02/23/17 KALPESH SCHNEIDER Feb 23, 2017 13:56
[2017-02-23] MEDS ORDERED: RT-ALBUTEROL/IPRATROPIUM 3 ML (DUONEB) VIAL INH ONE (14:00)
[2017-02-23 14:18] LABS: BASOPHILS % (AUTO) 0 % (0-10); EOSINOPHILS # (AUTO) 0.4 10^3/uL (0.0-0.3); EOSINOPHILS % (AUTO) 4 % (0-10); LYMPHOCYTES # (AUTO) 2.4 X 10^3 (1.0-4.0); LYMPHOCYTES % (AUTO) 21 % (12-44); MEAN CORPUSCULAR HEMOGLOBIN 35 PG (25-34); MEAN CORPUSCULAR HGB CONC 33 G/DL (32-36); MEAN CORPUSCULAR VOLUME 105 FL (80-99); MEAN PLATELET VOLUME 10.7 FL (7.4-10.4); MONOCYTES % (AUTO) 9 % (0-12); NEUTROPHILS # (AUTO) 7.4 X 10^3 (1.8-7.8); NEUTROPHILS % (AUTO) 66 % (42-75); PLATELET COUNT 207 10^3/uL (130-400); RED BLOOD COUNT 3.57 10^6/uL (4.35-5.85); RED CELL DISTRIBUTION WIDTH 14.1 % (10.0-14.5); WHITE BLOOD COUNT 11.1 10^3/uL (4.3-11.0)
[2017-02-23 14:29] LABS: ALBUMIN 4.1 GM/DL (3.2-4.5); BILIRUBIN,TOTAL 0.3 MG/DL (0.1-1.0); CALCIUM 10.3 MG/DL (8.5-10.1); CREATININE SERUM 1.79 MG/DL (0.60-1.30); POTASSIUM 3.9 MMOL/L (3.6-5.0); TOTAL PROTEIN 7.5 GM/DL (6.4-8.2)
--- NOTE | 2017-02-23 14:33 | Diagnostic Imaging Report ---
PROCEDURE: CT head without contrast. TECHNIQUE: Multiple contiguous axial images were obtained through the brain without the use of intravenous contrast. INDICATION: Fall. Comparison with 11/02/2014. FINDINGS: There is generalized cortical atrophy. Periventricular white matter changes are present with a few cystic changes in the basal nuclei consistent with old lacunar infarct. There is no intracranial hemorrhage. No mass effect. No focal edema. The ventricles are not dilated. No extra-axial fluid collection. Basal cisterns are clear. The mastoid air cells are clear. No evidence of color or fractures. IMPRESSION: 1. Diffuse cortical atrophy with white matter changes consistent with chronic small vessel disease. No acute changes have occurred. Dictated by: Dictated on workstation # [id number]
--- NOTE | 2017-02-23 14:34 | Diagnostic Imaging Report ---
Indication: Fall with right leg pain. Findings: There is total arthroplasty noted of the right knee. Components are in good position. No fractures are demonstrated of the right femur. IMPRESSION: Arthroplasty of the right knee noted with no acute changes demonstrated. Dictated by: Dictated on workstation # [id number]
--- NOTE | 2017-02-23 14:34 | Diagnostic Imaging Report ---
Indication: Fall with right leg pain. Findings: AP pelvis and right hip. Bony pelvis is intact. SI joints are symmetrical. Pubic symphysis in good alignment. Femoral heads are in normal articulation bilaterally. Articulating surfaces are smooth. No fracture is demonstrated. There is noted considerable stool within the colon with mildly dilated loops of small bowel. IMPRESSION: 1. No acute bony abnormalities. 2. Finding consistent with constipation with some ileus noted. Dictated by: Dictated on workstation # [id number]
--- NOTE | 2017-02-23 14:35 | Diagnostic Imaging Report ---
INDICATION: Fall. Comparison with 11/28/2016. FINDINGS: There is cardiomegaly present. There is prominence of the pulmonary vasculature with mild perihilar interstitial infiltrates. No pleural effusion. No pneumothorax. No rib fractures demonstrated. IMPRESSION: 1. Cardiomegaly with suggestion of mild pulmonary venous congestion when compared with previous exam. 2. No evidence of fractures, pneumothorax or pleural effusion. Dictated by: Dictated on workstation # [id number]
[2017-02-23] MEDS ORDERED: PRD20T PO ×2 (15:19→15:36)
[2017-02-23] MEDS ORDERED: POTA10TA36 PO ×2 (15:24→15:36)
[2017-02-23 15:41] VITALS: BP 148/82
[2017-02-23] MEDS ORDERED: FAMOTIDINE 20MG/2ML IV (PEPCID) ONE (22:41)
[2017-02-23] MEDS ORDERED: EPINEPHrine INJECTION 1 MG/ML AMP ONE (22:41)
[2017-02-23] MEDS ORDERED: methylPREDNISolone 125 MG (Solu-MEDROL) VIAL ONE (22:41)
[2017-02-23] MEDS ORDERED: diphenhydrAMINE 50 MG/ML INJ (BENADRYL) ONE (22:41)
[2017-02-24] MEDS ORDERED: MORP20SY PO (16:06)
== END 2017-02-23 15:41 ==
LOC: EDUNIT# 13:39 → ER 13:40
DX: S70.01XA Contusion of right hip, initial encounter (principal); J44.1 Chronic obstructive pulmonary disease with (acute) exacerbation; E78.00 Pure hypercholesterolemia, unspecified; E03.9 Hypothyroidism, unspecified; E05.90 Thyrotoxicosis, unspecified without thyrotoxic crisis or storm; F41.9 Anxiety disorder, unspecified; F32.9 Major depressive disorder, single episode, unspecified; M10.9 Gout, unspecified; I10 Essential (primary) hypertension; K21.9 Gastro-esophageal reflux disease without esophagitis; G43.909 Migraine, unspecified, not intractable, without status migrainosus; Z86.73 Personal history of transient ischemic attack (TIA), and cerebral infarction without residual deficits; Z87.891 Personal history of nicotine dependence; Z90.710 Acquired absence of both cervix and uterus; Z82.49 Family history of ischemic heart disease and other diseases of the circulatory system; Z87.19 Personal history of other diseases of the digestive system; Z90.49 Acquired absence of other specified parts of digestive tract; W18.40XA Slipping, tripping and stumbling without falling, unspecified, initial encounter
CPT/HCPCS: 36415; 70450; 71010; 73552; 80053; 85025; 94640

== ENCOUNTER 2017-02-23 22:40 | Inpatient (IN) | payer MEDICARE, MEDICAID ==
[~2017-02-23] VITALS: Ht 165.1 cm; Wt 85.3 kg
[~2017-02-23 22:40] MED LIST changes: +POTA10TA36 PO
[2017-02-23] MEDS ORDERED: DEXAMETHASONE 4 MG/ML SDV (DECADRON) ONE (22:47)
[2017-02-23] MEDS ORDERED: RT-ALBUTEROL/IPRATROPIUM 3 ML (DUONEB) VIAL ONE (22:47)
[2017-02-23] MEDS ORDERED: RT-ALBUTEROL/IPRATROPIUM 3 ML (DUONEB) VIAL INH ONE (23:00)
[2017-02-23] MEDS ORDERED: DEXAMETHASONE 4 MG/ML SDV (DECADRON) IH ONE (23:00)
[2017-02-23 23:02] LABS: BASOPHILS % (AUTO) 0 % (0-10); EOSINOPHILS # (AUTO) 0.1 10^3/uL (0.0-0.3); EOSINOPHILS % (AUTO) 0 % (0-10); LYMPHOCYTES # (AUTO) 1.1 X 10^3 (1.0-4.0); LYMPHOCYTES % (AUTO) 9 % (12-44); MEAN CORPUSCULAR HEMOGLOBIN 34 PG (25-34); MEAN CORPUSCULAR HGB CONC 33 G/DL (32-36); MEAN CORPUSCULAR VOLUME 105 FL (80-99); MEAN PLATELET VOLUME 10.8 FL (7.4-10.4); MONOCYTES # (AUTO) 0.2 X 10^3 (0.0-1.0); MONOCYTES % (AUTO) 2 % (0-12); NEUTROPHILS # (AUTO) 10.2 X 10^3 (1.8-7.8); NEUTROPHILS % (AUTO) 88 % (42-75); PLATELET COUNT 204 10^3/uL (130-400); RED BLOOD COUNT 3.76 10^6/uL (4.35-5.85); RED CELL DISTRIBUTION WIDTH 14.3 % (10.0-14.5); WHITE BLOOD COUNT 11.6 10^3/uL (4.3-11.0)
[2017-02-23 23:04] LABS: ABG BASE EXCESS -4.6 MMOL/L (-2.5-2.5); ABG HCO3 21 MMOL/L (23-27); ABG OXYGEN SATURATION 99 % (94-100); ABG PCO2 50 MMHG (35-45); ABG PO2 151 MMHG (79-93); ABG TCO2 22.9 MMOL/L (21.0-31.0)
[2017-02-23 23:05] LABS: ABG PH 7.26 (7.37-7.43)
[2017-02-23 23:06] LABS: INR 0.9 (0.8-1.4); PROTHROMBIN TIME PATIENT 12.6 SEC (12.2-14.7)
[2017-02-23 23:06] LABS: ALLENS TEST YES-POS
[2017-02-23 23:16] LABS: BAND NEUTROPHILS 3 %; BASOPHILS % (MANUAL) 1 %; EOSINOPHILS % (MANUAL) 1 %; LYMPHOCYTES % (MANUAL) 12 %; METAMYELOCYTES % 1 %; NEUTROPHILS % (MANUAL) 79 %
[2017-02-23 23:17] LABS: ALANINE AMINOTRANSFERASE 23 U/L (0-55); ALBUMIN 4.4 GM/DL (3.2-4.5); ANION GAP 13 MMOL/L (5-14); ASPARTATE AMINO TRANSFERASE 21 U/L (5-34); BILIRUBIN,TOTAL 0.3 MG/DL (0.1-1.0); BLOOD UREA NITROGEN 25 MG/DL (7-18); BUN/CREATININE RATIO 11; CALCIUM 10.5 MG/DL (8.5-10.1); CARBON DIOXIDE 20 MMOL/L (21-32); CHLORIDE 107 MMOL/L (98-107); CREATINE KINASE 114 U/L (29-168); CREATININE SERUM 2.23 MG/DL (0.60-1.30); GFR ESTIMATED 21; GLUCOSE 178 MG/DL (70-105); MAGNESIUM 1.9 MG/DL (1.8-2.4); POTASSIUM 5.1 MMOL/L (3.6-5.0); SODIUM 140 MMOL/L (135-145); TOTAL PROTEIN 8.1 GM/DL (6.4-8.2)
[2017-02-23] MEDS ORDERED: EPINEPHrine INJECTION 1 MG/ML AMP IM STA (23:18)
[2017-02-23 23:24] LABS: TROPONIN I < 0.30 NG/ML (<0.30)
[2017-02-23 23:26] VITALS: BP 129/62
[2017-02-23] MEDS ORDERED: methylPREDNISolone 125 MG (Solu-MEDROL) VIAL IVP ONE (23:30)
[2017-02-23] MEDS ORDERED: diphenhydrAMINE 50 MG/ML INJ (BENADRYL) IVP ONE (23:30)
[2017-02-23] MEDS ORDERED: FUROSEMIDE 40 MG/4 ML INJ (LASIX) IVP ONE (23:30)
[2017-02-23] MEDS ORDERED: FAMOTIDINE 20MG/2ML IV (PEPCID) IVP ONE (23:30)
[2017-02-23] MEDS ORDERED: cefTRIAXone INJECTION 1,000 MG in NS (IVPB) 50 ML IV ONE (23:30)
[2017-02-24] VITALS (18 sets, daily range): BP systolic 97–171; BP diastolic 48–94
[2017-02-24] MEDS ORDERED: AZITHROMYCIN 500 MG/NS 250 ML IVPB IV ONE ×2 (00:45)
[2017-02-24] MEDS ORDERED: CATHETER FLUSH 10 ML SYR IV PRN (00:45)
[2017-02-24 00:47] LABS: ABG BASE EXCESS -4.3 MMOL/L (-2.5-2.5); ABG HCO3 21 MMOL/L (23-27); ABG OXYGEN SATURATION 98 % (94-100); ABG PCO2 46 MMHG (35-45); ABG PO2 100 MMHG (79-93); ABG TCO2 22.6 MMOL/L (21.0-31.0); ALLENS TEST YES-POS; PATIENT TEMP 98.6
[2017-02-24 00:48] LABS: ABG PH 7.29 (7.37-7.43)
[2017-02-24 00:49] LABS: BILIRUBIN,URINE NEGATIVE (NEGATIVE); KETONES,URINE NEGATIVE (NEGATIVE); LEUKOCYTE ESTERASE ,URINE NEGATIVE (NEGATIVE); NITRITE,URINE NEGATIVE (NEGATIVE); PH,URINE 5 (5-9); PROTEIN,URINE NEGATIVE (NEGATIVE); UROBILINOGEN,URINE NORMAL (NORMAL)
[2017-02-24 00:55] LABS: HYALINE CASTS, URINE RARE /LPF; SQUAMOUS EPITHELIAL CELL,UR RARE /HPF
[2017-02-24] MEDS: RT-ALBUTEROL/IPRATROPIUM 3 ML (DUONEB) VIAL INH SCH ×4 (02:14→14:43)
[2017-02-24 04:44] LABS: BASOPHILS % (AUTO) 0 % (0-10); EOSINOPHILS # (AUTO) 0.3 10^3/uL (0.0-0.3); EOSINOPHILS % (AUTO) 4 % (0-10); LYMPHOCYTES # (AUTO) 0.6 X 10^3 (1.0-4.0); LYMPHOCYTES % (AUTO) 6 % (12-44); MEAN CORPUSCULAR HEMOGLOBIN 34 PG (25-34); MEAN CORPUSCULAR HGB CONC 32 G/DL (32-36); MEAN CORPUSCULAR VOLUME 106 FL (80-99); MEAN PLATELET VOLUME 11.1 FL (7.4-10.4); MONOCYTES # (AUTO) 0.1 X 10^3 (0.0-1.0); MONOCYTES % (AUTO) 1 % (0-12); NEUTROPHILS # (AUTO) 8.2 X 10^3 (1.8-7.8); NEUTROPHILS % (AUTO) 89 % (42-75); PLATELET COUNT 172 10^3/uL (130-400); RED BLOOD COUNT 3.37 10^6/uL (4.35-5.85); RED CELL DISTRIBUTION WIDTH 13.9 % (10.0-14.5); WHITE BLOOD COUNT 9.2 10^3/uL (4.3-11.0)
--- NOTE | 2017-02-24 05:04 | ED Respiratory ---
General Chief Complaint: Allergic Reaction Stated Complaint: ACUTE ON CHRONIC RESPIRATORY FAILURE;PNEUMONIA; Nursing Triage Note: brought in by [facility] for possible allergic reaction/ tongue swelling Source: family (GRAND DAUGHTER), old records (ALL PMH IS FROM OLD RECORDS) Exam Limitations: other (PT UNABLE TO GIVE ANY INFORMATION AT THIS TIME-NOT ANSWERING QUESTIONS. PT ALSO HAS HISTORY OF DEMENTIA) History of Present Illness Time seen by provider: 22:40 Initial Comments PT ARRIVES VIA EMS FROM PT'S RESIDENCE AT [facility] EMS THOUGHT PT WAS HAVING AN ALLERGIC REACTION TO SOMETHING AND THOUGHT HER TONGUE WAS SWOLLEN EMS WAS CALLED FOR PT HAVING SHORTNESS OF BREATH NO RASH OR ITCHING NO SWELLING OF FACE OR ANY OTHER PART OF BODY ON ARRIVAL, TONGUE DOES NOT APPEAR TO BE SWOLLEN. PT WAS SEEN IN ER EARLIER THIS AFTERNOON, AFTER FALLING AND LANDING ON HER HIP. WORK UP WAS NEGATIVE FOR FRACTURE HAS NOT HAD ANY NEW MEDICATIONS IS REPORTED THAT PT "HAS BEEN GOING [place]" SINCE 1700 TONIGHT--INCREASED SHORTNESS OF BREATH PT HAS HAD COLD SYMPTOMS FOR THE LAST FEW DAYS PT HAS COPD AND IS ON O2 AT 3L/NC CONTINUOUSLY PT WAS GIVEN ALBUTEROL TREATMENT X 2 PRIOR TO ARRIVAL-- AROUND 2200 O2 SAT WAS 93% ON 3L/NC AT SCENE. PT'S EVENING DOSES OF XANAX AND GABAPENTIN WERE HELD Allergies and Home Medications Allergies Coded Allergies: fentanyl (Verified Adverse Reaction, Unknown, 11/02/14) morphine (Verified Adverse Reaction, Unknown, 02/23/17) penicillin (Verified Adverse Reaction, Unknown, 11/02/14) Uncoded Allergies: TETANUS (Adverse Reaction, Unknown, 11/02/14) Home Medications Albuterol Sulfate 2.5 Mg/3 Ml Vial.neb, 2.5 MG NEB TID, (Reported) Albuterol/Ipratropium 4 Gm Aero, 1 PUFF IH QID, (Reported) Allopurinol 100 Mg Tablet, 100 MG PO DAILY, (Reported) Alprazolam 0.25 Mg Tablet, 0.25 MG PO HS, (Reported) Alprazolam 0.25 Mg Tablet, 0.25 MG PO PRN PRN for ANXIETY, (Reported) Atenolol 25 Mg Tablet, 12.5 MG PO DAILY, (Reported) TAKES 1/2 (25MG) TABLET Bimatoprost 2.5 Ml Drops, 1 DROP OU HS, (Reported) Butalb/Acetaminophen/Caffeine 1 Each Capsule, 1 TAB PO BID, (Reported) Calcium Carbonate 500 Mg Tablet, 1 TAB PO DAILY, (Reported) Cefdinir 300 Mg Capsule, 300 MG PO DAILY for 10 Days Prescribed by: ADA CRAIG on 08/13/16 1153 Colchicine 0.6 Mg Tablet, 0.6 MG PO Q4H PRN for GOUT PAIN, (Reported) Dextran 70/Hypromellose 15 Ml Drops, 1 DROP OU PRN PRN for DRY EYES, (Reported) Dextran 70/Hypromellose 15 Ml Drops, 1 DROP OU BID, (Reported) Diclofenac Sodium 100 Gm Gel..gram., 2 GM TP TID, (Reported) APPLY TO RIGHT KNEE Dipyridamole/Aspirin 1 Ea Cap, 1 CAP PO BID, (Reported) Ferrous Sulfate 325 Mg Tablet, 325 MG PO BID, (Reported) Fluticasone/Salmeterol 1 Each Blst.w.dev, 1 PUFF INH BID, (Reported) Furosemide 20 Mg Tablet, 10 MG PO DAILY, (Reported) TAKES 1/2 (20MG) TABLET Gabapentin 400 Mg Capsule, 400 MG PO TID, (Reported) Guaifenesin 600 Mg Tab.er.12h, 600 MG PO BID, (Reported) L.acidoph & Paracasei,B.lactis 1 Each Capsule, 1 CAP PO DAILY, (Reported) Levofloxacin 500 Mg Tablet, 500 MG PO Q48H for 10 Days Prescribed by: ADA Javier GRIFFITHSK on 08/13/16 1153 Levothyroxine Sodium 125 Mcg Tablet, 125 MCG PO DAILY@0700, (Reported) Loperamide HCl 2 Mg Tablet, 4 MG PO Q6H PRN for DIARRHEA, (Reported) Lovastatin 20 Mg Tablet, 20 MG PO HS, (Reported) Mag Hydrox/Al Hydrox/Simeth 770 Ml Oral.susp, 30 ML PO UD PRN for ACID REFLUX, ( Reported) Magnesium Hydroxide 400 Mg/5 Ml Oral.susp, 30 ML PO DAILY PRN for CONSTIPATION, (Reported) Menthol/Lanolin/Calamine/Znox 71 Gm Oint, TP PRN PRN for GAULDING/REDNESS, ( Reported) Metaxalone 800 Mg Tablet, 800 MG PO TID, (Reported) Morphine Sulfate 20 Mg/1 Ml Syringe, 0.25 ML PO Q4H PRN for AIR HUNGER, ( Reported) Multivitamin W-Minerals/Lutein 1 Each Tablet, 1 TAB PO DAILY, (Reported) Nifedipine 90 Mg Tab.er.24, 90 MG PO DAILY, (Reported) Oxycodone HCl/Acetaminophen 1 Each Tablet, 1 TAB PO Q4H PRN for PAIN-MODERATE, ( Reported) Potassium Chloride 10 Meq Tab.er.prt, 10 MEQ PO DAILY, #3 Ref 0 Prescribed by: KALPESH SCHNEIDER on 02/23/17 1536 Pramipexole Di-HCl 0.125 Mg Tablet, 0.125 MG PO HS, (Reported) Prednisone 20 Mg Tab, 20 MG PO DAILY, #22 Take 3 tabs(60mg)daily,decrease by 1/2 tab(10mg)every other day. Prescribed by: ADA CRAIG on 08/13/16 1147 Prednisone 20 Mg Tab, 40 MG PO DAILY, #8 Ref 0 Prescribed by: KALPESH SCHNEIDER on 02/23/17 1536 Psyllium Husk 0.52 Gm Capsule, 2 CAP PO TID, (Reported) Ranitidine HCl 150 Mg Tablet, 150 MG PO DAILY, (Reported) Constitutional: other (UNABLE TO OBTAIN ANY INFORMATION FROM PT) Past Aqhruwk-Dnexzt-Ohsvae Hx Patient Social History Alcohol Use: Occasionally Uses Number of Drinks Today: GG Alcohol Beverage of Choice: Whiskey Recreational Drug Use: No Smoking Status: Former Smoker Type Used: Cigarettes Former Smoker, Quit: Feb 19, 2011 Recent Foreign Travel: No Contact w/Someone Who Travel: No Recent Infectious Disease Expo: No Recent Hopitalizations: No Immunizations Up To Date Tetanus Booster (TDap): Unknown PED Vaccines UTD: No Date of Pneumonia Vaccine: Feb 16, 2014 Date of Influenza Vaccine: Dec 18, 2015 Seasonal Allergies Seasonal Allergies: No Surgeries History of Surgeries: Yes (COLONOSCOPY; KNEE SURGERY) Surgeries: Appendectomy, Gallbladder, Hysterectomy, Orthopedic Respiratory History of Respiratory Disorde: Yes Respiratory Disorders: Asthma, COPD Currently Using CPAP: No Currently Using BIPAP: No Cardiovascular History of Cardiac Disorders: Yes Cardiac Disorders: Chronic Edema/Swelling, High Cholesterol, Hypertension Neurological History of Neurological Disord: Yes (Peripheral Neuropathy, chronic weakness, RLS) Neurological Disorders: Dementia, Headaches /Migraines, Neuropathy, Stroke, TIA Reproductive System Hx Reproductive Disorders: No 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, 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 Genitourinary History of Genitourinary Disor: Yes Genitourinary Disorders: Renal Failure Gastrointestinal History of Gastrointestinal Di: Yes Gastrointestinal Disorders: Gastroesophageal Reflux, Diverticulosis Musculoskeletal History of Musculoskeletal Dis: Yes (CHRONIC PAIN ) Musculoskeletal Disorders: Degenerate Disk Disease, Arthritis, Chronic Back Pain, Fractures, Gout Endocrine History of Endocrine Disorders: Yes Endocrine Disorders: Hyperthyroidism, Hypothyroidsim HEENT History of HEENT Disorders: Yes HEENT Disorders: Cataract, Glaucoma Loss of Vision: Bilateral Hearing Impairment: Hard of Hearing Cancer History of Cancer: No Psychosocial History of Psychiatric Problem: Yes Behavioral Health Disorders: Anxiety, Depression Integumentary History of Skin or Integumenta: No Blood Transfusions History of Blood Disorders: Yes Adverse Reaction to a Blood Tr: No Family Medical History Significant Family History: Stroke Family Medial History: Congenital heart disease 19 FATHER 19 MOTHER FH: stroke 19 FATHER 19 MOTHER G8 SISTER G8 SISTER Myocardial infarction G8 SISTER Physical Exam Vital Signs Vital Sign - Last 12Hours 02/23/17 02/23/17 22:40 22:45 Temp 99.2 Pulse 87 Resp 12 B/P (MAP) 145/102 (116) Pulse Ox 96 O2 Delivery OxyMask O2 Flow Rate 10.00 FiO2 50 Capillary Refill : Less Than 3 Seconds General Appearance: moderate distress, obese, other (PT LETHARGIC, UNABLE TO TALK OR ANSWER QUESTIONS OR FOLLOW COMMANDS, MODERATE DYSPNEA WITH GRUNTING AND RETRACTIONS. PT IS RESTLESS) HEENT: other (TONGUE VERY DRY AND FISSURED--PT IS MOUTH BREATHING. NO GROSS SWELLING OF TONGUE) Neck: normal inspection Respiratory: respiratory distress, decreased breath sounds (IN BASES BILATERALLY), accessory muscle use, No stridor, other (OCCASIONAL SLIGHT EXPIRATORY WHEEZING. OCCASIONAL DRY COUGH) Cardiovascular: regular rate, rhythm, no murmur, extra beats (OCCASIONAL ECTOPY ) Gastrointestinal: soft Extremities: no pedal edema, normal capillary refill Neurologic/Psychiatric: no motor/sensory deficits (GROSSLY INTACT--MOVES ALL EXTREMITIES), other (LETHARGIC, NOT ABLE TO TALK AND NOT FOLLOWING COMMANDS) Skin: normal color, warm/dry (VERY WARM. ), No rash Focused Exam Evaluation Lactate Level Laboratory Tests 02/23/17 23:10: Lactic Acid Level 2.29*H Lactic Acid Level Laboratory Tests Test 02/23/17 23:10 Lactic Acid Level 2.29 MMOL/L (0.50-2.00) *H Progress/Results/Core Measures Suspected Sepsis Recent Fever Within 48 Hours: No Infection Criteria Present: Suspected New Infection New/Unexplained Altered Menta: No Sepsis Screen: No Definite Risk Sepsis Diagnosis: SIRS Temperature:98.0 Pulse: 66 Respiratory Rate: 12 Laboratory Tests 02/23/17 22:48: White Blood Count 11.6H Blood Pressure 97 /51 Mean: 66 Laboratory Tests 02/23/17 23:10: Lactic Acid Level 2.29*H Laboratory Tests 02/23/17 22:48: Creatinine 2.23H, INR Comment 0.9, Platelet Count 204, Total Bilirubin 0.3 Results/Orders Lab Results Laboratory Tests Test 02/23/17 22:48 02/23/17 22:52 02/23/17 23:10 Range/Units White Blood Count 11.6 H 4.3-11.0 10^3/uL Red Blood Count 3.76 L 4.35-5.85 10^6/uL Hemoglobin 12.9 11.5-16.0 G/DL Hematocrit 40 35-52 % Mean Corpuscular Volume 105 H 80-99 FL Mean Corpuscular Hemoglobin 34 25-34 PG Mean Corpuscular Hemoglobin Concent 33 32-36 G/DL Red Cell Distribution Width 14.3 10.0-14.5 % Platelet Count 204 130-400 10^3/uL Mean Platelet Volume 10.8 H 7.4-10.4 FL Neutrophils (%) (Auto) 88 H 42-75 % Lymphocytes (%) (Auto) 9 L 12-44 % Monocytes (%) (Auto) 2 0-12 % Eosinophils (%) (Auto) 0 0-10 % Basophils (%) (Auto) 0 0-10 % Neutrophils # (Auto) 10.2 H 1.8-7.8 X 10^3 Lymphocytes # (Auto) 1.1 1.0-4.0 X 10^3 Monocytes # (Auto) 0.2 0.0-1.0 X 10^3 Eosinophils # (Auto) 0.1 0.0-0.3 10^3/uL Basophils # (Auto) 0.0 0.0-0.1 10^3/uL Neutrophils % (Manual) 79 % Lymphocytes % (Manual) 12 % Monocytes % (Manual) 3 % Eosinophils % (Manual) 1 % Basophils % (Manual) 1 % Metamyelocytes % 1 % Band Neutrophils 3 % Blood Morphology Comment NORMAL Prothrombin Time 12.6 12.2-14.7 SEC INR Comment 0.9 0.8-1.4 Activated Partial Thromboplast Time 28 24-35 SEC Sodium Level 140 135-145 MMOL/L Potassium Level 5.1 H 3.6-5.0 MMOL/L Chloride Level 107 98-107 MMOL/L Carbon Dioxide Level 20 L 21-32 MMOL/L Anion Gap 13 5-14 MMOL/L Blood Urea Nitrogen 25 H 7-18 MG/DL Creatinine 2.23 H 0.60-1.30 MG/DL Estimat Glomerular Filtration Rate 21 BUN/Creatinine Ratio 11 Glucose Level 178 H 70-105 MG/DL Calcium Level 10.5 H 8.5-10.1 MG/DL Magnesium Level 1.9 1.8-2.4 MG/DL Total Bilirubin 0.3 0.1-1.0 MG/DL Aspartate Amino Transf (AST/SGOT) 21 5-34 U/L Alanine Aminotransferase (ALT/SGPT) 23 0-55 U/L Alkaline Phosphatase 120 40-136 U/L Total Creatine Kinase 114 29-168 U/L Creatine Kinase MB 2.5 <6.6 NG/ML Troponin I < 0.30 <0.30 NG/ML B-Type Natriuretic Peptide 54.0 <100.0 PG/ML Total Protein 8.1 6.4-8.2 GM/DL Albumin 4.4 3.2-4.5 GM/DL Blood Gas Puncture Site RT RAD Blood Gas Patient Temperature 99.0 Arterial Blood pH 7.26 *L 7.37-7.43 Arterial Blood Partial Pressure CO2 50 H 35-45 MMHG Arterial Blood Partial Pressure O2 151 H 79-93 MMHG Arterial Blood HCO3 21 L 23-27 MMOL/L Arterial Blood Total CO2 22.9 21.0-31.0 MMOL/L Arterial Blood Oxygen Saturation 99 94-100 % Arterial Blood Base Excess -4.6 L -2.5-2.5 MMOL/L Reza Test YES-POS Blood Gas Ventilator Setting NO Blood Gas Inspired Oxygen 8L Lactic Acid Level 2.29 *H 0.50-2.00 MMOL/L Micro Results Microbiology 02/23/17 Influenza Types A,B Antigen (SHIRIN) - Final, Complete My Orders Orders - SWEETIE SULLIVAN DO Dexamethasone Injection (Decadron Inject (02/23/17 22:47) Albuterol/Ipra Inhalation Soln (Duoneb I (02/23/17 22:47) Saline Lock/Iv-Start (02/23/17 22:51) Ekg Tracing (02/23/17 22:51) O2 (02/23/17 22:51) Monitor-Rhythm Ecg Trace Only (02/23/17 22:51) Arterial Blood Gas (02/23/17 22:51) BNP (02/23/17 22:51) Cbc With Automated Diff (02/23/17 22:51) Comprehensive Metabolic Panel (02/23/17 22:51) Creatine Kinase (02/23/17 22:51) Creatine Kinase Mb (02/23/17 22:51) Magnesium (02/23/17 22:51) Protime With Inr (02/23/17 22:51) Partial Thromboplastin Time (02/23/17 22:51) Troponin I (02/23/17 22:51) Influenza A And B Antigens (02/23/17 22:51) Chest 1 View, Ap/Pa Only (02/23/17 22:51) Albuterol/Ipra Inhalation Soln (Duoneb I (02/23/17 23:00) Dexamethasone Injection (Decadron Inject (02/23/17 23:00) Rt Request For Service (02/23/17 22:51) Svn Volume Nebulizer Rt-Rfs (02/23/17 22:51) Lactic Acid Analyzer (02/23/17 22:53) Blood Culture (02/23/17 22:53) Manual Differential (02/23/17 22:48) Methylprednisolone Sod Succ (Solu-Medrol (02/23/17 23:30) Famotidine Injection (Pepcid Injection) (02/23/17 23:30) Diphenhydramine Injection (Benadryl Inje (02/23/17 23:30) Epinephrine 1 Mg Injection (Adrenalin I (02/23/17 23:18) Furosemide Injection (Lasix Injection) (02/23/17 23:30) Ceftriaxone Injection (Rocephin Injectio (02/23/17 23:30) Catheter(Urinary) Insert & Ass 03,15 (02/23/17 23:24) Medications Given in ED Current Medications Medications Dose Ordered Sig/Jamey Route Start Time Stop Time Status Last Admin Dose Admin Albuterol/ Ipratropium 3 ml ONCE ONCE INH 02/23/17 23:00 02/23/17 23:01 DC 02/23/17 23:23 3 ML Ceftriaxone Sodium 1000 mg/ Sodium Chloride 50 ml @ 100 mls/hr ONCE ONCE IV 02/23/17 23:30 02/23/17 23:59 DC 02/23/17 23:28 100 MLS/HR Dexamethasone Sodium Phosphate 30 mg ONCE ONCE IH 02/23/17 23:00 02/23/17 23:01 DC 02/23/17 23:23 30 MG Diphenhydramine HCl 50 mg ONCE ONCE IVP 02/23/17 23:30 02/23/17 23:31 DC 02/23/17 22:45 50 MG Famotidine 40 mg ONCE ONCE IVP 02/23/17 23:30 02/23/17 23:31 DC 02/23/17 22:44 40 MG Furosemide 80 mg ONCE ONCE IVP 02/23/17 23:30 02/23/17 23:31 DC 02/23/17 23:28 80 MG Methylprednisolone Sodium Succinate 125 mg ONCE ONCE IVP 02/23/17 23:30 02/23/17 23:31 DC 02/23/17 22:44 125 MG Vital Signs/I&O Vital Sign - Last 12Hours 02/23/17 02/23/17 02/23/17 02/23/17 22:40 22:45 22:45 23:26 Temp 99.2 Pulse 87 83 Resp 12 16 B/P (MAP) 145/102 (116) Pulse Ox 96 99 95 O2 Delivery OxyMask OxyMask Venturi Mask O2 Flow Rate 10.00 50.00 FiO2 50 Capillary Refill : Less Than 3 Seconds Blood Pressure Mean: 66 Progress Note : Progress Note PT GIVEN SOLU-MEDROL, PEPCID, BENADRYL AND EPINEPHRINE SUB Q PT PLACED ON BIPAP AFTER RECEIVING ABG RESULTS PT GIVEN DUO-NEB TREATMENT + DECADRON INHALATION PT MUCH IMPROVED AT ADMIT. PT RESTING QUIETLY AND RESPIRATIONS ARE EVEN AND UNLABORED. PT STILL NOT TALKING MUCH /ANSWERING QUESTIONS OR FOLLOWING COMMANDS. O2 SATS REMAINED IN UPPER 90'S-100% FOR ENTIRE ER STAY. NO DETERIORATION IN PT'S CONDITION ECG Initial ECG Impression Time: 22:55 Initial ECG Rate: 87 Initial ECG Rhythm: Normal Sinus Initial ECG Impression: Nonspecific Changes Initial ECG Comparisson: No Previous ECG Available Diagnostic Imaging Comments CXR--BIBASILAR ATELECTASIS/INFILTRATES, POSSIBLE PULMONARY EDEMA? --PENDING RADIOLOGIST REVIEW Reviewed: Reviewed by Me Departure Communication (Admissions) Progress Notes [id number]--SPOKE WITH DR. CRAIG, ACCEPTS PT FOR ADMIT Impression Impression: Primary Impression: Acute and chronic respiratory failure Additional Impressions: Pneumonia Chronic renal failure COPD (chronic obstructive pulmonary disease) Disposition: ADMITTED INPATIENT Condition: Improved Admissions Decision to Admit Reason: Admit from ER (General) Decision to Admit/Date: Feb 23, 2017 Time/Decision to Admit Time: 22:30 Departure-Patient Inst. Referrals: PRO HERRERA MD (PCP) Primary Care Physician SWEETIE SULLIVAN DO Feb 24, 2017 05:04
[2017-02-24 05:12] LABS: ALBUMIN 3.9 GM/DL (3.2-4.5); BILIRUBIN,TOTAL 0.2 MG/DL (0.1-1.0); CALCIUM 9.6 MG/DL (8.5-10.1); CREATININE SERUM 2.35 MG/DL (0.60-1.30); POTASSIUM 4.6 MMOL/L (3.6-5.0); TOTAL PROTEIN 7.1 GM/DL (6.4-8.2)
[2017-02-24] MEDS: methylPREDNISolone 125 MG (Solu-MEDROL) VIAL IV SCH ×2 (05:47→11:47)
[2017-02-24] MEDS: CATHETER FLUSH 10 ML SYR IV SCH ×2 (05:47→13:33)
--- NOTE | 2017-02-24 06:41 | Diagnostic Imaging Report ---
INDICATION: Shortness of breath. History of congestive failure. Comparison with 02/23/2017. FINDINGS: There is increasing infiltrate in the right perihilar region and right upper lobe as well as left lower lobe when compared with previous exam. The heart is mildly enlarged. Small pleural effusion is noted on the left. IMPRESSION: Developing bilateral alveolar infiltrate with left basilar pleural effusion and cardiomegaly. Dictated by: Dictated on workstation # [id number]
--- NOTE | 2017-02-24 07:58 | Diagnostic Imaging Report ---
INDICATION: Shortness of breath. Comparison with 02/23/2017. FINDINGS: There is improved aeration. Decreasing infiltrate is noted in the right upper lung. There continues to be some infiltrate in the left lung base with obscuration of the left hemidiaphragm. Left upper lung is clear. Heart mildly enlarged. No pneumothorax or pleural effusions. IMPRESSION: 1. Improvement of the right lung with clearing of right upper lobe infiltrate. 2. Persistent left lower lobe infiltrate unchanged. Dictated by: Dictated on workstation # [id number]
--- NOTE | 2017-02-24 08:02 | History & Physical-Hospitalist ---
HPI History of Present Illness: HPI/Chief Complaint Pt is an 86yoCF with a PMH of HTN, hypothyroidism, and "asthma" per family. She is unable to provide me any history at this time. When I took her BiPAP off to interview her she was only able to tell me "I'm not awake." All history is thus obtained from the medical records and her granddaughter. Per review of records she was seen in the ER yesterday for a fall and had hip xrays done. She was given morphine for her pain from the fall during that visit and was discharged home. Granddaughter reports she normally does not tolerate morphine and when she returned home she had worsening respiratory status starting around 1700. She was given breathing treatments at home but continued to worsen despite this so EMS was called to bring her to the ER for evaluation. She was found to be in acute respiratory failure here. XR revealed newly developing infiltrate in the left lung compared to x-ray earlier that day. She was found to have a mixed acidosis on ABG and noted to have a lactic acidosis on chemistry. She was admitted to the ICU for further management. Source: family, RN/, old records Date Seen 02/24/17 Time Seen by Provider: 07:20 Attending Physician Ada Jiménez MD PCP Carlos Eduardo Serrano MD Referring Physician Date of Admission Feb 23, 2017 at 11:30 pm Home Medications & Allergies Home Medications Reviewed patient Home Medication Reconciliation Form Allergies Allergies Coded Allergies fentanyl (Verified Adverse Reaction, Unknown, 11/02/14) morphine (Verified Adverse Reaction, Unknown, 02/23/17) penicillin (Verified Adverse Reaction, Unknown, 11/02/14) Uncoded Allergies TETANUS ( Adverse Reaction, Unknown, 11/02/14) Past Sihladr-Wltxtc-Zacdkk Hx Patient Social History Employed/Student: retired Alcohol Use: Occasionally Uses Number of Drinks Today: GG Alcohol Beverage of Choice: Whiskey Recreational Drug Use: No Smoking Status: Former Smoker Former Smoker, Quit: Feb 19, 2011 Type Used: Cigarettes Physical Abuse Screen: No Sexual Abuse: No Recent Foreign Travel: No Contact w/other who traveled: No Recent Hopitalizations: No Recent Infectious Disease Expo: No Immunizations Up To Date Tetanus Booster (TDap): Unknown Pediatric: No Date of Pneumonia Vaccine: Feb 16, 2014 Date of Influenza Vaccine: Dec 18, 2015 Seasonal Allergies Seasonal Allergies: No Surgeries Yes (COLONOSCOPY; KNEE SURGERY) Appendectomy, Gallbladder, Hysterectomy, Orthopedic Respiratory Yes COPD Currently Using CPAP: No Currently Using BIPAP: No Cardiovascular Yes Chronic Edema/Swelling, High Cholesterol, Hypertension Neurological Yes (Peripheral Neuropathy, chronic weakness, RLS) Dementia, Headaches /Migraines, Neuropathy, Stroke, TIA Reproductive System Hx Reproductive Disorders: No 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, 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 Genitourinary Yes Renal Failure Gastrointestinal Yes Gastroesophageal Reflux, Diverticulosis Musculoskeletal Yes (CHRONIC PAIN ) Degenerate Disk Disease, Arthritis, Chronic Back Pain, Fractures, Gout Endocrine History of Endocrine Disorders: Yes Endocrine Disorders: Hyperthyroidism, Hypothyroidsim HEENT History of HEENT Disorders: Yes HEENT Disorders: Cataract, Glaucoma Loss of Vision: Bilateral Hearing Impairment: Hard of Hearing Cancer No Psychosocial History of Psychiatric Problem: Yes Behavioral Health Disorders: Anxiety, Depression Integumentary History of Skin or Integumenta: No Blood Transfusions History of Blood Disorders: Yes Adverse Reaction to a Blood Tr: No Family Medical History Significant Family History: Stroke Family Hx: Congenital heart disease 19 FATHER 19 MOTHER FH: stroke 19 FATHER 19 MOTHER G8 SISTER G8 SISTER Myocardial infarction G8 SISTER Review of Systems ROS-Unable to Obtain: Unable to provide ROS due to clinical condition Constitutional: no symptoms reported Physical Exam Physical Exam Vital Signs Vital Sign - Last 12Hours 02/23/17 02/23/17 22:40 22:45 Temp 99.2 Pulse 87 Resp 12 B/P (MAP) 145/102 (116) Pulse Ox 96 O2 Delivery OxyMask O2 Flow Rate 10.00 FiO2 50 Capillary Refill : Less Than 3 Seconds General Appearance: No Apparent Distress (tolerating BiPAP well), WD/WN, Chronically ill Respiratory: No Accessory Muscle Use, No Respiratory Distress, Decreased Breath Sounds (in bases L>R), No Wheezing, Other (BiPAP in place) Cardiovascular: Regular Rate, Rhythm, No JVD, No Murmur Extremity: Non Tender, No Calf Tenderness, No Pedal Edema Neurologic/Psychiatric: Alert (easiley arousable), Disoriented x3 Skin: Normal Color, Warm/Dry Results Results/Procedures Lab Laboratory Tests 02/23/17 22:48 02/24/17 04:25 Radiology CXR IMPRESSION: Developing bilateral alveolar infiltrate with left basilar pleural effusion and cardiomegaly. Assessment/Plan Admission Diagnosis Acute Respiratory Failure Diagnosis/Problems Diagnosis/Problems (1) Hypercapnic respiratory failure Status: Acute Assessment & Plan: ABG shows improving acidosis likely due to pneumonia Continue on MAT protocol Continue BiPAP Pulm consulted appreciate recs Qualifiers: Qualified Codes: J96.22 - Acute and chronic respiratory failure with hypercapnia (2) Pneumonia Status: Acute Assessment & Plan: Does not meet sepsis criteria (not tachycardiac, no fever, leukocytosis resolved) Continue on Ceftriaxone and Azithromycin Sputum cultures Strep pna and legionella antigens Qualifiers: Qualified Codes: J18.1 - Lobar pneumonia, unspecified organism (3) COPD (chronic obstructive pulmonary disease) Status: Acute Assessment & Plan: Baseline 3lpm oxygen requirement Qualifiers: Qualified Codes: J44.9 - Chronic obstructive pulmonary disease, unspecified (4) Chronic kidney disease (CKD) stage G4/A1, severely decreased glomerular filtration rate (GFR) between 15-29 mL/min/1.73 square meter and albuminuria creatinine ratio less than 30 mg/g Status: Chronic Assessment & Plan: Slightly above baseline of 1.8-2.0 Will trend Start IVF for slight YOGESH Clinical Quality Measures DVT/VTE Risk/Contraindication: Risk Factor Score Per Nursin RFS Level Per Nursing on Admit: 4+=Very High ADA JIMÉNEZ MD Feb 24, 2017 8:01 am
[2017-02-24] MEDS ORDERED: NS IV 1000 ML 1,000 ML IV SCH (08:30)
[2017-02-24] MEDS ORDERED: AZITHROMYCIN 250 MG TAB (ZITHROMAX) PO SCH ×2 (09:00→21:00)
[2017-02-24] MEDS ORDERED: ACETAMINOPHEN 500 MG TAB (TYLENOL) PO PRN (13:30)
[2017-02-24] MEDS ORDERED: morphine INJ 4 MG/ML 1 ML (VIAL/SYRINGE) IVP PRN ×2 (14:15→14:30)
[2017-02-24] MEDS ORDERED: morphine INJ 4 MG/ML 1 ML (VIAL/SYRINGE) ONE (14:23)
[2017-02-24] MEDS ORDERED: morphine INJ 4 MG/ML 1 ML (VIAL/SYRINGE) IVP ONE (14:30)
--- NOTE | 2017-02-24 14:51 | Clinic Account Progress/Dx ---
Clinic Account Progress/Dx DIAGNOSIS: Date Seen by Provider: Feb 24, 2017 Time Seen by Provider: 12:58 acute respiratory failure Progress Note: Called to bedside over concerns about respiratory status. When I entered room patient awake and alert with two daughters and nurse at bedside. I updated the daughters about the patient's clinical status and concerns about her respiratory distress. When asked about what her wishes would be Radha was able to answer our questions. I asked her if she wanted us to treat her for her comfort vs prolonging her life and she stated she would like to be kept comfortable. She then said "I want to go home" and her daughters stated she meant "heaven" when she referenced home. She then said "that would be alright." I asked her daughter if this was in agreement with what she had previously stated to them about her end of life wishes and they believed it to be. Orders placed for IV morphine for pain control. I called to update her grandaughter, her DPOA, who was in agreement with morphine for comfort. When she arrived family discussion was had and patient has elected to enroll in hospice. I have spoken with and arranged for [facility] to see and evaluate tonight. EMS has be contacted for nonemergent transfer to her home for tonight. ADA CRAIG MD Feb 24, 2017 14:51
[2017-02-24] MEDS ORDERED: SCOPOLAMINE 1.5 MG (TRANSDERM-SCOP) PATCH TOP SCH (15:15)
[2017-02-24] MEDS ORDERED: SALIVA STIMULANT MOUTH SPRAY (BIOTENE) 1.5 OZ MM PRN (15:15)
[2017-02-24] MEDS ORDERED: ARTIFICAL TEARS 0.4 ML UNIT DOSE (REFRESH PLUS) OU PRN (15:15)
[2017-02-24] MEDS ORDERED: LORazepam INJ 2 MG/ML (ATIVAN) VIAL IVP PRN (15:15)
[2017-02-24] MEDS ORDERED: ONDANSETRON 4 MG/2 ML (SDV) Z0FRAN IVP PRN (15:15)
[2017-02-24] MEDS ORDERED: GLYCOPYRROLATE 0.2 MG/ML (ROBINUL) 2 ML VIAL IV PRN (15:15)
[2017-02-24] MEDS ORDERED: ARTIFICIAL TEARS OINT (LACRI-LUBE) 3.5 GM TUBE OU PRN (15:15)
[2017-02-24] MEDS ORDERED: PROMETHAZINE INJ 25 MG/ML (PHENERGAN) AMP IVP PRN (15:15)
[2017-02-24] MEDS ORDERED: morphine (ROXINOL) 10 MG/0.5 ML oral conc 0.5 ML PO PRN (15:15)
[2017-02-24] MEDS ORDERED: MORP20SY PO (16:06)
[2017-02-24] MEDS ORDERED: cefTRIAXone 1 GM/NS 50 ML IVPB IV SCH ×2 (23:00)
== END 2017-02-24 17:09 | disposition hospice, home (50) | DRG 189 ==
LOC: EDUNIT# 22:40 → ER 22:42 → ICU 23:30
PROVIDERS: ADMIT Family Medicine; ATTEND Family Medicine
DX: J96.22 Acute and chronic respiratory failure with hypercapnia (principal); J18.9 Pneumonia, unspecified organism; J44.0 Chronic obstructive pulmonary disease with (acute) lower respiratory infection; I12.9 Hypertensive chronic kidney disease with stage 1 through stage 4 chronic kidney disease, or unspecified chronic kidney disease; N18.4 Chronic kidney disease, stage 4 (severe); E87.2 Acidosis; Z51.5 Encounter for palliative care; Z66 Do not resuscitate; E78.00 Pure hypercholesterolemia, unspecified; E03.9 Hypothyroidism, unspecified; F03.90 Unspecified dementia, unspecified severity, without behavioral disturbance, psychotic disturbance, mood disturbance, and anxiety; G62.9 Polyneuropathy, unspecified; G25.81 Restless legs syndrome; K21.9 Gastro-esophageal reflux disease without esophagitis; M19.91 Primary osteoarthritis, unspecified site; M54.9 Dorsalgia, unspecified; F41.9 Anxiety disorder, unspecified; H40.9 Unspecified glaucoma; H91.90 Unspecified hearing loss, unspecified ear; Z99.81 Dependence on supplemental oxygen; Z87.891 Personal history of nicotine dependence; Z86.73 Personal history of transient ischemic attack (TIA), and cerebral infarction without residual deficits
CPT/HCPCS: 36415; 51702; 70450; 71010; 73552; 80053; 81000; 82550; 82553; 82805; 83605; 83735; 83880; 84484; 85007; 85025; 85027; 85610; 85730; 87040; 87804; 93005; 93041; 94640; 94660; 96372; 96374; 96375; 96376

== ENCOUNTER 2017-08-28 05:27 | Emergency (ER) | payer MEDICARE, MEDICAID ==
[~2017-08-28] VITALS: Ht 165.1 cm; Wt 85.3 kg
[~2017-08-28 05:27] MED LIST changes: -FERR-74 PO; +FERR325T18 PO; -RANI150T15 PO; +RANI150T46 PO
--- NOTE | 2017-08-28 05:36 | ED Fall/Injury ---
General Stated Complaint: FALL Source: patient, long term records, caregiver Exam Limitations: no limitations History of Present Illness Date Seen by Provider: Aug 28, 2017 Time Seen by Provider: 05:28 Initial Comments Patient presents to the ER by EMS with a chief complaint she was getting up this morning to go to the bathroom on her own and she fell backwards landing with the back of her head against the bedpost. She lives at [facility]. She does not think she got knocked out. She's having no pain or nausea. She does not really last time she had a tetanus shot but it is listed as an allergy. Her fall occurred at approximately 5:00 this morning. She has no dysuria, shortness of breath, cough, wheezing, chest pain. Allergies and Home Medications Allergies Coded Allergies: fentanyl (Verified Adverse Reaction, Unknown, 11/02/14) morphine (Verified Adverse Reaction, Unknown, 02/24/17) Drowsy and AMS per family. Family wishes to list as allergy and to only give if family agrees first penicillin (Verified Adverse Reaction, Unknown, 11/02/14) Uncoded Allergies: TETANUS (Adverse Reaction, Unknown, 11/02/14) Home Medications Albuterol Sulfate 2.5 Mg/3 Ml Vial.neb, 2.5 MG NEB TID, (Reported) Albuterol/Ipratropium 4 Gm Aero, 1 PUFF IH QID, (Reported) Alprazolam 0.25 Mg Tablet, 0.25 MG PO HS, (Reported) Alprazolam 0.25 Mg Tablet, 0.25 MG PO PRN PRN for ANXIETY, (Reported) Bimatoprost 2.5 Ml Drops, 1 DROP OU HS, (Reported) Butalb/Acetaminophen/Caffeine 1 Each Capsule, 1 TAB PO BID, (Reported) Dextran 70/Hypromellose 15 Ml Drops, 1 DROP OU PRN PRN for DRY EYES, (Reported) Dextran 70/Hypromellose 15 Ml Drops, 1 DROP OU BID, (Reported) Diclofenac Sodium 100 Gm Gel..gram., 2 GM TP TID, (Reported) APPLY TO RIGHT KNEE Fluticasone/Salmeterol 1 Each Blst.w.dev, 1 PUFF INH BID, (Reported) Furosemide 20 Mg Tablet, 10 MG PO DAILY, (Reported) TAKES 1/2 (20MG) TABLET Gabapentin 400 Mg Capsule, 400 MG PO TID, (Reported) Guaifenesin 600 Mg Tab.er.12h, 600 MG PO BID, (Reported) Levothyroxine Sodium 125 Mcg Tablet, 125 MCG PO DAILY@0700, (Reported) Loperamide HCl 2 Mg Tablet, 4 MG PO Q6H PRN for DIARRHEA, (Reported) Mag Hydrox/Al Hydrox/Simeth 770 Ml Oral.susp, 30 ML PO UD PRN for ACID REFLUX, ( Reported) Magnesium Hydroxide 400 Mg/5 Ml Oral.susp, 30 ML PO DAILY PRN for CONSTIPATION, (Reported) Menthol/Lanolin/Calamine/Znox 71 Gm Oint, TP PRN PRN for GAULDING/REDNESS, ( Reported) Metaxalone 800 Mg Tablet, 800 MG PO TID, (Reported) Morphine Sulfate 20 Mg/1 Ml Syringe, 0.25 ML PO Q4H PRN for AIR HUNGER Prescribed by: ADA CRAIG on 02/24/17 1606 Oxycodone HCl/Acetaminophen 1 Each Tablet, 1 TAB PO Q4H PRN for PAIN-MODERATE, ( Reported) Psyllium Husk 0.52 Gm Capsule, 2 CAP PO TID, (Reported) Ranitidine HCl 150 Mg Tablet, 150 MG PO DAILY, (Reported) Patient Home Medication List Home Medication List Reviewed: Yes Review of Systems Constitutional: No fever, No malaise Eyes: Denies Blindness, Denies Blurred Vision, Denies Drainage Ears, Nose, Mouth, Throat: denies ear pain, denies ear discharge Respiratory: No cough, No short of breath Cardiovascular: No chest pain, No palpitations Gastrointestinal: No abdominal pain, No constipation Past Ahivyic-Dyfhem-Ndknwl Hx Patient Social History Alcohol Use: Past History Alcohol Beverage of Choice: Whiskey Recreational Drug Use: No Smoking Status: Former Smoker Type Used: Cigarettes Former Smoker, Quit: Feb 19, 2011 Recent Foreign Travel: No Contact w/Someone Who Travel: No Recent Hopitalizations: No Immunizations Up To Date Tetanus Booster (TDap): Unknown PED Vaccines UTD: No Date of Pneumonia Vaccine: Feb 16, 2014 Date of Influenza Vaccine: Dec 18, 2015 Seasonal Allergies Seasonal Allergies: No Past Medical History Surgeries: Yes (COLONOSCOPY; KNEE SURGERY) Appendectomy, Gallbladder, Hysterectomy, Orthopedic Respiratory: Yes Asthma, COPD Currently Using CPAP: No Currently Using BIPAP: No Cardiac: Yes Chronic Edema/Swelling, High Cholesterol, Hypertension Neurological: Yes (Peripheral Neuropathy, chronic weakness, RLS) Dementia, Headaches /Migraines, Neuropathy, Stroke, TIA Reproductive Disorders: No 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, 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 Genitourinary: Yes Renal Failure Gastrointestinal: Yes Gastroesophageal Reflux, Diverticulosis Musculoskeletal: Yes (CHRONIC PAIN ) Degenerate Disk Disease, Arthritis, Chronic Back Pain, Fractures, Gout Endocrine: Yes Hyperthyroidism, Hypothyroidsim HEENT: Yes Cataract, Glaucoma Loss of Vision: Bilateral Hearing Impairment: Hard of Hearing Cancer: No Psychosocial: Yes Anxiety, Depression Integumentary: No Blood Disorders: Yes Adverse Reaction/Blood Tranf: No Family Medical History Congenital heart disease 19 FATHER 19 MOTHER FH: stroke 19 FATHER 19 MOTHER G8 SISTER G8 SISTER Myocardial infarction G8 SISTER Stroke Physical Exam Vital Signs Vital Signs - First Documented 08/28/17 05:37 Temp 98.2 Pulse 84 Resp 18 B/P (MAP) 136/83 (100) Pulse Ox 98 Capillary Refill : General Appearance: WD/WN, no apparent distress HEENT: PERRL/EOMI, normal ENT inspection, TMs normal, pharynx normal, other ( negative for hemotympanum, norris sign, raccoon eyes. She does have a 2 cm long regular laceration over a small hematoma over the midline, occipital scalp.) Neck: non-tender, full range of motion, supple, normal inspection Cardiovascular: normal peripheral pulses, regular rate, rhythm Respiratory: chest non-tender, lungs clear, normal breath sounds, no respiratory distress, no accessory muscle use Gastrointestinal: non tender, soft Neurologic/Psychiatric: alert, normal mood/affect, other (oriented to person, place and situation) Yaima Coma Score Best Eye Response: (4) Open Spontaneously Best Verbal Response: (5) Oriented Best Motor Response: (6) Obeys Commands Yaima Total: 15 Procedures/Interventions Wound Location: Scalp Wound Length (cm): 2.5 Wound's Depth, Shape: linear, sub Q Wound Explored: clean Betadine Prep?: Yes Anesthesia: 1% Lidocaine Volume Anesthetic (ccs): 3 Staple Repair: Stapler 35W Number of Sutures: 3 Progress/Results/Core Measures Results/Orders My Orders Orders - GIANLUCA PANDYA Ct Head/Cervical Spine Wo (08/28/17 05:34) Lidocaine 1% Inj 20 Ml (Xylocaine 1% Inj (08/28/17 05:45) Medications Given in ED Current Medications Medications Dose Ordered Sig/Jamey Route Start Time Stop Time Status Last Admin Dose Admin Lidocaine HCl 20 ml ONCE ONCE INJ 08/28/17 05:45 08/28/17 05:46 DC 08/28/17 05:50 3 ML Vital Signs/I&O 08/28/17 05:37 Temp 98.2 Pulse 84 Resp 18 B/P (MAP) 136/83 (100) Pulse Ox 98 Diagnostic Imaging Diagonstic Imaging: CT Plain Films/CT/US/NM/MRI: c-spine, head Comments No acute intercranial hemorrhage, midline shift, tumor, mass effect, calvarial fracture. C-spine without misalignment, fracture, subluxation. Chronic degenerative changes noted. Reviewed: Reviewed by Me Departure Impression Primary Impression: S/P FALL Additional Impression: Occipital scalp laceration Qualified Codes: S01.01XA - Laceration without foreign body of scalp, initial encounter Disposition: HOME, SELF-CARE Condition: Stable Departure-Patient Inst. Decision time for Depature: 05:59 Referrals: PRO HERRERA MD (PCP/Family) Primary Care Physician Patient Instructions: Laceration Repair With [place] (DC) Add. Discharge Instructions: Return to the ER in 7-10 days to have the liza removed. You can also have your primary care doctor do this or nursing staff at your facility. If you begin to have drainage from the wound there is increasing or fevers, increasing pain, nausea or other worrisome symptoms then you should follow-up with your doctor to reevaluate. Copy Copies To 1: PRO HERRERA MD, TITUS J Aug 28, 2017 05:36
[2017-08-28] MEDS ORDERED: LIDOCAINE 1% INJ 20 ML 20 ML VIAL INJ ONE (05:45)
[2017-08-28 06:05] VITALS: BP 136/83
--- NOTE | 2017-08-28 08:45 | Diagnostic Imaging Report ---
PROCEDURE: CT head and CT cervical spine without contrast. TECHNIQUE: Multiple contiguous axial images were obtained through the brain and cervical spine without the use of intravenous contrast. Sagittal and coronal reformations through the cervical spine were then performed. INDICATION: Fall with trauma to head. Comparison: 02/23/2017 Findings: CT head: The ventricles and cortical sulci are diffusely prominent, compatible with age-related volume loss. There are confluent areas of abnormal, low attenuation in the periventricular white matter. This is consistent with chronic small vessel ischemic changes. There is no midline shift or mass-effect. No acute intra-axial hemorrhage is seen. There are no abnormal areas of increased or decreased density to suggest acute hemorrhage or edema. No extra-axial masses or collections are present. The bony calvarium is intact. The visualized paranasal sinuses are unremarkable. The mastoid air cells are partially opacified on the right. CT cervical spine: Evaluation static alignment demonstrates straightening with slight bursal normal lordotic curvature epicentered at the C5 level. There is also mild grade 1 and 2 cc at the C3-C4 and C4-C5 levels. Findings may relate to underlying positioning, spasm, as well as degenerative changes. There is no evidence of jumped facets. 2 right heights are maintained. There is no evidence acute fracture. No bony fragments are seen within the spinal canal. There are moderate multilevel degenerative changes consisting of intervertebral disc height loss with anterior and posterior discussed by complex formations, as well as multilevel facet arthropathy. These changes appear greatest at the C5-C6 and C6-C7 levels. Pre-and paravertebral soft tissue structures are unremarkable. Note is made of calcified aortic and carotid atherosclerosis. Included portions of lung apices are unremarkable. IMPRESSION: 1. No acute intracranial abnormality. No CT evidence of mass, acute infarct or intracranial hemorrhage. 2. Chronic small vessel ischemic changes in deep white matter. 3. No CT evidence acute fracture or dislocation of cervical spine. 4. Multilevel degenerative changes of the cervical spine, greatest at C5-C6 and C6-C7 levels. Dictated by: Dictated on workstation # [id number]
== END 2017-08-28 06:05 | disposition home or self-care (01) ==
LOC: EDUNIT# 05:27 → ER 05:28
DX: S01.01XA Laceration without foreign body of scalp, initial encounter (principal); J44.9 Chronic obstructive pulmonary disease, unspecified; E78.00 Pure hypercholesterolemia, unspecified; I10 Essential (primary) hypertension; G43.909 Migraine, unspecified, not intractable, without status migrainosus; F03.90 Unspecified dementia, unspecified severity, without behavioral disturbance, psychotic disturbance, mood disturbance, and anxiety; K21.9 Gastro-esophageal reflux disease without esophagitis; R40.2142 Coma scale, eyes open, spontaneous, at arrival to emergency department; R40.2252 Coma scale, best verbal response, oriented, at arrival to emergency department; R40.2362 Coma scale, best motor response, obeys commands, at arrival to emergency department; M10.9 Gout, unspecified; E03.9 Hypothyroidism, unspecified; E05.90 Thyrotoxicosis, unspecified without thyrotoxic crisis or storm; F41.9 Anxiety disorder, unspecified; F32.9 Major depressive disorder, single episode, unspecified; Z86.73 Personal history of transient ischemic attack (TIA), and cerebral infarction without residual deficits; Z87.19 Personal history of other diseases of the digestive system; Z88.5 Allergy status to narcotic agent; Z82.49 Family history of ischemic heart disease and other diseases of the circulatory system; Z88.0 Allergy status to penicillin; Z88.8 Allergy status to other drugs, medicaments and biological substances; Z88.7 Allergy status to serum and vaccine; Z79.51 Long term (current) use of inhaled steroids; Z87.891 Personal history of nicotine dependence; Z90.89 Acquired absence of other organs; Z90.710 Acquired absence of both cervix and uterus; W01.190A Fall on same level from slipping, tripping and stumbling with subsequent striking against furniture, initial encounter; Y92.003 Bedroom of unspecified non-institutional (private) residence as the place of occurrence of the external cause
CPT/HCPCS: 70450; 72125

== ENCOUNTER 2018-02-01 10:39 | Emergency (ER) | payer MEDICARE, MEDICAID ==
[~2018-02-01] VITALS: Ht 162.6 cm; Wt 77.1 kg
[~2018-02-01 10:39] MED LIST changes: -OXYC-197 PO; +OXYC1TAB87 PO
--- NOTE | 2018-02-01 10:45 | ED Head Injury ---
General Stated Complaint: FALL/HEAD INJ Source: EMS, prison records Exam Limitations: no limitations History of Present Illness Date Seen by Provider: Feb 01, 2018 Time Seen by Provider: 10:44 Initial Comments To ER per EMS from [facility] where she is on hospice for COPD with reports of a fall. She fell striking the left occipital region of her head on the dresser this morning. Unknown loss of consciousness. Occurred: just prior to arrival Severity: moderate Location: occipital, parietal Method of Injury: fell Loss of Consciousness: unsure Allergies and Home Medications Allergies Coded Allergies: fentanyl (Verified Adverse Reaction, Unknown, 11/02/14) morphine (Verified Adverse Reaction, Unknown, 02/24/17) Drowsy and AMS per family. Family wishes to list as allergy and to only give if family agrees first penicillin (Verified Adverse Reaction, Unknown, 11/02/14) Uncoded Allergies: TETANUS (Adverse Reaction, Unknown, 11/02/14) Home Medications Albuterol Sulfate 2.5 Mg/3 Ml Vial.neb, 2.5 MG NEB TID, (Reported) Albuterol/Ipratropium 4 Gm Aero, 1 PUFF IH QID, (Reported) Alprazolam 0.25 Mg Tablet, 0.25 MG PO HS, (Reported) Alprazolam 0.25 Mg Tablet, 0.25 MG PO PRN PRN for ANXIETY, (Reported) Bimatoprost 2.5 Ml Drops, 1 DROP OU HS, (Reported) Butalb/Acetaminophen/Caffeine 1 Each Capsule, 1 TAB PO BID, (Reported) Dextran 70/Hypromellose 15 Ml Drops, 1 DROP OU PRN PRN for DRY EYES, (Reported) Dextran 70/Hypromellose 15 Ml Drops, 1 DROP OU BID, (Reported) Diclofenac Sodium 100 Gm Gel..gram., 2 GM TP TID, (Reported) APPLY TO RIGHT KNEE Fluticasone/Salmeterol 1 Each Blst.w.dev, 1 PUFF INH BID, (Reported) Furosemide 20 Mg Tablet, 10 MG PO DAILY, (Reported) TAKES 1/2 (20MG) TABLET Gabapentin 400 Mg Capsule, 400 MG PO TID, (Reported) Guaifenesin 600 Mg Tab.er.12h, 600 MG PO BID, (Reported) Levothyroxine Sodium 125 Mcg Tablet, 125 MCG PO DAILY@0700, (Reported) Loperamide HCl 2 Mg Tablet, 4 MG PO Q6H PRN for DIARRHEA, (Reported) Mag Hydrox/Al Hydrox/Simeth 770 Ml Oral.susp, 30 ML PO UD PRN for ACID REFLUX, ( Reported) Magnesium Hydroxide 400 Mg/5 Ml Oral.susp, 30 ML PO DAILY PRN for CONSTIPATION, (Reported) Menthol/Lanolin/Calamine/Znox 71 Gm Oint, TP PRN PRN for GAULDING/REDNESS, ( Reported) Metaxalone 800 Mg Tablet, 800 MG PO TID, (Reported) Morphine Sulfate 20 Mg/1 Ml Syringe, 0.25 ML PO Q4H PRN for AIR HUNGER Prescribed by: ADA CRAIG on 02/24/17 1606 Oxycodone HCl/Acetaminophen 1 Each Tablet, 1 TAB PO Q4H PRN for PAIN-MODERATE, ( Reported) Psyllium Husk 0.52 Gm Capsule, 2 CAP PO TID, (Reported) Ranitidine HCl 150 Mg Tablet, 150 MG PO DAILY, (Reported) Patient Home Medication List Home Medication List Reviewed: Yes Review of Systems Review of Systems Constitutional: see HPI Eyes: No Symptoms Reported Ears, Nose, Mouth, Throat: no symptoms reported Respiratory: no symptoms reported Cardiovascular: no symptoms reported Genitourinary: no symptoms reported Musculoskeletal: see HPI Skin: no symptoms reported Psychiatric/Neurological: No Symptoms Reported Past Lhktnmn-Izrsev-Zswzko Hx Patient Social History Alcohol Beverage of Choice: Whiskey Type Used: Cigarettes Former Smoker, Quit: Feb 19, 2011 Recent Hopitalizations: No Immunizations Up To Date Tetanus Booster (TDap): Unknown PED Vaccines UTD: No Date of Pneumonia Vaccine: Feb 16, 2014 Date of Influenza Vaccine: Dec 18, 2015 Seasonal Allergies Seasonal Allergies: No Past Medical History Surgeries: Yes (COLONOSCOPY; KNEE SURGERY) Appendectomy, Gallbladder, Hysterectomy, Orthopedic Respiratory: Yes Asthma, COPD Currently Using CPAP: No Currently Using BIPAP: No Cardiac: Yes Chronic Edema/Swelling, High Cholesterol, Hypertension Neurological: Yes (Peripheral Neuropathy, chronic weakness, RLS) Dementia, Headaches /Migraines, Neuropathy, Stroke, TIA 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, 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 Genitourinary: Yes Renal Failure Gastrointestinal: Yes Gastroesophageal Reflux, Diverticulosis Musculoskeletal: Yes (CHRONIC PAIN ) Degenerate Disk Disease, Arthritis, Chronic Back Pain, Fractures, Gout Endocrine: Yes Hyperthyroidism, Hypothyroidsim HEENT: Yes Cataract, Glaucoma Loss of Vision: Bilateral Hearing Impairment: Hard of Hearing Cancer: No Psychosocial: Yes Anxiety, Depression Integumentary: No Blood Disorders: Yes Adverse Reaction/Blood Tranf: No Family Medical History Congenital heart disease 19 FATHER 19 MOTHER FH: stroke 19 FATHER 19 MOTHER G8 SISTER G8 SISTER Myocardial infarction G8 SISTER Stroke Physical Exam Vital Signs Vital Signs - First Documented 02/01/18 10:40 Temp 97.9 Pulse 54 Resp 20 B/P (MAP) 132/74 (93) Pulse Ox 98 O2 Delivery Nasal Cannula O2 Flow Rate 2.00 Capillary Refill : Height, Weight, BMI Height: 5'5.00" Weight: 188lbs. 0.0oz. 85.524570so; 31.1 BMI Method:Stated General Appearance: WD/WN, no apparent distress HEENT: PERRL/EOMI, normal ENT inspection, TMs normal, other (left parietal/ occipital scalp hematoma without bleeding or laceration) Neck: non-tender, full range of motion, other (no tenderness to palpation but she is in a rigid cervical collar.) Respiratory: no respiratory distress, no accessory muscle use, decreased breath sounds Extremities: normal range of motion, non-tender Psychiatric: alert, disoriented x 3 Crainal Nerves: PERRL, other (very hard of hearing) Yaima Coma Score Best Eye Response: (4) Open Spontaneously Best Verbal Response: (4) Confused Conversation Best Motor Response: (6) Obeys Commands Yaima Total: 14 Progress/Results/Core Measures Results/Orders My Orders Orders - PATRICIA BERGERON APRN Ct Head/Cervical Spine Wo (02/01/18 10:44) Vital Signs/I&O 02/01/18 02/01/18 10:40 12:11 Temp 97.9 97.7 Pulse 54 51 Resp 20 18 B/P (MAP) 132/74 (93) 125/59 (81) Pulse Ox 98 100 O2 Delivery Nasal Cannula Nasal Cannula O2 Flow Rate 2.00 2.00 Departure Impression Primary Impression: Scalp contusion Qualified Codes: S00.03XA - Contusion of scalp, initial encounter Additional Impression: Closed head injury Qualified Codes: S09.90XA - Unspecified injury of head, initial encounter Disposition: 01 HOME, SELF-CARE Condition: Stable Departure-Patient Inst. Decision time for Depature: 12:02 Referrals: PRO HERRERA MD (PCP/Family) Primary Care Physician Patient Instructions: Closed Head Injury Add. Discharge Instructions: 1. Return to ER for any concerns 2. Follow-up with her doctor. Call today to make an appointment. PATRICIA BERGERON APRN Feb 01, 2018 10:45
--- OUTSIDE RECORDS SUMMARY | 2018-02-01 11:04 | XMS REPORT ---
Author Author HEAVEN PRUETT [facility] Address [address] [place] [address] Phone Unavailable Care Team Providers Care Expanded Function Dental Assistant Name Role Phone HEAVEN PRUETT Unavailable Unavailable PROBLEMS Unknown Problems ALLERGIES No Known Allergies ENCOUNTERS Encounter Location Date Diagnosis [facility] [id number] [phone] Jun, Dental examination Z01.20 [facility] [id number] [place] [id number] Dec, Encounter for dental examination and cleaning without abnormal findings Z01.20 [facility] [id number] [phone] Jun, Encounter for dental examination [address]01.[id number] [id number] [id number] Dec, Encounter for dental examination Z01.20 [facility] [id number] [place] [phone] May, Encounter for dental examination and cleaning without abnormal findings Z01.20 [facility] [address] [facility] [id number] [id number] Jun, Dental examination V72.2 [facility] [address] [place] [address] Feb, [facility] [id number], [place] [address] Feb, [facility] [address] [place] [address] Jan, [facility] [id number], [place] [address] Jan, IMMUNIZATIONS No Known Immunizations SOCIAL HISTORY Never Assessed REASON FOR VISIT ADULT OUTREACH [facility] [place] PLAN OF CARE Activity Details Follow Up 6 Months Reason:ON SITE RECALL VITAL SIGNS MEDICATIONS Medication Instructions Dosage Frequency Start Date End Date Duration Status Zofran Active OxyContin Active Procardia 10 MG Orally Three times a day 1 capsule 8h Active Fioricet Active Synthroid 125 MCG Orally Once a day 1 tablet 24h Active Calmoseptine Active Colcrys Active Probiotic - Active albuterol Active Combivent Active Skelaxin Not-Taking Maalox Active Loperamide A-D 2 MG Active Mirapex 0.125 MG Orally Once a day 1 tablet before bedtime 24h Active Milk of Magnesia 400 MG/5ML Orally Four times a day 5 ml as needed 6h Active Neurontin Active Zantac Active Mobic Active Voltaren Active Colchicine 0.6 MG Orally Once a day 1 tablet 24h Active Allopurinol Active Advair Diskus 250-50 MCG/DOSE Inhalation Twice a day 1 puff 12h Active Xanax 0.25 MG Orally Three times a day 1 tablet 8h Active atenolol Active Tenormin 25 MG Orally Once a day 1 tablet 24h Active Calcium Carbonate 500 MG Orally Once a day 1 tablet 24h Active Mevacor 40 MG Orally Once a day 1 tablet with a meal 24h Active Aggrenox Active Metaxalone 800 MG Orally Three times a day 1 tablet 8h Active lasix 1 tab Active Percocet Active Lasix 20 MG Orally Once a day 1 tablet 24h Active Ultram Active RESULTS No Results PROCEDURES Procedure Date Ordered Result Body Site SCREENING OF A PATIENT July 05, 2017 INSTRUCTIONS MEDICATIONS ADMINISTERED No Known Medications MEDICAL (GENERAL) HISTORY Type Description Date Medical History STROKE
--- OUTSIDE RECORDS SUMMARY | 2018-02-01 11:04 | XMS REPORT ---
Author Author TAMERA KIM [facility] Address [address] [place] [address] Care Team Providers Care Support Director Name Role Phone TAMERA KIM Unavailable PROBLEMS Unknown Problems ALLERGIES No Known Allergies ENCOUNTERS Encounter Location Date Diagnosis [facility] [address] [id number] [phone] Jun, Dental examination Z01.20 [facility] [address] [id number] [phone] Dec, Encounter for dental examination and cleaning without abnormal findings Z01.20 [facility] [address] [id number] [phone] Jun, Encounter for dental examination Z01.[address] [facility] [address] [id number] [phone] Dec, Encounter for dental examination Z01.20 [facility] [address] [id number] [phone] May, Encounter for dental examination and cleaning without abnormal findings Z01.20 [facility] [address] [id number] [phone] Jun, [facility] V72.2 [facility] [place] [address] [id number] [place] [phone] Feb, [facility] [address] [facility] [id number] [address] Feb, [facility] [place] [address] [id number] [place] [phone] Jan, [facility] [address] [facility] [id number], [place] [address] Jan, IMMUNIZATIONS No Known Immunizations SOCIAL HISTORY Never Assessed REASON FOR VISIT PLAN OF CARE VITAL SIGNS MEDICATIONS Medication Instructions Dosage Frequency Start Date End Date Duration Status Synthroid 125 MCG Orally Once a day 1 tablet 24h Active albuterol Active Colcrys Active Zofran Active Combivent Active Calcium Carbonate 500 MG Orally Once a day 1 tablet 24h Active Metaxalone 800 MG Orally Three times a day 1 tablet 8h Active Mobic Active Procardia 10 MG Orally Three times a day 1 capsule 8h Active Colchicine 0.6 MG Orally Once a day 1 tablet 24h Active Mevacor 40 MG Orally Once a day 1 tablet with a meal 24h Active Mirapex 0.125 MG Orally Once a day 1 tablet before bedtime 24h Active lasix 1 tab Active Aggrenox Active Calmoseptine Active Milk of Magnesia 400 MG/5ML Orally Four times a day 5 ml as needed 6h Active Probiotic - Active Lasix 20 MG Orally Once a day 1 tablet 24h Active atenolol Active Maalox Active Xanax 0.25 MG Orally Three times a day 1 tablet 8h Active Percocet Active Advair Diskus 250-50 MCG/DOSE Inhalation Twice a day 1 puff 12h Active Voltaren Active OxyContin Active Zantac Active Loperamide A-D 2 MG Active Fioricet Active Ultram Active Tenormin 25 MG Orally Once a day 1 tablet 24h Active Neurontin Active Allopurinol Active RESULTS No Results PROCEDURES Procedure Date Ordered Result Body Site SCREENING OF A PATIENT Jan 11, 2017 Billing Notes on claim Jan 11, 2017 INSTRUCTIONS MEDICATIONS ADMINISTERED No Known Medications MEDICAL (GENERAL) HISTORY Type Description Date Medical History STROKE
--- NOTE | 2018-02-01 12:00 | Diagnostic Imaging Report ---
PROCEDURE: CT head and CT cervical spine without contrast. TECHNIQUE: Multiple contiguous axial images were obtained through the brain and cervical spine without the use of intravenous contrast. Sagittal and coronal reformations through the cervical spine were then performed. INDICATION: Fall and head injury. Correlation is made with prior CT from 08/28/2017. CT HEAD: The ventricles and sulci are consistent with the patient's age. There is significant periventricular low density consistent with chronic microvascular ischemia. 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 No sulcal effacement is seen. There is no midline shift. No acute intra-axial or extra-axial hemorrhage is detected. Cisterns are patent. Visualized paranasal sinuses are clear. IMPRESSION: Chronic and senescent changes. No acute intracranial process is detected. CT CERVICAL SPINE: Minimal anterolisthesis of C2 on C3 and C3 on C4 as well as C4 on C5 is again noted and similar to prior exam. There is multilevel degenerative disc disease with variable disc space narrowing and marginal spurring, greatest at C5-C6 and C6-C7 levels. Multilevel facet arthropathy is also noted. No fracture is seen. The prevertebral tissues are within normal limits. Odontoid is intact. IMPRESSION: Cervical spondylosis and listhesis, stable since prior exam. No acute abnormality is detected. Dictated by: Dictated on workstation # [id number]
[2018-02-01 12:11] VITALS: BP 125/59
== END 2018-02-01 12:13 | disposition home or self-care (01) ==
LOC: EDUNIT# 10:39 → ER 10:40
DX: S09.90XA Unspecified injury of head, initial encounter (principal); S00.03XA Contusion of scalp, initial encounter; J44.9 Chronic obstructive pulmonary disease, unspecified; E78.00 Pure hypercholesterolemia, unspecified; I10 Essential (primary) hypertension; F03.90 Unspecified dementia, unspecified severity, without behavioral disturbance, psychotic disturbance, mood disturbance, and anxiety; G43.909 Migraine, unspecified, not intractable, without status migrainosus; K21.9 Gastro-esophageal reflux disease without esophagitis; E05.90 Thyrotoxicosis, unspecified without thyrotoxic crisis or storm; E03.9 Hypothyroidism, unspecified; F41.9 Anxiety disorder, unspecified; F32.9 Major depressive disorder, single episode, unspecified; M10.9 Gout, unspecified; R40.2142 Coma scale, eyes open, spontaneous, at arrival to emergency department; R40.2242 Coma scale, best verbal response, confused conversation, at arrival to emergency department; R40.2362 Coma scale, best motor response, obeys commands, at arrival to emergency department; Z87.19 Personal history of other diseases of the digestive system; Z86.73 Personal history of transient ischemic attack (TIA), and cerebral infarction without residual deficits; Z82.49 Family history of ischemic heart disease and other diseases of the circulatory system; Z88.5 Allergy status to narcotic agent; Z88.0 Allergy status to penicillin; Z88.8 Allergy status to other drugs, medicaments and biological substances; Z79.51 Long term (current) use of inhaled steroids; Z87.891 Personal history of nicotine dependence; Z90.710 Acquired absence of both cervix and uterus; Z90.89 Acquired absence of other organs; W19.XXXA Unspecified fall, initial encounter; W22.03XA Walked into furniture, initial encounter
CPT/HCPCS: 70450; 72125